=== PATIENT | female | born 1940 | race Caucasian/White ===

== ENCOUNTER 2020-05-31 08:01 | Emergency (ER) | payer MEDICARE, SELFPAY ==
--- NOTE | ~2020-05-31 | CT_ITS ---
EXAMINATION: CT brain wo con DATE: 05/31/2020 08:58 INDICATION: Head injury. TECHNIQUE: Computed tomography (CT) of the head was performed without intravenous contrast. The mA wa s adjusted according to patient size. Iterative reconstruction technique was employed. The dose-lengt h product was 605.33 mGy-cm. COMPARISON: None FINDINGS: There are scattered areas of low attenuation in the cerebral white matter. There is no intr acranial hemorrhage, acute infarction, or abnormal intracranial mass lesion. The ventricles are fifi l in size. There are likely changes of right ocular lens replacement surgery. There is mild mucosal t hickening in the ethmoid sinuses. There is a small left mastoid effusion. There is left periorbital s oft tissue swelling. IMPRESSION: 1. Moderate nonspecific cerebral white matter disease, which likely represents chronic small vessel i schemic disease. Reviewed, dictated and finalized at location A. IMPRESSION: 1. Moderate nonspecific cerebral white matter disease, which likely represents chronic small vessel ischemic disease.
--- NOTE | ~2020-05-31 | XR_ITS ---
XR ribs LT 2V w CXR 2V DATE: 05/31/2020 09:07 INDICATION: Fall. Left lower lateral rib injury, pain TECHNIQUE: AP and lateral chest. 3 views of the left ribs. COMPARISON: 08/22/2014 2 view chest FINDINGS: Heart size is borderline. There is thoracic aortic calcification. No pulmonary infiltrate o r consolidation, pleural effusion or pulmonary vascular congestion or pneumothorax is evident. Diffuse osteopenia. There are multiple acute left rib fractures including mild left third, fourth, fifth, sixth ribs. IMPRESSION: At least third through sixth left rib acute fractures No pneumothorax Reviewed, dictated and finalized at location A.
--- NOTE | ~2020-05-31 | CT_ITS ---
EXAMINATION: CT facial bones wo con DATE: 05/31/2020 08:58 INDICATION: Head injury. TECHNIQUE: Computed tomography (CT) of the facial bones and maxillofacial region was performed withou t intravenous contrast. Automated exposure control and iterative reconstruction technique were employ ed. The dose-length product was 321.02 mGy-cm. COMPARISON: None. FINDINGS: There is left periorbital soft tissue swelling. No orbital involvement. There are likely ch anges of right ocular lens replacement surgery. There is rightward deviation of the nasal septum. The re is mild mucosal thickening in the paranasal sinuses. There is a small left mastoid effusion. IMPRESSION: 1. No fracture. Reviewed, dictated and finalized at location A. IMPRESSION: 1. No fracture.
[2020-05-31 08:09] VITALS: BP 191/92; PULSE 82; RESP 18; TEMP 36.1; O2SAT 97
--- NOTE | 2020-05-31 08:38 | ED.FALL ---
HPI - Fall General Chief Complaint: Fall Stated Complaint: Fall Multiple Times, Rib Pain Time Seen by Provider: 05/31/20 08:20 Source: patient Mode of arrival: ambulatory History of Present Illness HPI Narrative: 80 years old white female presents with left forehead and left rib pain. History of multiple falls for months. Also chronic pain all over the body, currently on hydrocodone. Patient had a fall 2 days ago, her knees gave out, went down on her knees then head left forehead on a rocking chair. No loss of consciousness, no complaints. Patient had another fall 1 week ago landed on the chest and has been having left chest pain since. Patient on Coumadin. Patient denies any fever, chills, nausea, vomiting, headache, shortness of breath, neck pain, exposure to anybody known having COVID-19 Related Data Home Medications Medication Instructions Recorded Confirmed ergocalciferol (vitamin D2) 1,250 mcg PO WEEKLY 05/31/20 [Drisdol] furosemide See Rx Instructions .ROUTE .COMPLEX 05/31/20 hydrocodone-acetaminophen [[place]] 1 tablet PO Q8H PRN 05/31/20 lisinopril DAILY 05/31/20 potassium chloride meq PO DAILY 05/31/20 warfarin See Rx Instructions .ROUTE .COMPLEX 05/31/20 Allergies Allergy/AdvReac Type Severity Reaction Status Date / Time No Known Allergies Allergy Verified 05/31/20 08:20 Review of Systems Review of Systems: Narrative: CONSTITUTIONAL: Denies fever, chills, or sweats. EYES: Denies visual changes, redness, or discharge. ENT: Denies rhinorrhea, congestion, sore throat, or otalgia. CARDIOVASCULAR: Denies chest pain, palpitations, or edema. RESPIRATORY: Denies cough or dyspnea. GASTROINTESTINAL: Denies abdominal pain, nausea, vomiting, or diarrhea. GENITOURINARY: Denies dysuria or hematuria. SKIN: Denies rash or itching. MUSCULOSKELETAL: Denies back pain, joint pain, or myalgia. NEUROLOGIC: Denies headache, numbness, or weakness. PSYCHIATRIC: Denies anxiety or depression. [facility] Family History Family History Mother Hypertension, Onset Age: 73 Cerebrovascular accident, Onset Age: 73 Family history of arthritis, Onset Age: 73 Grandparent Acute myocardial infarction, Onset Age: 82 Sibling Family history of malignant neoplasm Father Family history of coronary artery disease Family history of pancreatic disease Social History Social History Smoking status: Never smoker Alcohol intake: never Gender identity (if verbalized by the patient): Female Exam Narrative: Exam Narrative: General appearance: Well-developed, well-nourished Skin: Normal color, bruises of the upper and lower eyelids Head: Normocephalic, nontraumatic Eyes: Clear conjunctiva ENT: Oropharynx normal, ears normal, nose normal Neck: Supple, nontender Chest and respiratory: Airway patent, no respiratory distress, no accessory muscle use, severe tenderness left chest Heart: Regular rate/rhythm Abdomen: Soft, nontender, no organomegaly, quiet bowel sounds Vascular: Normal peripheral pulses, normal capillary refill. 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 Reevaluation(s) Date: 05/31/20 Time: 10:39 Vital Signs Vital signs: Vital Signs Temperature 36.1 C L 05/31/20 08:09 Pulse Rate 82 05/31/20 08:09 Respiratory Rate 18 05/31/20 08:09 Bloo
[2020-05-31] MEDS: HYDROcodone/acetaminophen (*CRX) 5-325 MG TABLET 1 TAB PO (09:11)
[2020-05-31 09:14] VITALS: BP 179/94; PULSE 77; RESP 16; O2SAT 98
[2020-05-31 10:00] LABS: Basophils Percent Auto 0.4 % (0.2-1.2); Eosinophils Absolute Auto 0.1 K/mm3 (0-0.3); Eosinophils Percent Auto 1.9 % (0-4.4); Hematocrit 32.3 % (37.0-47.0); Hemoglobin 10.4 g/dL (12.0-15.0); Immature Granulocyte Absolute 0.01 K/mm3 (0.00-0.031); Immature Granulocyte Percent A 0.2 % (0-0.5); Lymphocytes Absolute Auto 1.01 K/mm3 (0.9-3.2); Lymphocytes Percent Auto 19.5 % (18.3-44.2); Mean Corpuscular HGB Conc 32.2 g/dl (32-36); Mean Corpuscular Hemoglobin 29.1 pg (26-34); Mean Corpuscular Volume 90.5 fl (80-100); Mean Platelet Volume 9.1 fl (7.4-10.4); Monocytes Absolute Auto 0.8 K/mm3 (0.1-0.6); Neutrophils Absolute Auto 3.2 K/mm3 (1.3-6.7); Platelet Count Result 262 k/mm3 (150-375); Red Blood Count 3.57 M/mm3 (4.2-5.4); Red Cell Distribution Width 14.8 % (11.5-14.5); White Blood Count 5.2 K/mm3 (4.5-10.0)
[2020-05-31 10:04] LABS: Add Urine Microscopic? YES; Appearance Urine Clear (Clear); Bilirubin Urine Negative (Negative); Blood Urine Negative (Negative); Color Urine Straw (Yellow); Glucose Urine UA Negative (Negative); Ketones Urine Negative (Negative); Leukocyte Esterase Ur Trace LEU/UL (Negative); Nitrate Urine Negative (Negative); Protein Urine Negative (Negative); RBC Urine 0-2 /hpf (0-2); Squamous Epithelial Cell Urine Rare /hpf (Few); Urobilinogen Urine Negative mg/dL (<2.0); WBC Urine 0-3 /hpf
[2020-05-31 10:10] LABS: INR 2.1; Prothrombin Time 22.7 Seconds (11.1-14.7)
[2020-05-31 10:13] LABS: Alanine Aminotransferase 10 U/L (4-35); Albumin Level 4.2 g/dL (3.5-5.1); Alkaline Phosphatase 105 U/L (38-126); Anion Gap 6 mmol/L (8-16); Aspartate Amino Transferase 27 U/L (14-36); Blood Urea Nitrogen 14 mg/dL (7-17); Calcium 9.3 mg/dL (8.4-10.2); Carbon Dioxide 31 mmol/L (22-30); Chloride 95 mmol/L (98-107); Estimated CRCL calculation 43 ml/min; Estimated Glomerular Filt Rate 60; Glucose 99 mg/dL (65-105); Potassium 5.3 mmol/L (3.4-5.0); Sodium 132 mmol/L (137-145)
[2020-05-31 11:59] VITALS: BP 136/90; PULSE 88; RESP 20; O2SAT 96
== END 2020-05-31 11:00 | disposition home or self-care (01) ==
PROVIDERS: Emergency Provider Emergency Medicine; PCP Family Medicine
DX: S22.42XA Multiple fractures of ribs, left side, initial encounter for closed fracture (principal); W19.XXXA Unspecified fall, initial encounter; S00.12XA Contusion of left eyelid and periocular area, initial encounter; W01.190A Fall on same level from slipping, tripping and stumbling with subsequent striking against furniture, initial encounter; Z79.01 Long term (current) use of anticoagulants
CPT/HCPCS: 36415; 70450; 70486; 71046; 71100; 80053; 81001; 85025; 85610; 99284; A9270

== ENCOUNTER 2021-08-21 12:20 | Outpatient (CLI) | payer MEDICARE, SELFPAY ==
--- NOTE | ~2021-08-21 | US_ITS ---
EXAMINATION: US carotid duplex BI EXAM DATE: 08/21/2021 13:26 INDICATION: Dizziness And Giddiness . TECHNIQUE: Grayscale, color and pulsed Doppler images of the cervical carotid arteries were obtained . The degree of vessel stenosis is placed in one of the following categories: normal, <50% stenosis, 50-69% stenosis, >=70% stenosis but less than near-occlusion, near-occlusion, or occlusion. Note that percent stenosis relative to normal distal artery lumen diameter is indirectly measured from velocit y measurements as described by Castro, et al. Radiology 2003; 229:340-346. There is no prior study fo r comparison. FINDINGS: RIGHT SIDE: Right common carotid artery peak systolic velocity (PSV in cm/s): 72 Right bulb/internal carotid artery peak systolic velocity (PSV in cm/s): 155 Right internal carotid artery end diastolic velocity (EDV in cm/s): 39 Right ICA/CCA peak systolic ratio: 2.0 Right external carotid artery peak systolic velocity (PSV in cm/s): 26 Right vertebral artery antegrade flow: yes There is minimal carotid bifurcation plaque with discordant mildly elevated velocity. Visually, less than 50% stenosis category. LEFT SIDE: Left common carotid artery peak systolic velocity (PSV in cm/s): 79 Left bulb/internal carotid artery peak systolic velocity (PSV in cm/s): 81 Left internal carotid artery end diastolic velocity (EDV in cm/s): 22 Left ICA/CCA peak systolic ratio: 1.0 Left external carotid artery peak systolic velocity (PSV in cm/s): 82 Left vertebral artery antegrade flow: yes There is no focal plaque identified. IMPRESSION: 1. Less than 50 percent stenosis in the right internal carotid artery. 2. Normal left internal carotid artery. Reviewed, dictated and finalized at location B. 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
== END 2021-08-21 12:21 | disposition home or self-care (01) ==
PROVIDERS: PCP Family Medicine; Visit Provider Family Medicine
DX: R42 Dizziness and giddiness (principal); I65.23 Occlusion and stenosis of bilateral carotid arteries
CPT/HCPCS: 93880

== ENCOUNTER 2021-11-25 14:40 | Outpatient (CLI) | payer MEDICARE, SELFPAY ==
--- NOTE | ~2021-11-25 | XR_ITS ---
XR shoulder RT min 2V DATE: 11/25/2021 15:12 INDICATION: Right shoulder pain for one month, bruising. No known injury. TECHNIQUE: 4 views COMPARISON: October 31, 2018 right shoulder FINDINGS: Diffuse osteopenia. There is prominent periarticular spurring at the glenohumeral joint consistent with osteoarthritis. T here is joint space narrowing spurring at the acromioclavicular joint consistent with degenerative ch shea. There is calcification of the region of the cortex, suggesting calcific tendinitis. No fracture or dislocation, periosteal reaction or bone destruction is detected. 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
--- NOTE | ~2021-11-25 | XR_ITS ---
XR humerus RT DATE: 11/25/2021 15:12 INDICATION: Right shoulder and arm pain, bruising TECHNIQUE: AP and lateral views of right humerus COMPARISON: None FINDINGS: Diffuse osteopenia. Degenerative change at the right acromion clavicular joint. Right glenohumeral osteoarthritis. 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 Calcification in the region of the rotator cuff suggesting calcific tendinitis. No fracture, dislocation, periosteal reaction or bone destruction of the humerus is detected. IMPRESSION: Osteopenia Calcific tendinitis of rotator cuff Degenerative changes of the acromioclavicular, glenohumeral and elbow joints Reviewed, dictated and finalized at location A.
== END 2021-11-25 14:41 | disposition home or self-care (01) ==
LOC: ANHIMG 14:47
PROVIDERS: PCP Family Medicine; Visit Provider Physician Assistant
DX: M19.011 Primary osteoarthritis, right shoulder (principal); M19.021 Primary osteoarthritis, right elbow; M77.8 Other enthesopathies, not elsewhere classified
CPT/HCPCS: 73030; 73060

== ENCOUNTER 2022-03-16 08:52 | Outpatient (CLI) | payer MEDICARE, MEDICAID, SELFPAY ==
--- NOTE | ~2022-03-16 | XR_ITS ---
XR shoulder RT min 2V 03/16/2022 09:20 Indication: Right shoulder pain Procedure: 3 views right shoulder Comparison: 11/25/2021 Findings: Moderate osteoarthritis of the right glenohumeral joint. There is a loose body adjacent to the glenoid process. Prominent marginal osteophyte inferiorly at the glenoid process. Mild osteoarthr itis of the acromioclavicular joint. Osteopenia. No acute fracture, subluxation or dislocation. There is possible subtle chondrocalcinosis. 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 Reviewed, dictated and finalized at location B. 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
== END 2022-03-16 08:53 | disposition home or self-care (01) ==
LOC: ANHIMG 09:01
PROVIDERS: PCP Family Medicine; Visit Provider Physician Assistant
DX: M25.511 Pain in right shoulder (principal); M19.011 Primary osteoarthritis, right shoulder
CPT/HCPCS: 73030

== ENCOUNTER 2022-06-30 11:57 | Outpatient (CLI) | payer MEDICARE, MEDICAID, SELFPAY ==
--- NOTE | ~2022-06-30 | XR_ITS ---
XR shoulder RT min 2V 06/30/2022 12:28 Indication: Right shoulder pain and popping sensation Procedure: 4 views right shoulder Comparison: Comparison to multiple prior studies sequentially, with oldest reviewed study dated 08/2018. Findings: There is anterior shoulder dislocation. There is a ossific loose body superior to the gleno humeral joint. This is unchanged from prior study. Cannot exclude avulsion fracture from the glenoid process. There is degenerative change of the acromioclavicular joint which is in anatomic alignment. Osteopenia. Impression: 1: Right anterior shoulder dislocation. Cannot exclude underlying glenoid process fracture. Reviewed, dictated and finalized at location A. [employer] ARTISTIC DIRECTOR Impression: 1: Right anterior shoulder dislocation. Cannot exclude underlying glenoid proce ss fracture.
== END 2022-06-30 11:58 | disposition home or self-care (01) ==
PROVIDERS: PCP Family Medicine; Visit Provider Family Medicine
DX: M25.511 Pain in right shoulder (principal); S43.004A Unspecified dislocation of right shoulder joint, initial encounter
CPT/HCPCS: 73030

== ENCOUNTER 2022-07-03 08:19 | Emergency (ER) | payer MEDICARE, MEDICAID, SELFPAY ==
[2022-07-03] VITALS (29 sets, daily range): BP systolic 93–225; BP diastolic 64–171; PULSE 65–74; RESP 14–36; TEMP 36.4–37; O2SAT 89–100
--- NOTE | ~2022-07-03 | XR_ITS ---
EXAMINATION: XR shoulder RT min 2V DATE: 07/03/2022 10:38 INDICATION: Right shoulder dislocation status post reduction. TECHNIQUE: 2 views of right shoulder were obtained. COMPARISON: Right shoulder radiographs 06/30/2022 FINDINGS: There is anterior subluxation of right humeral head with respect to glenoid. No fracture. T here is at least mild osteoarthritis of glenohumeral joint. There is a loose body in the humeral join t. There is severe acromioclavicular joint osteoarthritis. IMPRESSION: 1. Anterior subluxation of humeral head with respect to glenoid. 2. Polyarticular osteoarthritis. Reviewed, dictated and finalized at location A. 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
--- NOTE | ~2022-07-03 | XR_ITS ---
EXAMINATION: XR shoulder RT min 2V DATE: 07/03/2022 11:08 INDICATION: Right shoulder dislocation status post reduction. TECHNIQUE: 2 views of right shoulder were obtained. COMPARISON: Right shoulder radiographs at 10:32 AM FINDINGS: There is normal alignment at glenohumeral joint. No fracture. There is at least mild osteoa rthritis of glenohumeral joint. There is severe acromioclavicular joint osteoarthritis. There is a lo ose body in glenohumeral joint. IMPRESSION: 1. Normal alignment at glenohumeral joint. 2. Polyarticular osteoarthritis. Reviewed, dictated and finalized at location A. SORTER
--- NOTE | 2022-07-03 08:32 | ED.GENADULT ---
HPI - General Adult General Chief complaint: Extremity Injury, Upper Stated complaint: shoulder injury Time Seen by Provider: 07/03/22 08:31 Source: patient, family and RN notes reviewed Mode of arrival: ambulatory Limitations: no limitations History of Present Illness HPI narrative: Patient was bending over to place a socks on her foot, felt a pop at the right shoulder, 1 week ago. Later patient went to her family doctor who ordered an x-ray of the right shoulder on June 30, 2022 which showed right anterior shoulder dislocation. Cannot exclude underlying glenoid process fracture. Patient came to our emergency room this morning for management she denies other injuries. Related Data Home Medications Medication Instructions Recorded Confirmed ergocalciferol (vitamin D2) 1,250 1,250 mcg PO WEEKLY 05/31/20 mcg (50,000 unit) capsule (Drisdol) furosemide 20 mg tablet See Rx Instructions .Route .COMPLEX 05/31/20 hydrocodone 5 mg-acetaminophen 325 1 tablet PO Q8H PRN Pain 05/31/ mg tablet ([place]) lisinopril 20 mg tablet DAILY 05/31/20 potassium chloride 20 mEq meq PO DAILY 05/31/20 tablet,extended release(part/cryst) warfarin 5 mg tablet See Rx Instructions .Route .COMPLEX 05/31/20 Allergies Allergy/AdvReac Type Severity Reaction Status Date / Time No Known Allergies Allergy Verified 07/03/22 08:28 Review of Systems Review of Systems: All systems reviewed & are unremarkable except as noted in HPI and below PMFSH Family History Family History Mother Hypertension, Onset Age: 73 Cerebrovascular accident, Onset Age: 73 Family history of arthritis, Onset Age: 73 Grandparent Acute myocardial infarction, Onset Age: 82 Sibling Family history of malignant neoplasm Father Family history of coronary artery disease Family history of pancreatic disease Social History Social History Smoking status: Never smoker Alcohol intake: never Gender identity (if verbalized by the patient): Female Exam Narrative: General appearance: Well-developed, well-nourished Skin: Normal color Head: Normocephalic, nontraumatic Eyes: Clear conjunctiva ENT: Oropharynx normal, ears normal, nose normal Neck: Supple, nontender Chest and respiratory: Airway patent, no respiratory distress, no accessory muscle use Heart: Regular rate/rhythm Abdomen: Soft, nontender, no organomegaly, quiet bowel sounds Vascular: Normal peripheral pulses, normal capillary refill. Musculoskeletal: Right shoulder examination showed diffuse swelling, diffuse tenderness, deformity, severe limited range of motion, sling in place Neurologic: Alert and oriented ?3, ELECTRICAL CONTRACTOR is normal as tested, no gross motor deficit Course Consultations Consultation #1: DR BROUSSARD Outpatient follow-up Date: 07/03/22 Time: 11:38 Vital Signs Vital signs: Vital Signs Temperature 36.8 C 07/03/22 08:23 Pulse Rate 65 07/03/22 08:23 Respiratory Rate 18 07/03/22 08:23 Blood Pressure 167/71 H 07/03/22 08:23 Pulse Oximetry 98 07/03/22 08:23 Oxygen Delivery Room Air 07/03/22 08:23 Temperature 36.8 C 07/03/22 11:27 Pulse Rate 70 07/03/22 11:27 Respiratory Rate 14 07/03/22 11:27 Blood Pressure 114/64 07/03/22 11:27 Pulse Oximetry 97 07/03/22 11:27 Oxygen Delivery Room Air 07/03/22 11:27 Oxygen Flow Rate 2 07/03/22 10:59 Procedures Orthopedic Joint Reduction Joint #1: Orthopedic Joint Reduction Date: 07/03/22 Orthopedic Joint Reduction Time: 11:42 Time Out Performed: Yes (15) Side: rig
[2022-07-03] MEDS: IBUPROFEN 600 MG TABLET PO (08:51)
[2022-07-03] MEDS: HYDROcodone/acetaminophen (*CRX) 5-325 MG TABLET 1 TAB PO (08:52)
--- NOTE | 2022-07-03 10:45 | PC.NURSE ---
Pt. prepped for moderate sedation. Pt and daughter understand all risks and benefits.
--- NOTE | 2022-07-03 10:55 | PC.NURSE ---
Etomidate [address] Wren at bedside.
--- NOTE | 2022-07-03 10:58 | PC.NURSE ---
Right shoulder reduced with moderate sedation. Tolerated well. Shoulder immobilizer placed. PMS intact.
--- NOTE | 2022-07-03 10:59 | PC.NURSE ---
Xrays done at bedside.
[2022-07-03] MEDS: SODIUM CHLORIDE 0.9% IV 1,000 ML 999 ML IV CONT (11:14)
[2022-07-03] MEDS: ETOMIDATE 20 MG/10 ML AMPUL 10 MG IV PUSH (11:20)
--- NOTE | 2022-07-03 11:30 | PC.NURSE ---
Awake and talking. A & O x3. Daughter at bedside.
== END 2022-07-03 12:05 | disposition home or self-care (01) ==
PROVIDERS: Emergency Provider Emergency Medicine; PCP Family Medicine
DX: S43.011A Anterior subluxation of right humerus, initial encounter (principal); M19.011 Primary osteoarthritis, right shoulder; Z79.01 Long term (current) use of anticoagulants
CPT/HCPCS: 23650; 73030; 96374; 96375; 99285; A9270; J7030

== ENCOUNTER 2024-03-13 10:13 | Outpatient (CLI) | payer MEDICARE, MEDICAID, SELFPAY ==
[2024-03-13 11:27] LABS: Add Urine Microscopic? NO; Appearance Urine Clear (Clear); Bilirubin Urine Negative (Negative); Blood Urine Negative (Negative); Color Urine Yellow (Yellow); Glucose Urine UA Negative (Negative); Ketones Urine Negative (Negative); Leukocyte Esterase Ur Negative LEU/UL (Negative); Nitrate Urine Negative (Negative); Protein Urine Negative (Negative); Specific Grav Ur 1.012 (1.001-1.035); Urobilinogen Urine 0.2 mg/dL (<2.0); pH Urine 7.5 (5.0-9.0)
[2024-03-13 11:52] LABS: MALB Creatinine Ratio 141.5 mg/g (0-30); Microalbumin Urine Random 66.5 mg/L (0-16.7)
[2024-03-13 12:04] LABS: Basophils Absolute Auto 0.1 K/mm3 (0.0-0.1); Basophils Percent Auto 1.3 % (0.2-1.2); Eosinophils Absolute Auto 0.1 K/mm3 (0-0.3); Eosinophils Percent Auto 2.8 % (0-4.4); Hematocrit 33.1 % (37.0-47.0); Hemoglobin 10.5 g/dL (12.0-15.0); Immature Granulocyte Absolute 0.02 K/mm3 (0.00-0.031); Immature Granulocyte Percent A 0.5 % (0-0.5); Lymphocytes Absolute Auto 0.83 K/mm3 (0.9-3.2); Lymphocytes Percent Auto 21.2 % (18.3-44.2); Mean Corpuscular HGB Conc 31.7 g/dl (32-36); Mean Corpuscular Hemoglobin 28.2 pg (26-34); Mean Platelet Volume 9.9 fl (7.4-10.4); Monocytes Absolute Auto 0.7 K/mm3 (0.1-0.6); Monocytes Percent Auto 17.6 % (2.6-8.5); Neutrophils Absolute Auto 2.2 K/mm3 (1.3-6.7); Neutrophils Percent Auto 56.6 % (45.5-73.1); Platelet Count Result 287 k/mm3 (150-375); Red Blood Count 3.72 M/mm3 (4.2-5.4); Red Cell Distribution Width 14.6 % (11.5-14.5); White Blood Count 3.9 K/mm3 (4.5-10.0)
[2024-03-13 12:15] LABS: Alanine Aminotransferase 12 U/L (6-35); Albumin Level 4.2 g/dL (3.5-5.1); Alkaline Phosphatase 64 U/L (38-126); Anion Gap 7 mmol/L (4-12); Aspartate Amino Transferase 29 U/L (14-36); Bilirubin,Total 0.9 mg/dL (0.2-1.3); Blood Urea Nitrogen 24 mg/dL (7-17); Calcium 9.2 mg/dL (8.4-10.2); Carbon Dioxide 32 mmol/L (22-30); Chloride 94 mmol/L (98-107); Cholesterol 155 mg/dL (0-200); Estimated Glomerular Filt Rate > 60; Glucose 90 mg/dL (65-110); HDL Direct 65 mg/dL; Potassium 4.4 mmol/L (3.4-5.0); Sodium 133 mmol/L (137-145); Triglycerides 48 mg/dL (<150); Uric Acid 4.4 mg/dL (2.5-7.5)
[2024-03-13 12:26] LABS: LDL Cholesterol Direct 66 mg/dL
[2024-03-13 13:22] LABS: Vitamin B12 > 1000.0 pg/mL (239-931)
[2024-03-13 13:57] LABS: Hemoglobin A1C 5.6 % (<5.7)
== END 2024-03-13 10:14 | disposition home or self-care (01) ==
PROVIDERS: PCP Family Medicine; Visit Provider Internal Medicine
DX: I10 Essential (primary) hypertension (principal); M19.90 Unspecified osteoarthritis, unspecified site; R20.0 Anesthesia of skin; Z86.718 Personal history of other venous thrombosis and embolism
CPT/HCPCS: 36415; 80053; 80061; 81003; 82043; 82607; 82746; 83036; 84443; 84550; 85025

== ENCOUNTER 2024-08-30 09:06 | Outpatient (CLI) | payer MEDICARE, MEDICAID, SELFPAY ==
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
--- OUTSIDE RECORDS SUMMARY | 2024-08-30 09:34 | XMS_ITS | Data Portability ---
Author Organization [place] - [facility] Address [address] [place] [address] Assessment Encounter Date Assessment Date Assessment LastModified by Organization Details LastModified Time 05/24/2024 05/24/2024 Patient presente d to office today for their Medicare Annual Wellness Visit. Education was provided on healthy nutrition, including a diet rich in fruits and vegetables, minimizing simple carbohydrates, salt, and saturated fats. Encouraged regular cardiovascular exercise such as walking at least 30 minutes daily, 5 times per week. Emphasized preventive health measures and educated pt on fall prevention and community-based lifestyle interventions to help reduce health risks and promote healthy living. [email or web address] Not available 05/24/2024 12:06:38 Plan of Treatment Reminders Order Date Submit Date Provider Last Modified By Organization Details Last Modified Time Details Appointments Follow Up 15 2024 10:30A M Joshua Hermosillo MD Not available Not available Not available Lab urinalysi s, dipstick 2023 [facility], [address], [place], [address], 04/26/2024 12:55:29 Referral None recorded. Procedures None recorded. Surgeries None recorded. Imaging bone density 2023 024 [facility] Scheduling, [address] [facility], [place], [address], 05/29/2024 15:45:58 XR, thoracic spine, 2 view 2023 024 [facility] Scheduling, [place], [address], 07/20/2024 13:18:33 XR, lumbar spine, 2 view 2023 [facility] Scheduling, [place], [address], 05/30/2024 14:06:59 XR, thoracic spine, 2 view 2023 024 [facility] Scheduling, [place], [address], 06/28/2024 04:05:08 Medication Orders Eliquis 2.5 mg tablet 2023 025 [facility] #49637, [address] [place] [address], [id number], 08/16/2024 12:12:01 oxybutyni n chloride ER 5 mg tablet,ex tended release 24 hr 2023 024 [facility] #59829, [address] [place] [address], [id number], 04/26/2024 12:36:11 hydrocodo ne 10 mg-acetam inophen 325 mg tablet 2023 024 [facility] #18903, [address], [place], [id number], 04/26/2024 12:36:19 amlodipin e 5 mg tablet 2023 024 [facility] #95056, [address], [place], [id number], 05/24/2024 12:38:23 losartan 100 mg tablet 2023 024 [facility] #89921, [address] [facility], [place], [place], [id number], 05/24/2024 12:38:24 hydrochlo rothiazid e 25 mg tablet 2023 [facility] #03444, [address] [facility], [place], [place], [id number], 05/24/2024 12:38:25 carvedilo l 6.25 mg tablet 2023 [facility] #91940, [address] [place] [address], [id number], 05/24/2024 12:38:21 hydrocodo ne 10 mg-acetam inophen 325 mg tablet 2023 [facility] #78950, [address] [place] [address], [id number], 05/24/2024 12:38:26 alendrona te 10 mg tablet 2023 [facility] #40229, [address] [place] [address], [id number], 06/21/2024 15:51:27 gabapenti n 600 mg tablet 2023 [facility] #82060, [address] [place] [address], [id number], 06/21/2024 15:55:09 hydrocodo ne 10 mg-acetam inophen 325 mg tablet 2023 [facility] #02087, [address] [place] [address], [id number], 06/21/2024 15:51:36 omeprazol e 40 mg capsule,d elayed release 2023 024 [facility] #18957, [address], [place], [id number], 07/20/2024 13:06:08 hydrocodo ne 10 mg-acetam inophen 325 mg tablet 2023 024 [facility] #06151, [address], [place], [id number], 07/20/2024 13:05:54 omeprazol e 40 mg capsule,d elayed release 2024 025 [facility] #14480, [address], [place], [id number], 08/16/2024 12:50:47 hydrocodo ne 10 mg-acetam inophen 325 mg tablet 2024 025 [facility] #88998, [address], [place], [id number], 08/16/2024 12:50:48 Patient TargetsNo targets recorded. Patient Instructions Encounter Date Encounter Id Patient Instructions Last Modified By Organization Details Last Modified Time 04/26/2024 [id number] arthritis: care instructions [email or web address] Not available 04/26/2024 12:36:04 gastroesophageal reflux disease (GERD): care instructions [email or web address] Not available 04/26/2024 12:36:04 anemia: care instructions [email or web address] Not available 04/26/2024 12:36:05 surgery to repai r a hip fracture: before your surgery [email or web address] Not available 04/26/2024 12:36:05 learning about m ood disorders [email or web address] Not available 04/26/2024 12:36:05 05/24/2024 [id number] arthritis: care instructions [email or web address] Not available 05/24/2024 12:38:14 osteoporosis: ca re instructions [email or web address] Not available 05/24/2024 12:38:14 healthy upper ba ck: exercises [email or web address] Not available 05/24/2024 12:42:03 learning about m ood disorders [email or web address] Not available 05/24/2024 12:38:13 gastroesophageal reflux disease (GERD): care instructions [email or web address] Not available 05/24/2024 12:38:13 advance care planning: care instructions [email or web address] Not available 05/24/2024 12:38:13 anemia: care instructions [email or web address] Not available 05/24/2024 12:38:13 surgery to repai r a hip fracture: before your surgery [email or web address] Not available 05/24/2024 12:38:13 I spent a total of _38 minutes (excluding separately reportable procedure time ) in care of this patient. Not available 05/24/2024 12:29:29 06/21/2024 [id number] osteoporosis: ca re instructions [email or web address] Not available 06/21/2024 15:51:21 arthritis: care instructions [email or web address] Not available 06/21/2024 15:51:20 gastroesophageal reflux disease (GERD): care instructions [email or web address] Not available 06/21/2024 15:51:20 anemia: care instructions [email or web address] Not available 06/21/2024 15:51:20 surgery to repai r a hip fracture: before your surgery [email or web address] Not available 06/21/2024 15:51:20 healthy upper ba ck: exercises [email or web address] Not available 06/21/2024 15:51:21 learning about m ood disorders [email or web address] Not available 06/21/2024 15:51:20 I spent a total of _32 minutes (excluding separately reportable procedure time ) in care of this patient. [email or web address] Not available 06/21/2024 15:55:57 07/20/2024 [id number] osteoporosis: ca re instructions [email or web address] Not available 07/20/2024 13:05:44 arthritis: care instructions [email or web address] Not available 07/20/2024 13:05:44 gastroesophageal reflux disease (GERD): care instructions [email or web address] Not available 07/20/2024 13:05:44 anemia: care instructions [email or web address] Not available 07/20/2024 13:05:44 surgery to repai r a hip fracture: before your surgery [email or web address] Not available 07/20/2024 13:05:44 healthy upper ba ck: exercises [email or web address] Not available 07/20/2024 13:05:44 learning about m ood disorders [email or web address] Not available 07/20/2024 13:05:44 I spent a total of _32 minutes (excluding separately reportable procedure time ) in care of this patient. [email or web address] Not available 07/20/2024 15:24:06 08/16/2024 [id number] osteoporosis: ca re instructions [email or web address] Not available 08/16/2024 12:50:41 arthritis: care instructions [email or web address] Not available 08/16/2024 12:50:41 gastroesophageal reflux disease (GERD): care instructions [email or web address] Not available 08/16/2024 12:50:41 anemia: care instructions Not available 08/16/2024 12:50:41 surgery to repai r a hip fracture: before your surgery [email or web address] Not available 08/16/2024 12:50:41 healthy upper ba ck: exercises [email or web address] Not available 08/16/2024 12:50:41 learning about m ood disorders [email or web address] Not available 08/16/2024 12:50:41 I spent a total of __35____ minutes (excluding separately reportable procedure time ) in care of this patient. [email or web address] Not available 08/16/2024 12:52:59 Reason for Referral None Reported. Results Created Date Observation Date Name Description Value Unit Range Abnormal Flag Note LastModifiedBy Organization Detail LastModifiedTime 04/26/20 24 04/26/2024 URINA LYSIS REFLE X TO URINE CULTU RE color LIGHT YELLOW yellow Not Available [facility] [address], [place], [address], 04/27/2024 15:51:48 04/26/20 24 04/26/2024 URINA LYSIS REFLE X TO URINE CULTU RE appearance CLEAR clear Not Available [facility] [address] [facility] [address], [place], [address], 04/27/2024 15:51:48 04/26/20 24 04/26/2024 URINA LYSIS REFLE X TO URINE CULTU RE glucose NEGATI VE mg/dL negati ve Not Available [facility] [address] [facility] [address], [place], [address], 04/27/2024 15:51:48 04/26/20 24 04/26/2024 URINA LYSIS REFLE X TO URINE CULTU RE bilirubin NEGATI VE negati ve Not Available [facility] [address] [facility] [address], [place], [address], 04/27/2024 15:51:48 04/26/20 24 04/26/2024 URINA LYSIS REFLE X TO URINE CULTU RE blood NEGATI VE negati ve Not Available [facility] [address] [facility] [address], [place], [address], 04/27/2024 15:51:48 04/26/20 24 04/26/2024 URINA LYSIS REFLE X TO URINE CULTU RE ketone NEGATI VE mg/dL negati ve Not Available [facility] [address] [facility] [address], [place], [address], 04/27/2024 15:51:48 04/26/20 24 04/26/2024 URINA LYSIS REFLE X TO URINE CULTU RE specific gravity 1.010 1.005- 1.030 Not Available [facility] [address] [facility] [address], [place], [address], 04/27/2024 15:51:48 04/26/20 24 04/26/2024 URINA LYSIS REFLE X TO URINE CULTU RE pH 7.0 4.5 - 8.0 Not Available [facility] [address] [facility] [address], [place], [address], 04/27/2024 15:51:48 04/26/20 24 04/26/2024 URINA LYSIS REFLE X TO URINE CULTU RE protein 15 mg/dL negati ve Not Available [facility] [address] [facility] [address], [place], [address], 04/27/2024 15:51:48 04/26/20 24 04/26/2024 URINA LYSIS REFLE X TO URINE CULTU RE urobilinogen 0.20 eu/dL 0.00-1 .00 Not Available [facility] [address] [facility] [address], [place], [address], 04/27/2024 15:51:48 04/26/20 24 04/26/2024 URINA LYSIS REFLE X TO URINE CULTU RE nitrite NEGATI VE negati ve Not Available [facility] [address] [facility] [address], [place], [address], 04/27/2024 15:51:48 04/26/20 24 04/26/2024 URINA LYSIS REFLE X TO URINE CULTU RE leukocyte esterase NEGATI VE negati ve Not Available [facility] [address] [facility] [address], [place], [address], 04/27/2024 15:51:48 04/26/20 24 04/26/2024 URINA LYSIS REFLE X TO URINE CULTU RE color LIGHT YELLOW yellow Not Available [facility] [address] [facility] [address], [place], [address], 04/27/2024 15:51:48 04/26/20 24 04/26/2024 URINA LYSIS REFLE X TO URINE CULTU RE appearance CLEAR clear Not Available [facility] [address] [facility] [address], [place], [address], 04/27/2024 15:51:48 04/26/20 24 04/26/2024 URINA LYSIS REFLE X TO URINE CULTU RE glucose NEGATI VE mg/dL negati ve Not Available [facility] [address] [facility] [address], [place], [address], 04/27/2024 15:51:48 04/26/20 24 04/26/2024 URINA LYSIS REFLE X TO URINE CULTU RE bilirubin NEGATI VE negati ve Not Available [facility] [address] [facility] [address], [place], [address], 04/27/2024 15:51:48 04/26/20 24 04/26/2024 URINA LYSIS REFLE X TO URINE CULTU RE blood NEGATI VE negati ve Not Available [facility] [address] [facility] [address], [place], [address], 04/27/2024 15:51:48 04/26/20 24 04/26/2024 URINA LYSIS REFLE X TO URINE CULTU RE ketone NEGATI VE mg/dL negati ve Not Available [facility] [address] [facility] [address], [place], [address], 04/27/2024 15:51:48 04/26/20 24 04/26/2024 URINA LYSIS REFLE X TO URINE CULTU RE specific gravity 1.010 1.005- 1.030 Not Available [facility] [address] [facility] [address], [place], [address], 04/27/2024 15:51:48 04/26/20 24 04/26/2024 URINA LYSIS REFLE X TO URINE CULTU RE pH 7.0 4.5 - 8.0 Not Available [facility] [address] [facility] [address], [place], [address], 04/27/2024 15:51:48 04/26/20 24 04/26/2024 URINA LYSIS REFLE X TO URINE CULTU RE protein 15 mg/dL negati ve Not Available [facility] [address] [facility] [address], [place], [address], 04/27/2024 15:51:48 04/26/20 24 04/26/2024 URINA LYSIS REFLE X TO URINE CULTU RE urobilinogen 0.20 eu/dL 0.00-1 .00 Not Available [facility] [address], [place], [address], 04/27/2024 15:51:48 04/26/20 24 04/26/2024 URINA LYSIS REFLE X TO URINE CULTU RE nitrite NEGATI VE negati ve Not Available [facility] [address] [facility] [address], [place], [address], 04/27/2024 15:51:48 04/26/20 24 04/26/2024 URINA LYSIS REFLE X TO URINE CULTU RE leukocyte esterase NEGATI VE negati ve Not Available [facility] [address] [facility] [address], [place], [address], 04/27/2024 15:51:48 04/26/20 24 04/26/2024 urina lysis , dipst ick Leukocytes Negati ve Not Available [facility] [address], [place], [address], 04/26/2024 12:28:32 04/26/20 24 04/26/2024 urina lysis , dipst ick Nitrite negati ve Not Available [facility] [address], [place], [address], 04/26/2024 12:28:32 04/26/20 24 04/26/2024 urina lysis , dipst ick Urobilinogen .2 Not Available [facility] [address], [place], [address], 04/26/2024 12:28:32 04/26/20 24 04/26/2024 urina lysis , dipst ick Protein Trace Not Available [facility] [address], [place], [address], 04/26/2024 12:28:32 04/26/20 24 04/26/2024 urina lysis , dipst ick pH 5.0 Not Available [facility] [address], [place], [address], 04/26/2024 12:28:32 04/26/20 24 04/26/2024 urina lysis , dipst ick Blood Negati ve Not Available [facility] [address], [place], [address], 04/26/2024 12:28:32 04/26/20 24 04/26/2024 urina lysis , dipst ick Specific [place] 1.000 Not Available [facility] [address], [place], [address], 04/26/2024 12:28:32 04/26/20 24 04/26/2024 urina lysis , dipst ick Ketone Negati ve Not Available [facility] [address], [place], [address], 04/26/2024 12:28:32 04/26/20 24 04/26/2024 urina lysis , dipst ick Bilirubin Negati ve Not Available [facility] [address], [place], [address], 04/26/2024 12:28:32 04/26/20 24 04/26/2024 urina lysis , dipst ick Glucose Negati ve Not Available [facility] [address], [place], [address], 04/26/2024 12:28:32 04/26/20 24 04/26/2024 urina lysis , dipst ick Appearance Clear Not Available [facility] [address], [place], [address], 04/26/2024 12:28:32 04/26/2004/26/2024 urina lysis , dipst ick Color Pale Yellow Not Available [facility] [address], [place], [address], 04/26/2024 12:28:32 05/29/2005/29/2024 bone densi ty No observ ation record ed. [address], [address], 06/21/2024 15:36:40 05/30/2005/29/2024 XR, lumba r spine , 2 view No observ ation record ed. [address], [address], 06/21/2024 15:36:40 07/20/2005/29/2024 XR, thora cic spine , 2 view No observ ation record ed. [address], [address], 08/16/2024 12:38:27 Result Notes None recorded. Problems Name Problem SNOMED Code Status Onset Date Resolution Date Notes Provider Name and Address Organization Details Recorded Time Osteoarthritis 505507393 Active Anaya Dall null, [facility] 4 14:39:25 Essential hypertension 09888600 Active Anaya Dall null, [facility] 4 14:40:11 Gastroesophage al reflux disease 436465743 Active Anaya Dall null, [facility] 4 14:41:34 Depressive disorder 36416293 Active 2023 Anaya Dall null, [facility] 4 14:42:57 Degeneration of lumbar intervertebral disc 20536341 Active 2023 Joshua Hermosillo MD [address], [place], [address], [facility] 4 15:17:44 Paresthesia of hand 939915372 Active 2023 Joshua Hermosillo MD [address], [place], [address], [facility] 4 15:18:54 Fracture of femur 72012877 Active 2023 Joshua Hermosillo MD [address], [place], [address], [facility] 4 17:58:27 Anemia 793849253 Active 2023 Joshua Hermosillo MD [address], [place], [address], [facility] 4 15:25:22 Overactive urinary bladder 027784555 Active 2023 Joshua Hermosillo MD [address], [place], [address], [facility] 4 12:28:22 Fatigue 76948499 Active 2023 Joshua Hermosillo MD [address], [place], [address], [facility] 4 12:29:31 Nocturia 260279042 Active 2023 Joshua Hermosillo MD [address], [place], [address], [facility] 4 12:32:31 Recurrent urinary tract infection 418240282 Active 2023 [facility] 4 12:56:14 Osteoporosis 35666836 Active 2023 Joshua Hermosillo MD [address], [place], [address], [facility] 4 12:33:24 Thoracic back pain 652676040 Active 2023 Joshua Hermosillo MD [address] [facility] [address] [facility], [place], [address], [facility] 4 12:39:40 Traumatic subdural hematoma 075509069 Active 2024 Joshua Hermosillo MD [address], [place], [address], [facility] 5 12:47:55 Problem Notes None recorded. Procedures Surgical History None recorded. Imaging Results Imaging Date Name Status LastModified by [facility] Details LastModified Time 05/29/2024 bone density active [address], [address], 06/21/2024 15:36:40 05/29/2024 XR, lumbar spine, 2 view active [address], [address], 06/21/2024 15:36:40 05/29/2024 XR, thoracic spine, 2 view completed [address], [address], 08/16/2024 12:38:27 Procedure Notes None recorded. Medical Equipment None Reported. Allergies No known drug allergies Medications Name Sig Start Date Stop Date Status Note LastModified by Organization Details LastModified Time alendronat e 10 mg tablet TAKE 1 TABLET BY MOUTH EVERY DAY active Not Available Not Available No t Available carvedilol 6.25 mg tablet TAKE 1 TABLET BY MOUTH TWICE DAILY active Not Available Not Available No t Available gabapentin 600 mg tablet Take 1 tablet 3 times a day by oral route for 90 days. 2023 active Not Available Not Available Not Avai lable alendronat e 70 mg tablet TAKE 1 TABLET BY MOUTH EVERY WEEK 07/20 completed Not Available Not Available Not Available venlafaxin e ER 150 mg capsule,ex tended release 24 hr TAKE 1 CAPSULE BY MOUTH EVERY DAY active Not Available Not Available No t Available amlodipine 5 mg tablet TAKE 1 TABLET BY MOUTH EVERY DAY active Not Available Not Available No t Available hydrocodon e 10 mg-acetami nophen 325 mg tablet TAKE 1 TABLET BY MOUTH EVERY 6 HOURS NEEDED active Not Available Not Available No t Available omeprazole 40 mg capsule,de layed release TAKE 1 CAPSULE BY MOUTH EVERY DAY active Not Available Not Available No t Available oxybutynin chloride ER 5 mg tablet,ext ended release 24 hr TAKE 1 TABLET BY MOUTH EVERY DAY active Not Available Not Available No t Available hydrochlor othiazide 25 mg tablet TAKE 1 TABLET BY MOUTH EVERY DAY active Not Available Not Available No t Available losartan 100 mg tablet TAKE 1 TABLET BY MOUTH DAILY active Not Available Not Available No t Available escitalopr am 20 mg tablet TAKE 1 TABLET BY MOUTH ONCE DAILY active Not Available Not Available No t Available B12 5,000 mcg-[address] 1 lozenge every day by sublingua l route. active Not Available Not Available No t Available Eliquis 2.5 mg tablet Take 1 tablet twice a day by oral route. 08/16 completed on hold until CT of head Not Available Not Available Not Available Vitals Date Recorded Body height Body temperature Body mass index (BMI) Body weight Heart rate Respiratory rate Oxygen saturation Oxygen saturation in Arterial blood by Pulse oximetry Systolic blood pressure Diastolic blood pressure Provider Name and Address Organization Details Last Updated DateTime 4 157.48 cm 98 [degF] 26.9 kg/m2 97077.0 8 g 68 /min 20 /min 98 % 98 % 120 mm[Hg] 64 mm[Hg] [facility] 4 12:12:40 Date Recorded Body height Body temperature Body mass index (BMI) Body weight Heart rate Respiratory rate Oxygen saturation Oxygen saturation in Arterial blood by Pulse oximetry Systolic blood pressure Diastolic blood pressure Provider Name and Address Organization Details Last Updated DateTime 4 157.48 cm 97.2 [degF] 27.6 kg/m2 23873.4 5 g 54 /min 18 /min 99 % 99 % 122 mm[Hg] 54 mm[Hg] [facility] 4 12:16:33 Date Recorded Body height Body temperature Body mass index (BMI) Body weight Heart rate Respiratory rate Oxygen saturation Oxygen saturation in Arterial blood by Pulse oximetry Systolic blood pressure Diastolic blood pressure Provider Name and Address Organization Details Last Updated DateTime 4 157.48 cm 97.4 [degF] 27.4 kg/m2 42185.8 6 g 57 /min 22 /min 96 % 96 % 122 mm[Hg] 76 mm[Hg] [facility] 4 15:31:06 Date Recorded Body height Body temperature Body mass index (BMI) Body weight Heart rate Respiratory rate Oxygen saturation Oxygen saturation in Arterial blood by Pulse oximetry Systolic blood pressure Diastolic blood pressure Provider Name and Address Organization Details Last Updated DateTime 4 157.48 cm 98 [degF] 26.7 kg/m2 89998.4 9 g 54 /min 20 /min 94 % 94 % 120 mm[Hg] 52 mm[Hg] [facility] 4 12:30:49 Date Recorded Body height Body temperature Body mass index (BMI) Body weight Heart rate Respiratory rate Oxygen saturation Oxygen saturation in Arterial blood by Pulse oximetry Systolic blood pressure Diastolic blood pressure Provider Name and Address Organization Details Last Updated DateTime 5 157.48 cm 97.2 [degF] 27.3 kg/m2 05496.2 6 g 72 /min 18 /min 96 % 96 % 122 mm[Hg] 60 mm[Hg] [facility] 5 12:11:13 Social History None recorded. Functional Status None recorded. Mental Status None recorded. Family History Nothing Reported Notes:MOTHER - MULTIPLE STRO KES, HIGH BLOOD PRESSURE FATHER - PANCREATITIS BROTHER - BRAIN CANCER SISTER - LUNG CANCER Medical History No medical history recorded. Gynecological HistoryNo gynecological history recorded. Obstetrics History GPAL:G 0 P 0 0 0 0 Immunizations Vaccine Type Date Status Note Provider Nam e and Address Organization Details Recorded Time Influenza, high-dose, quadrivalent, PF 1 completed Anaya Dall [facility] 02/22/2024 14:37:02 Influenza, high-dose, quadrivalent, PF 0 completed Anaya Dall null, [facility] 02/22/2024 14:37:02 Influenza, high-dose, quadrivalent, PF 2 completed Anaya Dall null, [facility] 02/22/2024 14:37:02 Influenza, high-dose, quadrivalent, PF 3 completed Anaya Dall null, [facility] 02/22/2024 14:37:02 COVID-19, mRNA, LNP-S, PF, 30 mcg/0.3 mL dose 1 completed Anaya Dall null, [facility] 02/22/2024 14:37:02 COVID-19, mRNA, LNP-S, PF, 30 mcg/0.3 mL dose 1 completed Anaya Dall null, [facility] 02/22/2024 14:37:02 SARS-COV-2 (COVID-19) vaccine, UNSPECIFIED 1 completed Anaya Dall null, [facility] 02/22/2024 14:37:02 Pneumococcal conjugate PCV 13 8 completed Anaya Dall null, [facility] 02/22/2024 14:37:02 Influenza, high-dose, trivalent, PF 6 completed Anaya Dall null, [facility] 02/22/2024 14:37:02 Influenza, high-dose, trivalent, PF 7 completed Anaya Dall null, [facility] 02/22/2024 14:37:02 Influenza, high-dose, trivalent, PF 9 completed Anaya Dall null, [facility] 02/22/2024 14:37:02 Influenza, high-dose, trivalent, PF 8 completed Naaya Dall null, [facility] 02/22/2024 14:37:02 COVID-19, mRNA, LNP-S, PF, 50 mcg/0.5 mL 4 completed Naya Eckart null, [facility] 06/21/2024 15:31:16 Influenza, high-dose, trivalent, PF 4 completed Naya Eckart [facility] 06/21/2024 15:31:16 Past Encounters Encounter ID Performer Location Encounter Start Date Encounter Closed Date Diagnosis/Indication Diagnosis SNOMED-CT Code Diagnosis ICD10 Code Diagnosis Note [id number] Joshua Hermosillo MD [facility] [address] [place] [address] 02/22/2024 14:07:22 02/22/2024 15:41:02 Osteoarthritis 834813105 M19.90 multiple joints. 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 Preventive procedure 169 938662 Z29.9 covid: 3 shotsflu: 0082sno47; 2018, recommend [id number] les: none Colonoscop y Mammogram Fracture of femur 122582 00 S72.92XS History of left femur fracture and has a isabell placement. Adult heal th examination 510252461 Z00.00 [id number] Joshua Hermosillo MD [facility] [address] [place] [address] 03/22/2024 14:53:45 03/22/2024 15:34:20 Essential hypertension 68293864 I10 on amlodipine carvedilol , hctz, losartanbp optimalblo od work reviewewed Osteoarthritis 820813192 M19.90 multiple joints. 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 Preventive procedure 169 459862 Z29.9 covid: 3 shotsflu: [id number]; 2018, recommend [id number] les: none Colonoscop y Mammogram Fracture of femur 876597 00 S72.92XS History of left femur fracture and has a isabell placement. Anemia 476183109 D64.9 hb low at 10.3. vitamin b12, foalte is normalchec k iron levelnormo cytic normochron oic anemia.no ckd noted.no blood in stool [id number] Joshua Hermosillo MD [facility] [address] [facility] [address] [place] [address] 04/26/2024 11:42:08 04/26/2024 12:39:32 Anemia 915200538 D64.9 hb low at 10.3. vitamin b12, foalte is normaliron level goodnormoc ytic normochron oic anemia.no ckd noted.no blood in stool Essential hypertension 62818141 I10 on amlodipine carvedilol , hctz, losartanbp optimalblo od work reviewed Osteoarthritis 295842426 M19.90 multiple joints. 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 Preventive procedure 169 842577 Z29.9 covid: 3 shotsflu: 2485apk80; 2018, recommend [id number] les: none Colonoscop y Mammogram Fracture of femur 984348 00 S72.92XS History of left femur fracture and has a isabell placement. Fatigue 81582790 R53.83 ongoing since past 3 weeks.not sleeping at nightlikel y etiologyla bs were unremarkab le 03/25 Nocturia 307216474 R35.1 recent urine is negative.w ill recheck againlikel y overactive bladder [id number] Joshua Hermosillo MD [facility] [address] [place] [address] 05/24/2024 11:39:49 05/24/2024 12:46:17 Adult health examination 392935908 Z00.00 diet a nd physical activity reviwedvac cines and screening tests reviewedme dication reviewed Fatigue 12567311 R53.83 ongoing since past 3 weeks.not sleeping at nightlikel y etiologyla bs were unremarkab le 03/25 Anemia 568900478 D64.9 hb low at 10.3. vitamin b12, foalte is normaliron level goodnormoc ytic normochron oic anemia.no ckd noted.no blood in stool Essential hypertension 21012746 I10 on amlodipine carvedilol , hctz, losartanbp optimalblo od work reviewed Osteoarthritis 699020856 M19.90 multiple joints. 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 Preventive procedure 169 353139 Z29.9 covid: 3 shotsflu: 2022 recommende dpcv13; 2018, recommend [id number] les: none: recommedne dRSV: recommende dColonosco py: many years ago. age prohibitiv eMammogram many years ago. age prohibitiv parker density: long time agodiscuss ed vaccinatio n with the patient and reviewed the vaccinatio n status Fracture of femur 719077 00 S72.92XS History of left femur fracture and has a isabell placement. Overactive urinary bladder 329495059 N32.81 recent urine is negative.r echeck was negative.l ikely overactive bladdersta rted on oxybutynin which Osteoporosis 09363800 M8 1.0 took fosamax only for a month and hence stopped.ca lcium and vitamin d replacemen t reviewed with the patient Thoracic back pain 46462 8004 M54.6 on and off intermitte nt pains [id number] Josuha Hermosillo MD [facility] [address] [place] [address] 06/21/2024 15:22:39 06/21/2024 15:59:58 Preventive procedure 442106394 Z29.9 covid: 3 shots, 2023flu: 2022, [id number]; 2018, recommend [id number] les: none: recommende dRSV: recommende dColonosco py: many years ago. age prohibitiv eMammogram many years ago. age prohibitiv parker density: 06/25: osteoporos isdiscusse d vaccinatio n with the patient and reviewed the vaccinatio n status Osteoporosis 00017770 M8 1.0 took fosamax only for a month and hence stopped due to nausea.caron cium and vitamin d replacemen t reviewed with the patientbon e density 05/25: osteoporos is.trial of lower dose of alendronat e.discusse d calcium and vitamin D. discussed with the patient Fatigue 25626975 R53.83 ongoing since past 3 weeks.not sleeping at nightlikel y etiologyla bs were unremarkab le 03/25 Overactive urinary bladder 575050098 N32.81 recent urine is negative.r echeck was negative.l adithya overactive bladdersta rted on oxybutynin which is helping Anemia 952053472 D64.9 hb low at 10.3. vitamin b12, foalte is normaliron level goodnormoc ytic normochron oic anemia.no ckd noted.no blood in stool Essential hypertension 34640548 I10 on amlodipine carvedilol , hctz, losartanbp optimalblo od work reviewed Osteoarthritis 129748073 M19.90 multiple joints. Involved Gastroesop hageal reflux disease 376614877 K21.9 on omeprazole History of total hip arthroplasty 0041790070 06 Z96.649 hx of bilateral hip arthroplas ty History of bilateral total knee replacement 5256088828 040432 Z96.653 hx of bilateral knee replacemen t Degenerati on of lumbar intervertebral disc 38607252 M51.360 multiple lumbar spine surgeries in the pasthx of vertebropl astyxr lumbar spine with ddd, no acute fracture Paresthesia of hand 3090 97753 R20.2 left hand in carpal tunnel distributi onlikely due to chronic wrist deformity due to old fracturesw ill increase gabapnetin to 1-0.5-1 History of recurrent deep vein thrombosis 3286913807 00408 Z86.718 last one 2013.3 episodeson elqiuis 2.5 mg bid Long-term current use of opiate analgesic drug 6854951579 62939 Z79.891 on chronic opiates for the chronic osteoarthr itis medication PDMP reviewedon gabapentin 600 mg po bid Depressive disorder 3548 9007 F32.A dx recently.h er 12/23feelin g low since then.on lexapro 20 mg daily as well as venlafaxin efeeling better on the medication s. Fracture of femur 128203 00 S72.92XS History of left femur fracture and has a isabell placement. Thoracic back pain 02411 8004 M54.6 on and off intermitte nt painsxr thoracic spine done but not completed [id number] Joshua Hermosillo MD [facility] [address] [place] [address] 07/20/2024 12:02:06 07/20/2024 13:08:42 Osteoporosis 18755731 M81.0 took fosamax only for a month and hence stopped due to nauseacalc ium and vitamin d replacemen t reviewed with the patientbon e density 05/25: osteoporos is.trial of lower dose of alendronat e and tolerating welldiscus sed calcium and vitamin D. discussed with the patient Thoracic back pain 50635 8004 M54.6 on and off intermitte nt painsxr thoracic spine done but has been done but not received it talked to [facility] medical records.xr thoracic spine with multilevel ddd, but no fracture noted Fatigue 37518886 R53.83 ongoing since past 3 weeks.not sleeping at nightlikel y etiologyla bs were unremarkab le 03/25 Overactive urinary bladder 551437295 N32.81 recent urine is negative.r echeck was negative.l adithya overactive bladdersta rted on oxybutynin which is helping Anemia 535311044 D64.9 hb low at 10.3. vitamin b12, folate is normaliron level goodnormoc ytic normochron ic anemia.no ckd noted.no blood in stool Essential hypertension 63659238 I10 on amlodipine carvedilol , hctz, losartanbp optimalblo od work reviewed Osteoarthritis 002618079 M19.90 multiple joints. Involved Gastroesop hageal reflux disease 615992280 K21.9 on omeprazole History of total hip arthroplasty 1427867727 06 Z96.649 hx of bilateral hip arthroplas ty History of bilateral total knee replacement 0476550059 069432 Z96.653 hx of bilateral knee replacemen t Degenerati on of lumbar intervertebral disc 52356248 M51.360 multiple lumbar spine surgeries in the pasthx of vertebropl astyxr lumbar spine with ddd, no acute fracture Paresthesia of hand 3090 20708 R20.2 left hand in carpal tunnel distributi onlikely due to chronic wrist deformity due to old fracturesw ill increase gabapentin to 1-0.5-1 History of recurrent deep vein thrombosis 5707169413 86763 Z86.718 last one 2012.3 episodeson eliquis 2.5 mg bid Long-term current use of opiate analgesic drug 4008510670 25343 Z79.891 on chronic opiates for the chronic osteoarthr itis medication PDMP reviewedon gabapentin 600 mg po bid Depressive disorder 3548 9007 F32.A dx recently.h er 12/23feelin g low since then.on lexapro 20 mg daily as well as venlafaxin efeeling better on the medication s. Fracture of femur 380723 00 S72.92XS History of left femur fracture and has a isabell placement. Preventive procedure 169 824384 Z29.9 covid: 3 shots, 2023flu: 2022, [id number]; 2018, recommend [id number] les: none: recommende dRSV: recommende dColonosco py: many years ago. age prohibitiv eMammogram many years ago. age prohibitiv parker density: 06/25: osteoporos isdiscusse d vaccinatio n with the patient and reviewed the vaccinatio n status [id number] Joshua Hermosillo MD [facility] [address] [place] [address] 08/16/2024 11:40:22 08/16/2024 12:55:58 Post-discharge follow-up 121846286 Z09 Admission Date: 025Dischar ge Date: 08/11/2024D iagnosis: subdural hematomame dications reconcille d and reviewed with the patienteli maurisio stopped Traumatic subdural hematoma 215741492 S06.5X0D fall 07/2024.2024 started having right sided weaknessct head with left falx subdural hematomael iquid stoppedshe takes this for recurrent dvtdiscuss ed risk and beneftis due to recurrent fallswill stop eliquis nowfu with neurosurge ry discussed. [facility] ct [facility] t[facility] Osteoporosis 29120820 M8 1.0 took fosamax only for a month and hence stopped due to nauseacalc ium and vitamin d replacemen t reviewed with the patientbon e density 05/25: osteoporos is.trial of lower dose of alendronat e and tolerating welldiscus sed calcium and vitamin D. discussed with the patient Thoracic back pain 31822 8004 M54.6 on and off intermitte nt painsxr thoracic spine done but has been done but not received it talked to [facility] medical records.xr thoracic spine with multilevel ddd, but no fracture noted Fatigue 61765915 R53.83 ongoing since past 3 weeks.not sleeping at nightlikel y etiologyla bs were unremarkab le 03/25 Overactive urinary bladder 565076858 N32.81 recent urine is negative.r echeck was negative.l ikely overactive bladdersta rted on oxybutynin which is helping Anemia 535700843 D64.9 hb low at 10.3. vitamin b12, folate is normaliron level goodnormoc ytic normochron ic anemia.no ckd noted.no blood in stool Essential hypertension 13993399 I10 on amlodipine carvedilol , hctz, losartanbp optimalblo od work reviewed Osteoarthritis 329791903 M19.90 multiple joints. Involved Gastroesop hageal reflux disease 231856315 K21.9 on omeprazole History of total hip arthroplasty 4301600951 06 Z96.649 hx of bilateral hip arthroplas ty History of bilateral total knee replacement 4834590289 792319 Z96.653 hx of bilateral knee replacemen t Degenerati on of lumbar intervertebral disc 11609787 M51.360 multiple lumbar spine surgeries in the pasthx of vertebropl astyxr lumbar spine with ddd, no acute fracture Paresthesia of hand 3090 94405 R20.2 left hand in carpal tunnel distributi onlikely due to chronic wrist deformity due to old fracturesw ill increase gabapentin to 1-0.5-1 History of recurrent deep vein thrombosis 8225495635 40374 Z86.718 last one 2013.3 episodeson eliquis 2.5 mg bid Long-term current use of opiate analgesic drug 6087793459 20049 Z79.891 on chronic opiates for the chronic osteoarthr itis medication PDMP reviewedon gabapentin 600 mg po bid Depressive disorder 3548 9007 F32.A dx recently.h er 12/23feelin g low since then.on lexapro 20 mg daily as well as venlafaxin efeeling better on the medication s. Fracture of femur 933057 00 S72.92XS History of left femur fracture and has a isabell placement. Preventive procedure 169 361494 Z29.9 covid: 3 shot, 2023flu: 2022, 1577djp32; 2018, recommend [id number] les: none: recommende dRSV: recommende dColonosco py: many years ago. age prohibitiv eMammogram many years ago. age prohibitiv parker density: 06/25: osteoporos isdiscusse d vaccinatio n with the patient and reviewed the vaccinatio n status Health Concerns Section Related Observation LastModified by Organization Detai ls LastModified Time None Recorded Concern Status LastModified by Organization Details LastModified Time None Recorded Advance Directives Directive None Recorded Payers Encounter Date Sequence Insurance Name Policy Number Policy Felipe Covered Member ID Felipe Member ID Guarantor Name 04/26/2024 1 [employer] (MEDICARE REPLACEMENT/ ADVANTAGE - PPO) [id number] Lauren D Boner [id number] Lauren D Boner 04/26/2024 2 [place] Lauren D Boner [id number] Lauren D Boner 05/24/2024 1 [employer] (MEDICARE REPLACEMENT/ ADVANTAGE - PPO) [id number] Lauren D Boner [id number] Lauren D Boner 05/24/2024 2 [place] Lauren D Boner [id number] Lauren D Boner 06/21/2024 1 [employer] (MEDICARE REPLACEMENT/ ADVANTAGE - PPO) [id number] Lauren D Boner [id number] Lauren D Boner 06/21/2024 2 [place] Lauren D Boner [id number] Lauren D Boner 07/20/2024 1 [employer] (MEDICARE REPLACEMENT/ ADVANTAGE - PPO) [id number] Lauren D Boner [id number] Lauren D Boner 07/20/2024 2 [place] Lauren D Boner [id number] Lauren D Boner 08/16/2024 1 [employer] (MEDICARE REPLACEMENT/ ADVANTAGE - PPO) [id number] ([id number] Lauren D Boner [id number] Lauren D Boner 08/16/2024 2 [place] Lauren D Boner [id number] Lauren D Boner Notes Date Note Type Note Provider Name and Address Organization Details Recorded Time 04/26/2024 text/html Pt here for foll ow up. C/o bilateral feet and leg pain 03/11, feeling fatigued x 3 weeks and having frequent urination during night. She is waking up at least 4 times a night for urination and never returning to sleep. Uses cane for ambulation. Hard of Hearing. No chest pain, shortness of breath, nausea or vomiting. Joshua Hermosillo MD [address] [facility] [address] [place], [address], [facility] 04/26/2024 12:39:26 05/24/2024 text/html Medicare Annual Wellness VisitReported bypatient.Diet and Nutrition:healthy diet Fracture Risk:no history of fractures; no recent explained fracture; no sudden unexplained fractures; no previous musculoskeletal injuries Physical Activity:exercises on a regular basis; recent increase in physical activity; good physical condition Depression Risk:never feels sad, empty, or tearful; no loss of interest in activities; no significant changes in weight; no sleep disturbances or insomnia; no agitation; no loss of energy; no feelings of worthlessness or guilt; no thoughts of suicide; no history of depression; no history of mood disorders Orientation:no disorientation to time; no disorientation to date; no disorientation to place Concentration and Memory:no decreased concentrating ability; no memory lapses or loss; does not forget words Speech/Motor difficulties:no speech difficulties; no difficulty expressing formulated concepts; no difficulty with fine manipulative tasks; no difficulty writing/copying; no slowed reaction time; does not knock things over when trying to pick them up Hearing:loss of hearing: in both ears Vision:no vision problems Activities of Daily Living:able to bathe with limited or no assistance; able to contol urination and bowels; able to dress with limited or no assistance; able to feed self with limited or no assistance; able to get out of chair or bed with limited or no assistance; able to groom with limited or no assistance; able to toilet with limited or no assistance Instrumental Activities of Daily Living:able to do house work with limited or no assistance; able to grocery shop with limited or no assistance; able to manage medications with limited or no assistance; able to manage money with limited or no assistance; able to prepare meals with limited or no assistance; able to use the phone with limited or no assistance Falls Risk Assessment:no frequent falls while walking; no fall in the past year; no fall since last visit; no dizziness/vertigo Home Safety:no unsafe kendy hazzards; no unsafe stairs; no unsafe gas appliances; working smoke/CO detectors; wears protective head gear for biking/high velocity; use of seatbelts; practicing 'safer sex'; no vision or hearing loss while driving; no fire arms; has hand bars in the bathroom/shower; good lighting in the home Pt here for annual wellness. She uses cane for assistance with ambulation. Steady gait. Lives alone. Denies any safety concerns in home. Safety rails are present in bathrooms. No falls noted. Depression screening negative. No concerns at this time. No chest pain, shortness of breath, nausea or vomiting. Recently traveled with sister for two weeks. Joshua Hermosillo MD [address] [facility] [address], [place], [address], [facility] 05/24/2024 12:42:39 06/21/2024 text/html Pt here for foll ow up. Uses cane for ambulation. No falls noted. Depression screening negative. Good appetite. C/O numbness and tingling in fingertips on left hand and toes on both feet. Joshua Hermosillo MD [address] [facility] [address], [place], [id number], [facility] 06/21/2024 15:56:02 07/20/2024 text/html Pt here for foll ow up. C/O falling twice last week. When she stood up from kitchen chair she fell over. Denies being dizzy, weak. No injuries noted. Fell when she leaned over to burr picker bottle of medicine off of floor. No injuries noted. She states she takes pain medication two-three times daily for chronic arthritis pain. Both falls were after morning medications taken. No chest pain, shortness of breath, nausea or vomiting. Lives alone. Joshua Hermosillo MD [address] [facility] [address], [place], [address], [facility] 07/20/2024 15:24:11 08/16/2024 text/html Pt fell on at home on front porch. Hit head on metal isabell/railing. Knot on back of head. She placed ice on head. Denies headache. On August 10, daughter took pt to [facility] ER for increased right leg/foot pain-heavy feeling-numbness/ting ling. CT showed small bleed. Eliquis put on hold. Pt discharged from [facility] on 08/11/2024 to home with home health with PT. Hospital meds reconciled with home medications. Changes noted in chart. Pt is staying independently at her house. Uses walker for ambulation. Pt scheduled for recheck CT 09/03/2024 in [place]. Denies any shortness of breath, chest pain, nausea or vomiting. Joshua Hermosillo MD [address] [facility] [address], [place], [address], [facility] 08/16/2024 12:54:13 OBGyn Episode No OBEpisode recorded.
--- OUTSIDE RECORDS SUMMARY | 2024-08-30 09:35 | XMS_ITS | Data Portability ---
Author Organization [facility] Who is [employer], Main Office Address [address] [place] [address] Assessment No assessment recorded. Plan of Treatment Reminders Order Date Submit Date Provider Last Modified By Organization Details Last Modified Time Details Appointments None recorded. Lab vitamin B12 + folate, serum or blood [address] (Lab), [address] [place], [address], 4 10:12:04 vitamin D, 1,25-dihydr oxy, serum [address] (Lab), [address] [place], [address], 4 10:11:37 BMP, serum or plasma [address] (Lab), [address] [place], [address], 4 10:13:07 lipid panel, serum [address] (Lab), [address] [place], [address], 4 10:12:34 BMP, serum or plasma [address] (Lab), [address] [place], [address], 4 13:56:01 BMP, serum or plasma 2023 024 [facility] (Lab), [address] [place], [address], 4 21:43:30 CBC w/ auto diff 2023 024 [email or web address] [facility] (Lab), [address] [place], [address], 4 08:07:02 ferritin, serum or plasma 2023 024 [facility] (Lab), [address] [place], [address], 4 21:48:24 iron + total iron-bindin g capacity (TIBC), serum 2023 024 [facility] (Lab), [address] [place], [address], 4 21:42:14 CBC w/ auto diff 2023 024 [facility] (Lab), [address] [place], [address], 4 21:03:12 vitamin B12 + folate, serum or blood [address] (Lab), [address] [place], [address], 4 08:00:08 vitamin D, 1,25-dihydr oxy, serum [address] (Lab), [address] [place], [address], 4 08:00:08 TSH, serum or plasma [address] (Lab), [address] [place], [address], 4 08:00:08 unlisted lab - CBC study 2023 024 [email or web address] [facility] (Lab), [address] [place], [address], 4 08:00:08 Referral None recorded. Procedures None recorded. Surgeries None recorded. Imaging None recorded. Medication Orders carvedilol 6.25 mg tablet 2023 024 [facility], [address] [place] [address], [address], 4 15:44:44 venlafaxine ER 75 mg capsule,ext ended release 24 hr 2023 024 [facility] [address], [address] [place] [address], [address], 4 15:44:46 venlafaxine ER 150 mg capsule,ext ended release 24 hr 2023 024 [facility] #[id number], [address] [place], [place], [id number], 4 16:59:52 alendronate 70 mg tablet 2023 024 [facility] #[id number], [address] [place], [place], [id number], 4 15:49:00 Patient TargetsNo targets recorded. Patient InstructionsNo instructions recorded. Reason for Referral None Reported. Results Created Date Observation Date Name Description Value Unit Range Abnormal Flag Note LastModifiedBy Organization Detail LastModifiedTime 11/30/19 24 11/30/2023 CBC/C OMPLE TE BLD COUNT W/DIF F white blood cells 4.5 x10'3 /uL 4.2-10 .8 Not Available [facility] (Lab) [address] [place], [address], 11/30/2023 21:03:12 11/30/19 24 11/30/2023 CBC/C OMPLE TE BLD COUNT W/DIF F red blood cells 3.84 x10'6 /uL 3.80-5 .20 Not Available [facility] (Lab) [address] [place], [address], 11/30/2023 21:03:12 11/30/19 24 11/30/2023 CBC/C OMPLE TE BLD COUNT W/DIF F hemoglobin 11.1 g/dL 12.0-1 5.6 low Not Available [facility] (Lab) [address] [place], [address], 11/30/2023 21:03:12 11/30/19 24 11/30/2023 CBC/C OMPLE TE BLD COUNT W/DIF F hematocrit 33.5 % 35.7-4 5.7 low Not Available [facility] (Lab) [address] [place], [address], 11/30/2023 21:03:12 11/30/19 24 11/30/2023 CBC/C OMPLE TE BLD COUNT W/DIF F mean red cell volume 87.2 fL 82.0-9 9.0 Not Available [facility] (Lab) [address] [place], [address], 11/30/2023 21:03:12 11/30/19 24 11/30/2023 CBC/C OMPLE TE BLD COUNT W/DIF F mean red cell hemoglobin 28.9 pg 27.0-3 3.0 Not Available [facility] (Lab) [address] [place], [address], 11/30/2023 21:03:12 11/30/19 24 11/30/2023 CBC/C OMPLE TE BLD COUNT W/DIF F mean RBC HGB concentratio n 33.1 g/dL 31.0-3 6.0 Not Available [facility] (Lab) [address] [place], [address], 11/30/2023 21:03:12 11/30/19 24 11/30/2023 CBC/C OMPLE TE BLD COUNT W/DIF F red cell distribution width 13.8 % 11.8-1 5.5 Not Available [facility] (Lab) [address] [place], [address], 11/30/2023 21:03:12 11/30/19 24 11/30/2023 CBC/C OMPLE TE BLD COUNT W/DIF F platelets 337 x10'3 /uL 150-40 0 Not Available [facility] (Lab) [address] [place], [address], 11/30/2023 21:03:12 11/30/19 24 11/30/2023 CBC/C OMPLE TE BLD COUNT W/DIF F mean platelet volume 9.8 fL 9.0-12 .4 Not Available [facility] (Lab) [address] [place], [address], 11/30/2023 21:03:12 11/30/19 24 11/30/2023 CBC/C OMPLE TE BLD COUNT W/DIF F neutrophils 52.8 % 39.0-7 2.0 Not Available [facility] (Lab) [address] [place], [address], 11/30/2023 21:03:12 11/30/19 24 11/30/2023 CBC/C OMPLE TE BLD COUNT W/DIF F lymphocytes 29.3 % 16.0-4 7.0 Not Available [facility] (Lab) [address] [place], [address], 11/30/2023 21:03:12 11/30/19 24 11/30/2023 CBC/C OMPLE TE BLD COUNT W/DIF F monocytes 14.1 % 5.0-12 .0 high Not Available [facility] (Lab) [address] [place], [address], 11/30/2023 21:03:12 11/30/19 24 11/30/2023 CBC/C OMPLE TE BLD COUNT W/DIF F eosinophils 2.2 % 1.0-7. 0 Not Available [facility] (Lab) [address] [place], [address], 11/30/2023 21:03:12 11/30/19 24 11/30/2023 CBC/C OMPLE TE BLD COUNT W/DIF F basophils 0.9 % 0.0-2. 0 Not Available [facility] (Lab) [address] [place], [address], 11/30/2023 21:03:12 11/30/19 24 11/30/2023 CBC/C OMPLE TE BLD COUNT W/DIF F immature granulocytes 0.7 % 0.00-0 .50 high Not Available [facility] (Lab) [address] [place], [address], 11/30/2023 21:03:12 11/30/19 24 11/30/2023 CBC/C OMPLE TE BLD COUNT W/DIF F neutrophils, absolute count 2.40 x10'3 /uL 1.5-8. 0 Not Available [facility] (Lab) [address] [place], [address], 11/30/2023 21:03:12 11/30/19 24 11/30/2023 CBC/C OMPLE TE BLD COUNT W/DIF F lymphocytes, absolute count 1.33 x10'3 /uL 1.07-3 .43 Not Available [facility] (Lab) [address] [place], [address], 11/30/2023 21:03:12 11/30/19 24 11/30/2023 CBC/C OMPLE TE BLD COUNT W/DIF F monocytes, absolute count 0.64 x10'3 /uL 0.29-0 .99 Not Available [facility] (Lab) [address] [place], [address], 11/30/2023 21:03:12 11/30/19 24 11/30/2023 CBC/C OMPLE TE BLD COUNT W/DIF F eosinophils, absolute count 0.10 x10'3 /uL 0.02-0 .53 Not Available [facility] (Lab) [address] [place], [address], 11/30/2023 21:03:12 11/30/19 24 11/30/2023 CBC/C OMPLE TE BLD COUNT W/DIF F basophils, absolute count 0.04 x10'3 /uL 0.01-0 .08 Not Available [facility] (Lab) [address] [place], [address], 11/30/2023 21:03:12 11/30/19 24 11/30/2023 CBC/C OMPLE TE BLD COUNT W/DIF F immature granulocytes ,absolute 0.03 x10'3 /uL 0.00-0 .05 Not Available [facility] (Lab) [address] [place], [address], 11/30/2023 21:03:12 11/30/19 24 11/30/2023 CBC/C OMPLE TE BLD COUNT W/DIF F nucleated red blood cells 0.0 % -0 Not Available [facility] (Lab) [address] [place], [address], 11/30/2023 21:03:12 11/30/19 24 11/30/2023 CBC/C OMPLE TE BLD COUNT W/DIF F NRBC# 0.00 x10'3 /uL Not Available [facility] (Lab) [address] [place], [address], 11/30/2023 21:03:12 11/30/19 24 11/30/2023 IRON/ TIBC PANEL total iron binding capacity 340 mcg/d L 265-47 5 Not Available [facility] (Lab) [address] [place], [address], 11/30/2023 21:46:33 11/30/19 24 11/30/2023 IRON/ TIBC PANEL % transferrin saturation 24 % 20-55 Not Available [facility] (Lab) [address] [place], [address], 11/30/2023 21:46:33 11/30/19 24 11/30/2023 IRON/ TIBC PANEL unsaturated iron bind capacity 257 mcg/d L 126-38 2 Not Available [facility] (Lab) [address] [place], [address], 11/30/2023 21:46:33 11/30/19 24 11/30/2023 IRON/ TIBC PANEL iron 83 mcg/d L 42-175 Not Available [facility] (Lab) [address] [place], [address], 11/30/2023 21:46:33 11/30/19 24 11/30/2023 BASIC METAB OLIC PANEL sodium 130 mmol/ L 137-14 5 low Not Available [facility] (Lab) [address] [place], [address], 11/30/2023 21:43:30 11/30/19 24 11/30/2023 BASIC METAB OLIC PANEL potassium 3.9 mmol/ L 3.5-5. 1 Not Available [facility] (Lab) [address] [place], [address], 11/30/2023 21:43:30 11/30/19 24 11/30/2023 BASIC METAB OLIC PANEL chloride 94 mmol/ L 98-107 low Not Available [facility] (Lab) [address] [place], [address], 11/30/2023 21:43:30 11/30/19 24 11/30/2023 BASIC METAB OLIC PANEL carbon dioxide 29 mmol/ L 22-30 Not Available [facility] (Lab) [address] [place], [address], 11/30/2023 21:43:30 11/30/19 24 11/30/2023 BASIC METAB OLIC PANEL anion gap 10.9 mmol/ L 14-22 low Not Available [facility] (Lab) [address] [place], [address], 11/30/2023 21:43:30 11/30/19 24 11/30/2023 BASIC METAB OLIC PANEL glucose 80 mg/dL 70-99 Not Available [facility] (Lab) [address] [place], [address], 11/30/2023 21:43:30 11/30/19 24 11/30/2023 BASIC METAB OLIC PANEL BUN 16 mg/dL 8-19 Not Available [facility] (Lab) [address] [place], [address], 11/30/2023 21:43:30 11/30/19 24 11/30/2023 BASIC METAB OLIC PANEL creatinine 0.75 mg/dL 0.66-1 .25 Not Available [facility] (Lab) [address] [place], [address], 11/30/2023 21:43:30 11/30/19 24 11/30/2023 BASIC METAB OLIC PANEL GFR >60 Refer ence Range : Sheldon ge GFR Healt hy Adult : >60 mL/mi n/1.7 3 m2 Chron ic Kidne y Disea se: 15-60 mL/mi n/1.7 3 m2 Kidne y Failu re: <15/m L/min /1.73 m2 www.n iddk. nih.g ov The MDRD study equat ion has not been valid ated in child timothy <18 years of age; pregn ant women ; the elder ly >85 years of age; or in some racia l or ethni c subgr oups, such as Hispa nics. Outsi de the valid ated sathish eters , estim ated GFR is less accur ate, requi ring clini caron judgm ent on a case- by-ca se basis . Clini caron inter preta tion for other races and ages must be made by the clini anny. The MDRD study equat ion has not been valid ated for the evalu ation of serum creat inine relat ed to nutri taryn l statu s or medic ation usage . For perso ns <18 years of age, a pedia tric GFR calcu lator is avail able on the [facility] websi te: https ://ww w.kid eliud.o rg/pr ofess ional s/kdo qi/gf r_cal culat or Not Available [facility] (Lab) [address] [place], [address], 11/30/2023 21:43:30 11/30/19 24 11/30/2023 BASIC METAB OLIC PANEL calcium 9.2 mg/dL 8.4-10 .2 Not Available [facility] (Lab) [address] [place], [address], 11/30/2023 21:43:30 11/30/19 24 11/30/2023 SHAHANA TIN ferritin 36 NG/mL 11.1-2 64 Not Available [facility] (Lab) [address] [place], [address], 11/30/2023 21:48:24 01/25/20 24 01/25/2024 URINE DRUG SCREE N amphetamines NEGATI VE Amphe tamin e cut off 500 ng/mL Not Available [facility] (Lab) [address] [place], [address], 01/25/2024 23:25:43 01/25/20 24 01/25/2024 URINE DRUG SCREE N barbiturates NEGATI VE Patricia turat e cut off 200 ng/mL Not Available [facility] (Lab) [address] [place], [address], 01/25/2024 23:25:43 01/25/20 24 01/25/2024 URINE DRUG SCREE N benzodiazepi alicia NEGATI VE Benzo diaze pine cut off 200 ng/mL Not Available [facility] (Lab) [address] [place], [address], 01/25/2024 23:25:43 01/25/20 24 01/25/2024 URINE DRUG SCREE N cocaine NEGATI VE Cocai ne metab olite cut off 150 ng/mL Not Available [facility] (Lab) [address] [place], [address], 01/25/2024 23:25:43 01/25/20 24 01/25/2024 URINE DRUG SCREE N fentanyl NEGATI VE Fenta nyl cut off 1.0 ng/mL Not Available [facility] (Lab) [address] [place], [address], 01/25/2024 23:25:43 01/25/20 24 01/25/2024 URINE DRUG SCREE N methadone NEGATI VE Metha done cutof f 300 ng/mL . Not Available [facility] (Lab) [address] [place], [address], 01/25/2024 23:25:43 01/25/20 24 01/25/2024 URINE DRUG SCREE N opiates POSITI VE abnormal Opiat e cut off 300 ng/mL Not Available [facility] (Lab) [address] [place], [address], 01/25/2024 23:25:43 01/25/20 24 01/25/2024 URINE DRUG SCREE N oxycodone NEGATI VE Oxyco done cut off 100 ng/mL Not Available [facility] (Lab) [address] [place], [address], 01/25/2024 23:25:43 01/25/20 24 01/25/2024 URINE DRUG SCREE N phencyclidin e NEGATI VE PCP cut off 25 ng/mL Not Available [facility] (Lab) [address] [place], [address], 01/25/2024 23:25:43 01/25/20 24 01/25/2024 URINE DRUG SCREE N marijuana NEGATI VE abnormal Marij uana cut off 50 ng/mL ANY POSIT VLADIMIR RESUL TS REPOR GILBERTO ARE UNCON FIRME D, AND SUCH, SHOUL D BE USED FOR MEDIC AL TREAT MENT PURPO SES ONLY. Not Available [facility] (Lab) [address] [place], [address], 01/25/2024 23:25:43 Result Notes None recorded. Problems Name Problem SNOMED Code Status Onset Date Resolution Date Notes Provider Name and Address Organization Details Recorded Time Arthritis of left knee 6838169288761 104 Active 2020 Not Available [facility] 3 00:46:19 History of right total knee replacemen t 3970080308489 102 Active 2020 Not Available [facility] 3 00:46:20 Otitis media of left ear 8760782679749 100 Active 2012 Not Available [facility] 3 00:46:20 History of total knee arthroplas ty 5345597775096 Active 2020 Not Available [facility] 3 00:46:20 Deep venous thrombosis 726452702 Active 2019 x 2 Not Available [facility] 3 00:46:20 Abscess 275628938 Active 2019 Not Available [facility] 3 00:46:20 Chronic back pain 691234146 Active 2019 Not Available [facility] 3 00:46:20 Acute sinusitis 42786099 Active 2012 Not Available [facility] 3 00:46:20 Pain of right shoulder joint 7977541172888 9100 Active 2021 Not Available [facility] 3 00:46:20 Acute suppurativ e otitis media 714919752 Active 2012 Not Available [facility] 3 00:46:21 Degenerati ve joint disease involving multiple joints 294450482 Active 2012 Not Available [facility] 3 00:46:21 Hand joint pain 533800654 Active 2013 Not Available [facility] 3 00:46:21 Fibromyalg ia 849967282 Active 2013 Not Available [facility] 3 00:46:21 Chronic tension-ty pe headache 527493604 Active 2012 Not Available [facility] 3 00:46:21 Gastroesop hageal reflux disease 405691061 Active 2013 Not Available [facility] 3 00:46:21 Headache 24127418 Active 2012 Not Available [facility] 3 00:46:21 Arthralgia of the ankle and/or foot 591865451 Active 2013 Not Available [facility] 3 00:46:21 Syncope 083910300 Active 2020 Not Available [facility] 3 00:46:21 Knee pain Active 2009 Not Available [facility] 3 00:46:22 Osteopenia 802964682 Active 2017 DEXA 02/16 Not Available [facility] 3 00:46:22 Vitamin D deficiency 11654471 Active 2012 Not Available [facility] 3 00:46:22 Closed fracture of hip 013447111 Active 2018 Not Available [facility] 3 00:46:22 Arthritis 8402929 Active 2019 Not Available [facility] 3 00:46:22 Hypertensi ve disorder 24610293 Active Not Available [facility] 3 00:46:22 Nausea 160259908 Active 2013 Not Available [facility] 3 00:46:23 Strain of trapezius muscle 102107748 Active 2012 Not Available [facility] 3 00:46:23 Periprosth etic fracture 615438601 Active 2020 Not Available [facility] 3 00:46:23 Hyperlipid emia 78309463 Active 2019 Not Available [facility] 3 00:46:23 Joint pain 12012818 Active 2013 Not Available [facility] 3 00:46:23 Essential hypertensi on 71027765 Active 2012 Not Available [facility] 3 00:46:23 Long-term current use of anticoagul ant 633964425 Active 2012 Not Available [facility] 3 00:46:24 Fracture of femur 43863939 Active 2018 Not Available [facility] 3 00:46:24 Bilateral lower limb edema 107575796 Active 2013 Not Available [facility] 3 00:46:24 Neck pain 49923389 Active 2019 Not Available [facility] 3 00:46:24 Iron deficiency anemia 48854600 Active 2020 Not Available [facility] 3 00:46:24 Perioral dermatitis 525070711 Active 2022 UDAY Hayward [address], [address], [place], [address] , [employer] [facility] 3 10:15:36 Fatigue 55808914 Active 2022 Sydnee Sheldon MD [address], [address], [place], [address] , [employer] [facility] 3 07:39:25 Dysuria 35026513 Active 2022 Sydnee Sheldon MD [address], [address], [place], [address] , [facility] 3 15:32:24 Overactive urinary bladder 537002853 Active 2022 UDAY Hayward [address], [address], [place], [address] , [employer] [facility] 3 09:38:42 Compressio n fracture of lumbar spine 121808989 Active 2022 Sydnee Sheldon MD [address], [address], [place], [address] , [employer] 3 11:46:41 Osteoarthr itis of multiple joints 385724828 Active 2022 Dmitry Kent, [employer] [address], [address], [place], [address] , [employer] 3 16:17:44 Mixed anxiety and depressive disorder 026252340 Active 2023 Dmitry Kent, [employer]IT[employer] [address], [address], [place], [address] , [employer] 4 15:33:38 Hyponatrem ia 48274327 Active 2023 Dmitry Kent, [employer]IT[employer] [address], [address], [place], [address] , [employer] 4 10:54:43 Dark stools 33695641 Active 2023 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 Procedures Surgical History Date Name Laterality Status Provider Name and Address Organization Details Recorded Time 10/13/19 Medicare Wellness CPT Code, Initial completed Vera Bañuelos RN [facility] 10/09/2022 12:04:59 12/10/19 Total knee arthroplasty completed Not Available [facility] 09/30/2022 00:42:08 Imaging Results None recorded. Procedure Notes None recorded. Medical Equipment None Reported. Allergies Allergen ID Allergen Name Allergen Category Reaction Reaction Severity Criticality Documentation Date Start Date Code Code System Note Provider Name and Address Organization Details Recorded Time 362 duloxetin e medicatio n nausea Not available Not available 09/30/2022 24870 RxNorm Not Available [facility] 3 00:51:19 Medications Name Sig Start Date Stop Date Status Note LastModified by Organization Details LastModified Time cyclobenzap rine 10 mg tablet TAKE ONE TABLET BY MOUTH AT BEDTIME 08/17 completed Not Available Not Available Not Available amoxicillin 500 mg capsule 04/14 completed Not Available Not Available Not Available methocarbam ol 500 mg tablet Take 1 tablet every 6 hours by oral route as needed. active Not Available Not Available No t Available Xylocaine with Epinephrine 2 %-1:100,000 injection solution Take 2 mL every day by injection route for 1 day. 10/24 completed Not Available Not Available Not Available carvedilol 25 mg tablet TAKE 1 TABLET BY MOUTH TWICE DAILY 10/06 completed Not Available Not Available Not Available clonidine HCl 0.1 mg tablet active Not Available Not Available Not Available acetaminoph en 325 mg tablet 650 mg every 4 hours by oral route. 12/24 completed Not Available Not Available Not Available carvedilol 6.25 mg tablet TAKE 1 TABLET BY MOUTH TWICE DAILY active Not Available Not Available No t Available prednisone 10 mg tablet active Not Available Not Available Not Available venlafaxine ER 75 mg capsule,ext ended release 24 hr TAKE 1 CAPSULE BY MOUTH ONCE DAILY active Not Available Not Available No t Available gabapentin 600 mg tablet TAKE 1 TABLET BY MOUTH TWICE DAILY active Not Available Not Available No t Available atorvastati n 20 mg tablet TAKE 1 TABLET BY MOUTH NIGHTLY AT BEDTIME 07/08 completed Not Available Not Available Not Available carvedilol 12.5 mg tablet TAKE 1 TABLET BY MOUTH TWICE DAILY 10/06 completed Not Available Not Available Not Available azithromyci n 250 mg tablet TAKE 2 TABLETS (500 MG) BY ORAL ROUTE ONCE DAILY FOR 1 DAY THEN 1 TABLET (250 MG) BY ORAL ROUTE ONCE DAILY FOR 4 DAYS active Not Available Not Available No t Available lidocaine 5 % topical cream Apply 1 applicati on every 12 hours by topical route as directed. 05/18 completed Not Available Not Available Not Available ofloxacin 0.3 % eye drops INSTILL 1 DROP INTO AFFECTED EYE THREE TIMES DAILY STARTING 2 DAYS BEFORE SURGERY 07/08 completed Not Available Not Available Not Available tizanidine 4 mg tablet Take 1 tablet every 8 hours by oral route as needed. active Not Available Not Available No t Available hydrocodone 5 mg-acetamin ophen 325 mg tablet TAKE 1 TO 2 (ONE TO TWO) TABLETS BY MOUTH EVERY 6 HOURS NEEDED FOR PAIN 07/07 completed Not Available Not Available Not Available lisinopril 20 mg tablet TAKE 1 TABLET BY MOUTH ONCE DAILY 03/17 completed Not Available Not Available Not Available prednisone 20 mg tablet 2 po qday x 5 days with food in AM active Not Available Not Available No t Available alendronate 70 mg tablet TAKE 1 TABLET BY MOUTH EVERY WEEK active Not Available Not Available No t Available lovastatin 40 mg tablet 04/15 completed Not Available Not Available Not Available gabapentin 400 mg capsule Take 1 capsule 3 times a day by oral route. active Not Available Not Available No t Available atenolol 25 mg tablet 1/2 tab po qday 04/02 completed Not Available Not Available Not Available venlafaxine ER 150 mg capsule,ext ended release 24 hr TAKE 1 CAPSULE BY MOUTH EVERY DAY active Not Available Not Available No t Available hydralazine 25 mg tablet TAKE 1 TABLET BY MOUTH EVERY 8 HOURS 07/08 completed Not Available Not Available Not Available acetaminoph en 300 mg-codeine 30 mg tablet TAKE 1 TABLET BY MOUTH EVERY 4 TO 6 HOURS dx neck pain 11/02 completed Not Available Not Available Not Available amlodipine 5 mg tablet Take 1 tablet every day by oral route for 90 days. 2023 active Not Available Not Available Not Avai lable sulfamethox azole 800 mg-trimetho prim 160 mg tablet TAKE 1 TABLET BY MOUTH TWICE DAILY FOR 7 DAYS 01/13 completed Not Available Not Available Not Available hydrocodone 10 mg-acetamin ophen 325 mg tablet TAKE 1 TABLET BY MOUTH EVERY 6 HOURS NEEDED active Not Available Not Available No t Available omeprazole 40 mg capsule,del ayed release TAKE 1 CAPSULE BY MOUTH EVERY DAY active Not Available Not Available No t Available tramadol 50 mg tablet TAKE ONE TABLET BY MOUTH EVERY 6 HOURS NEEDED FOR PAIN 11/30 completed Not Available Not Available Not Available triamcinolo ne acetonide 0.1 % topical cream APPLY A THIN LAYER TO THE AFFECTED AREA(S) BY TOPICAL ROUTE 2 TIMES PER DAY active Not Available Not Available No t Available ketorolac 30 mg/mL (1 mL) injection solution 1 ml IM x 1 11/02 completed [facility]-0 [id number] [id number] Not Available Not Available Not Available amoxicillin 500 mg tablet Take 1 tablet twice a day by oral route for 7 days. 04/14 completed Not Available Not Available Not Available warfarin 4 mg tablet Take 4 mg by oral route. 12/02 completed Not Available Not Available Not Available ketorolac 0.5 % eye drops INSTILL 1 DROP INTO OPERATIVE EYE THREE TIMES DAILY BEGINNING 2 DAYS BEFORE SURGERY active Not Available Not Available No t Available prednisone 10 mg tablets in a dose pack Take 1 tab by mouth, 3 times a day for 3 daysTake 1 tab by mouth 2 times a day for 2 daysTake 1 tab by mouth once a day for 1 day 10/24 completed Not Available Not Available Not Available warfarin 6 mg tablet TAKE 1 TABLET BY MOUTH ONCE DAILY FOR 30 DAYS 05/26 completed Not Available Not Available Not Available potassium chloride ER 20 mEq tablet,exte nded release(par t/cryst) Take 20 milliequi valents by oral route. 12/02 completed Not Available Not Available Not Available amitriptyli ne 25 mg tablet Take 1 tablet every day by oral route at bedtime. active Not Available Not Available No t Available prednisolon e acetate 1 % eye drops,suspe nsion INSTILL 1 DROP INTO SURGICAL EYE THREE TIMES DAILY BEGINNING AFTER SURGERY 07/08 completed Not Available Not Available Not Available ascorbic acid (vitamin C) 500 mg tablet 500 mg twice a day by oral route. 2020 active Not Available Not Available Not Avai lable oxycodone-a cetaminophe n 10 mg-325 mg tablet active Not Available Not Available No t Available Xylocaine 10 mg/mL (1 %) injection solution Take 2 mL by injection route. 07/08 completed Not Available Not Available Not Available Kenalog 10 mg/mL suspension for injection In office injection administe red by the provider 10/24 completed ND: [phone] [phone] Not Available Not Available Not Available baclofen 10 mg tablet 11/04 completed Not Available Not Available Not Available triamcinolo ne acetonide 40 mg/mL suspension for injection Take 2 mL by injection route. 07/08 completed Not Available Not Available Not Available hydrocodone 7.5 mg-acetamin ophen 325 mg tablet TAKE 1 TABLET BY MOUTH EVERY 6 HOURS NEEDED 07/01 completed Not Available Not Available Not Available cephalexin 500 mg capsule Take 1 capsule every 6 hours by oral route for 7 days. 12/08 completed Not Available Not Available Not Available ranitidine 150 mg tablet TAKE ONE TABLET BY MOUTH TWICE DAILY 04/01 completed Not Available Not Available Not Available clotrimazol e-betametha sone 1 %-0.05 % topical cream active Not Available Not Available Not Available lidocaine 5 % topical patch APPLY 1 PATCH BY TRANSDERM AL ROUTE ONCE DAILY (MAY WEAR UP TO 12HOURS.) 05/18 completed Not Available Not Available Not Available warfarin 5 mg tablet Take 5 mg by oral route. 12/02 completed Not Available Not Available Not Available calcium 200 mg (as calcium carbonate 500 mg) chewable tablet 500 mg 3 times a day by oral route. 2020 active Not Available Not Available Not Avai lable nitroglycer in 0.4 mg sublingual tablet DISSOLVE ONE TABLET UNDER THE TONGUE EVERY 5 MINUTES NEEDED FOR CHEST PAIN. DO NOT EXCEED A TOTAL OF 3 DOSES IN 15 MINUTES 07/08 completed Not Available Not Available Not Available docusate sodium 100 mg capsule Take 100 mg twice a day by oral route. 07/08 completed Not Available Not Available Not Available oxybutynin chloride ER 5 mg tablet,exte nded release 24 hr TAKE 1 TABLET BY MOUTH ONCE DAILY active Not Available Not Available No t Available gabapentin 300 mg capsule Take 300 mg 3 times a day by oral route. 11/04 completed Not Available Not Available Not Available omeprazole 20 mg capsule,del ayed release TAKE ONE CAPSULE BY MOUTH TWICE DAILY active Not Available Not Available No t Available lisinopril 20 mg-hydrochl orothiazide 25 mg tablet TAKE ONE TABLET BY MOUTH ONCE DAILY 05/01 completed Not Available Not Available Not Available cephalexin 500 mg tablet Take 1 tablet twice a day by oral route for 7 days. 12/08 completed Not Available Not Available Not Available morphine ER 15 mg tablet,exte nded release 01/26 completed Not Available Not Available Not Available acetaminoph en 300 mg-codeine 60 mg tablet TAKE 1 TABLET BY MOUTH EVERY 6 HOURS 01/26 completed Not Available Not Available Not Available hydrochloro thiazide 25 mg tablet TAKE 1 TABLET BY MOUTH ONCE DAILY active Not Available Not Available No t Available mupirocin 2 % topical ointment APPLY A SMALL AMOUNT TO THE AFFECTED AREA BY TOPICAL ROUTE 3 TIMES PER DAY active Not Available Not Available No t Available furosemide 20 mg tablet TAKE 1 TABLET BY MOUTH ONCE DAILY NEEDED active Not Available Not Available No t Available gabapentin 100 mg capsule TK 1 C PO BID FOR 5 DAYS PRF PAIN active Not Available Not Available No t Available metoprolol succinate ER 25 mg tablet,exte nded release 24 hr 1 po qday 12/28 completed Not Available Not Available Not Available warfarin 1 mg tablet Take one tab daily as directed 05/26 completed Not Available Not Available Not Available ibuprofen 600 mg tablet 04/15 completed Not Available Not Available Not Available methylpredn isolone 4 mg tablets in a dose pack TAKE BY MOUTH DIRECTED ON INSIDE OF PACKAGE 07/08 completed Not Available Not Available Not Available Vitamin D2 1,250 mcg (50,000 unit) capsule TAKE 1 CAPSULE BY MOUTH ONCE A WEEK 07/08 completed Not Available Not Available Not Available colchicine 0.6 mg tablet TAKE 2 TABLETS IMMEDIATE LY THEN ONE TABLET 12 HOURS LATER. MAY REPEAT COURSE IN 3 DAYS IF NEEDED active Not Available Not Available No t Available celecoxib 100 mg capsule active Not Available Not Available Not Available lisinopril 40 mg tablet TAKE 1 TABLET BY MOUTH ONCE DAILY active Not Available Not Available No t Available losartan 100 mg tablet TAKE 1 TABLET BY MOUTH DAILY active Not Available Not Available No t Available metoclopram gretchen 10 mg tablet 04/15 completed Not Available Not Available Not Available oxycodone 5 mg tablet TAKE 1 TABLET BY MOUTH EVERY 4 HOURS NEEDED FOR PAIN active Not Available Not Available No t Available escitalopra m 10 mg tablet TAKE 1 TABLET BY MOUTH ONCE DAILY 09/07 completed Not Available Not Available Not Available escitalopra m 20 mg tablet TAKE 1 TABLET BY MOUTH ONCE DAILY active Not Available Not Available No t Available Tylenol 8 Hour 650 mg tablet,exte nded release Take 2 tablets every 8 hours by oral route. 2021 active Not Available Not Available Not Avai lable escitalopra m 5 mg tablet TAKE 1 TABLET BY MOUTH ONCE DAILY 04/04 completed Not Available Not Available Not Available nitrofurant oin monohydrate /macrocryst als 100 mg capsule TAKE 1 CAPSULE BY MOUTH EVERY 12 HOURS FOR 7 DAYS 01/13 completed Not Available Not Available Not Available duloxetine 20 mg capsule,del ayed release 04/15 completed Not Available Not Available Not Available duloxetine 30 mg capsule,del ayed release TAKE 1 CAPSULE BY MOUTH ONCE DAILY active Not Available Not Available No t Available duloxetine 60 mg capsule,del ayed release 12/08 completed Not Available Not Available Not Available capsaicin 0.1 % topical cream Apply 1 applicati on 4 times a day by topical route as needed. 2022 active Not Available Not Available Not Avai lable pregabalin 75 mg capsule Take 1 capsule twice a day by oral route. active Not Available Not Available No t Available melatonin 2021 active Not Available Not Available Not Avai lable sodium chloride 1,000 mg soluble tablet Take 1 tablet twice a day by miscell. route for 90 days. 2023 active Not Available Not Available Not Avai lable lidocaine (PF) 10 mg/mL (1 %) injection solution In office injection administe red by the provider 10/24 completed [facility]: [phone] [phone] Not Available Not Available Not Available FeroSul 325 mg (65 mg iron) tablet TAKE 1 TABLET BY MOUTH ONCE DAILY FOR 90 DAYS active Not Available Not Available No t Available diclofenac 1 % topical gel APPLY 2 GRAMS TOPICALLY TO AFFECTED AREA 4 TIMES PER DAY active Not Available Not Available No t Available Besivance 0.6 % eye drops,suspe nsion 12/28 completed Not Available Not Available Not Available Butrans 5 mcg/hour transdermal patch Apply 1 patch every week by transderm al route. 09/08 completed Not Available Not Available Not Available Lotemax 0.5 % eye gel drops 07/08 completed Not Available Not Available Not Available Eliquis 2.5 mg tablet TAKE 1 TABLET BY MOUTH TWICE DAILY active Not Available Not Available No t Available Prolensa 0.07 % eye drops 12/28 completed Not Available Not Available Not Available potassium chloride ER 20 mEq tablet,exte nded release TAKE 1 TABLET BY MOUTH ONCE DAILY active Not Available Not Available No t Available Fluzone High-Dose 9351-5335 (PF) 180 mcg/0.5 mL intramuscul ar syringe 08/10 completed Not Available Not Available Not Available Neuriva Plus 2021 active Not Available Not Available Not Avai lable Vitals Date Recorded Body height Body mass index (BMI) Body weight Body temperature Heart rate Oxygen saturation Oxygen saturation in Arterial blood by Pulse oximetry Systolic blood pressure Diastolic blood pressure Provider Name and Address Organization Details Last Updated DateTime 4 154.94 cm 29.1 kg/m2 64403.2 2 g 97.1 [degF] 60 /min 98 % 98 % 108 mm[Hg] 60 mm[Hg] Ariadne Talley RN [facility] [employer] is [employer] 4 15:20:49 Date Recorded Body height Body mass index (BMI) Body weight Body temperature Heart rate Oxygen saturation Oxygen saturation in Arterial blood by Pulse oximetry Systolic blood pressure Diastolic blood pressure Provider Name and Address Organization Details Last Updated DateTime 4 154.94 cm 29.3 kg/m2 49796.8 2 g 96.5 [degF] 78 /min 91 % 91 % 126 mm[Hg] 64 mm[Hg] Ariadne Talley RN [facility] 4 10:24:22 Date Recorded Body height Body mass index (BMI) Body weight Body temperature Heart rate Oxygen saturation Oxygen saturation in Arterial blood by Pulse oximetry Systolic blood pressure Diastolic blood pressure Provider Name and Address Organization Details Last Updated DateTime 4 154.94 cm 28.5 kg/m2 97611.4 5 g 97.9 [degF] 79 /min 98 % 98 % 176 mm[Hg] 100 mm[Hg] Katerina De Leon RN [facility] [employer] 4 16:41:39 Date Recorded Body height Body mass index (BMI) Body weight Body temperature Heart rate Oxygen saturation Oxygen saturation in Arterial blood by Pulse oximetry Systolic blood pressure Diastolic blood pressure Provider Name and Address Organization Details Last Updated DateTime 4 154.94 cm 28.7 kg/m2 60552.0 4 g 98.1 [degF] 68 /min 91 % 91 % 174 mm[Hg] 88 mm[Hg] Ariadne Talley RN [place] [facility] 4 15:23:48 Social History Question Answer Notes LastModified by Organizat ion Details LastModified Time Tobacco Smoking Status Former Smoker Not Available [employer] 09/30/2022 00:40:47 Do You Have An Advance Directive? Yes Information not available 10/09/2022 What Is Your Level Of Alcohol Consumption? None [id number] Information not available 09/30/2022 Are You Blind Or Do You Have Difficulty Seeing? No MIGRATION.[id number] Information not available 09/30/2022 What Is Your Level Of Caffeine Consumption? Moderate [id number].[id number] Information not available 09/30/2022 How Much Tobacco Do You Chew? None MIGRATION.[id number] Information not available 09/30/2022 In The 14 Days Before Symptom Onset, Have You Had Close Contact With A Laboratory-confi rmed COVID-19 While That Case Was Ill? No MIGRATION.[id number] Information not available 09/30/2022 In The 14 Days Before Symptom Onset, Have You Had Close Contact With A Person Who Is Under Investigation For COVID-19 While That Person Was Ill? No MIGRATION.[id number] Information not available 09/30/2022 Are You Deaf Or Do You Have Serious Difficulty Hearing? No MIGRATION.79792 [id number] Information not available 09/30/2022 What Type Of Diet Are You Following? REGULAR MIGRATION.36809 [id number] Information not available 09/30/2022 Which Illicit Or Recreational Drugs Have You Used? None MIGRATION.87005 [id number] Information not available 09/30/2022 Do You Or Have You Ever Used E-cigarettes Or Vape? Never Used Electronic Cigarettes MIGRATION.[id number] Information not available 09/30/2022 What Is Your Occupation? Retired MIGRATION.78956 90472 Information not available 09/30/2022 Are There Any Guns Present In Your Home? No MIGRATION.[id number] Information not available 09/30/2022 Do You Use Insect Repellent Routinely? No Information not available 10/09/2022 Where Do You Live? SingleLevelHouse Information not available 10/09/2022 Presence Of Domestic Violence No Information not available 10/09/2022 Are You Able To Care For Yourself? Yes Information not available 10/09/2022 Are You Blind Or Do Yo Have Difficulty Seeing? No Information not available 10/09/2022 Are You Deaf Or Do You Have Serious Difficulty Hearing? No Information not available 10/09/2022 What Was The Date Of Your Most Recent Tobacco Screening? 10/09/2022 Information not available 10/09/2022 Do You Use Your Seat Belt Or Car Seat Routinely? Yes Information not available 10/09/2022 Do You Have Smoke And Carbon Monoxide Detectors In Your Home? Yes Information not available 10/09/2022 Do You Or Have You Ever Used Smokeless Tobacco? Never Used Smokeless Tobacco MIGRATION.36066 [id number] Information not available 09/30/2022 How Much Tobacco Do You Smoke? 1 PPD MIGRATION.60675 78161 Information not available 09/30/2022 Do You Use Any Illicit Or Recreational Drugs? No Information not available 10/09/2022 Do You Use Sunscreen Routinely? No MIGRATION.33088 25663 Information not available 09/30/2022 Has Tobacco Cessation Counseling Been Provided? No Information not available 10/09/2022 How Many Years Have You Smoked Tobacco? 40 MIGRATION.36531 64915 Information not available 09/30/2022 Have You Recently Traveled Abroad? No MIGRATION.69638 89236 Information not available 09/30/2022 Do You Have Any Dietary Restrictions? No MIGRATION.90798 45694 Information not available 09/30/2022 Do You Or Have You Ever Used Any Other Forms Of Tobacco Or Nicotine? No Information not available 10/09/2022 Sex: Unknown Functional Status Question Answer Note LastModified by Organizat ion Details LastModified Time Do you have difficulty walking or climbing stairs? Yes MIGRATION.07736 [id number] Information not available 09/30/2022 Do you have transportation difficulties? No Information not available 10/09/2022 Are you able to walk? YESASSIST Patient stated she uses a walker at times. Information not available 10/09/2022 Do you have difficulty doing errands alone? No MIGRATION.72230 32402 Information not available 09/30/2022 Are you able to care for yourself? Yes Information n ot available 10/09/2022 Do you have difficulty dressing or bathing? No MIGRATION.98409 79963 Information not available 09/30/2022 What is your exercise level? Occasional Information not available 10/09/2022 Mental Status Question Answer Note LastModified by Organization D etails LastModified Time Do you have difficulty concentrating, remembering or making decisions? No Information no t available 10/09/2022 Family History Relationship Description Onset Age of this Age Resolved Age Notes LastModified by Organization Details LastModified Time Mother Heart disease [id number] Not available 09/30/2022 00:42:10 Mother Family history of stroke [id number] Not available 09/30/2022 00:42:10 Mother Hypertensive disorder [id number] Not available 09/30/2022 00:42:10 Notes:No breast, colon, ovar y Medical History Condition Response BLINDNESS N RHEUMATIC FEVER N KIDNEY STONES N BLADDER PROBLEMS N MRSA N OTHER # 1 N POLIO N LUNG DISEASE/DISORDER N RADIATION / CHEMOTHERAPY N COPD N Other # 2 N BLOOD DISEASES N SURGERY N EAR OR HEARING PROBLEMS N MUMPS N FEMALE PROBLEMS / INFECTIONS N DEPRESSION (INCLUDING POST ) N BOWEL PROBLEMS N STROKE/TIA N THYROID DISEASE N ULCERS Y BENIGN PROSTATIC HYPERPLASIA N MEASLES N CERVICALGIA N TB SKIN TEST N MYOCARDIAL INFARCTION N PARAPELGIA N OBESITY N GERD/NAUSEA N ANEURYSM N URINARY/BLADDER/KIDNEY PROBLEMS N CORONARY ARTERY DISEASE (CAD) N MENIERE'S DISEASE N ADDICTION CONCERNS N ENDOMETRIOSIS N USE OF BLOOD THINNERS Y SKIN PROBLEMS N EMPHYSEMA N GASTROINTESTINAL DISORDER N MUSCLE,JOINT OR BONE PROBLEMS N GASTROINTESTINAL BLEEDING N BLOOD CLOTS Y ASTHMA N CATARACTS N ERECTILE DYSFUNCTION N GI PROBLEMS N CHF N Low Testosterone N NEUROPATHY N INFERTILITY N AIDS/HIV N FRACTURES N CHEMOTHERAPY / RADIATION N VISION/EYE PROBLEMS N LIVER DISEASE N MALE HYPOGONADISM N HYPERTENSION Y ANXIETY DISORDER N BLOOD TRANSFUSION N ANEMIA/BLOOD DISORDER Y CHRONIC EAR INFECTIONS N BRONCHITIS N TUBERCULOSIS N GLAUCOMA N FOOT PROBLEM N DIVERTICULITIS N SLEEP APNEA N CHICKENPOX N ALLERGIES/HAYFEVER N INFECTIOUS DISEASE N PROSTATE N HEART ARRHYTHMIA N INSOMNIA N HIGH CHOLESTEROL / HYPERLIPIDEMIA N HYPERTHYROIDISM N EYE PROBLEMS N EATING DISORDER N NEUROLOGICAL PROBLEMS N EDEMA N CHRONIC PAIN SYNDROME N HYPOTHYROIDISM N CONSTIPATION N CAROTID BLOCKAGE N BACK / NECK PROBLEMS N HAVE YOU BEEN HOSPITALIZED OR SEEN IN TH E ER IN THE PAST YEAR ? N ATHEROSCLEROSIS N BREAST PROBLEMS N DIALYSIS N ECZEMA N FIBROMYALGIA N OSTEOPOROSIS Y ARTHRITIS Y NO SIGNIFICANT PAST MEDICAL HISTORY N APPENDICITIS N DIABETES, TYPE N BAD TEETH N HEARTBURN / REFLUX Y ADD/ADHD N AUTISM SPECTRUM DISORDER (ASD) N HEPATITIS / LIVER DISEASE N PULMONARY DISEASE N GOUT N SLEEP DISORDER N ALZHEIMER'S DISEASE N PAIN N HERPES N DEMENTIA N SEIZURES/EPILEPSY N HEADACHES/MIGRAINES N VASCULAR DISEASE N PACEMAKER N DIZZINESS N KIDNEY DISEASE N HEART DISEASE/HEART PROBLEMS N SCARLET FEVER N MULTIPLE SCLEROSIS N MENTAL DISORDER/ILLNESS N DEVELOPMENTAL OR BEHAVIORAL DISORDERS N CARDIAC ARRHYTHMIA N CANCER: SPECIFY N PNEUMONIA N Gall Stones N ATRIAL FIBRILLATION N PULMONARY EMBOLISM N AUTOIMMUNE DISEASE N Gynecological History Statement/Question Response How many live births 5 Current Control Method Menopause Breast Problems NO Obstetrics History GPAL:G 5 P 5 0 0 5 Type Value Full Term 5 Living 5 Total 5 Immunizations Vaccine Type Date Status Note Provider Nam e and Address Organization Details Recorded Time Influenza, high-dose, quadrivalent, PF 3 completed FAITH Wyman [address] [facility], [facility] [address], [place], [address], [facility] [employer] 06/03/2023 08:34:15 SARS-COV-2 (COVID-19) vaccine, UNSPECIFIED 1 completed Not Available [facility] 09/30/2022 00:51:03 Influenza, high-dose, trivalent, PF 6 completed Not Available [facility] 09/30/2022 00:51:03 Influenza, high-dose, quadrivalent, PF 1 completed Not Available [facility] 09/30/2022 00:51:04 Influenza, high-dose, quadrivalent, PF 2 completed Not Available [facility] 09/30/2022 00:51:04 Influenza, high-dose, quadrivalent, PF 0 completed Not Available [facility] 09/30/2022 00:51:05 Influenza, high-dose, trivalent, PF 9 completed Not Available [facility] 09/30/2022 00:51:05 Influenza, high-dose, trivalent, PF 8 completed Not Available [facility] 09/30/2022 00:51:05 Pneumococcal conjugate PCV 13 06/27/201 8 completed Not Available [facility] 09/30/2022 00:51:05 Influenza, high-dose, trivalent, PF 7 completed Not Available [facility] 09/30/2022 00:51:06 Past Encounters Encounter ID Performer Location Encounter Start Date Encounter Closed Date Diagnosis/Indication Diagnosis SNOMED-CT Code Diagnosis ICD10 Code Diagnosis Note [id number] [facility] [place] [address] [place] [address] 10/24/2020 00:00:00 10/29/2020 10:02:29 [id number] [facility] [place] [address] [place] [address] 11/08/2020 00:00:00 11/08/2020 22:15:11 [id number] [facility] [place] [address] [place] [address] 11/21/2020 00:00:00 11/21/2020 09:38:25 [id number] [facility] [place] [address] [place] [address] 12/05/2020 00:00:00 12/05/2020 12:53:23 [id number] [facility] [place] [address] [place] [address] 12/24/2020 00:00:00 12/24/2020 16:40:11 [id number] [facility] [place] [address] [place] [address] 01/09/2021 00:00:00 01/09/2021 13:32:52 [id number] [facility] [place] [address] [place] [address] 01/16/2021 00:00:00 01/16/2021 12:31:41 [id number] [facility] [place] [address] [place] [address] 2021 00:00:00 2021 12:59:18 [id number] [facility] [place] [address] [place] [address] 03/17/2021 00:00:00 03/17/2021 12:34:16 [id number] [facility] [place] [address] [place] [address] 03/20/2021 00:00:00 03/20/2021 11:42:27 [id number] [facility] [place] [address] [place] [address] 04/21/2021 00:00:00 04/21/2021 12:58:45 [id number] [facility] [place] [address] [place] [address] 05/02/2021 00:00:00 05/02/2021 15:26:49 [id number] [facility] [place] [address] [place] [address] 05/26/2021 00:00:00 05/26/2021 21:12:04 [id number] [facility] [place] [address] [place] [address] 08/18/2021 00:00:00 08/18/2021 19:08:19 [id number] [facility] [place] [address] [place] [address] 08/20/2021 00:00:00 08/21/2021 20:05:43 [id number] [facility] [place] [address] [place] [address] 08/26/2021 00:00:00 08/26/2021 11:33:47 [id number] [facility] [place] [address] [place] [address] 08/29/2021 00:00:00 09/01/2021 11:52:15 [id number] [facility] [place] [address] [place] [address] 11/04/2021 00:00:00 11/04/2021 11:36:55 [id number] [facility] [place] [address] [place] [address] 11/25/2021 00:00:00 11/25/2021 15:34:44 [id number] [facility] [place] [address] [place] [address] 11/28/2021 00:00:00 11/28/2021 13:04:10 [id number] [facility] [place] [address] [place] [address] 01/19/2022 00:00:00 01/19/2022 08:36:13 [id number] [facility] [place] [address] [place] [address] 02/27/2022 00:00:00 02/27/2022 12:12:06 [id number] [facility] [place] [address] [place] [address] 03/16/2022 00:00:00 03/16/2022 12:51:07 [id number] [facility] [place] [address] [place] [address] 05/06/2022 00:00:00 05/06/2022 14:04:06 [id number] [facility] [place] [address] [place] [address] 05/29/2022 00:00:00 05/29/2022 12:26:59 [id number] [facility] [place] [address] [facility] [facility] [address] [place] [address] 07/08/2022 00:00:00 07/12/2022 13:49:33 [id number] UDAY Hayward [facility] [place] [address] [place] [address] 10/12/2022 09:50:54 10/12/2022 10:31:21 Adult health examination [id number] Z00.00 Labs up to date.Recom mended routine eye exams, has dentures. Colonoscop y- not indicatedM ammogram- not indicatedD EXA- not indicated Screening for disorder [id number] Z13.9 Perioral dermatitis 2387 48424 L71.0 Chronic back pain 417237 002 G89.29 Pt. would like to change hydrocodon e script to 7.5mg QID, advised of max. 30mg daily new controlled substance policy. [id number] LYDIA Garcia [facility] Primary Care [facility] [address] [facility] [address] [facility] [place] [address] 01/01/2023 11:24:14 01/01/2023 11:57:57 [id number] UDAY Hayward [facility] Primary Care [facility] [address] [facility] [address] [facility] [place] [address] 01/13/2023 09:13:33 01/13/2023 11:30:32 Overactive urinary bladder [id number] N32.81 Urine showed no infection, problem has been ongoing for months.Dimple fernandez do trial of oxybutynin , discussed stopping fluids early before bedtime.If still no improvemen t will send referral to urogyn. Fatigue [id number] R53.83 All labs normal. B12 has slightly decreased but still within range, advised she can try adding OTC B12 supplement . I think she is also just not getting restful sleep due to increased urination. Will try to help treat those symptoms which in turn will help her sleep and restfulnes s. Also discussed age plays a role in more fatigue. Discussed making sure to stay active, maintain healthy lifestyle. [id number] Sydnee Sheldon MD [facility] Primary Care [facility] [address] [facility] [address] [place] [address] 05/04/2023 15:44:12 06/10/2023 09:54:37 [id number] FAITH Wyman [facility] Primary Care [facility] [address] [facility] [facility] [place] [address] 06/02/2023 15:38:56 06/02/2023 16:34:55 Essential hypertension [id number] I10 -pt currently takes carvedilol , hctz, and losartan, clonidine prn for systolic over 160-bp noted to be 160/88-No CHOU, CP, SOB, can note some dizziness when bp gets too high-encou raged to limit c-will increase carvedilol to 12.5mg-f/u in 1 month Osteoarthr itis of multiple joints [id number] M15.9 -notes pain/stiff ness to hands/fing ers is biggest issue-also had recent fall, fx noted to lumbar spine-surg jo pending-un able to take nsaids d/t being on eliquis-cu rrently seeing pain management and ortho for this issue-will order capsaicin topical cream for pain Administra tion of influenza vaccine [id number] Z23 [id number] FAITH Wyman [facility] Primary Care [place] [address] [facility] [place] [address] [place] [address] 07/07/2023 15:45:57 07/07/2023 16:19:18 Essential hypertension [id number] I10 -bp today is 162/80, 63, no chou, cp, sob-tries to limit her salt intake-dri nks 8 glasses of water/day- continues to take the carvedilol , hctz, losartan daily, and prn clonidine- will increase carvedilol to 25mg/day-p t to f/u as needed [id number] FAITH Wyman [facility] Primary Care [facility] [address] [facility] [facility] [place] [address] 08/05/2023 14:50:11 08/05/2023 15:21:44 Essential hypertension [id number] I10 -bp 150/82, 56, does note some dizziness occasional ly-drinks 8 glasses of water/day- continues to take the carvedilol , hctz, losartan daily-cari ng amlodipine 5mg daily-will stop carvedilol 25 and and start-f/u in 1 month [id number] FAITH Wyman [facility] Primary Care [facility] [address] [facility] ([place] [place] [address] [place] [address] 09/07/2023 15:14:32 09/07/2023 16:02:50 Essential hypertension [id number] I10 -chronic, stable-bp 108/60, 60 no chou/cp/sob- continues to note good intake of water-she has been feeling more fatigue lately-dimple l stop carvedilol 12.5 and restart 6.25mg BID Mixed anxi ety and depressive disorder [id number] F41.8 -pt currently takes escitalopr am 20mg daily-she would like to try something different- trial venlafaxin e 75mg daily Screening for disorder [id number] Z13.9 [id number] FAITH Wyman [facility] Primary Care [facility] [address] [place] [address] 10/07/2023 10:17:00 10/07/2023 11:12:34 Hyponatremia 89042481 E87.1 -new issue, low sodium noted on 09-07-22 (126)-labs redrawn-ad ding sodium if continues to be low-f/u in 1 month [id number] Sydnee Sheldon MD [facility] Primary Care [facility] [address] [facility] [place] [address] 11/29/2023 16:34:34 11/29/2023 17:08:46 Mixed anxiety and depressive disorder [id number] F41.8 this month, mood not in good controlinc rease venlafaxin e ER 150 mg daily with foodf/u in 6 weeks Essential hypertension 68009770 I10 check home bps 2x per weekelewvt ed today but this month and she has not been tracking her home readingsco ntinue carvedilol 6.25 mg po bid, amlodipine 5 mg daily, losartan 100 mg and hctz 25 mg dailyf/u in 6 weeks Hyponatremia 30133007 E8 7.1 Iron defic iency anemia 72754156 D50.9 D51.0 [id number] FAITH Wyman [facility] Primary Care [facility] [address] [facility] [place] [address] 01/19/2024 15:15:43 01/19/2024 16:58:56 Fatigue 58606114 R53.83 noting fatigue Screening for disorder 972165168 Z13.9 Vitamin D deficiency 347 67908 E55.9 Thyroid di sorder screening 545823276 Z13.29 Dark stools 78700212 R19 .5 -really dark stools for the last few days-feeli ng tired/fati gued-decli alicia colonoscop y-encourag ed increase water intake, natural fiber Bone density finding 385 343765 M85.80 -pt told in hx that she has low bone densitity- trial alendronat e 70mg [id number] Dmitry Kent, LYDIA-C [facility] Primary Care [facility] [address] [facility] [place] [address] 01/25/2024 11:09:35 01/25/2024 12:24:02 Health Concerns Section Related Observation LastModified by Organization Detai ls LastModified Time None Recorded Concern Status LastModified by Organization Details LastModified Time None Recorded Advance Directives Directive Y: Payers Encounter Date Sequence Insurance Name Policy Number Policy Felipe Covered Member ID Felipe Member ID Guarantor Name 09/07/2023 1 [employer] (MEDICARE REPLACEMENT/A DVANTAGE - PPO) [id number] Lauren D Boner [id number] Lauren D Boner 09/07/2023 2 [place] [facility] Lauren Boner [id number] Lauren D Boner 10/07/2023 1 [employer] (MEDICARE REPLACEMENT/A DVANTAGE - PPO) [id number] Lauren D Boner [id number] Lauren D Boner 10/07/2023 2 [place] [facility] Lauren Boner [id number] Lauren D Boner 11/29/2023 1 [employer] (MEDICARE REPLACEMENT/A DVANTAGE - PPO) [id number] Lauren D Boner [id number] Lauren D Boner 11/29/2023 2 [place] [facility] Lauren Boner [id number] Lauren D Boner 01/19/2024 1 [employer] (MEDICARE REPLACEMENT/A DVANTAGE - PPO) [id number] Lauren D Boner [id number] Lauren D Boner 01/19/2024 2 [place] [facility] Lauren Boner [id number] Lauren D Boner 01/25/2024 1 [employer] (MEDICARE REPLACEMENT/A DVANTAGE - PPO) [id number] Lauren D Boner [id number] Lauren D Boner 01/25/2024 2 [place] [facility] Lauren Boner [id number] Lauren D Boner Notes Date Note Type Note Provider Name and Address Organization Details Recorded Time 09/07/2023 text/html pt is here for m ed f/u Dmitry Kent [employer]ILITIES MANAGER[employer] [address], [place], [address], [employer] 09/07/2023 17:58:51 10/07/2023 text/html pt is here to f/ u on low sodium Dmitry Kent [employer]ILITIES MANAGER[employer] [address], [place], [address], [employer] 10/07/2023 12:02:41 11/29/2023 text/html here to f/u on h tn on 11/11/23 and everything has been in an uproar but she is taking her medications as prescribed. Home readings are generally good, but no readings in the past week. Sydnee Sheldon MD [address], [place], [address], [employer] 12/19/2023 15:26:21 01/19/2024 text/html pt is here for f/u Dmitrybraxton oreilly UTILITIES MANAGER-C [address], [place], [address], [employer] 01/19/2024 15:50:10 OBGyn Episode No OBEpisode recorded.
== END 2024-08-30 09:07 | disposition home or self-care (01) ==
PROVIDERS: PCP Internal Medicine; Visit Provider Neurological Surgery
DX: I63.81 Other cerebral infarction due to occlusion or stenosis of small artery (principal); E86.9 Volume depletion, unspecified; R90.82 White matter disease, unspecified
CPT/HCPCS: 70450

== ENCOUNTER 2024-10-04 14:47 | Outpatient (CLI) | payer MEDICARE, MEDICAID, SELFPAY ==
--- NOTE | ~2024-10-04 | MR_ITS ---
EXAMINATION: MR shoulder RT wo con DATE: 10/04/2024 16:00 INDICATION: Right shoulder pain TECHNIQUE: Magnetic resonance imaging (MRI) of the right shoulder was performed without intravenous c ontrast. Sequences included axial PD-weighted FS FSE, axial fluid sensitive FSE STIR, coronal oblique PD-weighted FS FSE, coronal oblique fluid sensitive FSE STIR, sagittal fluid sensitive FSE STIR, and sagittal T1-weighted SE. COMPARISON: Right shoulder radiographs dated 07/03/2022 FINDINGS: There is metallic magnetic field artifact at the right glenoid and proximal right humerus likely rela nitesh to total shoulder arthroplasty which obscures the surrounding bone and soft tissues and significa ntly limits evaluation. There is severe fatty atrophy of the infraspinatus muscle belly with moderate fatty atrophy of the supraspinatus and subscapularis muscle bellies with relatively preserved muscul ature of the teres minor and deltoid muscles which would argue against denervation change or disuse a nd would favor sequela of chronic rotator cuff tear. The rotator cuff is however unable to be directl y assessed due to the magnetic field artifact. The non obscured portions of the bones with no evident fracture or pathologic marrow replacing process. No evident joint effusion or subacromial/subdeltoid bursitis. IMPRESSION: 1. Prominent metallic magnetic field artifact which obscures the region of the glenoid, proximal nia adarsh and immediately surrounding soft tissues likely related to a total shoulder arthroplasty. This si gnificantly limits evaluation. Would recommend correlation with either plain radiographs or CT to ass ess the alignment and integrity of the arthroplasty and neighboring bones. 2. Severe fatty atrophy of the infraspinatus) moderate fatty atrophy of the supraspinatus and subscap ularis muscle bellies with probable preservation of the teres minor muscle and the remaining musculat ure of the right shoulder girdle which suggests this is related to tear of the obscured rotator cuff. Reviewed, dictated and finalized at location B. MAKER IMPRESSION: 1. Prominent metallic magnetic field artifact which obscures the region of the glenoid, proximal humerus and immediately surrounding soft tissues likely relat ed to a total shoulder arthroplasty. This significantly limits evaluation. Stacy d recommend correlation with either plain radiographs or CT to assess the align ment and integrity of the arthroplasty and neighboring bones. 2. Severe fatty atrophy of the infraspinatus) moderate fatty atrophy of the sup raspinatus and subscapularis muscle bellies with probable preservation of the t eres minor muscle and the remaining musculature of the right shoulder girdle wh ich suggests this is related to tear of the obscured rotator cuff.
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
--- OUTSIDE RECORDS SUMMARY | 2024-10-04 16:37 | XMS_ITS | Encounter Summary ---
Author Organization [facility] Healthcare Address [address] [place] [address] Care Team Providers Care Associate Creative Director Name Role Phone Joshua Hermosillo MD Primary Care Provider [phone] Reason for Visit * MRI/CAT/PET Scan (Routine) - Closed Specialty Diagnoses / Procedures Referred By Hany lujan Referred To Contact Procedures Neuro CT Outside Reference Liban Soria [address] [place] [address] Phone: tel: fax: Referral ID Status Reason Start Date Expiration Date Visits Re quested Visits Authorized [id number] Closed 10/02/2024 11/01/2025 1 1 Encounter Details Date Type Department Care Team (Latest Contact Info) Description 10/02/2024 7:15 PM NEIGHBORHOOD AIDE - 10/02/2024 11:59 PM NEIGHBORHOOD AIDE Hospital Encounter [facility] [address] [place] [address] Arrived Discharge Disposition: Discharge to home or self care Social History Tobacco Use Types Packs/Day Years Used Date Smoking Tobacco: Former Cigarettes Q uit: 1994 Smokeless Tobacco: Never AUDIT-C Answer Date Recorded Q1: How often [...] on file Legal Sex Female 1:02 PM NEIGHBORHOOD AIDE Gender Identity Not on file Sexual Orientation Not on file documented as of this encounter Medications at Time of Discharge acetaminophen 500 mg capsuleIndication s:Pain Take 2 capsules (1,000 mg total) by mouth every 6 (six) hours 30 tablet 07/23/2022 clotrimazole-beta methasone (LOTRISONE) creamIndications: rash under breast Apply 1 application topically 2 (two) times a day as needed 06/21/2022 docusate sodium (COLACE) 100 mg capsuleIndication s:constipation Take 100 mg by mouth 2 (two) times a day as needed for constipation Eliquis 2.5 mg tabletIndications :Venous Thrombosis Take 2.5 mg by mouth 2 (two) times a day 06/02/2022 furosemide (LASIX) 20 mg tabletIndications :Edema,hypertensi on Take 20 mg by mouth every morning gabapentin (NEURONTIN) 600 mg tabletIndications :Neuropathic Pain Take 600 mg by mouth 2 (two) times a day 07/06/2022 hydroCHLOROthiazi de (HYDRODIURIL) 25 mg tabletIndications :hypertension Take 25 mg by mouth every morning 04/13/2022 losartan (COZAAR) 100 mg tabletIndications :hypertension Take 100 mg by mouth every morning 04/11/2022 nitroglycerin (NITROSTAT) 0.4 mg SL tabletIndications :acute episode of anginal pain Place 0.4 mg under the tongue every 5 (five) minutes as needed 04/28/2021 omeprazole (PriLOSEC) 40 mg capsuleIndication s:Stress Ulcer Prophylaxis Take 40 mg by mouth every morning 06/02/2022 oxyCODONE (ROXICODONE) 5 mg immediate release tabletIndications :Pain Take 1 tablet (5 mg total) by mouth every 4 (four) hours as needed for pain 40 tablet 07/30/2022 documented as of this encounter Discharge Disposition Disposition Code Departure Means Destination Discharge to home or self care documented in this encounter Plan of Treatment Not on file documented as of this encounter Procedures Procedure Name Priority Date/Time Associated Diagnosis Comments NEURO CT OUTSIDE REFERENCE Routine 10/02/2024 7:15 PM NEIGHBORHOOD AIDE documented in this encounter Results * Neuro CT Outside Reference (10/02/2024 7:15 PM NEIGHBORHOOD AIDE) Impressions [facility]ACS[facility] - 10/02/2024 7:15 PM NEIGHBORHOOD AIDE These images are for Reference purposes only and have not been reviewed by [facility] Radiology. There will be no report generated by a [facility] Radiologist. Narrative RAD_PACS[facility] - 10/02/2024 7:15 PM NEIGHBORHOOD AIDE EXAMINATION: Images For Reference Purposes Only us Liban Hodges Chi, MD IMG CT PROCEDURES Final Res ult [facility] documented in this encounter Visit Diagnoses Not on filedocumented in this encounter Care Teams Associate Creative Director Relationship Specialty Start Date End Date Joshua Hermosillo MD [address] [facility] [address] [place] [address] PCP - General Internal Medicine 10/02/24 documented as of this encounter
--- OUTSIDE RECORDS SUMMARY | 2024-10-04 16:37 | XMS_ITS | Patient Health Summary ---
Author Organization [facility] Address [address] 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 This disclosure is being madepursuant to the Care Everywhere program and may not contain all information available regarding this patient. Last updated 18.[facility] Allergies No known active allergies Medications * Be aware that medications may not be up to date on this document. Alwaysverify current medications with the patient. * furosemide (LASIX) 20 MG tablet Take 20 mg by mouth once daily as needed * omeprazole (PRILOSEC) 40 MG capsule(Started 02/29/2020) Take 40 mg by mouth once daily * hydroCHLOROthiazide (HYDRODIURIL) 25 MG tablet(Started 11/21/2020) Take 25 mg by mouth once daily * HYDROcodone-acetaminophen (NORCO) 10-325 MG tablet(Started 12/10/2020) Take 1 (one) tablet by mouth every 4 hours as needed * gabapentin (NEURONTIN) 600 MG tablet(Started 10/10/2021) * ELIQUIS 2.5 MG tablet(Started 12/01/2021) Take 2.5 mg by mouth 2 times daily * DULoxetine (CYMBALTA) 30 MG capsule(Started 11/05/2021) Take 30 mg by mouth once daily * losartan (COZAAR) 100 MG tablet losartan 100 mg tablet TAKE 1 TABLET BY MOUTH ONCE DAILY * Melatonin 10 MG * acetaminophen CR (TYLENOL 8 HOUR) 650 MG tablet Take 650 mg by mouth every 8 hours as needed for Pain * Misc Natural Products (NEURIVA PO) Active Problems Problem Noted Date Diagnosed Date Primary osteoarthritis involving multiple joints 12/08/2021 Chronic back pain 06/11/2020 Essential hypertension 06/11/2020 Gastroesophageal reflux disease 06/11/2020 Neck pain 06/11/2020 Hyperlipidemia 06/11/2020 Deep venous thrombosis 06/11/2020 Arthritis 06/11/2020 Osteopenia 02/16/2018 Vitamin D deficiency 12/01/2017 Knee pain 10/14/2009 Resolved Problems Problem Noted Date Diagnosed Date Resolved Date Abscess 06/11/2020 12/08/2021 Fracture of femur 04/04/2019 12/08/2021 Closed fracture of left hip 03/25/2019 12/08/2021 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 (FLUZONE HIGH-DOSE QUADRIVALENT; 65Y+), 0.7 ML (HD-IIV4)(Given 06/01/2019, 06/08/2018, 05/17/2017, 04/03/2016) * Pneumococcal Pcv13 Conj(Given 01/26/2018) Social History Tobacco Use Types Packs/Day Years Used Date Smoking Tobacco: Former Cigarettes 0.5 39 0 12/23/1958 - 12/23/1997 Smokeless Tobacco: Never Tobacco Cessation:Counseling Given: No Alcohol Use Standard Drinks/Week Comments Never 0 (1 standard drink = 0.6 oz pur e alcohol) AUDIT-C Answer Date Recorded Frequency of Alcohol Consumption Never 03/25/2019 Average Number of Drinks Not on file 019 Frequency of Binge Drinking Not on file 03/03 Sex and Gender Information Value Date Recorded Sex Assigned at Not on file Gender Identity Not on file Sexual Orientation Not on file Last Filed Vital Signs Vital Sign Reading Time Taken Comments Blood Pressure 144/84 12/08/2021 10:20 AM CDT Pulse 66 12/08/2021 10:20 AM CDT Temperature 36.1 C (97 F) 12/08/2021 10:20 AM CDT Respiratory Rate 16 12/08/2021 10:20 AM CDT Oxygen Saturation 97% 12/08/2021 10:20 AM CDT Inhaled Oxygen Concentration - - Weight 74.8 kg (165 lb) 12/08/2021 10:20 AM CDT Height 162.6 cm (5' 4 ) 12/08/2021 10:20 AM CDT Body Mass Index 28.32 12/08/2021 10:20 AM CDT Medical Devices Implanted Type Area Purler Device Identifier Shelf Expiration Date Model / Serial / Lot Graft Bone Magdi Frzdr Strut 11-24x2cm Implanted:Qty: 1 on 03/27/2019 by Vahe Garcia MD at [facility] Left: Hip [employer] 10/07/2022 [id number] / / [id number] Emily-Loc 4.5mm T25 Lock Screw 14mm S-T Implanted:Qty: 1 on 03/27/2019 by Vahe Garcia MD at [facility] Left: Hip [id number] / / Description:SCREW Screw 4.5mm 8mm 36mm T25 Cortx Slf-Tap Implanted:Qty: 1 on 03/27/2019 by Vahe Garcia MD at [facility] Left: Hip [employer] [id number] / / Description:EMILY-LOC 4.5MM T 25 CRTX SCREW 36MM S-T--03/30 LG Screw 4.5mm 8mm 34mm T25 Flut Lng Bone Implanted:Qty: 1 on 03/27/2019 by Vahe Garcia MD at [facility] Left: Hip [employer] [id number] / / Description:EMILY-LOC 4.5MM T 25 CRTX SCREW 34MM S-T--03/30 LG Cable Orth Ss 2mm Hip Clp Accord Implanted:Qty: 1 on 03/27/2019 by Vahe Garcia MD at [facility] Left: Hip [employer] 08/23/2028 [id number] / / [id number] Description:ACC 2.0MM SS CAB LE W/CLAMP - 03/30 LG Cable Orth Ss 2mm Hip Clp Accord Implanted:Qty: 1 on 03/27/2019 by Vahe Garcia MD at [facility] Left: Hip [employer] 10/26/2028 [id number] / / [id number] Description:ACC 2.0MM SS CAB LE W/CLAMP - 03/30 LG Cable Orth Ss 2mm Hip Clp Accord Implanted:Qty: 1 on 03/27/2019 by Vahe Garcia MD at [facility] Left: Hip [employer] 11/25/2028 [id number] / / [id number] Description:ACC 2.0MM SS CAB LE W/CLAMP - 03/30 LG Cable Orth Ss 2mm Hip Clp Accord Implanted:Qty: 1 on 03/27/2019 by Vahe Garcia MD at [facility] Left: Hip [employer] 11/25/2028 [id number] / / [id number] Description:ACC 2.0MM SS CAB LE W/CLAMP - 03/30 LG 4.5mm Prox Femur Lck Plate 12h L 288mm Implanted:Qty: 1 on 03/27/2019 by Vahe Garcia MD at [facility] Left: Hip [employer] [id number] / / Description:PLATE Screw 4.5mm 7.9mm 10mm T25 3 Ld Thrd 3 Implanted:Qty: 3 on 03/27/2019 by Vahe Garcia MD at [facility] Left: Hip [employer] [id number] / / Description:EMILY-LOC 4.5MM T 25 BLUNT TIP SCREW 10MM--03/30 LG Screw 4.5mm 7.9mm 38mm T25 Slf-Tap Lck Implanted:Qty: 1 on 03/27/2019 by Vahe Garcia MD at [facility] Left: Hip [employer] [id number] / / Cmnt Bone Rally 40gm Hvisc Sprmnt Grn Implanted:Qty: 3 on 12/09/2020 by Vahe Garcia MD at [facility] Left: Knee [employer] 03/01/2025 [id number] / / [id number] Compon Fem Legion Ps Oxin Narr L Sz 5 Implanted:Qty: 1 on 12/09/2020 by Vahe Garcia MD at [facility] Left: Knee [employer] 06/02/2030 [id number] / / [id number] Tibial Baseplate Implanted:Qty: 1 on 12/09/2020 by Vahe Garcia MD at [facility] Left: Knee [employer] 09/05/2029 [id number] / / [id number] Ins Lgn Ps Hi-Flex X-Link Sz 5-6 18mm Implanted:Qty: 1 on 12/09/2020 by Vahe Garcia MD at [facility] Left: Knee [employer] 03/19/2025 [id number] / / [id number] Explanted Type Area Purler Device Identifier Shelf Expiration Date Model / Serial / Lot Cable Orth Ss 2mm Hip Clp Accord Explanted:Qty: 1 on 03/27/2019 by Vahe Garcia MD at [facility] Left: Hip [employer] 09/26/2028 [id number] / / [id number] Description:ACC 2.0MM SS CAB LE W/CLAMP - 03/30 LG Procedures * LAB(Performed 08/29/2021) * US CAROTID DUPLEX BILAT(Performed 08/21/2021) * XR KNEE LEFT 4VW OR MORE(Performed 01/07/2021) Performed for Periprosthetic fracture around internal prosthetic left hip joint, subsequent encounter * CARDIAC RHYTHM STRIP ORDER(Performed 12/12/2020) * IMAGING/RADIOLOGY/XRAY RESULTS ORDER(Performed 12/11/2020) * PT-INR(Performed 12/10/2020) * HGB HCT PANEL(Performed 12/10/2020) Performed for Chronic pain of left knee * FL RA SURGERY(Performed 12/09/2020) Performed for Pain * ENDOTRACHEAL TUBE NOTE(Performed 12/09/2020) * ARTHROPLASTY TOTAL KNEE(Performed 12/09/2020) Performed for Diagnosis unknown * PERIPHERAL BLOCK(Performed 12/09/2020) * PT-INR(Performed 12/09/2020) Performed for Preop examination * PT-INR(Performed 11/27/2020) Performed for Pre-op testing * URINE MICROSCOPIC ONLY REFLEX TO CULTURE(Performed 11/27/2020) Performed for Pre-op testing * FRUCTOSAMINE(Performed 11/27/2020) Performed for Pre-op testing * TRANSFERRIN(Performed 11/27/2020) Performed for Pre-op testing * URINALYSIS REFLEX MICROSCOPIC REFLEX CULTURE(Performed 11/27/2020) Performed for Pre-op testing * HEMOGLOBIN A1C(Performed 11/27/2020) Performed for Pre-op testing * COMPREHENSIVE METABOLIC PANEL(Performed 11/27/2020) Performed for Pre-op testing * CBC W AUTO DIFFERENTIAL(Performed 11/27/2020) Performed for Pre-op testing * CULTURE URINE(Performed 11/27/2020) Performed for Pre-op testing * CULTURE MSSA/MRSA(Performed 11/27/2020) Performed for Pre-op testing * XR FEMUR LEFT 2VW(Performed 10/08/2020) Performed for Periprosthetic fracture around internal prosthetic left hip joint, subsequent encounter * MA DRAIN/INJECT LARGE JOINT/BURSA(Performed 06/11/2020) Performed for Primary osteoarthritis of left knee * XR FEMUR LEFT 2VW(Performed 06/11/2020) Performed for Fall, subsequent encounter * XR FOOT RIGHT 3VW OR MORE(Performed 04/09/2020) Performed for Periprosthetic fracture around internal prosthetic left hip joint, subsequent encounter * MA DRAIN/INJECT LARGE JOINT/BURSA(Performed 03/12/2020) Performed for Primary osteoarthritis of left knee * XR FOOT RIGHT 3VW OR MORE(Performed 03/12/2020) Performed for Periprosthetic fracture around internal prosthetic left hip joint, subsequent encounter * XR FEMUR LEFT 2VW(Performed 03/12/2020) Performed for Periprosthetic fracture around internal prosthetic left hip joint, subsequent encounter * MA DRAIN/INJECT LARGE JOINT/BURSA(Performed 12/26/2019) Performed for Primary osteoarthritis of left knee * XR FEMUR LEFT 2VW(Performed 12/26/2019) Performed for Periprosthetic fracture around internal prosthetic left hip joint, subsequent encounter * MA DRAIN/INJECT LARGE JOINT/BURSA(Performed 08/15/2019) Performed for Primary osteoarthritis of left knee * XR FEMUR LEFT 2VW(Performed 08/15/2019) Performed for Periprosthetic fracture around internal prosthetic left hip joint, subsequent encounter * XR FEMUR LEFT 2VW(Performed 07/04/2019) Performed for Periprosthetic fracture around internal prosthetic left hip joint, subsequent encounter * XR FEMUR LEFT 2VW(Performed 05/30/2019) Performed for Periprosthetic fracture around internal prosthetic left hip joint, subsequent encounter * XR FEMUR LEFT 2VW(Performed 04/18/2019) Performed for Surgery follow-up examination * CARDIAC RHYTHM STRIP ORDER(Performed 03/31/2019) * CARDIAC EKG ORDER(Performed 03/31/2019) * PT-INR(Performed 03/30/2019) * CBC W AUTO DIFFERENTIAL(Performed 03/29/2019) * BASIC METABOLIC PANEL (CALCIUM TOTAL)(Performed 03/29/2019) * PT-INR(Performed 03/29/2019) * SODIUM URINE RANDOM(Performed 03/28/2019) * PT-INR(Performed 03/28/2019) * MAGNESIUM BLOOD(Performed 03/28/2019) * BASIC METABOLIC PANEL (CALCIUM TOTAL)(Performed 03/28/2019) * CBC W/O DIFFERENTIAL(Performed 03/28/2019) * XR FEMUR LEFT 2VW(Performed 03/27/2019) Performed for Periprosthetic fracture around internal prosthetic left hip joint, initial encounter ([facility]) * FL RA SURGERY(Performed 03/27/2019) Performed for Pain * TRANSFUSE RED BLOOD CELL LEUKOREDUCED UNIT(S)(Performed 03/27/2019) * ENDOTRACHEAL TUBE NOTE(Performed 03/27/2019) * BLOOD TYPE VERIFICATION(Performed 03/27/2019) * OPEN REDUCTION INTERNAL FIXATION (ORIF) FEMUR(Performed 03/27/2019) * PREPARE RBC LEUKOREDUCED UNIT(Performed 03/27/2019) Performed for Closed fracture of left hip, initial encounter ([facility]) * CBC W/O DIFFERENTIAL(Performed 03/27/2019) * MAGNESIUM BLOOD(Performed 03/27/2019) * BASIC METABOLIC PANEL (CALCIUM TOTAL)(Performed 03/27/2019) * XR FEMUR LEFT 2VW(Performed 03/26/2019) Performed for Closed fracture of left hip, initial encounter ([facility]) * VITAMIN D 25-HYDROXY(Performed 03/26/2019) * MAGNESIUM BLOOD(Performed 03/26/2019) * CBC W AUTO DIFFERENTIAL(Performed 03/26/2019) * BASIC METABOLIC PANEL (CALCIUM TOTAL)(Performed 03/26/2019) * PT-INR(Performed 03/26/2019) * URINE MICROSCOPIC ONLY REFLEX TO CULTURE(Performed 03/25/2019) * URINALYSIS REFLEX MICROSCOPIC REFLEX CULTURE(Performed 03/25/2019) * CULTURE URINE(Performed 03/25/2019) * XR OUTSIDE CONSULTATION(Performed 03/25/2019) Performed for Pain * XR CHEST 1VW PORTABLE(Performed 03/25/2019) Performed for Preop examination * EKG 12-LEAD(Performed 03/25/2019) Performed for Preop examination * TYPE + SCREEN PANEL(Performed 03/25/2019) * PT-INR(Performed 03/25/2019) * CBC W AUTO DIFFERENTIAL(Performed 03/25/2019) * COMPREHENSIVE METABOLIC PANEL(Performed 03/25/2019) * PATHOLOGY REPORTS - HPF HISTORICAL(Performed 01/19/2010) * LAB MICROBIOLOGY - HPF HISTORICAL(Performed 01/13/2010) * LAB MICROBIOLOGY - HPF HISTORICAL(Performed 01/11/2010) Results * LAB (08/29/2021) Scanned Document SCANNING ONLY * US CAROTID DUPLEX BILAT (08/21/2021) Anatomical Region Laterality Modality Other Scanned Document VASCULAR LAB ORDERAB LES * XR KNEE LEFT 4VW OR MORE (01/07/2021 11:41 AM CDT) Anatomical Region Laterality Modality Lower Extremity Radiographic Yudelka ging 01/07/2021 11:4 4 AM CDT Impressions 01/07/2021 12:03 PM CDT IMPRESSION: Patient status post total knee arthroplasty with expected postoperative changes. Moderate volume suprapatellar joint effusion. Dictated by Anabell Abdi MD (residential finish carpenter). Dr. BELLE Le have personally reviewed and interpreted this examination/study. This report was electronically signed by BELLE VALENZUELA on 01/07/2021 12:03 PM . Narrative 01/07/2021 12:03 PM CDT EXAMINATION: XR KNEE LEFT 4VW OR MORE HISTORY: M97.02XD: Periprosthetic fracture around internal prosthetic left hip joint, subsequent encounter COMPARISON: Left femur radiograph on 10/09/2019 FINDINGS: Total knee arthroplasty is demonstrated. Lateral femoral shaft plating with interlocking screws is partially imaged. The prosthetic components are intact and there is no periprosthetic lucency, fracture, or dislocation. The osseous structures are intact and well aligned without acute fracture or dislocation. A moderate-volume suprapatellar joint effusion is seen. Procedure Note Belle Valenzuela MD - 01/07/2021 EXAMINATION: XR KNEE LEFT 4VW OR MORE HISTORY: M97.02XD: Periprosthetic fracture around internal prostheticleft hip joint, subsequent encounter COMPARISON: Left femur radiograph on 10/09/2019 FINDINGS: Total knee arthroplasty is demonstrated. Lateral femoral shaft plating with interlocking screws is partially imaged. The prosthetic components are intact and there is no periprosthetic lucency, fracture, or dislocation. The osseous structures are intact and well aligned without acutefracture or dislocation. A moderate-volume suprapatellar joint effusion is seen. IMPRESSION: Patient status post total knee arthroplasty with expected postoperative changes. Moderate volume suprapatellar joint effusion. Dictated by Anabell Abdi MD (residential finish carpenter). Dr. BELLE Le have personally reviewed and interpreted this examination/study. This report was electronically signed by BELLE VALENZUELA on 01/07/2021 12:03PM . Vahe Garcia MD DIAGNOSTIC IMAGING ORDERABLES * CARDIAC RHYTHM STRIP ORDER (12/12/2020 7:18 AM CDT) Only the most recent of2 resultswithin the time period is included. Narrative 12/12/2020 7:18 AM CDT Ordered by an unspecified provider. Scanned Document CARDIAC SERVICES ORD ERABLES * IMAGING RADIOLOGY XRAY RESULTS ORDER (12/11/2020 11:50 PM CDT) Anatomical Region Laterality Modality Other Narrative 12/11/2020 11:50 PM CDT Ordered by an unspecified provider. Scanned Document IMAGING * (ABNORMAL) PT-INR (12/10/2020 3:30 AM CDT) Only the most recent of8 resultswithin the time period is included. PT 15.5(H) 12.1 - 14.8 sec 12/10/2020 4:53 AM CDT [facility] INR 1.2(H) 0.9 - 1.1 12/10/2020 4:53 AM CDT [facility] Blood BLOOD SPECIMEN / Unknown Lab Venipuncture / Unknown 12/10/2020 3:30 AM CDT 12/10/2020 4:45 AM CDT [facility] - 12/10/2020 4:53 AM CDT Conventional Warfarin Anticoagulant Therapy: INR Reference Range: 2.0-3.0 Intensive Warfarin Anticoagulant Therapy: INR Reference Range: 2.5-3.5 Vahe Garcia MD LAB - COAGULATION O RDERABLES Performing Organization Address City/State/[facility] Co de Phone Number [facility] [address] [place] [address] * (ABNORMAL) HGB HCT PANEL (12/10/2020 3:30 AM CDT) Hemoglobin 7.7(L) 12.0 - 15.6 gm/dL 12/10/2020 4:38 AM CDT [facility] Hematocrit 24.3(L) 35.9 - 45.5 % 12/10/2020 4:38 AM CDT [facility] Blood BLOOD SPECIMEN / Unknown Lab Venipuncture / Unknown 12/10/2020 3:30 AM CDT 12/10/2020 4:23 AM CDT Vahe Garcia MD LAB - HEMATOLOGY OR DERABLES Performing Organization Address [facility] Co de Phone Number [facility] [address] [place] [address] * FL RA SURGERY (12/09/2020 1:30 PM CDT) Only the most recent of2 resultswithin the time period is included. Narrative [facility] - 12/09/2020 10:06 PM CDT For details of this study, please see the providers note. Vahe Garcia MD FLUOROSCOPY ORDERAB LES Performing Organization Address [facility] Co de Phone Number [facility] [address] [place] [phone] * ETT LINE PERFORMABLE (12/09/2020 11:05 AM CDT) Narrative Stella Flores APRN-CRNA - 12/09/2020 11:05 AM CDT Stella Flores APRN-CRNA 12/09/2020 11:05 AM Endotracheal Tube Placement: Patient Location: OR. Intubation Event Date/Time: 12/09/2020 10:44 AM Procedure: intubation ([id number]). Procedure Section: Sedation: under general anesthesia. Indications for Airway Management: anesthesia Induction: standard IV Patient Position: sniffing Mask Ventilation: easy. Blade Type: Sudarshan Blade Size: 4 Laryngoscopy View: grade 1 (full cords) Intubation Adjuncts: stylet Tube: endotracheal tube Placement: oral Tube type: cuff - inflated Tube Size (MM): 7 Depth of Insertion (CM): 21 Measured From: gums Cuff volume (mL): 7 Cuff Inflated With: air Number of Attempts: 1. Placement Verified By: direct visualization, bilateral breath sounds, chest auscultation and CO2 monitor Tube secured with: adhesive tape. Difficult Airway? No. Procedure Start Time: 12/09/2020 10:44 AM. Staff Section Anesthesia Provider: Stella Flores APRN-CRNA, Performed the procedure Additional Comments: oral mucosa unchanged from pre-op exam following DVOI.. Ventuar Hooks MD GENERAL ANESTHESIA O RDERABLES * Peripheral Nerve Block (12/09/2020 9:58 AM CDT) Narrative Ventura Hooks MD - 12/09/2020 9:58 AM CDT Ventura Hooks MD 12/09/2020 10:06 AM Peripheral Nerve Block Procedure: Peripheral Nerve Block Patient Location: Pre-op Preprocedure Section: Indications: at surgeon's request, at patient's request and postop pain management. Pre-anesthetic Checklist: Patient identified, IV Checked, Site examined and clear, Risks and benefits discussed, Surgical consent verified, Monitors and equipment, Time-out performed, Informed consent obtained, Pre-op evaluation done, Questions answered/anesthesia questions answered, Allergies reviewed and Removal hand/wrist jewelry Monitors: Pulse Ox. Patient Condition: awake Patient Position: supine Patient Sedated? No Procedure Section Laterality: left Block Performed: adductor canal Prep: Chloraprep Strerile Field: gloves, mask and hat/cap Skin localized with: lidocaine (XYLOCAINE) 1 % injection, 3 mL Needle Type: nerve stimulator and Echogenic insultaed (PAJUNK) Needle Gauge: 21 Needle Length: 80 mm Needle Depth: 4 cm Catheter? No Ultrasound Guided? Yes Technique: in plane Visualization: Preliminary scan performed, Important anatomical structures identified, Needle tip visualized throughout the procedure, Target identified, No intraneural or intravascular puncture occurred, Ultrasound image in chart, Local visualized surrounding nerve on ultrasound and Hydrodissection utilized Injection was made incrementally with constant monitoring and aspirations every 5 mL's Injection Assessment: Slow fractionated injection Block Agents or Additives used? Yes Block agents used: ropivacaine (NAROPIN) 5 MG/ML (0.5%) injection, 40 mL dexamethasone (DECADRON) injection, 4 mg Procedure Tolerance: tolerated well and no immediate complications Assessment: completed Procedure Start Time: 12/09/2020 9:58 AM. Procedure End Time: 12/09/2020 10:03 AM. Procedure Total Time: 5 minutes. Staff Section Anesthesia Provider: Ventura Hooks MD, Performed the procedure Additional Comments: Routine block. Ventura Hooks MD GENERAL ANESTHESIA O RDERABLES * (ABNORMAL) URINE MICROSCOPIC ONLY REFLEX TO CULTURE (11/27/2020 9:44 AM CDT) Only the most recent of2 resultswithin the time period is included. Reflex Status Culture to follow 11/27/2020 10:28 AM CDT [facility] RBC UA 0-2 None Seen, 0-2, 3-5 # /hpf 11/27/2020 10:28 AM CDT [facility] WBC UA 6-10(A) None Seen, 0-5 # /hpf 11/27/2020 10:28 AM CDT [facility] Bacteria UA Trace(A) None Seen 11/27/2020 10:28 AM CDT [facility] Squamous Epithelial Cells 3-5 None Seen, 0-2, 3-5 /hpf 11/27/2020 10:28 AM CDT [facility] Urine URINE SPECIMEN OBTAINED BY CLEAN CATCH PROCEDURE / Unknown Collection / Unknown 11/27/2020 9:44 AM CDT 11/27/2020 10:20 AM CDT Narrative [facility] - 11/27/2020 10:28 AM CDT Vahe Garcia MD LAB - URINALYSIS OR DERABLES Performing Organization Address City/[facility]/ZIP Co de Phone Number [facility] [address] [place] [address] * CULTURE MSSA/MRSA (11/27/2020 9:44 AM CDT) Pathologist [facility] Culture Negative for Staphylococcus aureus (MRSA/MSSA) 11/28/2020 4:53 PM CDT [facility] Microbiology SPECIMEN FROM NASAL FOSSAE / Unknown Collection / Unknown 11/27/2020 9:44 AM CDT 11/27/2020 10:20 AM CDT Vahe Garcia MD LAB - MICROBIOLOGY ORDERABLES [facility] [address] [place] [address], [facility] [phone] * (ABNORMAL) URINALYSIS REFLEX MICROSCOPIC REFLEX CULTURE (11/27/2020 9:44 AM CDT) Only the most recent of2 resultswithin the time period is included. Color UA Yellow Straw, Yellow 11/27/2020 10:27 AM CDT [facility] Clarity UA Clear Clear 11/27/2020 10:27 AM CDT [facility] Glucose UA Negative Negative 11/27/2020 10:27 AM CDT [facility] Bilirubin UA Negative Negative 11/27/2020 10:27 AM CDT [facility] Ketone UA Negative Negative 11/27/2020 10:27 AM CDT [facility] Specific Supply UA 1.013 1.005 - 1.030 11/27/2020 10:27 AM CDT [facility] Blood UA Negative Negative 11/27/2020 10:27 AM CDT [facility] pH UA 6.0 5.0 - 8.0 pH 11/27/2020 10:27 AM CDT [facility] Protein UA Negative Negative 11/27/2020 10:27 AM CDT [facility] Urobilinogen UA Negative Negative mg/dL 11/27/2020 10:27 AM CDT [facility] Nitrite UA Negative Negative 11/27/2020 10:27 AM CDT [facility] Leukocyte UA 3+(A) Negative 11/27/2020 10:27 AM [facility] Urine Microscopy Urine microscopy to follow 11/27/2020 10:[facility] Reflex Status Culture to follow 11/27/2020 10:27 AM CDT [facility] Urine URINE SPECIMEN OBTAINED BY CLEAN CATCH PROCEDURE / Unknown Collection / Unknown 11/27/2020 9:44 AM CDT 11/27/2020 10:20 AM CDT Narrative [facility] - 11/27/2020 10:27 AM CDT Vahe Garcia MD LAB - URINALYSIS OR DERABLES [facility] [address] [place] [address] * TRANSFERRIN (11/27/2020 9:44 AM CDT) Transferrin 315 173 - 360 mg/dL 11/27/2020 10:39 AM CDT [facility] Blood BLOOD SPECIMEN / Unknown Venipuncture / Unknown 11/27/2020 9:44 AM CDT 11/27/2020 10:20 AM CDT Vahe Garcia MD LAB - CHEMISTRY ORD [place] Performing Organization Address City/State/[facility] Co de Phone Number [facility] [address] [place] [address] * HEMOGLOBIN A1C (11/27/2020 9:44 AM CDT) Hemoglobin A1c 5.0 4.2 - 5.6 % 11/27/2020 10:47 AM CDT [facility] Estimated Average Glucose 97 mg/dL 11/27/2020 10:47 AM CDT [facility] Blood BLOOD SPECIMEN / Unknown Venipuncture / Unknown 11/27/2020 9:44 AM CDT 11/27/2020 10:20 AM CDT Narrative [facility] - 11/27/2020 10:47 AM CDT The following cutoff levels are recommended by [place] [employer]. A1c > 6.5% : considered as diabetes if two separate tests >6.5% or in an appropriate clinical setting. A1c 5.7% - 6.4% : considered as prediabetes (suggest increased risk for diabetes and cardiovascular disease) Control target level: Should be individualized. < 7 for general (non-) , < 8% less stringent goal, < 6.5 more stringent goal. Hemoglobin A1c measurements are used as an aid in the diagnosis of diabetic mellitus, as an aid to identify patients who may be at the risk for developing diabetic mellitus, and for the monitoring long-term blood glucose control in individuals with diabetes mellitus. This test should not replace glucose testing for patients with Type 1 diabetes, pediatric patients, or women. Falsely low HbA1c results may be observed in patients with clinical conditions that shorten erythrocyte life span or decrease mean erythrocyte age such as the presence of unstable hemoglobin variants, elevated hemoglobin F level or other causes of hemolytic anemia . HbA1c may not accurately reflect glycemic control when clinical conditions that affect erythrocyte survival are present. Severe Iron deficiency anemia may yield falsely high results. Hemoglobin A1c assay should not be used to diagnose or monitor diabetes in patients with malignancy, recent blood transfusion, chronic kidney or liver disease. This method may yield falsely low results when hemoglobin (HbF) exceeds 5% in the specimen. Vahe Garcia MD LAB - CHEMISTRY ORD ERABLES [facility] [address] [place] [address] * FRUCTOSAMINE (11/27/2020 9:44 AM CDT) Fructosamine 259 0 - 285 umol/L 11/28/2020 8:15 AM CDT [facility] ([facility]) Comment: Published reference interval for apparently healthy subjects between age 20 and 60 is 205 - 285 umol/L and in a poorly controlled diabetic population is 228 - 563 umol/L with a mean of 396 umol/L. Blood BLOOD SPECIMEN / Unknown Venipuncture / Unknown 11/27/2020 9:44 AM CDT 11/27/2020 10:20 AM CDT Narrative [facility] ([facility]) - 11/28/2020 8:15 AM CDT Performed at: [address] [place] [address] [address] [place], [place] [id number] Senior Speech Pathologist: Alec Moore PhD, Phone: [phone] Vahe Garcia MD LAB - CHEMISTRY ORD ERABLES Performing Organization Address [facility] Co de Phone Number [facility] ([facility]) [address] [place] [address] * CULTURE URINE (11/27/2020 9:44 AM CDT) Only the most recent of2 resultswithin the time period is included. Pathologist [facility] Culture Urine More than 2 organisms seen at >=50,000 CFU/mL. Recollect if clinically indicated. MAKSIM 11/29/2020 10:39 AM CDT [facility] Urine URINE SPECIMEN OBTAINED BY CLEAN CATCH PROCEDURE / Unknown Collection / Unknown 11/27/2020 9:44 AM CDT 11/27/2020 10:20 AM CDT Vahe Garcia MD LAB - MICROBIOLOGY ORDERABLES Performing Organization Address City/[facility]/ZIP Co de Phone Number [facility] [address] [place] [address], [facility] [phone] * (ABNORMAL) CBC W AUTO DIFFERENTIAL (11/27/2020 9:44 AM CDT) Only the most recent of4 resultswithin the time period is included. WBC 5.6 4.4 - 10.7 x10E9/L 11/27/2020 10:25 AM CDT [facility] WBC Corrected 11/27/2020 10:25 AM CDT [facility] RBC 3.65(L) 3.80 - 5.20 x10E12/L 11/27/2020 10:25 AM CDT [facility] Hemoglobin 10.2(L) 12.0 - 15.6 gm/dL 11/27/2020 10:25 AM CDT [facility] Hematocrit 32.6(L) 35.9 - 45.5 % 11/27/2020 10:25 AM CDT [facility] MCV 89.3 80.7 - 98.3 fl 11/27/2020 10:25 AM CDT [facility] MCH 27.9 26.7 - 34.0 pg 11/27/2020 10:25 AM CDT [facility] MCHC 31.3 30.8 - 35.9 gm/dL 11/27/2020 10:25 AM CDT [facility] Platelet Count 240 153 - 416 x10E9/L 11/27/2020 10:25 AM CDT [facility] RDW-CV 15.1(H) 12.1 - 14.9 % 11/27/2020 10:25 AM CDT [facility] MPV 9.5 9.4 - 12.9 fl 11/27/2020 10:25 AM CDT [facility] Neutrophils % 66.1 44.0 - 73.0 % 11/27/2020 10:25 AM CDT [facility] Lymphocytes % 19.5(L) 20.0 - 43.0 % 11/27/2020 10:25 AM CDT [facility] Monocytes % 10.8 5.0 - 13.0 % 11/27/2020 10:25 AM CDT [facility] Eosinophils % 2.3 0.0 - 6.0 % 11/27/2020 10:25 AM CDT [facility] Basophils % 0.9 0.0 - 2.0 % 11/27/2020 10:25 AM CDT [facility] Immature Granulocytes 0.4 0 - 1 % 11/27/2020 10:25 AM CDT [facility] Neutrophil Absolute 3.69 2.01 - 7.14 x10E9/L 11/27/2020 10:25 AM CDT [facility] Lymphocytes Absolute 1.09 1.07 - 3.94 x10E9/L 11/27/2020 10:25 AM CDT [facility] Monocytes Absolute 0.60 0.26 - 1.07 x10E9/L 11/27/2020 10:25 AM CDT [facility] Eosinophils Absolute 0.13 0 - 0.47 x10E9/L 11/27/2020 10:25 AM CDT [facility] Basophils Absolute 0.05 0 - 0.08 x10E9/L 11/27/2020 10:25 AM CDT [facility] Immature Granulocytes Absolute 0.02 0.00 - 0.06 x10E9/L 11/27/2020 10:25 AM CDT [facility] nRBC Auto 0 /100 WBC 11/27/2020 10:[facility] Blood BLOOD SPECIMEN / Unknown Venipuncture / Unknown 11/27/2020 9:44 AM CDT 11/27/2020 10:20 AM CDT Vahe Garcia MD LAB - HEMATOLOGY OR DERABLES Performing Organization Address [facility]/State/[facility] Co de Phone Number [facility] [address] [place] [address] * (ABNORMAL) COMPREHENSIVE METABOLIC PANEL (11/27/2020 9:44 AM CDT) Only the most recent of2 resultswithin the time period is included. [facility] Glucose 90 70 - 105 mg/dL 11/27/2020 10:39 AM CDT [facility] Sodium 135(L) 136 - 145 mmol/L 11/27/2020 10:39 AM CDT [facility] Potassium 4.0 3.5 - 5.1 mmol/L 11/27/2020 10:39 AM CDT [facility] Chloride 106 98 - 107 mmol/L 11/27/2020 10:39 AM CDT [facility] CO2 27 23 - 31 mmol/L 11/27/2020 10:39 AM CDT [facility] Calcium 9.3 8.4 - 10.4 mg/dL 11/27/2020 10:39 AM CDT [facility] Anion Gap 2(L) 8 - 18 mmol/L 11/27/2020 10:39 AM CDT [facility] Comment:Attention clinician: Reference Range change. BUN 25(H) 9.8 - 20.1 mg/dL 11/27/2020 10:39 AM CDT [facility] Creatinine 0.93 0.57 - 1.11 mg/dL 11/27/2020 10:39 AM CDT [facility] Alkaline Phosphatase 89 40 - 150 U/L 11/27/2020 10:39 AM CDT [facility] Comment:Attention clinician: Reference Range change. ALT 8 0 - 61 U/L 11/27/2020 10:39 AM CDT [facility] AST 21 5 - 34 U/L 11/27/2020 10:39 AM CDT [facility] Protein Total 6.8 6.4 - 8.3 gm/dL 11/27/2020 10:39 AM CDT [facility] Albumin 4.2 3.2 - 4.6 gm/dL 11/27/2020 10:39 AM CDT [facility] Bilirubin Total 0.4 0.2 - 1.2 mg/dL 11/27/2020 10:39 AM CDT [facility] Comment:Attention clinician: Reference Range change. eGFR by MDRD 58 mL/min/1.7 3m2 11/27/2020 10:39 AM CDT [facility] eGFR by MDRD >60 mL/min/1.7 3m2 11/27/2020 10:39 AM CDT [facility] Blood BLOOD SPECIMEN / Unknown Venipuncture / Unknown 11/27/2020 9:44 AM CDT 11/27/2020 10:20 AM CDT Vahe Garcia MD LAB - CHEMISTRY ORD ERABLES [facility] [address] [place], [place] [id number] * XR FEMUR LEFT 2VW (10/08/2020 10:08 AM CALKER) Only the most recent of10 resultswithin the time period is included. Anatomical Region Laterality Modality Lower Extremity Radiographic Yudelka ging 10/08/2020 10:2 0 AM CALKER Impressions 10/08/2020 10:23 AM CALKER IMPRESSION: Postsurgical changes in the femur with unchanged alignment. This report was electronically signed by PRASHANTH DUNBAR MD on 10/08/2020 10:23 AM . Narrative 10/08/2020 10:23 AM CALKER Exam: XR FEMUR LEFT 2VW History: M97.02XD: Periprosthetic fracture around internal prosthetic left hip joint, subsequent encounter Comparison: 06/11/2020 Findings: Total hip arthroplasty is again demonstrated with a longstem femoral prosthesis. Again demonstrated are changes of open reduction and internal fixation of a periprosthetic femoral fracture with a lateral plate, screws, and cerclage wires. The orthopedic implants are intact and the osseous alignment is unchanged. No acute fracture is seen. Osteoarthritis is noted in the knee, severe in the lateral compartment. Procedure Note Prashanth Dunbar MD - 10/08/2020 Exam: XR FEMUR LEFT 2VW History: M97.02XD: Periprosthetic fracture around internal prosthetic left hip joint, subsequent encounter Comparison: 06/11/2020 Findings: Total hip arthroplasty is again demonstrated with a longstem femoral prosthesis. Again demonstrated are changes of open reduction andinternal fixation of a periprosthetic femoral fracture with a lateral plate, screws, and cerclage wires. The orthopedic implants are intact and the osseous alignment is unchanged. No acute fracture is seen.Osteoarthritis is noted in the knee, severe in the lateral compartment. IMPRESSION: Postsurgical changes in the femur with unchanged alignment. This report was electronically signed by PRASHANTH DUNBAR MD on10/08/2020 10:23 AM . Vahe Garcia MD DIAGNOSTIC IMAGING ORDERABLES * MA DRAIN/INJECT LARGE JOINT/BURSA (06/11/2020 12:05 PM CALKER) Narrative Vahe Garcia MD - 06/11/2020 12:05 PM CALKER Vahe Garcia MD 06/11/2020 12:05 PM Orthopaedic Surgery Procedure Note Diagnosis: Left knee pain Procedure: Injection of corticosteroid into the left knee Indications: Lauren Ingram is a 80 year old female who has left knee pain and arthritis. Procedure Details: The patient was informed of her condition, and the potential benefits of injection of steroid. The patient was counseled as to the risks of the procedure and allergies were reviewed. The patient was understanding and agreeable. The patient was placed into the appropriate position. The area was prepped with betadine and alcohol. Utilizing the peripatellar portal, the skin, subcutaneous, and pericapsular tissues were injectedwith 3 cc 1% lidocaine without epinephrine using a 21 Ga needle. The patient's left knee joint was then entered. Confirmation of location inside the joint was evidenced by aspiration of straw colored synovial fluid. 2 cc of Kenalog/3cc lidocaine was injected into the joint. The needle was removed and the needle site cleaned with alcohol and dressed with a sterile bandage. The procedure was performed under sterile conditions. The patient tolerated the procedure well. Remainder of plan per note. Vahe Garcia MD 06/11/2020 12:05 PM Vahe Garcia MD PROCEDURE/MINOR RAHAT GICAL ORDERABLES * XR FOOT RIGHT 3VW OR MORE (04/09/2020 12:33 PM CDT) Only the most recent of2 resultswithin the time period is included. Anatomical Region Laterality Modality Ankle / Foot Radiographic Yudelka ging 04/09/2020 12:3 4 PM CDT Impressions 04/09/2020 12:37 PM CDT Impression: 1. Healing fractures of the right third and fourth metatarsal bone distal shafts. 2. Unchanged sclerotic foci in the distal right tibia. This report was electronically signed by BELLE VALENZUELA on 04/09/2020 12:37 PM . Narrative 04/09/2020 12:37 PM CDT Examination: XR FOOT RIGHT 3VW OR MORE History:Right foot fracture Findings: Comparison to 03/12/2020. There are healing fractures of the right third and fourth metatarsal necks. Alignment is unchanged. 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 A heel spur is unchanged. Sclerotic foci in the distal tibia are unchanged . 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 Procedure Note Belle Valenzuela MD - 04/09/2020 Examination: XR FOOT RIGHT 3VW OR MORE History:Right foot fracture Findings: Comparison to 03/12/2020. There are healing fractures of the right third and fourth metatarsal necks. Alignment is unchanged. 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 A heel spur is unchanged. Sclerotic foci in the distal tibia are unchanged . 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 Impression: 1. Healing fractures of the right third and fourth metatarsal bonedistal shafts. 2. Unchanged sclerotic foci in the distal right tibia. This report was electronically signed by BELLE VALENZUELA on 04/09/2020 12:37PM . Vahe Garcia MD DIAGNOSTIC IMAGING ORDERABLES * MA DRAIN/INJECT LARGE JOINT/BURSA (03/12/2020 1:02 PM CDT) Narrative Vahe Garcia MD - 03/12/2020 1:02 PM CDT Vahe Garcia MD 03/12/2020 1:03 PM Orthopaedic Surgery Procedure Note Diagnosis: Left knee pain Procedure: Injection of corticosteroid into the left knee Indications: Lauren Ingram is a 80 year old female who has left knee pain and arthritis. Procedure Details: The patient was informed of her condition, and the potential benefits of injection of steroid. The patient was counseled as to the risks of the procedure and allergies were reviewed. The patient was understanding and agreeable. The patient was placed into the appropriate position. The area was prepped with betadine and alcohol. Utilizing the peripatellar portal, the skin, subcutaneous, and pericapsular tissues were injectedwith 3 cc 1% lidocaine without epinephrine using a 21 Ga needle. The patient's left knee joint was then entered. Confirmation of location inside the joint was evidenced by aspiration of straw colored synovial fluid. 2 cc of Kenalog/3cc lidocaine was injected into the joint. The needle was removed and the needle site cleaned with alcohol and dressed with a sterile bandage. The procedure was performed under sterile conditions. The patient tolerated the procedure well. Remainder of plan per note. Vahe Garcia MD 03/12/2020 1:03 PM Vahe Garcia MD PROCEDURE/MINOR RAHAT GICAL ORDERABLES * MA DRAIN/INJECT LARGE JOINT/BURSA (12/26/2019 1:48 PM CDT) Narrative Vahe Garcia MD - 12/26/2019 1:48 PM CDT Vahe Garcia MD 12/26/2019 1:48 PM Orthopaedic Surgery Procedure Note Diagnosis: Left knee pain Procedure: Injection of corticosteroid into the left knee Indications: Lauren Ingram is a 79 year old female who has left knee pain and arthritis. Procedure Details: The patient was informed of her condition, and the potential benefits of injection of steroid. The patient was counseled as to the risks of the procedure and allergies were reviewed. The patient was understanding and agreeable. The patient was placed into the appropriate position. The area was prepped with betadine and alcohol. Utilizing the peripatellar portal, the skin, subcutaneous, and pericapsular tissues were injectedwith 3 cc 1% lidocaine without epinephrine using a 21 Ga needle. The patient's left knee joint was then entered. Confirmation of location inside the joint was evidenced by aspiration of straw colored synovial fluid. 2 cc of Kenalog/3cc lidocaine was injected into the joint. The needle was removed and the needle site cleaned with alcohol and dressed with a sterile bandage. The procedure was performed under sterile conditions. The patient tolerated the procedure well. Remainder of plan per note. Vaeh Garcia MD 12/26/2019 1:48 PM Vahe Garcia MD PROCEDURE/MINOR RAHAT GICAL ORDERABLES * MA DRAIN/INJECT LARGE JOINT/BURSA (08/15/2019 11:33 AM CALKER) Vahe Wong MD - 08/15/2019 11:33 AM CALKER Vahe Garcia MD 08/15/2019 11:33 AM Orthopaedic Surgery Procedure Note Diagnosis: Left knee pain Procedure: Injection of corticosteroid into the left knee Indications: Lauren Ingram is a 79 year old female who has left knee pain and arthritis. Procedure Details: The patient was informed of her condition, and the potential benefits of injection of steroid. The patient was counseled as to the risks of the procedure and allergies were reviewed. The patient was understanding and agreeable. The patient was placed into the appropriate position. The area was prepped with betadine and alcohol. Utilizing the peripatellar portal, the skin, subcutaneous, and pericapsular tissues were injectedwith 3 cc 1% lidocaine without epinephrine using a 21 Ga needle. The patient's left knee joint was then entered. Confirmation of location inside the joint was evidenced by aspiration of straw colored synovial fluid. 2 cc of Kenalog/3cc lidocaine was injected into the joint. The needle was removed and the needle site cleaned with alcohol and dressed with a sterile bandage. The procedure was performed under sterile conditions. The patient tolerated the procedure well. Remainder of plan per note. Vahe Garcia MD 08/15/2019 11:33 AM Vahe Garcia MD PROCEDURE/MINOR RAHAT GICAL ORDERABLES * CARDIAC EKG ORDER (03/31/2019 12:37 PM CDT) Narrative 03/31/2019 12:37 PM CDT Ordered by an unspecified provider. Scanned Document CARDIAC SERVICES ORD ERABLES * (ABNORMAL) BASIC METABOLIC PANEL (CALCIUM TOTAL) (03/29/2019 2:55 AM CDT) Only the most recent of4 resultswithin the time period is included. Glucose 112(H) 74 - 106 mg/dL 03/29/2019 4:44 AM T [facility] Sodium 132(L) 136 - 145 mmol/L 03/29/2019 4:44 AM CDT [facility] Potassium 4.8 3.5 - 5.1 mmol/L 03/29/2019 4:44 AM CDT [facility] Chloride 94(L) 98 - 107 mmol/L 03/29/2019 4:44 AM T [facility] CO2 31 23 - 31 mmol/L 03/29/2019 4:44 AM CDT [facility] Calcium 8.6 8.4 - 10.2 mg/dL 03/29/2019 4:44 AM CDT [facility] Anion Gap 7(L) 8 - 16 mmol/L 03/29/2019 4:44 AM CDT [facility] BUN 14 9.8 - 20.1 mg/dL 03/29/2019 4:44 AM CDT [facility] Creatinine 0.79 0.55 - 1.02 mg/dL 03/29/2019 4:44 AM T [facility] eGFR by MDRD >60 mL/min/1.7 3m2 03/29/2019 4:44 AM CDT [facility] eGFR by MDRD >60 mL/min/1.7 3m2 03/29/2019 4:44 AM CDT [facility] Blood BLOOD SPECIMEN / Unknown Lab Venipuncture / Unknown 03/29/2019 2:55 AM CDT 03/29/2019 4:13 AM CDT Fernando Norton MD LAB - CHEMIS TRY ORDERABLES Performing Organization Address [facility] Co de Phone Number [facility] [address] [place] [phone] * SODIUM URINE RANDOM (03/28/2019 5:17 PM CDT) Sodium Urine 50 mmol/L 03/28/2019 7:03 PM CDT [facility] Urine URINE SPECIMEN OBTAINED BY CLEAN CATCH PROCEDURE / Unknown Collection / Unknown 03/28/2019 5:17 PM CDT 03/28/2019 5:36 PM CDT Fernando Norton MD LAB - URINE CHEMISTRY ORDERABLES Performing Organization Address [facility] de Phone Number [facility] [address] [place] [phone] * (ABNORMAL) CBC W/O DIFFERENTIAL (03/28/2019 2:40 AM CDT) Only the most recent of2 resultswithin the time period is included. WBC 13.2(H) 4.4 - 10.7 x10E9/L 03/28/2019 3:29 AM CDT [facility] RBC 3.31(L) 3.80 - 5.20 x10E12/L 03/28/2019 3:29 AM CDT [facility] Hemoglobin 9.1(L) 12.0 - 15.6 gm/dL 03/28/2019 3:29 AM CDT [facility] Hematocrit 28.7(L) 35.9 - 45.5 % 03/28/2019 3:29 AM CDT [facility] MCV 86.7 80.7 - 98.3 fl 03/28/2019 3:29 AM CDT [facility] MCH 27.5 26.7 - 34.0 pg 03/28/2019 3:29 AM CDT [facility] MCHC 31.7 30.8 - 35.9 gm/dL 03/28/2019 3:29 AM CDT [facility] Platelet Count 213 153 - 416 x10E9/L 03/28/2019 3:29 AM CDT [facility] RDW-CV 13.7 12.1 - 14.9 % 03/28/2019 3:29 AM CDT [facility] MPV 9.3(L) 9.4 - 12.9 fl 03/28/2019 3:29 AM CDT [facility] Blood BLOOD SPECIMEN / Unknown Lab Venipuncture / Unknown 03/28/2019 2:40 AM CDT 03/28/2019 3:23 AM CDT Omkar Price MD LAB - HEMATOLOGY ORD ERAANDREA Performing Organization Address City/[facility]/ZIP Co de Phone Number [facility] [address] [place], [place] [id number] * (ABNORMAL) MAGNESIUM BLOOD (03/28/2019 2:40 AM CDT) Only the most recent of3 resultswithin the time period is included. [facility] Signature Magnesium 1.5(L) 1.6 - 2.6 mg/dL 03/28/2019 3:55 AM CDT [facility] Blood BLOOD SPECIMEN / Unknown Lab Venipuncture / Unknown 03/28/2019 2:40 AM CDT 03/28/2019 3:23 AM CDT Omkar Price MD LAB - CHEMISTRY ORDSofía FRASER [facility] [address] [place] [address] * TRANSFUSE RED BLOOD CELL LEUKOREDUCED UNIT(S) (03/27/2019 3:03 PM CDT) Kyler Jameson MD NURSING - BLOOD PRO D TRANSFUSION * ENDOTRACHEAL TUBE NOTE (03/27/2019 2:30 PM CDT) Narrative Delfino Jc, BERNICE - 03/27/2019 2:30 PM CDT Delfino Jc APRN-CRNA 03/27/2019 2:31 PM Endotracheal Tube Placement: Patient Location: OR. Procedure: intubation (16219). Procedure Section: Sedation: under general anesthesia. Indications for Airway Management: anesthesia Induction: standard IV Blade Type: Yuan Blade Size: 2 Laryngoscopy View: grade 1 (full cords) Intubation Adjuncts: stylet Placement: oral Tube type: endotracheal tube Tube Size (MM): 7 Depth of Insertion (CM): 21 Measured From: lips Cuff volume (mL): 6 Cuff Inflated With: air Number of Attempts: 1. Placement Verified By: direct visualization, bilateral breath sounds, chest auscultation and CO2 monitor Tube secured with: adhesive tape. Difficult Airway? No. Staff Section Anesthesia Provider: Delfino Jc APRN-CRNA, Performed the procedure Kyler Jameson MD GENERAL ANESTHESIA ORDERABLES * BLOOD TYPE VERIFICATION (03/27/2019 1:12 PM CDT) ABO A 03/27/2019 1:26 PM CDT [facility] [facility] Rh Type Positive 03/27/2019 1:26 PM CDT [facility] Blood Bank BLOOD SPECIMEN / Unknown Lab Venipuncture / Unknown 03/27/2019 1:12 PM CDT 03/27/2019 1:12 PM CDT Omkar Price MD LAB - BLOOD BANK ORD ERABLES [facility] [address] [phone] * PREPARE (CROSSMATCH) RBC UNIT(S), 2 Units (03/27/2019 12:45 PM CDT) Product Code [id number] [facility] Unit Donor # [id number] ABO Donor Type A [facility] Rh Type Unit POS [facility] Unit Status Transfd [facility] ABO Rh Type Unit APOS [facility] Donor Unit Expiration Date [id number] [facility] Blood Type Barcode 6200 [facility] Product Code [id number] [facility] Unit Donor # [id number] [facility]LO[facility] ABO Donor Type A [facility] Rh Type Unit POS HC BL OOD BANK LAB Unit Status Ret'd [facility] ABO Rh Type Unit APOS [facility] Donor Unit Expiration Date [id number] [facility] Blood Type Barcode 6200 [facility] Blood Bank BLOOD SPECIMEN / Unknown 03/27/2019 12:45 PM CDT Kyler Jameson MD LAB - BLOOD BANK OR DERABLES Performing Organization Address [facility]/ZIP Co de Phone Number [facility] [address] [phone] * (ABNORMAL) VITAMIN D 25-HYDROXY (03/26/2019 9:15 AM CDT) Vitamin D, 25 Hydroxy 20.7(L) 30 - 100 ng/mL 03/26/2019 10:41 AM CDT [facility] Blood BLOOD SPECIMEN / Unknown Lab Venipuncture / Unknown 03/26/2019 9:15 AM CDT 03/26/2019 9:42 AM CDT Narrative [facility] - 03/26/2019 10:41 AM CDT Vitamin D Status: Deficiency <20 ng/mL Insufficiency 20-30 ng/mL Sufficiency 30-100 ng/mL Toxicity >100 ng/mL Omkar Price MD LAB - CHEMISTRY YENY FRASER [facility] [address] [place] [address] * XR OUTSIDE CONSULTATION (03/25/2019 11:37 AM CDT) Anatomical Region Laterality Modality Radiographic Yudelka ging 03/25/2019 11:4 6 AM CDT Impressions 03/25/2019 11:48 AM CDT 1. Acute fracture through the proximal diaphysis of the left femur around the femoral component of the arthroplasty. 2. Bilateral total hip arthroplasties Reading Radiologist: Zakiya Pak MD on 03/25/2019 at 11:48 AM Narrative 03/25/2019 11:48 AM CDT Left hip, 2 views with one view pelvis, outside consultation DATE: 03/24/2019. INDICATION: Pain. FINDINGS: Bilateral total hip arthroplasties are present. There is an acute or recent oblique fracture through the proximal shaft of the left femoral diaphysis around the femoral component of the arthroplasty. Displacement measures approximately 5 mm and without significant angulation or hardware displacement. The acetabular component of the arthroplasty is intact. There is a chronic healed fracture of the right inferior pubic ramus. 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 INDICATION: Pain. FINDINGS: Bilateral total hip arthroplasties are present. There is an acute or recent oblique fracture through the proximal shaft of the left femoral diaphysis around the femoral component of the arthroplasty. Displacement measures approximately 5 mm and without significant angulation or hardware displacement. The acetabular component of the arthroplasty is intact. There is a chronic healed fracture of the right inferior pubic ramus. 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 Acute fracture through the proximal diaphysis of the left femur around the femoral component of the arthroplasty. 2. Bilateral total hip arthroplasties Reading Radiologist: Zakiya Pak MD on 03/25/2019 at 11:48 AM Sterling Mack MD DIAGNOSTIC IMAGING ORDERABLES * XR CHEST 1 VW PORTABLE (03/25/2019 9:25 AM CDT) Anatomical Region Laterality Modality Chest Radiographic Yudelka ging 03/25/2019 9:40 AM CDT Impressions 03/25/2019 9:41 AM CDT Unremarkable. Reading Radiologist: Zakiya Pak MD on 03/25/2019 at 9:41 AM Narrative 03/25/2019 9:41 AM CDT Chest, 1 view DATE: 03/25/2019 INDICATION: FINDINGS: The lungs are clear and free of effusion. The heart, mediastinum and bones are unremarkable. Procedure Note Zakiya Pak MD - 03/25/2019 Chest, 1 view DATE: 03/25/2019 INDICATION: FINDINGS: The lungs are clear and free of effusion. The heart, mediastinum and bones are unremarkable. IMPRESSION Unremarkable. Reading Radiologist: Zakiya Pak MD on 03/25/2019 at 9:41 AM Sterling Mack MD DIAGNOSTIC IMAGING ORDERABLES * EKG 12-LEAD (03/25/2019 9:23 AM CDT) Ventricular Rate 75 BPM [facility] MUSE Atrial Rate 75 BPM [facility] M[facility] P-R Interval 194 ms [facility]USE QRS Duration ms 86 ms [facility] Q-T Interval ms 384 ms [facility] QTC Calculation (Bezet) 428 ms [facility] MUSE Calculated P Amasa 57 degrees [facility] MUSE Calculated R Amasa 45 degrees [facility] MUSE Calculated T Amasa 55 degrees [facility] MUSE Interpretation EKG NORMAL SINUS RHYTHM NONSPECIFIC ST ABNORMALITY ABNORMAL ECG NO PREVIOUS ECGS AVAILABLE Confirmed by MD Fatmata, Jayy ([id number]) on 03/26/2019 7:46:16 AM [facility] M[facility] 03/25/2019 9:23 AM CDT 03/26/2019 7:46 AM CDT Sterling Mack MD ECG ORDERABLES [facility] * TYPE + SCREEN PANEL (03/25/2019 9:21 AM CDT) ABO A 03/25/2019 10:14 AM CDT [facility] Rh Type Positive 03/25/2019 10:14 AM CDT [facility] Comment:No prev hx found Antibody Screen Negative 03/25/2019 10:14 AM CDT [facility] Blood Bank BLOOD SPECIMEN / Unknown Venipuncture / Unknown 03/25/2019 9:21 AM CDT 03/25/2019 9:30 AM CDT Sterling Mack MD LAB - BLOOD BANK OR DERABLES [facility] [address] [phone] * PATHOLOGY REPORTS - HPF HISTORICAL (01/19/2010 11:31 AM CDT) 01/19/2010 11:3 1 AM CDT [facility] - 01/19/2010 11:31 AM CDT Vahe Garcia MD LAB - PATHOLOGY/CYT OLOGY ORDERABLES Performing Organization Address City/[facility]/ZIP Co de Phone Number [facility] * LAB MICROBIOLOGY - HPF HISTORICAL (01/13/2010 5:02 AM CDT) Only the most recent of2 resultswithin the time period is included. 01/13/2010 5:02 AM CDT [facility] - 01/13/2010 5:02 AM CDT Vahe Garcia MD LAB - MICROBIOLOGY ORDERABLES Performing Organization Address City/[facility]/ZIP Co de Phone Number [facility] Care Teams [employer] Relationship Specialty Start Date End Date Sydnee Sheldon MD [address] [place] [address] [place] [phone] PCP - General 04/18/19
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
--- OUTSIDE RECORDS SUMMARY | 2024-10-04 16:38 | XMS_ITS | Data Portability ---
Author Organization [facility], Main Office Address [address] [place] [address] Assessment No assessment recorded. Plan of Treatment Reminders Order Date Submit Date Provider Last Modified By Organization Details Last Modified Time Details Appointments None recorded. Lab vitamin B12 + folate, serum or blood [address] (Lab), [address] [place], [address], 4 08:00:08 vitamin D, 1,25-dihydr oxy, serum [address] (Lab), [address] [place], [address], 4 08:00:08 TSH, serum or plasma [address] (Lab), [address] [place], [address], 4 08:00:08 unlisted lab - CBC study [address] (Lab), [address] [place], [address], 4 08:00:08 BMP, serum or plasma [address] [facility] (Lab), [address] [place], [address], 4 21:43:30 CBC w/ auto diff 2023 024 [email or web address] [id number] [facility] (Lab), [address] [place], [address], 4 08:07:02 ferritin, serum or plasma [address] [facility] (Lab), [address] [place], [address], 4 21:48:24 iron + total iron-bindin g capacity (TIBC), serum [address] [facility] (Lab), [address] [place], [address], 4 21:42:14 CBC w/ auto diff [address] [facility] (Lab), [address] [place], [address], 4 21:03:12 BMP, serum or plasma 2023 024 4 [facility] (Lab), [address] [place], [address], 4 13:56:01 vitamin B12 + folate, serum or blood 2023 024 [email or web address] 4 [facility] (Lab), [address] [place], [address], 4 10:12:04 vitamin D, 1,25-dihydr oxy, serum 2023 024 [email or web address] 4 [facility] (Lab), [address] [place], [address], 4 10:11:37 BMP, serum or plasma 2023 024 [email or web address] 4 [facility] (Lab), [address] [place], [address], 4 10:13:07 lipid panel, serum 2023 024 [email or web address] 4 [facility] (Lab), [address] [place], [address], 4 10:12:34 Referral None recorded. Procedures None recorded. Surgeries None recorded. Imaging None recorded. Medication Orders alendronate 70 mg tablet 2023 024 [id number], [address] [place], [place], [id number], 4 15:49:00 venlafaxine ER 150 mg capsule,ext ended release 24 hr 2023 024 [facility] #[id number], [address] [place], [place], [id number], 4 16:59:52 carvedilol 6.25 mg tablet 2023 024 [facility], [facility] [place], [address], 4 15:44:44 venlafaxine ER 75 mg capsule,ext ended release 24 hr 2023 024 [facility], [address] [place], [address], 4 15:44:46 Patient TargetsNo targets recorded. Patient InstructionsNo instructions recorded. Reason for Referral None Reported. Results Created Date Observation Date Name Description Value Unit Range Abnormal Flag Note LastModifiedBy Organization Detail LastModifiedTime 11/30/19 24 11/30/2023 CBC/C OMPLE TE BLD COUNT W/DIF F white blood cells 4.5 x10'3 /uL 4.2-10 .8 Not Available [facility] (Lab) [address] [place], [address], 11/30/2023 21:03:12 11/30/19 24 11/30/2023 CBC/C OMPLE TE BLD COUNT W/DIF F red blood cells 3.84 x10'6 /uL 3.80-5 .20 Not Available [facility] (Lab) [address] [place], [address], 11/30/2023 21:03:12 11/30/19 24 11/30/2023 CBC/C OMPLE TE BLD COUNT W/DIF F hemoglobin 11.1 g/dL 12.0-1 5.6 low Not Available [facility] (Lab) [address] [place], [address], 11/30/2023 21:03:12 11/30/19 24 11/30/2023 CBC/C OMPLE TE BLD COUNT W/DIF F hematocrit 33.5 % 35.7-4 5.7 low Not Available [facility] (Lab) [address] [place], [address], 11/30/2023 21:03:12 11/30/19 24 11/30/2023 CBC/C OMPLE TE BLD COUNT W/DIF F mean red cell volume 87.2 fL 82.0-9 9.0 Not Available [facility] (Lab) [address] [place], [address], 11/30/2023 21:03:12 11/30/19 24 11/30/2023 CBC/C OMPLE TE BLD COUNT W/DIF F mean red cell hemoglobin 28.9 pg 27.0-3 3.0 Not Available [facility] (Lab) [address] [place], [address], 11/30/2023 21:03:12 11/30/19 24 11/30/2023 CBC/C OMPLE TE BLD COUNT W/DIF F mean RBC HGB concentratio n 33.1 g/dL 31.0-3 6.0 Not Available [facility] (Lab) [address] [place], [address], 11/30/2023 21:03:12 11/30/19 24 11/30/2023 CBC/C OMPLE TE BLD COUNT W/DIF F red cell distribution width 13.8 % 11.8-1 5.5 Not Available [facility] (Lab) [address] [place], [address], 11/30/2023 21:03:12 11/30/19 24 11/30/2023 CBC/C OMPLE TE BLD COUNT W/DIF F platelets 337 x10'3 /uL 150-40 0 Not Available [facility] (Lab) [address] [place], [address], 11/30/2023 21:03:12 11/30/19 24 11/30/2023 CBC/C OMPLE TE BLD COUNT W/DIF F mean platelet volume 9.8 fL 9.0-12 .4 Not Available [facility] (Lab) [address] [place], [address], 11/30/2023 21:03:12 11/30/19 24 11/30/2023 CBC/C OMPLE TE BLD COUNT W/DIF F neutrophils 52.8 % 39.0-7 2.0 Not Available [facility] (Lab) [address] [place], [address], 11/30/2023 21:03:12 11/30/19 24 11/30/2023 CBC/C OMPLE TE BLD COUNT W/DIF F lymphocytes 29.3 % 16.0-4 7.0 Not Available [facility] (Lab) [address] [place], [address], 11/30/2023 21:03:12 11/30/19 24 11/30/2023 CBC/C OMPLE TE BLD COUNT W/DIF F monocytes 14.1 % 5.0-12 .0 high Not Available [facility] (Lab) [address] [place], [address], 11/30/2023 21:03:12 11/30/19 24 11/30/2023 CBC/C OMPLE TE BLD COUNT W/DIF F eosinophils 2.2 % 1.0-7. 0 Not Available [facility] (Lab) [address] [place], [address], 11/30/2023 21:03:12 11/30/19 24 11/30/2023 CBC/C OMPLE TE BLD COUNT W/DIF F basophils 0.9 % 0.0-2. 0 Not Available [facility] (Lab) [address] [place], [address], 11/30/2023 21:03:12 11/30/19 24 11/30/2023 CBC/C OMPLE TE BLD COUNT W/DIF F immature granulocytes 0.7 % 0.00-0 .50 high Not Available [facility] (Lab) [address] [place], [address], 11/30/2023 21:03:12 11/30/19 24 11/30/2023 CBC/C OMPLE TE BLD COUNT W/DIF F neutrophils, absolute count 2.40 x10'3 /uL 1.5-8. 0 Not Available [facility] (Lab) [address] [place], [address], 11/30/2023 21:03:12 11/30/19 24 11/30/2023 CBC/C OMPLE TE BLD COUNT W/DIF F lymphocytes, absolute count 1.33 x10'3 /uL 1.07-3 .43 Not Available [facility] (Lab) [address] [place], [address], 11/30/2023 21:03:12 11/30/19 24 11/30/2023 CBC/C OMPLE TE BLD COUNT W/DIF F monocytes, absolute count 0.64 x10'3 /uL 0.29-0 .99 Not Available [facility] (Lab) [address] [place], [address], 11/30/2023 21:03:12 11/30/19 24 11/30/2023 CBC/C OMPLE TE BLD COUNT W/DIF F eosinophils, absolute count 0.10 x10'3 /uL 0.02-0 .53 Not Available [facility] (Lab) [address] [place], [address], 11/30/2023 21:03:12 11/30/19 24 11/30/2023 CBC/C OMPLE TE BLD COUNT W/DIF F basophils, absolute count 0.04 x10'3 /uL 0.01-0 .08 Not Available [facility] (Lab) [address] [place], [address], 11/30/2023 21:03:12 11/30/19 24 11/30/2023 CBC/C OMPLE TE BLD COUNT W/DIF F immature granulocytes ,absolute 0.03 x10'3 /uL 0.00-0 .05 Not Available [facility] (Lab) [address] [place], [address], 11/30/2023 21:03:12 11/30/19 24 11/30/2023 CBC/C OMPLE TE BLD COUNT W/DIF F nucleated red blood cells 0.0 % -0 Not Available [facility] (Lab) [address] [place], [address], 11/30/2023 21:03:12 11/30/19 24 11/30/2023 CBC/C OMPLE TE BLD COUNT W/DIF F NRBC# 0.00 x10'3 /uL Not Available [facility] (Lab) [address] [place], [address], 11/30/2023 21:03:12 11/30/19 24 11/30/2023 IRON/ TIBC PANEL total iron binding capacity 340 mcg/d L 265-47 5 Not Available [facility] (Lab) [address] [place], [address], 11/30/2023 21:46:33 11/30/19 24 11/30/2023 IRON/ TIBC PANEL % transferrin saturation 24 % 20-55 Not Available [facility] (Lab) [address] [place], [address], 11/30/2023 21:46:33 11/30/19 24 11/30/2023 IRON/ TIBC PANEL unsaturated iron bind capacity 257 mcg/d L 126-38 2 Not Available [facility] (Lab) [address] [place], [address], 11/30/2023 21:46:33 11/30/19 24 11/30/2023 IRON/ TIBC PANEL iron 83 mcg/d L 42-175 Not Available [facility] (Lab) [address] [place], [address], 11/30/2023 21:46:33 11/30/19 24 11/30/2023 BASIC METAB OLIC PANEL sodium 130 mmol/ L 137-14 5 low Not Available [facility] (Lab) [address] [place], [address], 11/30/2023 21:43:30 11/30/19 24 11/30/2023 BASIC METAB OLIC PANEL potassium 3.9 mmol/ L 3.5-5. 1 Not Available [facility] (Lab) [address] [place], [address], 11/30/2023 21:43:30 11/30/19 24 11/30/2023 BASIC METAB OLIC PANEL chloride 94 mmol/ L 98-107 low Not Available [facility] (Lab) [address] [place], [address], 11/30/2023 21:43:30 11/30/19 24 11/30/2023 BASIC METAB OLIC PANEL carbon dioxide 29 mmol/ L 22-30 Not Available [facility] (Lab) [address] [place], [address], 11/30/2023 21:43:30 11/30/19 24 11/30/2023 BASIC METAB OLIC PANEL anion gap 10.9 mmol/ L 14-22 low Not Available [facility] (Lab) [address] [place], [address], 11/30/2023 21:43:30 11/30/19 24 11/30/2023 BASIC METAB OLIC PANEL glucose 80 mg/dL 70-99 Not Available [facility] (Lab) [address] [place], [address], 11/30/2023 21:43:30 11/30/19 24 11/30/2023 BASIC METAB OLIC PANEL BUN 16 mg/dL 8-19 Not Available [facility] (Lab) [address] [place], [address], 11/30/2023 21:43:30 11/30/19 24 11/30/2023 BASIC METAB OLIC PANEL creatinine 0.75 mg/dL 0.66-1 .25 Not Available [facility] (Lab) [address] [place], [address], 11/30/2023 21:43:30 11/30/19 24 11/30/2023 BASIC METAB OLIC PANEL GFR >60 Refer ence Range : [place] GFR Healt hy Adult : >60 [...] calcu lator is avail able on the [facility] websi te: https ://ww w.kid eliud.o rg/pr ofess ional s/kdo qi/gf r_cal culat or Not Available [facility] (Lab) [address] [place], [address], 11/30/2023 21:43:30 11/30/19 24 11/30/2023 BASIC METAB OLIC PANEL calcium 9.2 mg/dL 8.4-10 .2 Not Available [facility] (Lab) [address] [place], [address], 11/30/2023 21:43:30 11/30/19 24 11/30/2023 SHAHANA TIN ferritin 36 NG/mL 11.1-2 64 Not Available [facility] (Lab) [address] [place], [address], 11/30/2023 21:48:24 01/25/20 24 01/25/2024 URINE DRUG SCREE N amphetamines NEGATI VE Amphe tamin e cut off 500 ng/mL Not Available [facility] (Lab) [address] [place], [address], 01/25/2024 23:25:43 01/25/20 24 01/25/2024 URINE DRUG SCREE N barbiturates NEGATI VE Patricia turat e cut off 200 ng/mL Not Available [facility] (Lab) [address] [place], [address], 01/25/2024 23:25:43 01/25/20 24 01/25/2024 URINE DRUG SCREE N benzodiazepi alicia NEGATI VE Benzo diaze pine cut off 200 ng/mL Not Available [facility] (Lab) [address] [place], [address], 01/25/2024 23:25:43 01/25/20 24 01/25/2024 URINE DRUG SCREE N cocaine NEGATI VE Cocai ne metab olite cut off 150 ng/mL Not Available [facility] (Lab) [address] [place], [address], 01/25/2024 23:25:43 01/25/20 24 01/25/2024 URINE DRUG SCREE N fentanyl NEGATI VE Fenta nyl cut off 1.0 ng/mL Not Available [facility] (Lab) [address] [place], [address], 01/25/2024 23:25:43 01/25/20 24 01/25/2024 URINE DRUG SCREE N methadone NEGATI VE Metha done cutof f 300 ng/mL . Not Available [facility] (Lab) [address] [place], [address], 01/25/2024 23:25:43 01/25/20 24 01/25/2024 URINE DRUG SCREE N opiates POSITI VE abnormal Opiat e cut off 300 ng/mL Not Available [facility] (Lab) [address] [place], [address], 01/25/2024 23:25:43 01/25/20 24 01/25/2024 URINE DRUG SCREE N oxycodone NEGATI VE Oxyco done cut off 100 ng/mL Not Available [facility] (Lab) [address] [place], [address], 01/25/2024 23:25:43 01/25/20 24 01/25/2024 URINE DRUG SCREE N phencyclidin e NEGATI VE PCP cut off 25 ng/mL Not Available [facility] (Lab) [address] [place], [address], 01/25/2024 23:25:43 01/25/20 24 01/25/2024 URINE DRUG SCREE N marijuana NEGATI VE abnormal Marij uana cut off 50 ng/mL ANY POSIT VLADIMIR RESUL TS REPOR GILBERTO ARE UNCON FIRME D, AND SUCH, SHOUL D BE USED FOR MEDIC AL TREAT MENT PURPO SES ONLY. Not Available [facility] (Lab) [address] [place], [address], 01/25/2024 23:25:43 Result Notes None recorded. Problems Name Problem SNOMED Code Status Onset Date Resolution Date Notes Provider Name and Address Organization Details Recorded Time Arthritis of left knee 4447858475860 104 Active 2020 [facility] Available [facility] 3 00:46:19 History of right total knee replacemen t 3392153694713 102 Active 2020 Not Available [facility] 3 00:46:20 Otitis media of left ear 2341694077383 100 Active 2012 Not Available [facility] 3 00:46:20 History of total knee arthroplas ty 3927426620889 Active 2020 Not Available [facility] 3 00:46:20 Deep venous thrombosis 594725818 Active 2019 x 2 Not Available [facility] 3 00:46:20 Abscess 632774607 Active 2019 Not Available [facility] 3 00:46:20 Chronic back pain 224292719 Active 2019 Not Available [facility] 3 00:46:20 Acute sinusitis 35721686 Active 2012 Not Available [facility] 3 00:46:20 Pain of right shoulder joint 0790815052675 9100 Active 2021 Not Available [facility] 3 00:46:20 Acute suppurativ e otitis media 232756784 Active 2012 Not Available [facility] 3 00:46:21 Degenerati ve joint disease involving multiple joints 279318532 Active 2012 Not Available [facility] 3 00:46:21 Hand joint pain 362843347 Active 2013 Not Available [facility] 3 00:46:21 Fibromyalg ia 431416500 Active 2013 Not Available [facility] 3 00:46:21 Chronic tension-ty pe headache 258886992 Active 2012 Not Available [facility] 3 00:46:21 Gastroesop hageal reflux disease 198764217 Active 2013 Not Available [facility] 3 00:46:21 Headache 17236388 Active 2012 Not Available [facility] 3 00:46:21 Arthralgia of the ankle and/or foot 436872176 Active 2013 Not Available [facility] 3 00:46:21 Syncope 645227986 Active 2020 Not Available [facility] 3 00:46:21 Knee pain Active 2009 Not Available [facility] 3 00:46:22 Osteopenia 554231532 Active 2017 DEXA 02/16 Not Available [facility] 3 00:46:22 Vitamin D deficiency 23654801 Active 2012 Not Available [facility] 3 00:46:22 Closed fracture of hip 545648359 Active 2018 Not Available [facility] 3 00:46:22 Arthritis 1718312 Active 2019 Not Available [facility] 3 00:46:22 Hypertensi ve disorder 97509402 Active Not Available [facility] 3 00:46:22 Nausea 144589211 Active 2013 Not Available [facility] 3 00:46:23 Strain of trapezius muscle 724498306 Active 2012 Not Available [facility] 3 00:46:23 Periprosth etic fracture 433618535 Active 2020 Not Available [facility] 3 00:46:23 Hyperlipid emia 80929555 Active 2019 Not Available [facility] 3 00:46:23 Joint pain 76860254 Active 2013 Not Available [facility] 3 00:46:23 Essential hypertensi on 33742230 Active 2012 Not Available [facility] 3 00:46:23 Long-term current use of anticoagul ant 406250528 Active 2012 Not Available [facility] 3 00:46:24 Fracture of femur 36744251 Active 2018 Not Available [facility] 3 00:46:24 Bilateral lower limb edema 182840171 Active 2013 Not Available [facility] 3 00:46:24 Neck pain 12907757 Active 2019 Not Available [facility] 3 00:46:24 Iron deficiency anemia 32551790 Active 2020 Not Available [facility] 3 00:46:24 Perioral dermatitis 543314761 Active 2022 UDAY Hayward [address], [address], [place], [address] , [employer] [facility] [employer] [facility] 3 10:15:36 Fatigue 49878691 Active 2022 Sydnee Sheldon MD [address], [address], [place], [address] , [employer] [facility] [employer] [facility] 3 07:39:25 Dysuria 82560039 Active 2022 Sydnee Sheldon MD [address], [address], [place], [address] , [employer] [facility] [employer] [facility] 3 15:32:24 Overactive urinary bladder 381773006 Active 2022 UDAY Hayward [address], [address], [place], [address] , [employer] [facility] [employer] [facility] 3 09:38:42 Compressio n fracture of lumbar spine 674191020 Active 2022 Sydnee Sheldon MD [address], [address], [place], [address] , [employer] 3 11:46:41 Osteoarthr itis of multiple joints 840868412 Active 2022 Dmitry Kent, [employer] [address], [address], [place], [address] , [employer] 3 16:17:44 Mixed anxiety and depressive disorder 637245503 Active 2023 Dmitry Kent, [employer] [address], [address], [place], [address] , [employer] 4 15:33:38 Hyponatrem ia 46831535 Active 2023 Dmitry Kent, [employer] [address], [address], [place], [address] , [employer] 4 10:54:43 Dark stools 90951994 Active 2023 Dmitry Kent, [employer] [address], [address], [place], [address] , [employer] 4 15:42:45 Bone density finding 117218325 Active 2023 Dmitry Kent, [employer] [address], [address], [place], [address] , [employer] 4 15:46:49 Problem Notes None recorded. Procedures Surgical History Date Name Laterality Status Provider Name and Address Organization Details Recorded Time 10/13/19 Medicare Wellness CPT Code, Initial completed Vera Bañuelos RN [facility] 10/09/2022 12:04:59 12/10/19 Total knee arthroplasty completed Not Available [facility] 09/30/2022 00:42:08 Imaging Results None recorded. Procedure Notes None recorded. Medical Equipment None Reported. Allergies Allergen ID Allergen Name Allergen Category Reaction Reaction Severity Criticality Documentation Date Start Date Code Code System Note Provider Name and Address Organization Details Recorded Time 362 duloxetin e medicatio n nausea Not available Not available 09/30/2022 26422 RxNorm Not Available [facility] 3 00:51:19 Medications Name Sig [...] 1 ml IM x 1 11/02 completed [facility]-0 [id number] -[id number] -01 Not Available Not Available Not [...] administe red by the provider 10/24 completed [facility]: 0409- 4276- 17 Not Available Not Available [...] Not Available No t Available Fluzone High-Dose 9213-6588 (PF) 180 mcg/0.5 mL intramuscul ar syringe [...] Updated DateTime 4 154.94 cm 29.1 kg/m2 32429.2 2 g 97.1 [degF] 60 /min 98 % 98 % 108 mm[Hg] 60 mm[Hg] Ariadne Talley RN [facility] 4 15:20:49 Date Recorded Body height Body mass index (BMI) Body weight Body temperature Heart rate Oxygen saturation Oxygen saturation in Arterial blood by Pulse oximetry Systolic blood pressure Diastolic blood pressure Provider Name and Address Organization Details Last Updated DateTime 4 154.94 cm 29.3 kg/m2 75027.8 2 g 96.5 [degF] 78 /min 91 % 91 % 126 mm[Hg] 64 mm[Hg] Ariadne Talley RN [facility] [employer] [facility] 4 10:24:22 Date Recorded Body height Body mass index (BMI) Body weight Body temperature Heart rate Oxygen saturation Oxygen saturation in Arterial blood by Pulse oximetry Systolic blood pressure Diastolic blood pressure Provider Name and Address Organization Details Last Updated DateTime 4 154.94 cm 28.5 kg/m2 62750.4 5 g 97.9 [degF] 79 /min 98 % 98 % 176 mm[Hg] 100 mm[Hg] Katerina De Leon RN [facility] 4 16:41:39 Date Recorded Body height Body mass index (BMI) Body weight Body temperature Heart rate Oxygen saturation Oxygen saturation in Arterial blood by Pulse oximetry Systolic blood pressure Diastolic blood pressure Provider Name and Address Organization Details Last Updated DateTime 4 154.94 cm 28.7 kg/m2 76641.0 4 g 98.1 [degF] 68 /min 91 [...] Is Your Level Of Alcohol Consumption? None [id number].[id number] Information not available 09/30/2022 Are You Blind Or Do You Have Difficulty Seeing? No MIGRATION.61548 81389 Information not available 09/30/2022 What Is Your Level Of Caffeine Consumption? Moderate MIGRATION.28581 16545 Information not available 09/30/2022 How Much Tobacco Do You Chew? None MIGRATION.11903 [id number] Information not available 09/30/2022 In The 14 Days Before Symptom Onset, Have You Had Close Contact With A Laboratory-confi rmed COVID-19 While That Case Was Ill? No [id number].97699 [id number] Information not available 09/30/2022 In The 14 Days Before Symptom Onset, Have You Had Close Contact With A Person Who Is Under Investigation For COVID-19 While That Person Was Ill? No [id number].22812 [id number] Information not available 09/30/2022 Are You Deaf Or Do You Have Serious Difficulty Hearing? No MIGRATION.60164 [id number] Information not available 09/30/2022 What Type Of Diet Are You Following? REGULAR MIGRATION.81120 11324 Information not available 09/30/2022 Which Illicit Or Recreational Drugs Have You Used? None MIGRATION.80641 10474 Information not available 09/30/2022 Do You Or Have You Ever Used E-cigarettes Or Vape? Never Used Electronic Cigarettes MIGRATION.98500 82445 Information not available 09/30/2022 What Is Your Occupation? Retired MIGRATION.89632 73080 Information not available 09/30/2022 Are There Any Guns Present In Your Home? No MIGRATION.01341 20742 Information not available 09/30/2022 Do You Use [...] Used Smokeless Tobacco? Never Used Smokeless Tobacco MIGRATION.59066 25244 Information not available 09/30/2022 How Much Tobacco Do You Smoke? 1 PPD MIGRATION.32955 76199 Information not available 09/30/2022 Do You Use Any Illicit Or Recreational Drugs? No Information not available 10/09/2022 Do You Use Sunscreen Routinely? No MIGRATION.22853 [id number] Information not available 09/30/2022 Has Tobacco Cessation Counseling Been Provided? No Information not available 10/09/2022 How Many Years Have You Smoked Tobacco? 40 MIGRATION.30634 50082 Information not available 09/30/2022 Have You Recently Traveled Abroad? No MIGRATION.86981 20554 Information not available 09/30/2022 Do You Have Any Dietary Restrictions? No MIGRATION.29880 60672 Information not available 09/30/2022 Do You Or Have You Ever Used Any Other Forms Of Tobacco Or Nicotine? No Information not available 10/09/2022 Sex: Unknown Functional Status Question Answer Note LastModified by Organizat ion Details LastModified Time Do you have difficulty walking or climbing stairs? Yes MIGRATION.08728 71506 Information not available 09/30/2022 Do you have transportation difficulties? No Information not available 10/09/2022 Are you able to walk? YESASSIST Patient stated she uses a walker at times. Information not available 10/09/2022 Do you have difficulty doing errands alone? No MIGRATION.70582 50449 Information not available 09/30/2022 Are you able to care for yourself? Yes Information n ot available 10/09/2022 Do you have difficulty dressing or bathing? No MIGRATION.61918 68593 Information not available 09/30/2022 What is your exercise level? Occasional Information not available 10/09/2022 Mental Status Question Answer Note LastModified by Organization D etails LastModified Time Do you have difficulty concentrating, remembering or making decisions? No Information no t available 10/09/2022 Family History Relationship Description Onset Age of this Age Resolved Age Notes LastModified by Organization Details LastModified Time Mother Heart disease [id number] Not available 09/30/2022 00:42:10 Mother Family history of stroke [id number] [id number] Not available 09/30/2022 00:42:10 Mother Hypertensive disorder [id number].894 [id number] Not available 09/30/2022 00:42:10 Notes:No breast, colon, [...] INSOMNIA N HIGH CHOLESTEROL / HYPERLIPIDEMIA N EYE PROBLEMS N HYPERTHYROIDISM N EATING DISORDER N NEUROLOGICAL PROBLEMS N EDEMA N CHRONIC PAIN SYNDROME N HYPOTHYROIDISM N CAROTID BLOCKAGE N CONSTIPATION N BACK / NECK PROBLEMS N HAVE [...] DISORDER N ALZHEIMER'S DISEASE N PAIN N DEMENTIA N HERPES N SEIZURES/EPILEPSY N HEADACHES/MIGRAINES N VASCULAR DISEASE N PACEMAKER N DIZZINESS N HEART DISEASE/HEART PROBLEMS N KIDNEY DISEASE N SCARLET FEVER N MULTIPLE SCLEROSIS N DEVELOPMENTAL OR BEHAVIORAL DISORDERS N MENTAL DISORDER/ILLNESS N CANCER: SPECIFY N CARDIAC ARRHYTHMIA N PNEUMONIA N ATRIAL FIBRILLATION N Gall Stones N PULMONARY EMBOLISM N AUTOIMMUNE DISEASE N [...] quadrivalent, PF 3 completed FAITH Wyman [address] [facility], [facility] [address], [place], [address], [facility] [employer] 06/03/2023 08:34:15 SARS-COV-2 (COVID-19) vaccine, UNSPECIFIED 1 completed Not Available [facility] 09/30/2022 00:51:03 Influenza, high-dose, trivalent, PF 6 completed Not Available [facility] 09/30/2022 00:51:03 Influenza, high-dose, quadrivalent, PF 1 completed Not Available [facility] 09/30/2022 00:51:04 Influenza, high-dose, quadrivalent, PF 2 completed Not Available [facility] 09/30/2022 00:51:04 Influenza, high-dose, quadrivalent, PF 0 completed Not Available [facility] 09/30/2022 00:51:05 Influenza, high-dose, trivalent, PF 9 completed Not Available [facility] 09/30/2022 00:51:05 Influenza, high-dose, trivalent, PF 8 completed Not Available [facility] 09/30/2022 00:51:05 Pneumococcal conjugate PCV 13 06/27/201 8 completed Not Available [facility] 09/30/2022 00:51:05 Influenza, high-dose, trivalent, PF 7 completed Not Available [facility] 09/30/2022 00:51:06 Past Encounters Encounter ID Performer Location Encounter Start Date Encounter Closed Date Diagnosis/Indication Diagnosis SNOMED-CT Code Diagnosis ICD10 Code Diagnosis Note [id number] [facility] [place] [address] [place] [address] 10/24/2020 00:00:00 10/29/2020 10:02:29 [id number] [facility] [place] [address] [place] [address] 11/08/2020 00:00:00 11/08/2020 22:15:11 [id number] [facility] [place] [address] [place] [address] 11/21/2020 00:00:00 11/21/2020 09:38:25 [id number] [facility] [place] [address] [place] [address] 12/05/2020 00:00:00 12/05/2020 12:53:23 [id number] [facility] [place] [address] [place] [address] 12/24/2020 00:00:00 12/24/2020 16:40:11 [id number] [facility] [place] [address] [place] [address] 01/09/2021 00:00:00 01/09/2021 13:32:52 [id number] [facility] [place] [address] [place] [address] 01/16/2021 00:00:00 01/16/2021 12:31:41 [id number] [facility] [place] [address] [place] [address] 2021 00:00:00 2021 12:59:18 [id number] [facility] [place] [address] [place] [address] 03/17/2021 00:00:00 03/17/2021 12:34:16 [id number] [facility] [place] [address] [place] [address] 03/20/2021 00:00:00 03/20/2021 11:42:27 [id number] [facility] [place] [address] [place] [address] 04/21/2021 00:00:00 04/21/2021 12:58:45 [id number] [facility] [place] [address] [place] [address] 05/02/2021 00:00:00 05/02/2021 15:26:49 [id number] [facility] [place] [address] [place] [address] 05/26/2021 00:00:00 05/26/2021 21:12:04 [id number] [facility] [place] [address] [place] [address] 08/18/2021 00:00:00 08/18/2021 19:08:19 [id number] [facility] [place] [address] [place] [address] 08/20/2021 00:00:00 08/21/2021 20:05:43 [id number] [facility] [place] [address] [place] [address] 08/26/2021 00:00:00 08/26/2021 11:33:47 [id number] [facility] [place] [address] [place] [address] 08/29/2021 00:00:00 09/01/2021 11:52:15 [id number] [facility] [place] [address] [place] [address] 11/04/2021 00:00:00 11/04/2021 11:36:55 [id number] [facility] [place] [address] [place] [address] 11/25/2021 00:00:00 11/25/2021 15:34:44 [id number] [facility] [place] [address] [place] [address] 11/28/2021 00:00:00 11/28/2021 13:04:10 [id number] [facility] [place] [address] [place] [address] 01/19/2022 00:00:00 01/19/2022 08:36:13 [id number] [facility] [place] [address] [place] [address] 02/27/2022 00:00:00 02/27/2022 12:12:06 [id number] [facility] [place] [address] [place] [address] 03/16/2022 00:00:00 03/16/2022 12:51:07 [id number] [facility] [place] [address] [place] [address] 05/06/2022 00:00:00 05/06/2022 14:04:06 [id number] [facility] [place] [address] [place] [address] 05/29/2022 00:00:00 05/29/2022 12:26:59 [id number] [facility] [place] [address] [facility] [address] [place] [address] 07/08/2022 00:00:00 07/12/2022 13:49:33 [id number] UDAY Hayward [facility] [place] [address] [place] [address] 10/12/2022 09:50:54 10/12/2022 10:31:21 Adult health examination 809209919 Z00.00 Labs up to date.Recom mended routine eye exams, has dentures. Colonoscop y- not indicatedM ammogram- not indicatedD EXA- not indicated Screening for disorder 807696801 Z13.9 Perioral dermatitis 2387 49441 L71.0 Chronic back pain 425355 002 G89.29 Pt. would like to change hydrocodon e script to 7.5mg QID, advised of max. 30mg daily new controlled substance policy. [id number] LYDIA Garcia [facility] Primary Care [facility] [address] [facility] [facility] [place] [place] [address] 01/01/2023 11:24:14 01/01/2023 11:57:57 [id number] UDAY Hayward [facility] Primary Care [facility] [address] [facility] [address] [facility] [place] [address] 01/13/2023 09:13:33 01/13/2023 11:30:32 Overactive urinary bladder 015719505 N32.81 Urine showed no infection, problem has been ongoing for months.Dimple fernandez do trial of oxybutynin , discussed stopping fluids early before bedtime.If still no improvemen t will send referral to urogyn. Fatigue 85134859 R53.83 All labs normal. B12 has slightly [...] sure to stay active, maintain healthy lifestyle. [id number] Sydnee Sheldon MD [facility] Primary [facility] [address] [facility] [facility] [address] [facility] [place] [address] 05/04/2023 15:44:12 06/10/2023 09:54:37 [id number] FAITH Wyman [facility] [address] [facility] [address] [place] [address] 06/02/2023 15:38:56 06/02/2023 16:34:55 Essential hypertension 75680814 I10 -pt currently takes carvedilol , hctz, and losartan, clonidine prn for systolic over 160-bp noted to be 160/88-No CHOU, CP, SOB, can note some dizziness when bp gets too high-encou raged to limit c-will increase carvedilol to 12.5mg-f/u in 1 month Osteoarthr itis of multiple joints 123625792 M15.9 -notes pain/stiff ness to hands/fing ers is biggest issue-also had recent fall, fx noted to lumbar spine-surg jo pending-un able to take nsaids d/t being on eliquis-cu rrently seeing pain management and ortho for this issue-will order capsaicin topical cream for pain Administra tion of influenza vaccine 29852417 Z23 [id number] FAITH Wyman [facility] Primary Care [place] [address] [address] [facility] [address] [place] [address] 07/07/2023 15:45:57 07/07/2023 16:19:18 Essential hypertension 98118585 I10 -bp today is 162/80, 63, no chou, cp, sob-tries to limit her salt intake-dri nks 8 glasses of water/day- continues to take the carvedilol , hctz, losartan daily, and prn clonidine- will increase carvedilol to 25mg/day-p t to f/u as needed [id number] FAITH Wyman [facility] Primary Care [facility] [address] [facility] [address] [place] [address] 08/05/2023 14:50:11 08/05/2023 15:21:44 Essential hypertension 61862266 I10 -bp 150/82, 56, does note some dizziness occasional ly-drinks 8 glasses of water/day- continues to take the carvedilol , hctz, losartan daily-cari ng amlodipine 5mg daily-will stop carvedilol 25 and and start-f/u in 1 month [id number] FAITH Wyman [facility] Primary Care [facility] [address] [facility] [address] [place] [address] 09/07/2023 15:14:32 09/07/2023 16:02:50 Essential hypertension 21387232 I10 -chronic, stable-bp 108/60, 60 no chou/cp/sob- continues to note good intake of water-she has been feeling more fatigue lately-dimple l stop carvedilol 12.5 and restart 6.25mg BID Mixed anxi ety and depressive disorder 722510188 F41.8 -pt currently takes escitalopr am 20mg daily-she would like to try something different- trial venlafaxin e 75mg daily Screening for disorder 912950570 Z13.9 [id number] FAITH Wyman [facility] Primary Care [facility] [address] [place] [address] 10/07/2023 10:17:00 10/07/2023 11:12:34 Hyponatremia 64775757 E87.1 -new issue, low sodium noted on 09-07-22 (126)-labs redrawn-ad ding sodium if continues to be low-f/u in 1 month [id number] Sydnee Sheldon MD [facility] [address] [facility] [place] [address] 11/29/2023 16:34:34 11/29/2023 17:08:46 Mixed anxiety and depressive disorder 978472490 F41.8 this month, mood not in good controlinc rease venlafaxin e ER 150 mg daily with foodf/u in 6 weeks Essential hypertension 97831454 I10 check home bps 2x per weekelemot ed today but this month and she has not been tracking her home readingsco ntinue carvedilol 6.25 mg po bid, amlodipine 5 mg daily, losartan 100 mg and hctz 25 mg dailyf/u in 6 weeks Hyponatremia 43162001 E8 7.1 Iron defic iency anemia 68225734 D50.9 D51.0 [id number] FAITH Wyman [facility] Primary Care [facility] [address] [facility] [place] [address] 01/19/2024 15:15:43 01/19/2024 16:58:56 Fatigue 38033173 R53.83 noting fatigue Screening for disorder 335320980 Z13.9 Vitamin D deficiency 347 96384 E55.9 Thyroid di sorder screening 602107346 Z13.29 Dark stools 75193070 R19 .5 -really dark stools for the last few days-feeli ng tired/fati gued-decli alicia colonoscop y-encourag ed increase water intake, natural fiber Bone density finding 385 263619 M85.80 -pt told in hx that she has low bone densitity- trial alendronat e 70mg [id number] Dmitry Kent, LYDIA-C [facility] [address] [facility] [address] [place] [address] 01/25/2024 11:09:35 01/25/2024 12:24:02 Health Concerns Section Related Observation LastModified by Organization Detai ls LastModified Time None Recorded Concern Status LastModified by Organization Details LastModified Time None Recorded Advance Directives Directive Y: Payers Encounter Date Sequence Insurance Name Policy Number Policy Felipe Covered Member ID Felipe Member ID Guarantor Name 09/07/2023 1 [employer] (MEDICARE REPLACEMENT/A DVANTAGE - PPO) [id number] Lauren D Boner [id number] Lauren D Boner 09/07/2023 2 [place] [facility] Lauren Boner [id number] Lauren D Boner 10/07/2023 1 [employer] (MEDICARE REPLACEMENT/A DVANTAGE - PPO) [id number] Lauren D Boner [id number] Lauren D Boner 10/07/2023 2 [place] [facility] Lauren Boner [id number] Lauren D Boner 11/29/2023 1 [employer] (MEDICARE REPLACEMENT/A DVANTAGE - PPO) [id number] Lauren D Boner [id number] Lauren D Boner 11/29/2023 2 [place] [facility] Lauren Boner [id number] Lauren D Boner 01/19/2024 1 [employer] (MEDICARE REPLACEMENT/A DVANTAGE - PPO) [id number] Lauren D Boner [id number] Lauren D Boner 01/19/2024 2 [place] [facility] Lauren Boner [id number] Lauren D Boner 01/25/2024 1 [employer] (MEDICARE REPLACEMENT/A DVANTAGE - PPO) [id number] Lauren D Boner [id number] Lauren D Boner 01/25/2024 2 [place] [facility] Lauren Boner [id number] Lauren D Boner Notes Date Note Type Note Provider Name and Address Organization Details Recorded Time 09/07/2023 text/html pt is here for m ed f/u Dmitry Kent [employer] [address], [place], [address], [employer] 09/07/2023 17:58:51 10/07/2023 text/html pt is here to f/ u on low sodium Dmitry Kent [employer] [address], [address], [place], [address], [employer] 10/07/2023 12:02:41 11/29/2023 text/html here to f/u on h tn on 11/11/23 and everything has been in an uproar but she is taking her medications as prescribed. Home readings are generally good, but no readings in the past week. Sydnee Sheldon MD [address], [place], [address], [employer] 12/19/2023 15:26:21 01/19/2024 text/html pt is here for f/u Dmitrybraxton oreilly [employer] [address], [place], [address], [employer] 01/19/2024 15:50:10 OBGyn Episode No OBEpisode recorded.
--- OUTSIDE RECORDS SUMMARY | 2024-10-04 16:38 | XMS_ITS | Continuity of Care Document ---
Author Organization [employer] Address [address] [place] [address] Phone Care Team Providers Care Box Stamper Name Role Phone Araceli Gomez MD Unavailable Unavailabl e Allergies, Adverse Reactions, Alerts Substance Reaction Status Criticality No Known Drug Allergies Other Active No I nformation Medications Medication Instructions Dosage Effective Dates (start - stop) Status Comments LOVASTATIN 40 MG TABLET 1 QPM - Ac tive REGLAN 10MG TABS 1 TID - Active LISINOPRIL-HCTZ 20/25 TAB 1 QAM - Active ATENOLOL 25 MG TABLET .5 QD-daily - Ac tive AMITRIPTYLINE HCL 25 MG TAB 1 QHS - Active OMEPRAZOLE 20MG CAPS 1 QD - Activ e SALSALATE 750 MG TABLET 1 BID - Ac tive CENTRUM SILVER TABS 1 QD - Active OS-TORITO 500 1.25G TABS 1 TID - Acti ve HYDROCODONE/APAP 7.5/500 TB 1 QID - No Longer Active ATENOLOL 25 MG TABLET .5 QD - No Longer Active LISINOPRIL-HCTZ 20-25MG TAB 1 QAM - No Longer Active HYDROCODONE/APAP 7.5/500 TB 1 QID - No Longer Active HYDROCODONE/APAP 7.5/500 TB 1 QID - No Longer Active ATENOLOL 25 MG TABLET .5 QD - No Longer Active LISINOPRIL-HCTZ 20-25MG TAB 1 QAM - No Longer Active PRILOSEC OTC 20MG TABS 1 QD - No Longer Active AMITRIPTYLINE HCL 10MG TABS 1 QHS - No Longer Active HYDROCODONE/APAP 7.5/500 TB 1 QID - No Longer Active LOVASTATIN 40 MG TABLET 1 QPM - No Longer Active SALSALATE 750 MG TABLET 2 BID - No Longer Active HYDROCODONE/APAP 7.5/500 TB 1 QID - No Longer Active ATENOLOL 25 MG TABLET .5 QD - No Longer Active LISINOPRIL-HCTZ 20-25MG TAB 1 QAM - No Longer Active HYDROCODONE W/ACETAMINOPHEN 7. 1 QID - No Longer Active LOVASTATIN 40MG TABS 1 QPM 2005 - No Longer Active VICODIN ES TABLET 1 BID No Longer Active SALSALATE 750 MG TABLET 2 BID - No Longer Active VICODIN ES TABLET 1 BID No Longer Active NEURONTIN 300MG CAPS 1 TID 2004 - No Longer Active VICODIN ES TABLET 1 BID No Longer Active SALSALATE 750 MG TABLET 1 BID - No Longer Active VICODIN ES TABLET 1 Q 4HR No Longer Active LISINOPRIL-HCTZ 20-25MG TAB 1 QAM - No Longer Active MEDROL 4MG TABS 1 DIRECTE - No Longer Active ATENOLOL 25 MG TABLET .5 QD - No Longer Active SALSALATE 750MG TABS 1 BID 2004 - No Longer Active VICODIN ES TABLET 1 Q 4HR No Longer Active LIPITOR 20MG TABS 1 QPM No Longer Active MOBIC 15 MG TABLET 1 QD No Longer Active VICODIN ES TABLET 1 Q 4HR No Longer Active MOBIC 7.5MG TABS 1 QD - No Longer Active PREVACID 30MG CAPS 1 QD No Longer Active LOVASTATIN 40MG TABS 1 QPM 2003 - No Longer Active FEROSUL 50MG TABS 1 QD No Longer Active PROTONIX 40 MG TABLET EC 1 QAM - No Longer Active ROBAXIN 500MG TABS 1 QID No Longer Active ATENOLOL 25 MG TABLET .5 QD - No Longer Active LISINOPRIL-HCTZ 20-25MG TAB 1 QAM - No Longer Active VICODIN ES TABLET 1 Q 4HR No Longer Active CELEBREX 200MG CAPS 1 QD No Longer Active PROTONIX 40MG TABS 1 QAM No Longer Active BEXTRA 20MG TABS 1 QD - No Longer Active FOSAMAX 35MG TABS 1 Q WEEK No Longer Active VIOXX 25MG TABLET 1 QD No Longer Active ATENOLOL 25MG TABLET .5 QD 2003 - No Longer Active VICODIN ES TABLET 1 Q 4HR No Longer Active LISINOPRIL-HCTZ 20-25MG TAB 1 QA - No Longer Active ATENOLOL 25MG TABS .5 QD No Longer Active VICODIN ES 7.5-750MG TABS 1 Q 4HR - No Longer Active LISINOPRIL-HCTZ 20-25MG TAB 1 QA - No Longer Active VIOXX 25MG TABLET 1 QD No Longer Active FLEXERIL 10MG TABS 1 TID No Longer Active HYDROCODONE/APAP 7.5/750 TB 1 QID - No Longer Active ELAVIL 25MG TABS 1 QHS - No Longer Active LISINOPRIL-HCTZ 20-25MG TAB 1 QA - No Longer Active MEDROL (DOSEPAK) 4MG TABS 0 DIRECTE - No Longer Active HYDROCODONE/APAP 7.5/750 TB 1 QID - No Longer Active AMITRIPTYLINE HCL 10MG TAB 1 QHS - No Longer Active VIOXX 25MG TABLET 1 QD No Longer Active HYDROCODONE/APAP 7.5/750 TB 1 QID - No Longer Active HYDROCODONE/APAP 7.5/750 TB 1 QID - No Longer Active VIOXX 25MG TABLET 1 QD No Longer Active AMITRIPTYLINE HCL 10MG TAB 1 QHS - No Longer Active LISINOPRIL-HCTZ 20-25MG TAB 1 QA - No Longer Active AMITRIPTYLINE HCL 10MG TABS 1 QHS - No Longer Active LISINOPRIL-HCTZ 20-25MG TABS 1 QAM - No Longer Active VIOXX 25MG TABS 1 QD - No Longer Active HYDROCODONE-ACETAMINOPH EN 7.5- 1 QID - No Longer Active Advance Directives Directive Yes / No Effective Date File Name No Information Encounters Encounter Description Practice Location Reason(s) For Visit Diagnoses Date Provider Providers Copied on Encounter [employer], [address], [place], [place], [address] , tel: [phone] [facility] No Information 1 Jason Charles. [address] [facility], [address], [place], [place], [address]. tel:[phone] [employer], [address], [place], [place], [address] , tel: [phone] [facility] RENETTA HY KID W CR KID I-IVMALNUTRITION MILD DEGREEABDMNAL PAIN GENERALIZEDCHR KIDNEY DIS STAGE IIILONG-TERM USE MEDS NEC 7 Jason Araceli. [address] [facility], [address], [place], [place], [address]. tel:[phone] [employer] [facility], [address], [place], [place], [address] , tel: [phone] [facility] STOMACH FUNCTION DIS NECNAUSEA WITH VOMITING 200 7 Jason Araceli. [address] [facility], [address], [place], [place], [address]. tel:[phone] [employer], [address], [place], [place], [address] , tel: [phone] [facility] GENERAL OSTEOARTHROSISVAC KATIE FOR INFLUENZA 6 Jason Araceli. [address] [facility], [address], [place], [place], [address]. tel: [phone] [facility], [address], [place], [place], [address] , [place] tel: [phone] [facility] HYPERLIPIDEMIA NEC/NOS 6 [facility]. [address] [facility], [place], [address], [place]. [facility], [address], [place], [place], [address] , [place] tel: [phone] [facility] BACKACHE NOSPAIN IN LIMBBEN HYP KID W CR KID V 6 Jason Araceli. [address] [facility], [address], [place], [place], [address]. tel: [phone] [facility], [address], [place], [place], [address] , [place] tel: [phone] [facility] MALAISE AND FATIGUE NECCERVICALGIA 200 6 Lagro Araceli. [address] [facility], [address], [place], [place], [address]. tel: [phone] [facility], [address], [place], [place], [address] , [place] tel: [phone] [facility] GENERAL OSTEOARTHROSIS 5 Lagro Araceli. [address] [facility], [address], [place], [place], [address]. tel: [phone] [facility], [address], [place], [place], [address] , [place] tel: [phone] [facility] HEADACHE 5 [facility] [address] [facility], [address], [place], [place], [address]. tel:[phone] [facility], [address], [place], [place], [address] , [place] tel: [phone] [facility] ESOPHAGEAL REFLUX 4 Trame Rio. [address] [facility], [address], [place], [place], [address]. tel: [phone] [facility], [address], [place], [place], [address] , tel: [phone] [facility] HELICOBACTER PYLORI Dec-1 7-200 4 Lagro Araceli. [address] [facility], [address], [place], [place], [address]. tel: [phone] [facility], [address], [place], [place], [address] , [place] tel: [phone] [facility] No Information Sep-1 0-200 4 [facility] [address] [facility], [address], [place], [place], [address]. tel: [phone] [facility], [address], [place], [place], [address] , tel: [phone] [facility] BONE & CARTILAGE DIS NOS Aug-0 4-200 4 [facility]. [facility] [place], [place], [facility], . [facility], [address], [place], [place], [address] , tel: [phone] [facility] INSECT BITE NEC Apr-0 6-200 4 [facility]. [facility] [place], [place], [facility], . [facility], [address], [place], [place], [address] , tel: [phone] [facility] SCREEN MAL NEOP-RECTUM Dec-2 9-200 3 [facility]. [address] [facility], [address], [place], [place], [address]. tel: [phone] [facility], [address], [place], [place], [address] , [place] tel: [phone] [facility] SCREEN MAL NEOP-CERVIXVACCIN FOR INFLUENZA Dec-0 3-200 3 [facility]. [address] [facility], [address], [place], [place], [address]. tel: [phone] [facility], [address], [place], [place], [address] , [place] tel: [phone] [facility] JOINT REPLACED KNEE 2-200 2 Jason Charles. [address] [facility], [address], [place], [place], [address]. tel:[phone] Family History Family Member Type Diagnosis Age At Onset No Information Immunizations Vaccine Date Status Comments 14699 - Influenza administered Source: [place] Unspecified 62163 - Influenza administered Source: [place]specified 48856 - Influenza administered Source: [place] Unspecified Payers Payer name Insurance type Covered constitution party ID Authoriza tion(s) No Information Social History Type Description Quantity Date Captured Comments Sex Female Smoking Status No Information Chief Complaint And Reason For Visit No Information Reason For Referral Reason For Referral No Information History Of Present Illness Encounter Date Complaint History Of Prese nt Illness No Information Functional Status Date Functional Assessmen t No Information Instructions Date Instruction Additional Infor mation No Information Assessments Type Assessment Date No Information Patient Care Teams Name Effective Dates (start - stop) Status Members No Information
--- OUTSIDE RECORDS SUMMARY | 2024-10-04 16:38 | XMS_ITS | Data Portability ---
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 PDMP reviewedon gabapentin 600 mg po bid Depressive disorder 3548 9007 F32.A dx recently.h er 12/23feelin g low since then.on lexapro 20 mg daily as well as venlafaxin efeeling better on the medication s. Preventive procedure 169 072813 Z29.9 covid: 3 shotsflu: [id number]; 2018, recommend [id number] les: none Colonoscop y Mammogram Fracture of femur 338095 00 S72.92XS History of left femur fracture and has a isabell placement. Fatigue 27807214 R53.83 ongoing since past 3 weeks.not sleeping at nightlikel y etiologyla bs were unremarkab le 8 Nocturia 281411730 R35.1 recent urine is negative.w ill recheck againlikel y overactive bladder [id number] Joshua Hermosillo MD [facility] [address] [place] [address] 05/24/2024 11:39:49 05/24/2024 12:46:17 Adult health examination 341326347 Z00.00 diet a nd physical activity reviwedvac cines and screening tests reviewedme dication reviewed Fatigue 50975641 R53.83 ongoing since past 3 weeks.not sleeping at nightlikel y etiologyla bs were unremarkab le 8 Anemia 814422760 D64.9 hb low at 10.3. vitamin b12, foalte is normaliron level goodnormoc ytic normochron oic anemia.no ckd noted.no blood in stool Essential hypertension 89458597 I10 on amlodipine carvedilol , hctz, losartanbp optimalblo od work reviewed Osteoarthritis 919833968 M19.90 multiple joints. Involved Gastroesop hageal reflux disease 344171728 K21.9 on omeprazole History of total hip arthroplasty 2640063738 06 Z96.649 hx of bilateral hip arthroplas ty History of bilateral total knee replacement 0532427107 733859 Z96.653 hx of bilateral knee replacemen t Degenerati on of lumbar intervertebral disc 67463861 M51.360 multiple lumbar spine surgeries in the pasthx of vertebropl asty Paresthesia of hand 3090 09403 R20.2 left hand in carpal tunnel distributi onlikely due to chronic wrist deformity History of recurrent deep vein thrombosis 7541225153 64517 Z86.718 last one 2013.3 episodeson elqqiuis 2.5 mg bid 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 Preventive procedure 169 491112 Z29.9 covid: 3 shotsflu: 2022 recommende dpcv13; 2018, recommend [id number] les: none: recommedne dRSV: recommende dColonosco py: many years ago. age prohibitiv eMammogram many years ago. age prohibitiv parker density: long time agodiscuss ed vaccinatio n with the patient and reviewed the vaccinatio n status Fracture of femur 817874 00 S72.92XS History of left femur fracture and has a isabell placement. Overactive urinary bladder 794623772 N32.81 recent urine is negative.r echeck was negative.l ikely overactive bladdersta rted on oxybutynin which Osteoporosis 76145277 M8 1.0 took fosamax only for a month and hence stopped.ca lcium and vitamin d replacemen t reviewed with the patient Thoracic back pain 36050 8004 M54.6 on and off intermitte nt pains [id number] Joshua Hermosillo, MD [facility] [address] [place] [address] 06/21/2024 15:22:39 06/21/2024 15:59:58 Preventive procedure 241949744 Z29.9 covid: 3 shots, 2023flu: 2022, [id number]; 2018, recommend [id number] les: none: recommende dRSV: recommende dColonosco py: many years ago. age prohibitiv eMammogram many years ago. age prohibitiv parker density: 06/25: osteoporos isdiscusse d vaccinatio n with the patient and reviewed the vaccinatio n status Osteoporosis 01157310 M8 1.0 took fosamax only for a month and hence stopped due to nausea.caron cium and vitamin d replacemen t reviewed with the patientbon e density 05/25: osteoporos is.trial of lower dose of alendronat e.discusse d calcium and vitamin D. discussed with the patient Fatigue 76685734 R53.83 ongoing since past 3 weeks.not sleeping at nightlikel y etiologyla bs were unremarkab le 03/25 Overactive urinary bladder 528338567 N32.81 recent urine is negative.r echeck was negative.l ikely overactive bladdersta rted on oxybutynin which is helping Anemia 951985424 D64.9 hb low at 10.3. vitamin b12, foalte is normaliron level goodnormoc ytic normochron oic anemia.no ckd noted.no blood in stool Essential hypertension 87304293 I10 on amlodipine carvedilol , hctz, losartanbp optimalblo od work reviewed Osteoarthritis 369687313 M19.90 multiple joints. Involved Gastroesop hageal reflux disease 622439447 K21.9 on omeprazole History of total hip arthroplasty 8112555714 06 Z96.649 hx of bilateral hip arthroplas ty History of bilateral total knee replacement 6072760395 360530 Z96.653 hx of bilateral knee replacemen t Degenerati on of lumbar intervertebral disc 33576939 M51.360 multiple lumbar spine surgeries in the pasthx of vertebropl astyxr lumbar spine with ddd, no acute fracture Paresthesia of hand 3090 88197 R20.2 left hand in carpal tunnel distributi onlikely due to chronic wrist deformity due to old fracturesw ill increase gabapnetin to 1-0.5-1 History of recurrent deep vein thrombosis 9506042009 36151 Z86.718 last one 2012.3 episodeson elqiuis 2.5 mg bid 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 Fracture of femur 581293 00 S72.92XS History of left femur fracture and has a isabell placement. Thoracic back pain 01152 8004 M54.6 on and off intermitte nt painsxr thoracic spine done but not completed [id number] Joshua Hermosillo MD [facility] [address] [place] [address] 07/20/2024 12:02:06 07/20/2024 13:08:42 Osteoporosis 55306413 M81.0 took fosamax only for a month and hence stopped due to nauseacalc ium and vitamin d replacemen t reviewed with the patientbon e density 05/25: osteoporos is.trial of lower dose of alendronat e and tolerating welldiscus sed calcium and vitamin D. discussed with the patient Thoracic back pain 43590 8004 M54.6 on and off intermitte nt painsxr thoracic spine done but has been done but not received it talked to [facility] medical records.xr thoracic spine with multilevel ddd, but no fracture noted Fatigue 10600470 R53.83 ongoing since past 3 weeks.not sleeping at nightlikel y etiologyla bs were unremarkab le 03/25 Overactive urinary bladder 483672679 N32.81 recent urine is negative.r echeck was negative.l ikely overactive bladdersta rted on oxybutynin which is helping Anemia 780566666 D64.9 hb low at 10.3. vitamin b12, folate is normaliron level goodnormoc ytic normochron ic anemia.no ckd noted.no blood in stool Essential hypertension 80611701 I10 on amlodipine carvedilol , hctz, losartanbp optimalblo od work reviewed Osteoarthritis 175688455 M19.90 multiple joints. Involved Gastroesop hageal reflux disease 060145512 K21.9 on omeprazole History of total hip arthroplasty 8427189540 06 Z96.649 hx of bilateral hip arthroplas ty History of bilateral total knee replacement 5524429179 128265 Z96.653 hx of bilateral knee replacemen t Degenerati on of lumbar intervertebral disc 50754515 M51.360 multiple lumbar spine surgeries in the pasthx of vertebropl astyxr lumbar spine with ddd, no acute fracture Paresthesia of hand 3090 86242 R20.2 left hand in carpal tunnel distributi onlikely due to chronic wrist deformity due to old fracturesw ill increase gabapentin to 1-0.5-1 History of recurrent deep vein thrombosis 5399588764 06513 Z86.718 last one 2013.3 episodeson eliquis 2.5 mg bid 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 Fracture of femur 086079 00 S72.92XS History of left femur fracture and has a isabell placement. Preventive procedure 169 038821 Z29.9 covid: 3 shots, 2023flu: 2022, [id number]; 2018, recommend [id number] les: none: recommende dRSV: recommende dColonosco py: many years ago. age prohibitiv eMammogram many years ago. age prohibitiv parker density: 06/25: osteoporos isdiscusse d vaccinatio n with the patient and reviewed the vaccinatio n status [id number] Joshua Hermosillo MD [facility] [address] [address] [facility] [address] [place] [address] 08/16/2024 11:40:22 08/16/2024 12:55:58 Post-discharge follow-up 748583904 Z09 Admission Date: 025Dischar ge Date: 08/11/2024D iagnosis: subdural hematomame dications reconcille d and reviewed with the patienteli maurisio stopped Traumatic subdural hematoma 492183580 S06.5X0D fall 07/2024.2024 started having right sided weaknessct head with left falx subdural hematomael iquid stoppedshe takes this for recurrent dvtdiscuss ed risk and beneftis due to recurrent fallswill stop eliquis nowfu with neurosurge ry discussed. [facility] ct [facility] Osteoporosis 88791461 M8 1.0 took fosamax only for a month and hence stopped due to nauseacalc ium and vitamin d replacemen t reviewed with the patientbon e density 05/25: osteoporos is.trial of lower dose of alendronat e and tolerating welldiscus sed calcium and vitamin D. discussed with the patient Thoracic back pain 77665 8004 M54.6 on and off intermitte nt painsxr thoracic spine done but has been done but not received it talked to [facility] medical records.xr thoracic spine with multilevel ddd, but no fracture noted Fatigue 23908323 R53.83 ongoing since past 3 weeks.not sleeping at nightlikel y etiologyla bs were unremarkab le 03/25 Overactive urinary bladder 443228907 N32.81 recent urine is negative.r echeck was negative.l ikely overactive bladdersta rted on oxybutynin which is helping Anemia 696372619 D64.9 hb low at 10.3. vitamin b12, folate is normaliron level goodnormoc ytic normochron ic anemia.no ckd noted.no blood in stool Essential hypertension 48115148 I10 on amlodipine carvedilol , hctz, losartanbp optimalblo od work reviewed Osteoarthritis 145718447 M19.90 multiple joints. Involved Gastroesop hageal reflux disease 603263457 K21.9 on omeprazole History of total hip arthroplasty 7746616393 06 Z96.649 hx of bilateral hip arthroplas ty History of bilateral total knee replacement 2640213337 427008 Z96.653 hx of bilateral knee replacemen t Degenerati on of lumbar intervertebral disc 09547059 M51.360 multiple lumbar spine surgeries in the pasthx of vertebropl astyxr lumbar spine with ddd, no acute fracture Paresthesia of hand 3090 29940 R20.2 left hand in carpal tunnel distributi onlikely due to chronic wrist deformity due to old fracturesw ill increase gabapentin to 1-0.5-1 History of recurrent deep vein thrombosis 3950871465 28645 Z86.718 last one 2012.3 episodeson eliquis 2.5 mg bid 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 Fracture of femur 765242 00 S72.92XS History of left femur fracture and has a isabell placement. Preventive procedure 169 795985 Z29.9 covid: 3 shots, 2023flu: 2022, 2440qzi57; 2018, recommend [id number] les: none: recommende dRSV: recommende dColonosco py: many years ago. age prohibitiv eMammogram many years ago. age prohibitiv parker density: 06/25: osteoporos isdiscusse d vaccinatio n with the patient and reviewed the vaccinatio n status [id number] Joshua Hermosillo MD [facility] [address] [facility] [address] [place] [address] 09/15/2024 11:16:18 09/15/2024 11:58:42 Traumatic subdural hematoma 952381542 S06.5X0D fall 07/2024.2024 started having right sided weaknessct head with left falx subdural hematomael iquid stoppedshe takes this for recurrent dvtdiscuss ed risk and beneftis due to recurrent fallsshe stoppped stop eliquis nowfu with neurosurge ry discussed. repeat ct 09/26: [facility] to continue for rehabilita tion which is discharged nowokay to drive. discused with the patient Osteoporosis 11894375 M8 1.0 took fosamax only for a month and hence stopped due to nauseacalc ium and vitamin d replacemen t reviewed with the patientbon e density 05/25: osteoporos is.trial of lower dose of alendronat e and tolerating welldiscus sed calcium and vitamin D. discussed with the patient Thoracic back pain 30732 8004 M54.6 on and off intermitte nt painsxr thoracic spine done but has been done but not received it talked to [facility] medical records.xr thoracic spine with multilevel ddd, but no fracture noted Fatigue 82438373 R53.83 ongoing since past 3 weeks.not sleeping at nightlikel y etiologyla bs were unremarkab le 03/25 Overactive urinary bladder 074456750 N32.81 recent urine is negative.r echeck was negative.l ikely overactive bladdersta rted on oxybutynin which is helping Anemia 724003291 D64.9 hb low at 10.3. vitamin b12, folate is normaliron level goodnormoc ytic normochron ic anemia.no ckd noted.no blood in stool Essential hypertension 16626887 I10 on amlodipine carvedilol , hctz, losartanbp optimalblo od work reviewed Osteoarthritis 551150380 M19.90 multiple joints. Involved Gastroesop hageal reflux disease 720700046 K21.9 on omeprazole History of total hip arthroplasty 8681776578 06 Z96.649 hx of bilateral hip arthroplas ty History of bilateral total knee replacement 0307613323 214830 Z96.653 hx of bilateral knee replacemen t Degenerati on of lumbar intervertebral disc 98820347 M51.360 multiple lumbar spine surgeries in the pasthx of vertebropl astyxr lumbar spine with ddd, no acute fracture Paresthesia of hand 3090 71295 R20.2 left hand in carpal tunnel distributi onlikely due to chronic wrist deformity due to old fracturesw ill increase gabapentin to 1-0.5-1 History of recurrent deep vein thrombosis 1255766801 57596 Z86.718 last one 2012.3 episodeson eliquis 2.5 mg bidnow stay off eliquis due to brain bleed 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 Fracture of femur 186241 00 S72.92XS History of left femur fracture and has a isabell placement. Preventive procedure 169 814459 Z29.9 covid: 3 shots, 2023flu: 2022, 3611lvz86; 2018, recommend [id number] les: none: recommende dRSV: recommende dColonosco py: many years ago. age prohibitiv eMammogram many years ago. age prohibitiv parker density: 06/25: osteoporos isdiscusse d vaccinatio n with the patient and reviewed the vaccinatio n status [id number] [facility] [address] [place] [address] 09/29/2024 14:23:19 09/29/2024 15:59:32 Pain of right shoulder joint 1953898297 1387839 M25.511 hx of rotator cuff surgerynow with fall and injury to right shoulderwi ll further evaluate with MRI shoulderus e sling for nowuse hydrocodon e prn for now for pain control may use q4hrs.if MRI does not go through, will order CT shoulder right Contusion of orbital tissue of right eye 7297036361 3420376 S05.11XD multiple bruises due to the fall noted Fracture of orbit 910601 07 S02.121D ffracture of lateral orbital wall with fall noted on ct face/head Closed fra cture of right maxilla 9498388873 6660865 S02.40CD fracture of right maxillary sinusgoign to see ENT next week Fall W19.XXXD fall is mechanical fallrecent subdural hematoma as well.off anticoagul ation now Traumatic subdural hematoma 127083549 S06.5X0D fall 07/2024.2024 started having right sided weaknessct head with left falx subdural hematomael iquid stoppedshe takes this for recurrent dvtdiscuss ed risk and beneftis due to recurrent fallsshe stoppped stop eliquis nowfu with neurosurge ry discussed. repeat ct 09/26: negativeho ri [facility] to continue for rehabilita tion which is discharged now Osteoporosis 96641998 M8 1.0 took fosamax only for a month and hence stopped due to nauseacalc ium and vitamin d replacemen t reviewed with the patientbon e density 05/25: osteoporos is.trial of lower dose of alendronat e and tolerating welldiscus sed calcium and vitamin D. discussed with the patient Thoracic back pain 08921 8004 M54.6 on and off intermitte nt painsxr thoracic spine done but has been done but not received it talked to [facility] medical records.xr thoracic spine with multilevel ddd, but no fracture noted Fatigue 90666245 R53.83 ongoing since past 3 weeks.not sleeping at nightlikel y etiologyla bs were unremarkab le 03/25 Overactive urinary bladder 883308656 N32.81 recent urine is negative.r echeck was negative.l ikely overactive bladdersta rted on oxybutynin which is helping Anemia 934107958 D64.9 hb low at 10.3. vitamin b12, folate is normaliron level goodnormoc ytic normochron ic anemia.no ckd noted.no blood in stool Essential hypertension 13684432 I10 on amlodipine carvedilol , hctz, losartanbp optimalblo od work reviewed Osteoarthritis 807901940 M19.90 multiple joints. Involved Gastroesop hageal reflux disease 124781485 K21.9 on omeprazole History of total hip arthroplasty 3244095088 06 Z96.649 hx of bilateral hip arthroplas ty History of bilateral total knee replacement 7377056113 007482 Z96.653 hx of bilateral knee replacemen t Degenerati on of lumbar intervertebral disc 39040335 M51.360 multiple lumbar spine surgeries in the pasthx of vertebropl astyxr lumbar spine with ddd, no acute fracture Paresthesia of hand 3090 01560 R20.2 left hand in carpal tunnel distributi onlikely due to chronic wrist deformity due to old fracturesw ill increase gabapentin to 1-0.5-1 History of recurrent deep vein thrombosis 6983479993 23630 Z86.718 last one 2012.3 episodeson eliquis 2.5 mg bidnow stay off eliquis due to brain bleed 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 Fracture of femur 182550 00 S72.92XS History of left femur fracture and has a isabell placement. Preventive procedure 169 959184 Z29.9 covid: 3 shots, 2023flu: 2022, 2012duw00; 2018, recommend [id number] les: none: recommende dRSV: recommende dColonosco py: many years ago. age prohibitiv eMammogram many years ago. 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 s/p rigth shoulder reverse rotator cuff surgery 2021 Health Concerns Section Related Observation LastModified by Organization Detai ls LastModified Time None Recorded Concern Status LastModified by Organization Details LastModified Time None Recorded Advance Directives Directive None Recorded Payers Encounter Date Sequence Insurance Name Policy Number Policy Felipe Covered Member ID Felipe Member ID Guarantor Name 06/21/2024 1 [employer] (MEDICARE REPLACEMENT/ ADVANTAGE - PPO) [id number] Lauren D Boner [id number] Lauren D Boner 06/21/2024 2 [place] Lauren D Boner [id number] Lauren D Boner 07/20/2024 1 [employer] (MEDICARE REPLACEMENT/ ADVANTAGE - PPO) [id number] Lauren D Boner [id number] Lauren D Boner 07/20/2024 2 [place] Lauren D Boner [id number] Lauren D Boner 08/16/2024 1 [employer] (MEDICARE REPLACEMENT/ ADVANTAGE - PPO) [id number] ([id number] 01 Lauren D Boner [id number] Lauren D Boner 08/16/2024 2 [place] Lauren D Boner [id number] Lauren D Boner 09/15/2024 1 [employer] (MEDICARE REPLACEMENT/ ADVANTAGE - PPO) [id number] Lauren D Boner [id number] Lauren D Boner 09/15/2024 2 [place] Lauren D Boner [id number] Lauren D Boner 09/29/2024 1 [employer] (MEDICARE REPLACEMENT/ ADVANTAGE - PPO) [id number] Lauren D Boner [id number] Lauren D Boner 09/29/2024 2 [place] Lauren D Boner [id number] Lauren D Boner Notes Date Note Type Note Provider Name and Address Organization Details Recorded Time 06/21/2024 text/html Pt here for foll ow up. Uses cane for ambulation. No falls noted. Depression screening negative. Good appetite. C/O numbness and tingling in fingertips on left hand and toes on both feet. Joshua Hermosillo MD [address] [facility] [address], [place], [address], [facility] 06/21/2024 15:56:02 07/20/2024 text/html Pt here for foll ow up. C/O falling twice last week. When she stood up from kitchen chair she fell over. Denies being dizzy, weak. No injuries noted. Fell when she leaned over to picker operator bottle of medicine off of floor. No injuries noted. She states she takes pain medication two-three times daily for chronic arthritis pain. Both falls were after morning medications taken. No chest pain, shortness of breath, nausea or vomiting. Lives alone. Joshua Hermosillo MD [address], [place], [address], [facility] 07/20/2024 15:24:11 08/16/2024 text/html Pt fell on at home on front porch. Hit head on metal isabell/railing. Knot on back of head. She placed ice on head. Denies headache. On August 10, daughter took pt to [facility] ER for increased right leg/foot pain-heavy feeling-numbness/ti ngling. CT showed small bleed. Eliquis put on hold. Pt discharged from [facility] on 08/11/2024 to home with home health with PT. Hospital meds reconciled with home medications. Changes noted in chart. Pt is staying independently at her house. Uses walker for ambulation. Pt scheduled for recheck CT 09/03/2024 in [place]. Denies any shortness of breath, chest pain, nausea or vomiting. Joshua Hermosillo MD [address] [facility] [address], [place], [address], [facility] 08/16/2024 12:54:13 09/15/2024 text/html Pt here for foll ow up. Pt was seen [facility] 2 weeks ago for pain in left hand and arm pain radiating to elbow. Daughter states xray negative. She was given Prednisone. Hand and arm pain decreased after taking prednisone. Pt completed physical therapy. She uses walker for ambulation. No falls noted. Joshua Hermosillo MD [address] [facility] [address], [place], [address], [facility] 09/15/2024 11:54:53 09/29/2024 text/html Pt here for ER f /u. Pt was seen in ER on 09/21/2024 for fall. DX: multiple orbital fractures and fracture of sinuses. Pt has appt with ENT at [facility] on Wednesday10/02/2024. Pt feel in house on 09/21/2024 and hit face on floor. she tripped on the floor. the bruise is stable. no further nose bleed. . C/O face and right shoulder pain 01/09. Lives alone. daughter nearby. patient is not able to move her right shoulder at all Joshua Hermosillo MD [address] [facility] [address], [place], [address], [facility] 09/29/2024 16:58:22 OBGyn Episode No OBEpisode recorded.
--- OUTSIDE RECORDS SUMMARY | 2024-10-04 16:38 | XMS_ITS | Referral Summary ---
Author Organization [facility] Address [address] [place] [address] Care Team Providers Care Test Fixture Assembler Name Role Phone Sydnee Sheldon MD Primary Care Provider [phone] Source Comments [facility],non-owned Affiliates and Associated Physician Practices is amultiple site organization consisting of ambulatory clinics and hospital sitesin [place], [place], [place] and [place]. This disclosure is being madepursuant to the Care Everywhere program and may not contain all information available regarding this patient. Last updated 18.[facility] [employer] Allergies No known active allergies Medications * Be aware that medications may not be up to date on this document. Alwaysverify current medications with the patient. Medication Sig Dispensed Refills Start Date End Date Status furosemide (LASIX) 20 MG tablet Take 20 mg by mouth once daily as needed Active omeprazole (PRILOSEC) 40 MG capsule Take 40 mg by mouth once daily 02/29/2020 Active hydroCHLOROthiazide (HYDRODIURIL) 25 MG tablet Take 25 mg by mouth once daily 11/21/2020 Active HYDROcodone-acetamin ophen (NORCO) 10-325 MG tablet Take 1 (one) tablet by mouth every 4 hours as needed 30 tablet 12/10/2020 Active gabapentin (NEURONTIN) 600 MG tablet 10/10/2021 Active ELIQUIS 2.5 MG tablet Take 2.5 mg by mouth 2 times daily 12/01/2021 Active DULoxetine (CYMBALTA) 30 MG capsule Take 30 mg by mouth once daily 11/05/2021 Active losartan (COZAAR) 100 MG tablet losartan 100 mg tablet TAKE 1 TABLET BY MOUTH ONCE DAILY Active Melatonin 10 MG Active acetaminophen CR (TYLENOL 8 HOUR) 650 MG tablet Take 650 mg by mouth every 8 hours as needed for Pain Active Misc Natural Products (NEURIVA PO) Active Active Problems Problem Noted Date Diagnosed Date Primary osteoarthritis involving multiple joints 12/08/2021 Overview (12/08/2021): Could consider dose titration of duloxetine as started by PCP at 30 mg daily perhaps up to 40mg or 60 mg daily as FDA approved for pain relief. Chronic back pain 06/11/2020 Essential hypertension 06/11/2020 [...] internal prosthetic left hip joint 12/08/2021 Immunizations Name Administration Dates Next Due [employer] primary monoval ent 12+ yr 0.3mL Purple cap 09/27/2020,09/06/2020 INFLUENZA VACCINE 05/01/2020 INFLUENZA VACCINE, HIGH-DOSE , QUADR. (FLUZONE HIGH-DOSE QUADRIVALENT; 65Y+), 0.7 ML (HD-IIV4) 06/01/2019,06/08/2018,05/17/2017,2015 Pneumococcal Pcv13 Conj 01/26/2018 Social History Tobacco Use Types Packs/Day Years [...] Mass Index 28.32 12/08/2021 10:20 AM CDT Functional Status Functional Status Response Date of Assess ment Is person deaf or have serious hearing difficult y? No 12/10/2020 Is person blind or have serious difficulty seein g? No 12/10/2020 Does person have serious dif ficulty walking/climbing stairs? No 12/10/2020 Does person have difficulty dressing/bathing? No 12/10/2020 Does person have difficulty doing errands alone? No 12/10/2020 Cognitive Status Response Date of Assessm ent Does person have difficulty concentrating/remembering/making decisions? 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 Left: Hip [employer] 10/07/2022 [id number] / / [id number] Emily-Loc 4.5mm T25 Lock Screw 14mm S-T Implanted:Qty: 1 on 03/27/2019 by Vahe Garcia MD at [facility] Left: Hip [id number] / / Description:SCREW Screw 4.5mm 8mm 36mm T25 Cortx Slf-Tap Implanted:Qty: 1 on 03/27/2019 by Vahe Garcia MD at [facility] Left: Hip [employer] [id number] / / Description:EMILY-LOC 4.5MM T 25 CRTX SCREW 36MM S-T--03/30 LG Screw 4.5mm 8mm 34mm T25 Flut Lng Bone Implanted:Qty: 1 on 03/27/2019 by Vahe Garcia MD at [facility] Left: Hip [employer] [id number] / / Description:EMILY-LOC 4.5MM T 25 CRTX SCREW 34MM S-T--03/30 LG Cable Orth Ss 2mm Hip Clp Accord Implanted:Qty: 1 on 03/27/2019 by Vahe Garcia MD at [facility] Left: Hip [employer] 08/23/2028 [id number] / / [id number] Description:ACC 2.0MM SS CAB LE W/CLAMP - 03/30 LG Cable Orth Ss 2mm Hip Clp Accord Implanted:Qty: 1 on 03/27/2019 by Vahe Garcia MD at [facility] Left: Hip [employer] 10/26/2028 [id number] / / [id number] Description:ACC 2.0MM SS CAB LE W/CLAMP - 03/30 LG Cable Orth Ss 2mm Hip Clp Accord Implanted:Qty: 1 on 03/27/2019 by Vahe Garcia MD at [facility] Left: Hip [employer] 11/25/2028 [id number] / / [id number] Description:ACC 2.0MM SS CAB LE W/CLAMP - 03/30 LG Cable Orth Ss 2mm Hip Clp Accord Implanted:Qty: 1 on 03/27/2019 by Vahe Garcia MD at [facility] Left: Hip [employer] 11/25/2028 [id number] / / [id number] Description:ACC 2.0MM SS CAB LE W/CLAMP - 03/30 LG 4.5mm Prox Femur Lck Plate 12h L 288mm Implanted:Qty: 1 on 03/27/2019 by Vahe Garcia MD at [facility] Left: Hip [employer] [id number] / / Description:PLATE Screw 4.5mm 7.9mm 10mm T25 3 Ld Thrd 3 Implanted:Qty: 3 on 03/27/2019 by Vahe Garcia MD at [facility] Left: Hip [employer] [id number] / / Description:EMILY-LOC 4.5MM T 25 BLUNT TIP SCREW 10MM--03/30 LG Screw 4.5mm 7.9mm 38mm T25 Slf-Tap Lck Implanted:Qty: 1 on 03/27/2019 by Vahe Garcia MD at [facility] Left: Hip [employer] [id number] / / Cmnt Bone Rally 40gm Hvisc Sprmnt Grn Implanted:Qty: 3 on 12/09/2020 by Vahe Garcia MD at [facility] Left: Knee [employer] 03/01/2025 [id number] / / [id number] Compon Fem Legion Ps Oxin Narr L Sz 5 Implanted:Qty: 1 on 12/09/2020 by Vahe Garcia MD at [facility] Left: Knee [employer] 06/02/2030 [id number] / / [id number] Tibial Baseplate Implanted:Qty: 1 on 12/09/2020 by Vahe Garcia MD at [facility] Left: Knee [employer] 09/05/2029 [id number] / / [id number] Ins Lgn Ps Hi-Flex X-Link Sz 5-6 18mm Implanted:Qty: 1 on 12/09/2020 by Vahe Garcia MD at [facility] Left: Knee [employer] 03/19/2025 [id number] / / [id number] Explanted Type Area [employer] Worker Device Identifier Shelf Expiration Date Model / Serial / Lot Cable Orth Ss 2mm Hip Clp Accord Explanted:Qty: 1 on 03/27/2019 by Vahe Garcia MD at [facility] Left: Hip [employer] 09/26/2028 [id number] / / [id number] Description:ACC 2.0MM SS CAB LE W/CLAMP - 03/30 LG Advance Directives * Full Code (Latest Code Status on File) Date Activated Date Inactivated Comments 12/09/2020 3:39 PM 12/10/2020 5:00 PM * Full Code Date Activated Date Inactivated Comments 03/25/2019 2:00 PM 03/30/2019 7:48 PM * Full Code Date Activated Date Inactivated Comments 03/25/2019 12:21 PM 03/25/2019 2:00 PM Care Teams Test Fixture Assembler Relationship Specialty Start Date End Date Sydnee Sheldon MD [address] [place] [address] [place] [id number] PCP - General 04/18/19
--- OUTSIDE RECORDS SUMMARY | 2024-10-04 16:38 | XMS_ITS | Clinical Summary ---
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 without significant canal stenosis. Severe osseous foraminal narrowing of the left C7-T1. OTHER Neck soft tissues: Paraspinal soft tissues and imaged soft tissues of the neck are unremarkable. Upper chest: Decreased attenuation of the blood pool in comparison to major vessel gamble suggestive of anemia. Procedure Note Norma Limon DO - 09/21/[address] [address] EXAMINATION: CT HEAD WO CON, CT CERV SPINE WO CON REPORT DATE: 09/21/2024 7:35 PM INDICATION: Ground-level fall COMPARISON(S): CT head without 08/11/2024, CT head and cervical spine08/10/2024. TECHNIQUE: CT imaging of the head without contrast. CT imaging of thecervical spine without contrast. Coronal and sagittal reformats provided.Individualized dose optimization techniques were used for this CT. Contrast: No intravenous contrast. FINDINGS: SUPPORT DEVICES: None. HEAD Brain: There is no evidence of intracranial hemorrhage, mass effect, ormidline shift. There are confluent areas of hypodensity within the whitematter which are nonspecific. No definite acute cortical infarct isapparent. There is atherosclerotic calcification of the cavernous internalcarotid arteries and distal vertebral arteries. Ventricles: The ventricles and sulci are moderately enlarged consistentwith moderate global parenchymal volume loss. Orbits: Multiple fractures through the right lateral orbital wall as wellas within the inferior orbital rim there is retro-orbital emphysema,extraconal and intraconal. Bilateral lens replacement. The globes appearintact. There is right exophthalmos in comparison to the left. Smallhematoma along the lateral orbital wall adjacent fractures. Paranasal sinuses: Hemorrhage/fluid levels within the maxillary sinusesand ethmoid air cells. Fracture of the inferior right orbital wallextending into the maxillary sinus. Additional fractures along theanterior and posterior right maxillary sinus gamble Mastoids/middle ears: Clear. Bones: No acute osseous abnormality of the calvarium, skull base, orimaged facial bones. Scalp/facial soft tissues: Fat stranding overlying the right face alongwith subcutaneous emphysema. Hyperostosis. Heterogeneous appearancethroughout the osseous structures. CERVICAL SPINE Craniocervical Junction: Atlantooccipital and atlantoaxial alignment arenormal. No acute fracture. Vertebrae: Vertebral body heights are maintained. No acute fracture. Vertebral alignment: Mild grade 1 anterolisthesis of C7 on T1. Discs: Multilevel spondylosis without significant canal stenosis. Severeosseous foraminal narrowing of the left C7-T1. OTHER Neck soft tissues: Paraspinal soft tissues and imaged soft tissues of theneck are unremarkable. Upper chest: Decreased attenuation of the blood pool in comparison tomajor vessel gamble suggestive of anemia. IMPRESSION: 1. Multiple/comminuted right orbital fractures involving the lateral andanterior gamble. There is retro-orbital emphysema and tiny hematoma alongthe lateral orbital wall. There is right exophthalmos and straighteningof the optic nerve in comparison to the left. Recommend emergent ENTsurgical consultation. 2. Multiple fractures of the right maxillary sinus involving theanterior, posterior, and superior orbital gamble. Fracture appears toextend into dentition, although incompletely imaged. Consider facial CTfor improved resolution/evaluation. 3. No acute cervical spine findings Referred By: Interpreted By: Norma Limon DO, 09/21/2024 7:35 PM Gopi Schafer MD CT Final Result * CT CERV SPINE WO CON (09/21/2024 7:29 PM VICE PRESIDENT PROCESS) Only the most recent of2 resultswithin the time period is included. Anatomical Region Laterality Modality Spine Computed Tomogra phy 09/21/2024 7:35 PM VICE PRESIDENT PROCESS Impressions 09/21/2024 7:53 PM VICE PRESIDENT PROCESS IMPRESSION: 1. Multiple/comminuted right orbital fractures involving the lateral and anterior gamble. There is retro-orbital emphysema and tiny hematoma along the lateral orbital wall. There is right exophthalmos and straightening of the optic nerve in comparison to the left. Recommend emergent ENT surgical consultation. 2. Multiple fractures of the right maxillary sinus involving the anterior, posterior, and superior orbital gamble. Fracture appears to extend into dentition, although incompletely imaged. Consider facial CT for improved resolution/evaluation. 3. No acute cervical spine findings Referred By: Interpreted By: Norma Limon DO, 09/21/2024 7:35 PM Narrative 09/21/2024 7:53 PM VICE PRESIDENT PROCESS [address] [address] EXAMINATION: CT HEAD WO CON, CT CERV SPINE WO CON REPORT DATE: 09/21/2024 7:35 PM INDICATION: Ground-level fall COMPARISON(S): CT head without 08/11/2024, CT head and cervical spine 08/10/2024. TECHNIQUE: CT imaging of the head without contrast. CT imaging of the cervical spine without contrast. Coronal and sagittal reformats provided. Individualized dose optimization techniques were used for this CT. Contrast: No intravenous contrast. FINDINGS: SUPPORT DEVICES: None. HEAD Brain: There is no evidence of intracranial hemorrhage, mass effect, or midline shift. There are confluent areas of hypodensity within the white matter which are nonspecific. No definite acute cortical infarct is apparent. There is atherosclerotic calcification of the cavernous internal carotid arteries and distal vertebral arteries. Ventricles: The ventricles and sulci are moderately enlarged consistent with moderate global parenchymal volume loss. Orbits: Multiple fractures through the right lateral orbital wall as well as within the inferior orbital rim there is retro-orbital emphysema, extraconal and intraconal. Bilateral lens replacement. The globes appear intact. There is right exophthalmos in comparison to the left. Small hematoma along the lateral orbital wall adjacent fractures. Paranasal sinuses: Hemorrhage/fluid levels within the maxillary sinuses and ethmoid air cells. Fracture of the inferior right orbital wall extending into the maxillary sinus. Additional fractures along the anterior and posterior right maxillary sinus gamble Mastoids/middle ears: Clear. Bones: No acute osseous abnormality of the calvarium, skull base, or imaged facial bones. Scalp/facial soft tissues: Fat stranding overlying the right face along with subcutaneous emphysema. Hyperostosis. Heterogeneous appearance throughout the osseous structures. CERVICAL SPINE Craniocervical Junction: Atlantooccipital and atlantoaxial alignment are normal. No acute fracture. Vertebrae: Vertebral body heights are maintained. No acute fracture. Vertebral alignment: Mild grade 1 anterolisthesis of C7 on T1. Discs: Multilevel spondylosis without significant canal stenosis. Severe osseous foraminal narrowing of the left C7-T1. OTHER Neck soft tissues: Paraspinal soft tissues and imaged soft tissues of the neck are unremarkable. Upper chest: Decreased attenuation of the blood pool in comparison to major vessel gamble suggestive of anemia. Procedure Note Norma Limon DO - 09/21/[address] [address] EXAMINATION: CT HEAD WO CON, CT CERV SPINE WO CON REPORT DATE: 09/21/2024 7:35 PM INDICATION: Ground-level fall COMPARISON(S): CT head without 08/11/2024, CT head and cervical spine08/10/2024. TECHNIQUE: CT imaging of the head without contrast. CT imaging of thecervical spine without contrast. Coronal and sagittal reformats provided.Individualized dose optimization techniques were used for this CT. Contrast: No intravenous contrast. FINDINGS: SUPPORT DEVICES: None. HEAD Brain: There is no evidence of intracranial hemorrhage, mass effect, ormidline shift. There are confluent areas of hypodensity within the whitematter which are nonspecific. No definite acute cortical infarct isapparent. There is atherosclerotic calcification of the cavernous internalcarotid arteries and distal vertebral arteries. Ventricles: The ventricles and sulci are moderately enlarged consistentwith moderate global parenchymal volume loss. Orbits: Multiple fractures through the right lateral orbital wall as wellas within the inferior orbital rim there is retro-orbital emphysema,extraconal and intraconal. Bilateral lens replacement. The globes appearintact. There is right exophthalmos in comparison to the left. Smallhematoma along the lateral orbital wall adjacent fractures. Paranasal sinuses: Hemorrhage/fluid levels within the maxillary sinusesand ethmoid air cells. Fracture of the inferior right orbital wallextending into the maxillary sinus. Additional fractures along theanterior and posterior right maxillary sinus gamble Mastoids/middle ears: Clear. Bones: No acute osseous abnormality of the calvarium, skull base, orimaged facial bones. Scalp/facial soft tissues: Fat stranding overlying the right face alongwith subcutaneous emphysema. Hyperostosis. Heterogeneous appearancethroughout the osseous structures. CERVICAL SPINE Craniocervical Junction: Atlantooccipital and atlantoaxial alignment arenormal. No acute fracture. Vertebrae: Vertebral body heights are maintained. No acute fracture. Vertebral alignment: Mild grade 1 anterolisthesis of C7 on T1. Discs: Multilevel spondylosis without significant canal stenosis. Severeosseous foraminal narrowing of the left C7-T1. OTHER Neck soft tissues: Paraspinal soft tissues and imaged soft tissues of theneck are unremarkable. Upper chest: Decreased attenuation of the blood pool in comparison tomajor vessel gamble suggestive of anemia. IMPRESSION: 1. Multiple/comminuted right orbital fractures involving the lateral andanterior gamble. There is retro-orbital emphysema and tiny hematoma alongthe lateral orbital wall. There is right exophthalmos and straighteningof the optic nerve in comparison to the left. Recommend emergent ENTsurgical consultation. 2. Multiple fractures of the right maxillary sinus involving theanterior, posterior, and superior orbital gamble. Fracture appears toextend into dentition, although incompletely imaged. Consider facial CTfor improved resolution/evaluation. 3. No acute cervical spine findings Referred By: Interpreted By: Norma Limon DO, 09/21/2024 7:35 PM Gopi Schafer MD CT Final Result * (ABNORMAL) PROTIME/INR, VENOUS (08/11/2024 4:45 AM VICE PRESIDENT PROCESS) Only the most recent of2 resultswithin the time period is included. PROTIME 13.3(H) 10.2 - 12.9 SEC 08/11/2024 5:32 AM VICE PRESIDENT PROCESS [facility] INR 1.2 08/11/2024 5:32 AM VICE PRESIDENT PROCESS [facility] Comment: Recommended INR Therapeutic Goals: 2.0-3.0 Routine Therapy 2.5-3.5 Mechanical Prosthetic Valves (High Risk) 08/11/2024 4:45 AM VICE PRESIDENT PROCESS Jaime Vallecillo MD LABORATORY Final Result [facility] [address] [place] [address], [place] [phone] * (ABNORMAL) BASIC METABOLIC PANEL (08/11/2024 3:30 AM VICE PRESIDENT PROCESS) GLUCOSE 86 70 - 99 MG/DL 08/11/2024 4:11 AM VICE PRESIDENT PROCESS [facility] BUN 19(H) 7 - 18 MG/DL 08/11/2024 4:11 AM VICE PRESIDENT PROCESS [facility] CREATININE S/P/B 0.71 0.55 - 1.02 MG/DL 08/11/2024 4:11 AM VICE PRESIDENT PROCESS [facility] SODIUM S/P/B 132(L) 136 - 145 MMOL/L 08/11/2024 4:[address] [facility] POTASSIUM S/P/B 3.8 3.5 - 5.1 MMOL/L 08/11/2024 4:[address] [facility] CHLORIDE S/P/B 100 97 - 115 MMOL/L 08/11/2024 4:[address] [facility] CO2 27.7 21 - 32 MMOL/L 08/11/2024 4:[address] [facility] CALCIUM S/P/B 9.2 8.5 - 10.1 MG/DL 08/11/2024 4:[address] [facility] ANION GAP 4.3 2 - 10 MMOL/L 08/11/2024 4:[address] [facility] BUN CREATININE RATIO 26.6(H) 6 - 26 08/11/2024 4:[address] [facility] GFR ESTIMATE 83(L) >90 ML/MIN/1.7 3 M2 08/11/2024 4:[address] [facility] Comment: NOTE: eGFR is not calculated for patients <18 years of age or gender unknown. This is an estimated GFR calculation using the new CKD EPI creatinine equation without race and so does not require a correction factor for race. This estimated GFR should not be used for calculating drug doses. 08/11/2024 3:30 AM VICE PRESIDENT PROCESS Jaime Vallecillo MD LABORATORY Final Result [facility] [address] [place] [address], * (ABNORMAL) CBC W/DIFF AUTOMATED (08/11/2024 3:30 AM VICE PRESIDENT PROCESS) Only the most recent of2 resultswithin the time period is included. WBC 4.03(L) 4.5 - 11.0 x10'3/uL 08/11/2024 3:[address] [facility] RBC 3.51(L) 4.20 - 5.40 x10'6/uL 08/11/2024 3:[address] [facility] HGB 9.8(L) 12.0 - 16.0 G/DL 08/11/2024 3:[address] [facility] HCT 29.7(L) 38.0 - 48.0 % 08/11/2024 3:[address] [facility] MCV 84.6 81.0 - 99.0 FL 08/11/2024 3:[address] [facility] MCH 27.9 27.0 - 31.0 PG 08/11/2024 3:[address] [facility] MCHC 33.0 32.0 - 36.0 G/DL 08/11/2024 3:[address] [facility] RDW 15.3(H) 11.5 - 14.5 % 08/11/2024 3:[address] [facility] PLT 275 130 - 400 x10'3/uL 08/11/2024 3:[address] [facility] MPV 10.0 9.3 - 12.2 FL 08/11/2024 3:[address] [facility] DIFFERENTIAL TYPE AUTOMATED DIFFERENTIAL 08/11/2024 3:[address] [facility] NEUTROPHILS % 43.9 % 08/11/2024 3:[address] [facility] LYMPHOCYTES % 25.1 % 08/11/2024 3:[address] [facility] MONOCYTES % 22.8 % 08/11/2024 3:[address] [facility] EOSINOPHILS 6.0 % 08/11/2024 3:[address] [facility] BASOPHILS 1.7 % 08/11/2024 3:[address] [facility] IMMATURE GRANS % 0.5 % 01/10/20 25 3:53 AM VICE PRESIDENT PROCESS [facility] ABS. NEUTROPHILS 1.77(L) 1.80 - 7.70 x10'3/uL 08/11/2024 3:53 AM VICE PRESIDENT PROCESS [facility] ABS. LYMPHOCYTES 1.01 1.00 - 4.80 x10'3/uL 08/11/2024 3:53 AM VICE PRESIDENT PROCESS [facility] ABS. MONOCYTES 0.92(H) 0.24 - 0.86 x10'3/uL 08/11/2024 3:53 AM VICE PRESIDENT PROCESS [facility] ABS. EOSINOPHILS 0.24 0.04 - 0.36 x10'3/uL 08/11/2024 3:53 AM VICE PRESIDENT PROCESS [facility] ABS. BASOPHILS 0.07 0.01 - 0.08 x10'3/uL 08/11/2024 3:53 AM VICE PRESIDENT PROCESS [facility] ABS. IMMATURE GRANULOCYTES 0.02 0.00 - 0.49 x10'3/uL 08/11/2024 3:[address] [facility] 08/11/2024 3:30 AM VICE PRESIDENT PROCESS Jaime Vallecillo MD LABORATORY Final Result [facility] [address] [place] [address], * MRSA SCREENING (08/10/2024 8:00 PM VICE PRESIDENT PROCESS) SPEC DESCRIPTION NASAL 08/10/2024 8:29 PM VICE PRESIDENT PROCESS [facility] SPECIAL REQUESTS NO SPECIAL REQUEST 08/10/2024 8:[address] [facility] CULTURE RESULT NO METHICILLIN RESISTANT STAPHYLOCOCCUS AUREUS ISOLATED 08/12/2024 6:48 AM VICE PRESIDENT PROCESS [facility] SPECIMEN FROM INTERNAL NOSE / Unknown 08/10/2024 8:00 PM VICE PRESIDENT PROCESS 08/10/2024 8:41 PM VICE PRESIDENT PROCESS us Doug Cruz DO MICROBIOLOGY - GENERAL ORDERAB LES Final Result [facility] [address] [place] [address], [place] [phone] * TYPE AND SCREEN (08/10/2024 1:40 PM VICE PRESIDENT PROCESS) ABO/RH A POSITIVE 08/10/2024 2:41 PM VICE PRESIDENT PROCESS [facility] ANTIBODY SCREEN NEGATIVE 08/10/2024 2:41 PM VICE PRESIDENT PROCESS [facility] SAMPLE EXPIRATION 08/13/2024,2 359 08/10/2024 2:41 PM VICE PRESIDENT PROCESS [facility] 08/10/2024 1:40 PM VICE PRESIDENT PROCESS us Jayne Grande MD BLOOD BANK TEST ORDERABLES Fi nal Result Performing Organization Address [facility]/ZIP Co de Phone Number [facility] [address] [place] [address], [place] [phone] * (ABNORMAL) PARTIAL THROMBOPLASTIN TIME,PTT (08/10/2024 12:24 PM VICE PRESIDENT PROCESS) PTT 41.2(H) 25.1 - 36.5 SEC 08/10/2024 12:50 PM VICE PRESIDENT PROCESS [facility] 08/10/2024 12:2 4 PM VICE PRESIDENT PROCESS us Vincenzo Mortensen NP LABORATORY Final Result Performing Organization Address City/[facility]/ZIP Co de Phone Number [address] [address], [place] [phone] * (ABNORMAL) COMPREHENSIVE METABOLIC PANEL (08/10/2024 12:24 PM [facility] GLUCOSE 97 70 - 99 MG/DL 08/10/2024 1:[address] [facility] BUN 19(H) 7 - 18 MG/DL 08/10/2024 1:[address] [facility] CREATININE S/P/B 0.82 0.55 - 1.02 MG/DL 08/10/2024 1:[address] [facility] SODIUM S/P/B 130(L) 136 - 145 MMOL/L 08/10/2024 1:[address] [facility] POTASSIUM S/P/B 4.2 3.5 - 5.1 MMOL/L 08/10/2024 1:[address] [facility] CHLORIDE S/P/B 98 97 - 115 MMOL/L 08/10/2024 1:[address] [facility] CO2 27.9 21 - 32 MMOL/L 08/10/2024 1:[address] [facility] CALCIUM S/P/B 9.2 8.5 - 10.1 MG/DL 08/10/2024 1:[address] [facility] BILIRUBIN TOTAL S/P/B 0.9 0.2 - 1.2 MG/DL 08/10/2024 1:[address] [facility] Comment: THIS ASSAY IS NOT RECOMMENDED FOR PATIENTS UNDERGOING TREATMENT WITH ELTROMBOPAG DUE TO THE POTENTIAL FOR FALSELY ELEVATED RESULTS. TOTAL PROTEIN S/P/B 6.9 6.4 - 8.2 G/DL 08/10/2024 1:[address] [facility] ALBUMIN S/P/B 3.6 3.4 - 5.0 G/DL 08/10/2024 1:[address] [facility] AST 23 15 - 37 U/L 08/10/2024 1:00 PM VICE PRESIDENT PROCESS [facility] ALT 25 14 - 55 U/L 08/10/2024 1:[address] [facility] ALKALINE PHOSPHATASE S/P/B 94 50 - 136 U/L 08/10/2024 1:[address] [facility] ANION GAP 4.1 2 - 10 MMOL/L 08/10/2024 1:[address] [facility] BUN CREATININE RATIO 23.3 6 - 26 08/10/2024 1:[address] [facility] A/G RATIO 1.1 1.0 - 2.0 RATIO 08/10/2024 1:[address] [facility] GFR ESTIMATE 70(L) >90 ML/MIN/1.7 3 M2 08/10/2024 1:[address] [facility] Comment: NOTE: eGFR is not calculated for patients <18 years of age or gender unknown. This is an estimated GFR calculation using the new CKD EPI creatinine equation without race and so does not require a correction factor for race. This estimated GFR should not be used for calculating drug doses. 08/10/2024 12:2 4 PM VICE PRESIDENT PROCESS Vincenzo Mortensen NP LABORATORY Final Result [facility] [address] [place] [address], * Critical Care (08/10/2024 12:20 PM VICE PRESIDENT PROCESS) Narrative Jayne Grande MD - 08/10/2024 12:20 PM VICE PRESIDENT PROCESS Jayne Grande MD 08/10/2024 2:10 PM Critical Care Performed by: Jayne Grande MD Authorized by: Jayne Grande MD Critical care provider statement: Critical care time (minutes): 45 Critical care time was exclusive of: Separately billable procedures and treating other patients and teaching time Critical care was necessary to treat or prevent imminent or life-threatening deterioration of the following conditions: [employer] failure or compromise Critical care was time spent personally by me on the following activities: Development of treatment plan with patient or surrogate, discussions with consultants, evaluation of patient's response to treatment, examination of patient, obtaining history from patient or surrogate, ordering and performing treatments and interventions, ordering and review of laboratory studies, ordering and review of radiographic studies, pulse oximetry, re-evaluation of patient's condition and review of old charts Care discussed with: admitting provider us Jayne Grande MD PROCEDURE/MINOR SURGICAL ORDE RBIA Final Result * XR FOOT RT 3V (08/10/2024 12:18 PM VICE PRESIDENT PROCESS) Anatomical Region Laterality Modality Foot Radiographic Yudelka ging 08/10/2024 12:3 7 PM VICE PRESIDENT PROCESS Impressions 08/10/2024 12:46 PM VICE PRESIDENT PROCESS =====IMPRESSION:===== 1. No acute fracture demonstrated. 2. Nonspecific soft tissue swelling. 3. Diffuse degenerative changes. Ordered By: VINCENZO MORTENSEN Interpreted By: Cory Hebert MD, 08/10/2024 12:37 PM Narrative 08/10/2024 12:46 PM VICE PRESIDENT PROCESS [address] [address] Examination: Right foot 3 views Exam date/time: 08/10/2024 11:41 AM Reason For Exam: Right foot injury. Fall. Comparison: None Findings: No acute fracture or dislocation. Chronic healed fractures of the third and fourth metatarsal necks with slight residual deformity. Moderate degenerative changes with scattered marginal osteophytes, greatest in the midfoot, first metatarsophalangeal joint and interphalangeal joints. Slight hallux valgus with small bunion. Pes planus. Scattered ligamentous calcifications. 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 Hammertoe deformities of the second through fifth digits. Nonspecific diffuse soft tissue swelling. Small ossicle in the medial ankle may be a chronic avulsion fragment. Benign-appearing sclerotic bone lesion of the distal tibia. Procedure Note Cory Hebert MD - 08/10/[address] [address] Examination: Right foot 3 views Exam date/time: 08/10/2024 11:41 AM Reason For Exam: Right foot injury. Fall. Comparison: None Findings: No acute fracture or dislocation. Chronic healed fractures ofthe third and fourth metatarsal necks with slight residual deformity.Moderate degenerative changes with scattered marginal osteophytes,greatest in the midfoot, first metatarsophalangeal joint andinterphalangeal joints. Slight hallux valgus with small bunion. Pesplanus. Scattered ligamentous calcifications. Calcium deposition notedwithin the distal Achilles tendon and plantar aponeurosis, likelymanifestation of CPPD deposition disease. Hammertoe deformities of thesecond through fifth digits. Nonspecific diffuse soft tissue swelling.Small ossicle in the medial ankle may be a chronic avulsion fragment.Benign-appearing sclerotic bone lesion of the distal tibia. =====IMPRESSION:===== 1. No acute fracture demonstrated. 2. Nonspecific soft tissue swelling. 3. Diffuse degenerative changes. Ordered By: VINCENZO MORTENSEN Interpreted By: Cory Hebert MD, 08/10/2024 12:37 PM Vincenzo Mortensen [employer] [facility] Final Result from Last 3 Months Insurance [employer] Advance Directives * Full Code (Latest Code Status on File) Date Activated Date Inactivated Comments 08/15/2024 12:35 PM 09/21/2024 6:53 PM * Full Code Date Activated Date Inactivated Comments 08/10/2024 5:41 PM 08/11/2024 3:16 PM * Full Code Date Activated Date Inactivated Comments 08/10/2024 5:41 PM 08/10/2024 5:41 PM * Full Code Date Activated Date Inactivated Comments 04/24/2021 8:03 AM 04/28/2021 4:38 PM * Full Code Date Activated Date Inactivated Comments 04/24/2021 8:03 AM 04/24/2021 8:03 AM Care Teams Associate Broker Relationship Specialty Start Date End Date Joshua Hermosillo MD [address] [facility] [address] [place] [id number] PCP - General INTERNAL MEDICINE 08/11/24
--- OUTSIDE RECORDS SUMMARY | 2024-10-04 16:38 | XMS_ITS | Encounter Summary ---
Author Organization [facility] Health Address [address] [place] [address] Care Team Providers Care Communications Instructor Name Role Phone Keith Ribeiro Primary Care Provider Sydnee Ashraf MD Primary Care Provider [phone] Encounter Details Date Type Department Care Team (Late st Contact [facility]) Description 04/04/2019 Telephone [facility] [address] [place] [address] Vahe Garcia MD [address] [facility] [address] [place], [place] [id number] Social History Tobacco Use Types Packs/Day Years Used Date Smoking Tobacco: Former Cigarettes 0.5 39 0 12/23/1958 - 12/23/1997 Smokeless Tobacco: Former Alcohol Use Standard Drinks/Week Comments Never 0 [...] on file documented as of this encounter Functional Status Functional Status Response Date of Assess ment Is person deaf or have serious hearing difficult y? No 03/25/2019 Is person blind or have serious difficulty seein g? Yes 03/25/2019 Does person have serious dif ficulty walking/climbing stairs? Yes 03/25/2019 Does person have difficulty dressing/bathing? No 03/25/2019 Does person have difficulty doing errands alone? Yes 03/25/2019 Cognitive Status Response Date of Assessm ent Does person have difficulty concentrating/remembering/making decisions? No 03/25/2019 documented as of this encounter Miscellaneous Notes * Telephone Encounter - Renée Manjarrez - 04/04/2019 3:56 PM CDT Continue ttreatment for documented in this encounter Plan of Treatment Not on file documented as of this encounter Visit Diagnoses Not on filedocumented in this encounter Care Teams Communications Instructor Relationship Specialty Start Date End Date Keith Ribeiro Update Information PCP - General 03/26/19 04/17/19 Sydnee Sheldon MD [address] [place] [address] [place] [address] PCP - General 04/18/19 documented as of this encounter
--- OUTSIDE RECORDS SUMMARY | 2024-10-04 16:38 | XMS_ITS | Clinical Summary ---
Author Organization [facility] Address [address] [place] [address] Care Team Providers Care Design Checker Name Role Phone Sydnee Sheldon MD Primary Care Provider Source Comments [facility],non-owned Affiliates and Associated Physician Practices is amultiple site organization consisting of ambulatory clinics and hospital sitesin [place], [place], [place] and [place]. This disclosure is being madepursuant to the Care Everywhere program and may not contain all information available regarding this patient. Last updated 18.[facility] [employer] Allergies No known active allergies Medications * [...] 12/08/2021 Immunizations Name Administration Dates Next Due Zero2IPO primary monoval ent 12+ yr 0.3mL Purple [...] Mass Index 28.32 12/08/2021 10:20 AM CDT Plan of Treatment Health Maintenance Due Date Last Done Comments BONE DENSITY TESTING 1940 DTAP/TDAP/TD VACCINES (1 - Tdap) 1957 ZOSTER VACCINE (1 of 2) 02/13/1988 Respiratory Syncytial Virus (RSV) Vaccine Pt: or over 60 yrs (1 - 1-dose 75+ series) 2013 PNEUMOCOCCAL VACCINE 50+ (2 of 2 - PPSV23) 01/26/2019 01/26/2018 COVID-19 VACCINE (3 - season) 2024 09/27/2020, 09/06/2020 INFLUENZA VACCINE (#1) 2024 0, 06/01/2019, 06/08/2018, Additional history exists DEPRESSION SCREENING 08/02/2024 MEDICARE AWV CALENDAR YEAR 2024 HEPATITIS B VACCINE Aged Out No longe r eligible based on patient's age to complete this topic HIB VACCINE Aged Out No longer eligi ble based on patient's age to complete this topic HPV VACCINE Aged Out No longer eligi ble based on patient's age to complete this topic MENINGOCOCCAL (Group B) VACCINE Aged Out No longer eligible based on patient's age to complete this topic MENINGOCOCCAL VACCINE Aged Out No bernadine brayan eligible based on patient's age to complete this topic Medical Devices Implanted Type Area Gun Barrel Finisher Device Identifier Shelf Expiration Date Model / Serial / Lot Graft Bone Magdi Frzdr Strut 11-24x2cm Implanted:Qty: 1 on 03/27/2019 by Vahe Garcia MD at [facility] Left: Hip Allosource 10/07/2022 [id number] / / [id number] Emily-Loc 4.5mm T25 Lock Screw 14mm S-T Implanted:Qty: 1 on 03/27/2019 by Vahe Garcia MD at [facility] Left: Hip [id number] / / Description:SCREW Screw 4.5mm 8mm 36mm T25 Cortx Slf-Tap Implanted:Qty: 1 on 03/27/2019 by Vahe Garcia MD at [facility] Left: Hip [employer] [id number] / / Description:EMILY-LOC 4.5MM T 25 CRTX SCREW 36MM S-T--03/30 LG Screw 4.5mm 8mm 34mm T25 Flut Lng Bone Implanted:Qty: 1 on 03/27/2019 by Vahe Garcia MD at [facility] Left: Hip [employer] [id number] / / Description:EMILY-LOC 4.5MM T 25 CRTX SCREW 34MM S-T--03/30 LG Cable Orth Ss 2mm Hip Clp Accord Implanted:Qty: 1 on 03/27/2019 by Vahe Garcia MD at [facility] Left: Hip [employer] 08/23/2028 [id number] / / [id number] Description:ACC 2.0MM SS CAB LE W/CLAMP - 03/30 LG Cable Orth Ss 2mm Hip Clp Accord Implanted:Qty: 1 on 03/27/2019 by Vahe Garcia MD at [facility] Left: Hip [employer] 10/26/2028 [id number] / / [id number] Description:ACC 2.0MM SS CAB LE W/CLAMP - 03/30 LG Cable Orth Ss 2mm Hip Clp Accord Implanted:Qty: 1 on 03/27/2019 by Vahe Garcia MD at [facility] Left: Hip [employer] 11/25/2028 [id number] / / [id number] Description:ACC 2.0MM SS CAB LE W/CLAMP - 03/30 LG Cable Orth Ss 2mm Hip Clp Accord Implanted:Qty: 1 on 03/27/2019 by Vahe Garcia MD at [facility] Left: Hip [employer] 11/25/2028 [id number] / / [id number] Description:ACC 2.0MM SS CAB LE W/CLAMP - 03/30 LG 4.5mm Prox Femur Lck Plate 12h L 288mm Implanted:Qty: 1 on 03/27/2019 by Vahe Garcia MD at [facility] Left: Hip [employer] [id number] / / Description:PLATE Screw 4.5mm 7.9mm 10mm T25 3 Ld Thrd 3 Implanted:Qty: 3 on 03/27/2019 by Vahe Garcia MD at [facility] Left: Hip [employer] [id number] / / Description:EMILY-LOC 4.5MM T 25 BLUNT TIP SCREW 10MM--03/30 LG Screw 4.5mm 7.9mm 38mm T25 Slf-Tap Lck Implanted:Qty: 1 on 03/27/2019 by Vahe Garcia MD at [facility] Left: Hip [employer] [id number] / / [id number] Bone Rally 40gm Hvisc Sprmnt Grn Implanted:Qty: 3 on 12/09/2020 by Vahe Garcia MD at [facility] Left: Knee [employer] 03/01/2025 [id number] / / [id number] Compon Fem Legion Ps Oxin Narr L Sz 5 Implanted:Qty: 1 on 12/09/2020 by Vahe Garcia MD at [facility] Left: Knee [employer] 06/02/2030 [id number] / / [id number] Tibial Baseplate Implanted:Qty: 1 on 12/09/2020 by Vahe Garcia MD at [facility] Left: Knee [employer] Inc 09/05/2029 [id number] / / [id number] Ins Lgn Ps Hi-Flex X-Link Sz 5-6 18mm Implanted:Qty: 1 on 12/09/2020 by Vahe Garcia MD at [facility] Left: Knee [employer] 03/19/2025 [id number] / / [id number] Explanted Type Area Gun Barrel Finisher Device Identifier Shelf Expiration Date Model / Serial / Lot Cable Orth Ss 2mm Hip Clp Accord Explanted:Qty: 1 on 03/27/2019 by Vahe Garcia MD at [facility] Left: Hip [employer] 09/26/2028 [id number] / / [id number] Description:ACC 2.0MM SS CAB LE W/CLAMP - 03/30 LG Advance Directives * Full Code (Latest Code Status on File) Date Activated Date Inactivated Comments 12/09/2020 3:39 PM 12/10/2020 5:00 PM * Full Code Date Activated Date Inactivated Comments 03/25/2019 2:00 PM 03/30/2019 7:48 PM * Full Code Date Activated Date Inactivated Comments 03/25/2019 12:21 PM 03/25/2019 2:00 PM Care Teams Design Checker Relationship Specialty Start Date End Date Sydnee Sheldon MD [address] [place] [address] K[place] [address] PCP - General 04/18/19
--- OUTSIDE RECORDS SUMMARY | 2024-10-04 16:38 | XMS_ITS | Encounter Summary ---
Author Organization [facility] Address [address] [place] [address] Care Team Providers Care Russian Language Professor Name Role Phone Veronica Hendrix MD Primary Care Provider [phone] None, Provider Primary Care Provider Nancy Gutierrez MD Primary Care Provider [phone] Joshua Hermosillo MD Primary Care Provider [phone] Encounter Details Date Type Department Care Team (Latest Contact Info) Description 06/07/2018 Abstract [facility] Aristides Lauren MD Social History Tobacco Use Types Packs/Day Years Used Date Smoking Tobacco: Never Assessed Comments Unknown Sex and Gender Information Value Date Recorded Sex Assigned at Female 09/21/2024 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 PM 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 Legal Sex Female 4:33 PM CDT Gender Identity Not on file Sexual Orientation Not on file documented as of this encounter Plan of Treatment Not on file documented as of this encounter Visit Diagnoses Not on filedocumented in this encounter Care Teams Russian Language Professor Relationship Specialty Start Date End Date Veronica Hendrix MD PCP - General 04/01/16 04/22/21 None, ProviderMD PCP - General 04/23/21 04/23/21 Nancy Dale MD [address] [id number] PCP - General 08/10/24 08/10/24 Joshua Hermosillo MD [address] [facility] [address] [place] [address] PCP - General INTERNAL MEDICINE 08/11/24 documented as of this encounter
== END 2024-10-04 14:48 | disposition home or self-care (01) ==
PROVIDERS: PCP Internal Medicine; Visit Provider Internal Medicine
DX: R93.7 Abnormal findings on diagnostic imaging of other parts of musculoskeletal system (principal); M62.511 Muscle wasting and atrophy, not elsewhere classified, right shoulder
CPT/HCPCS: 73221

== ENCOUNTER 2025-02-06 09:34 | Outpatient (CLI) | payer MEDICARE, MEDICAID, SELFPAY ==
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
--- OUTSIDE RECORDS SUMMARY | 2025-02-06 09:45 | XMS_ITS | Data Portability ---
Author Organization [facility], Main Office Address [address] [place] [address] Assessment No assessment recorded. Plan of Treatment Reminders Order Date Submit Date Provider Last Modified By Organization Details Last Modified Time Details Appointments None recorded. Lab vitamin B12 + folate, serum or blood [address] (Lab), [address] [place], [address], 4 08:00:08 vitamin D, 1,25-dihydr oxy, serum [address] (Lab), [address] [place], [address], 4 08:00:08 TSH, serum or plasma [address] (Lab), [address] [place], [address], 4 08:00:08 unlisted lab - CBC study [address] (Lab), [address] [place], [address], 4 08:00:08 BMP, serum or plasma [facility] [address] [place], [address], 4 21:43:30 CBC w/ auto diff 2023 024 [email or web address] 477 [facility] (Lab), [address] [place], [address], 4 08:07:02 ferritin, serum or plasma 2023 024 [facility] (Lab), [address] [place], [address], 4 21:48:24 iron + total iron-bindin g capacity (TIBC), serum 2023 024 [facility] (Lab), [address] [place], [address], 4 21:42:14 CBC w/ auto diff 2023 024 [facility] (Lab), [address] [place], [address], 4 21:03:12 BMP, serum or plasma 2023 024 [email or web address] 4 [facility] (Lab), [address] [place], [address], 4 13:56:01 vitamin B12 + folate, serum or blood 2023 024 [email or web address] 4 [facility] (Lab), [address] [place], [address], 4 10:12:04 vitamin D, 1,25-dihydr oxy, serum 2023 024 4 [facility] (Lab), [address] [place], [address], 4 10:11:37 BMP, serum or plasma 2023 024 [email or web address] 4 [facility] (Lab), [address] [place], [address], 4 10:13:07 lipid panel, serum 2023 024 4 [facility] (Lab), [address] [place], [address], 4 10:12:34 Referral None recorded. Procedures None recorded. Surgeries None recorded. Imaging None recorded. Medication Orders alendronate 70 mg tablet 2023 024 [facility] #[id number], [address] [place], [place], [id number], 4 15:49:00 venlafaxine ER 150 mg capsule,ext ended release 24 hr 2023 024 [facility] #[id number], [address] [place] [address], [place], [id number], 4 16:59:52 carvedilol 6.25 mg tablet [address] [facility] [address], [facility] [place], [address], 4 15:44:44 venlafaxine ER 75 mg capsule,ext ended release 24 hr [address] [facility] [address], [facility] [place], [address], 4 15:44:46 Patient TargetsNo targets recorded. Patient InstructionsNo instructions recorded. Reason for Referral None Reported. Results Created Date Observation Date Name Description Value Unit Range Abnormal Flag Note LastModifiedBy Organization Detail LastModifiedTime 11/30/19 24 11/30/2023 CBC/C OMPLE TE BLD COUNT W/DIF F white blood cells 4.5 x10'3 /uL 4.2-10 .8 Not Available [facility] (Lab) [address] [place], [address], 11/30/2023 21:03:12 11/30/19 24 11/30/2023 CBC/C OMPLE TE BLD COUNT W/DIF F red blood cells 3.84 x10'6 /uL 3.80-5 .20 Not Available [facility] (Lab) [address] [place], [address], 11/30/2023 21:03:12 11/30/19 24 11/30/2023 CBC/C OMPLE TE BLD COUNT W/DIF F hemoglobin 11.1 g/dL 12.0-1 5.6 low Not Available [facility] (Lab) [address] [place], [address], 11/30/2023 21:03:12 11/30/19 24 11/30/2023 CBC/C OMPLE TE BLD COUNT W/DIF F hematocrit 33.5 % 35.7-4 5.7 low Not Available [facility] (Lab) [address] [place], [address], 11/30/2023 21:03:12 11/30/19 24 11/30/2023 CBC/C OMPLE TE BLD COUNT W/DIF F mean red cell volume 87.2 fL 82.0-9 9.0 Not Available [facility] (Lab) [address] [place], [address], 11/30/2023 21:03:12 11/30/19 24 11/30/2023 CBC/C OMPLE TE BLD COUNT W/DIF F mean red cell hemoglobin 28.9 pg 27.0-3 3.0 Not Available [facility] (Lab) [address] [place], [address], 11/30/2023 21:03:12 11/30/19 24 11/30/2023 CBC/C OMPLE TE BLD COUNT W/DIF F mean RBC HGB concentratio n 33.1 g/dL 31.0-3 6.0 Not Available [facility] (Lab) [address] [place], [address], 11/30/2023 21:03:12 11/30/19 24 11/30/2023 CBC/C OMPLE TE BLD COUNT W/DIF F red cell distribution width 13.8 % 11.8-1 5.5 Not Available [facility] (Lab) [address] [place], [address], 11/30/2023 21:03:12 11/30/19 24 11/30/2023 CBC/C OMPLE TE BLD COUNT W/DIF F platelets 337 x10'3 /uL 150-40 0 Not Available [facility] (Lab) [address] [place], [address], 11/30/2023 21:03:12 11/30/19 24 11/30/2023 CBC/C OMPLE TE BLD COUNT W/DIF F mean platelet volume 9.8 fL 9.0-12 .4 Not Available [facility] (Lab) [address] [place], [address], 11/30/2023 21:03:12 11/30/19 24 11/30/2023 CBC/C OMPLE TE BLD COUNT W/DIF F neutrophils 52.8 % 39.0-7 2.0 Not Available [facility] (Lab) [address] [place], [address], 11/30/2023 21:03:12 11/30/19 24 11/30/2023 CBC/C OMPLE TE BLD COUNT W/DIF F lymphocytes 29.3 % 16.0-4 7.0 Not Available [facility] (Lab) [address] [place], [address], 11/30/2023 21:03:12 11/30/19 24 11/30/2023 CBC/C OMPLE TE BLD COUNT W/DIF F monocytes 14.1 % 5.0-12 .0 high Not Available [facility] (Lab) [address] [place], [address], 11/30/2023 21:03:12 11/30/19 24 11/30/2023 CBC/C OMPLE TE BLD COUNT W/DIF F eosinophils 2.2 % 1.0-7. 0 Not Available [facility] (Lab) [address] [place], [address], 11/30/2023 21:03:12 11/30/19 24 11/30/2023 CBC/C OMPLE TE BLD COUNT W/DIF F basophils 0.9 % 0.0-2. 0 Not Available [facility] (Lab) [address] [place], [address], 11/30/2023 21:03:12 11/30/19 24 11/30/2023 CBC/C OMPLE TE BLD COUNT W/DIF F immature granulocytes 0.7 % 0.00-0 .50 high Not Available [facility] (Lab) [address] [place], [address], 11/30/2023 21:03:12 11/30/19 24 11/30/2023 CBC/C OMPLE TE BLD COUNT W/DIF F neutrophils, absolute count 2.40 x10'3 /uL 1.5-8. 0 Not Available [facility] (Lab) [address] [place], [address], 11/30/2023 21:03:12 11/30/19 24 11/30/2023 CBC/C OMPLE TE BLD COUNT W/DIF F lymphocytes, absolute count 1.33 x10'3 /uL 1.07-3 .43 Not Available [facility] (Lab) [address] [place], [address], 11/30/2023 21:03:12 11/30/19 24 11/30/2023 CBC/C OMPLE TE BLD COUNT W/DIF F monocytes, absolute count 0.64 x10'3 /uL 0.29-0 .99 Not Available [facility] (Lab) [address] [place], [address], 11/30/2023 21:03:12 11/30/19 24 11/30/2023 CBC/C OMPLE TE BLD COUNT W/DIF F eosinophils, absolute count 0.10 x10'3 /uL 0.02-0 .53 Not Available [facility] (Lab) [address] [place], [address], 11/30/2023 21:03:12 11/30/19 24 11/30/2023 CBC/C OMPLE TE BLD COUNT W/DIF F basophils, absolute count 0.04 x10'3 /uL 0.01-0 .08 Not Available [facility] (Lab) [address] [place], [address], 11/30/2023 21:03:12 11/30/19 24 11/30/2023 CBC/C OMPLE TE BLD COUNT W/DIF F immature granulocytes ,absolute 0.03 x10'3 /uL 0.00-0 .05 Not Available [facility] (Lab) [address] [place], [address], 11/30/2023 21:03:12 11/30/19 24 11/30/2023 CBC/C OMPLE TE BLD COUNT W/DIF F nucleated red blood cells 0.0 % -0 Not Available [facility] (Lab) [address] [place], [address], 11/30/2023 21:03:12 11/30/19 24 11/30/2023 CBC/C OMPLE TE BLD COUNT W/DIF F NRBC# 0.00 x10'3 /uL Not Available [facility] (Lab) [address] [place], [address], 11/30/2023 21:03:12 11/30/19 24 11/30/2023 IRON/ TIBC PANEL total iron binding capacity 340 mcg/d L 265-47 5 Not Available [facility] (Lab) [address] [place], [address], 11/30/2023 21:46:33 11/30/19 24 11/30/2023 IRON/ TIBC PANEL % transferrin saturation 24 % 20-55 Not Available [facility] (Lab) [address] [place], [address], 11/30/2023 21:46:33 11/30/19 24 11/30/2023 IRON/ TIBC PANEL unsaturated iron bind capacity 257 mcg/d L 126-38 2 Not Available [facility] (Lab) [address] [place], [address], 11/30/2023 21:46:33 11/30/19 24 11/30/2023 IRON/ TIBC PANEL iron 83 mcg/d L 42-175 Not Available [facility] (Lab) [address] [place], [address], 11/30/2023 21:46:33 11/30/19 24 11/30/2023 BASIC METAB OLIC PANEL sodium 130 mmol/ L 137-14 5 low Not Available [facility] (Lab) [address] [place], [address], 11/30/2023 21:43:30 11/30/19 24 11/30/2023 BASIC METAB OLIC PANEL potassium 3.9 mmol/ L 3.5-5. 1 Not Available [facility] (Lab) [address] [place], [address], 11/30/2023 21:43:30 11/30/19 24 11/30/2023 BASIC METAB OLIC PANEL chloride 94 mmol/ L 98-107 low Not Available [facility] (Lab) [address] [place], [address], 11/30/2023 21:43:30 11/30/19 24 11/30/2023 BASIC METAB OLIC PANEL carbon dioxide 29 mmol/ L 22-30 Not Available [facility] (Lab) [address] [place], [address], 11/30/2023 21:43:30 11/30/19 24 11/30/2023 BASIC METAB OLIC PANEL anion gap 10.9 mmol/ L 14-22 low Not Available [facility] (Lab) [address] [place], [address], 11/30/2023 21:43:30 11/30/19 24 11/30/2023 BASIC METAB OLIC PANEL glucose 80 mg/dL 70-99 Not Available [facility] (Lab) [address] [place], [address], 11/30/2023 21:43:30 11/30/19 24 11/30/2023 BASIC METAB OLIC PANEL BUN 16 mg/dL 8-19 Not Available [facility] (Lab) [address] [place], [address], 11/30/2023 21:43:30 11/30/19 24 11/30/2023 BASIC METAB OLIC PANEL creatinine 0.75 mg/dL 0.66-1 .25 Not Available [facility] (Lab) [address] [place], [address], 11/30/2023 21:43:30 11/30/19 24 11/30/2023 BASIC METAB OLIC PANEL GFR >60 Refer ence Range : Aie[place] ge GFR Healt hy Adult : >60 [...] calcu lator is avail able on the [facility] websi te: https ://ww w.kid eliud.o rg/pr ofess ional s/kdo qi/gf r_cal culat or Not Available [facility] (Lab) [address] [place], [address], 11/30/2023 21:43:30 11/30/19 24 11/30/2023 BASIC METAB OLIC PANEL calcium 9.2 mg/dL 8.4-10 .2 Not Available [facility] (Lab) [address] [place], [address], 11/30/2023 21:43:30 11/30/19 24 11/30/2023 SHAHANA TIN ferritin 36 NG/mL 11.1-2 64 Not Available [facility] (Lab) [address] [place], [address], 11/30/2023 21:48:24 01/25/20 24 01/25/2024 URINE DRUG SCREE N amphetamines NEGATI VE Amphe tamin e cut off 500 ng/mL Not Available [facility] (Lab) [address] [place], [address], 01/25/2024 23:25:43 01/25/20 24 01/25/2024 URINE DRUG SCREE N barbiturates NEGATI VE Patricia turat e cut off 200 ng/mL Not Available [facility] (Lab) [address] [place], [address], 01/25/2024 23:25:43 01/25/20 24 01/25/2024 URINE DRUG SCREE N benzodiazepi alicia NEGATI VE Benzo diaze pine cut off 200 ng/mL Not Available [facility] (Lab) [address] [place], [address], 01/25/2024 23:25:43 01/25/20 24 01/25/2024 URINE DRUG SCREE N cocaine NEGATI VE Cocai ne metab olite cut off 150 ng/mL Not Available [facility] (Lab) [address] [place], [address], 01/25/2024 23:25:43 01/25/20 24 01/25/2024 URINE DRUG SCREE N fentanyl NEGATI VE Fenta nyl cut off 1.0 ng/mL Not Available [facility] (Lab) [address] [place], [address], 01/25/2024 23:25:43 01/25/20 24 01/25/2024 URINE DRUG SCREE N methadone NEGATI VE Metha done cutof f 300 ng/mL . Not Available [facility] (Lab) [address] [place], [address], 01/25/2024 23:25:43 01/25/20 24 01/25/2024 URINE DRUG SCREE N opiates POSITI VE abnormal Opiat e cut off 300 ng/mL Not Available [facility] (Lab) [address] [place], [address], 01/25/2024 23:25:43 01/25/20 24 01/25/2024 URINE DRUG SCREE N oxycodone NEGATI VE Oxyco done cut off 100 ng/mL Not Available [facility] (Lab) [address] [place], [address], 01/25/2024 23:25:43 01/25/20 24 01/25/2024 URINE DRUG SCREE N phencyclidin e NEGATI VE PCP cut off 25 ng/mL Not Available [facility] (Lab) [address] [place], [address], 01/25/2024 23:25:43 01/25/20 24 01/25/2024 URINE DRUG SCREE N marijuana NEGATI VE abnormal Marij uana cut off 50 ng/mL ANY POSIT VLADIMIR RESUL TS REPOR GILBERTO ARE UNCON FIRME D, AND SUCH, SHOUL D BE USED FOR MEDIC AL TREAT MENT PURPO SES ONLY. Not Available [facility] (Lab) [address] [place], [address], 01/25/2024 23:25:43 Result Notes None recorded. Problems Name Problem SNOMED Code Status Onset Date Resolution Date Notes Provider Name and Address Organization Details Recorded Time Arthritis of left knee 1278041186597 104 Active 2020 Not Available [facility] 3 00:46:19 History of right total knee replacemen t 5325816815217 102 Active 2020 Not Available [facility] 3 00:46:20 Otitis media of left ear 6072056545281 100 Active 2012 Not Available [facility] 3 00:46:20 History of total knee arthroplas ty 9657348308176 Active 2020 Not Available [facility] 3 00:46:20 Deep venous thrombosis 829232327 Active 2019 x 2 Not Available [facility] 3 00:46:20 Abscess 627610725 Active 2019 Not Available [facility] 3 00:46:20 Chronic back pain 152359917 Active 2019 Not Available [facility] 3 00:46:20 Acute sinusitis 44171425 Active 2012 Not Available [facility] 3 00:46:20 Pain of right shoulder joint 3558440372574 9100 Active 2021 Not Available [facility] 3 00:46:20 Acute suppurativ e otitis media 097848846 Active 2012 Not Available [facility] 3 00:46:21 Generalize d osteoarthr itis 976353658 Active 2012 Not Available [facility] 3 00:46:21 Pain of joint of hand 238364168 Active 2013 Not Available [facility] 3 00:46:21 Fibromyalg ia 003327304 Active 2013 Not Available [facility] 3 00:46:21 Chronic tension-ty pe headache 056710606 Active 2012 Not Available [facility] 3 00:46:21 Gastroesop hageal reflux disease 962104694 Active 2013 Not Available [facility] 3 00:46:21 Headache 27097323 Active 2012 Not Available [facility] 3 00:46:21 Pain of joint of ankle and/or foot 945068124 Active 2013 Not Available [facility] 3 00:46:21 Syncope 333178600 Active 2020 Not Available [facility] 3 00:46:21 Knee pain Active 2009 Not Available [facility] 3 00:46:22 Osteopenia 591933636 Active 2017 DEXA 02/16 Not Available [facility] 3 00:46:22 Vitamin D deficiency 96950542 Active 2012 Not Available [facility] 3 00:46:22 Closed fracture of hip 380878059 Active 2018 Not Available [facility] 3 00:46:22 Arthritis 2023778 Active 2019 Not Available [facility] 3 00:46:22 Hypertensi ve disorder 25906402 Active Not Available [facility] 3 00:46:22 Nausea 106251197 Active 2013 Not Available [facility] 3 00:46:23 Strain of trapezius muscle 228945289 Active 2012 Not Available [facility] 3 00:46:23 Periprosth etic fracture 051373186 Active 2020 Not Available [facility] 3 00:46:23 Hyperlipid emia 08161069 Active 2019 Not Available [facility] 3 00:46:23 Pain of joint 87785659 Active 2013 Not Available [facility] 3 00:46:23 Essential hypertensi on 07736150 Active 2012 Not Available [facility] 3 00:46:23 Long-term current use of anticoagul ant 104762772 Active 2012 Not Available [facility] 3 00:46:24 Fracture of femur 33001306 Active 2018 Not Available [facility] 3 00:46:24 Bilateral lower limb edema 529123973 Active 2013 Not Available [facility] 3 00:46:24 Neck pain 34348023 Active 2019 Not Available [facility] 3 00:46:24 Iron deficiency anemia 93664897 Active 2020 Not Available [facility] 3 00:46:24 Perioral dermatitis 542725507 Active 2022 UDAY Hayward [address], [address] , [place] [facility] [employer] [facility] 3 10:15:36 Fatigue 03315331 Active 2022 Sydnee Sheldon MD [address], [address], [place], [address] , [place] [facility] [employer] [facility] 3 07:39:25 Dysuria 56846452 Active 2022 Sydnee Sheldon MD [address], [address], [place], [address] , [employer] [facility] [employer] [facility] 3 15:32:24 Overactive urinary bladder 523866456 Active 2022 UDAY Hayward [address], [place], [address] , [place] [facility] [employer] [facility] 3 09:38:42 Compressio n fracture of lumbar spine 913520505 Active 2022 Sydnee Sheldon MD [address], [address], [place], [address] , [employer] 3 11:46:41 Osteoarthr itis of multiple joints 607868488 Active 2022 Dmitry Kent, [employer] ENGRA[employer]ING [employer] [address], [address], [place], [address] , [employer] 3 16:17:44 Mixed anxiety and depressive disorder 368607123 Active 2023 Dmitry Kent, DIE ENGRAVING SUPERVISOR[employer] [address], [address], [place], [address] , [employer] 4 15:33:38 Hyponatrem ia 18447205 Active 2023 Dmitry Kent, DIE ENGRAVING SUPERVISOR[employer] [address], [address], [place], [address] , [employer] 4 10:54:43 Dark stools 38636997 Active 2023 Dmitry Kent, DIE ENGRAVING SUPERVISOR-C [address], [address], [place], [address] , [employer] 4 15:42:45 Bone density finding 390318118 Active 2023 Dmitry Kent, DIE ENGRAVING SUPERVISOR[employer] [address], [address], [place], [address] , [employer] 4 15:46:49 Problem Notes None recorded. Procedures Surgical History Date Name Laterality Status Provider Name and Address Organization Details Recorded Time 10/13/19 Medicare Wellness CPT Code, Initial completed Vera Bañuelos RN [facility] 10/09/2022 12:04:59 12/10/19 Total knee arthroplasty completed Not Available [facility] 09/30/2022 00:42:08 Imaging Results None recorded. Procedure Notes None recorded. Medical Equipment None Reported. Allergies Allergen ID Allergen Name Allergen Category Reaction Reaction Severity Criticality Documentation Date Start Date Code Code System Note Provider Name and Address Organization Details Recorded Time 362 duloxetin e medicatio n nausea Not available Not available 09/30/2022 51080 RxNorm Not Available [facility] 3 00:51:19 Medications Name Sig Start Date [...] 1 ml IM x 1 11/02 completed nd-0 [address] -01 Not Available Not Available Not [...] administe red by the provider 10/24 completed [facility]: 0409- 4276- 17 Not Available Not [...] Not Available No t Available Fluzone High-Dose 0961-2413 (PF) 180 mcg/0.5 mL intramuscul ar syringe 08/10 completed Not Available Not Available Not Available Neuriva Plus 2021 active Not Available Not Available Not Avai lable Vitals Date Recorded Body height Body mass index (BMI) Body weight Body temperature Heart rate Oxygen saturation Oxygen saturation in Arterial blood by Pulse oximetry Systolic And Diastolic Provider Name and Address Organization Details Last Updated DateTime 4 154.94 cm 29.1 kg/m2 41121.2 2 g 97.1 [degF] 60 /min 98 % 98 % 108/60 mm[Hg] Ariadne Talley RN [facility] [employer] [facility] 4 15:20:49 Date Recorded Body height Body mass index (BMI) Body weight Body temperature Heart rate Oxygen saturation Oxygen saturation in Arterial blood by Pulse oximetry Systolic And Diastolic Provider Name and Address Organization Details Last Updated DateTime 4 154.94 cm 29.3 kg/m2 72008.8 2 g 96.5 [degF] 78 /min 91 % 91 % 126/64 mm[Hg] Ariadne Talley RN [facility] [employer] [facility] 4 10:24:22 Date Recorded Body height Body mass index (BMI) Body weight Body temperature Heart rate Oxygen saturation Oxygen saturation in Arterial blood by Pulse oximetry Systolic And Diastolic Provider Name and Address Organization Details Last Updated DateTime 4 154.94 cm 28.5 kg/m2 24985.4 5 g 97.9 [degF] 79 /min 98 % 98 % 176/100 mm[Hg] Katerina De Leon RN [facility] [employer] [facility] 4 16:41:39 Date Recorded Body height Body mass index (BMI) Body weight Body temperature Heart rate Oxygen saturation Oxygen saturation in Arterial blood by Pulse oximetry Systolic And Diastolic Provider Name and Address Organization Details Last Updated DateTime 4 154.94 cm 28.7 kg/m2 21188.0 4 g 98.1 [degF] 68 /min 91 % 91 % 174/88 mm[Hg] Ariadne Talley RN [facility] [employer] [facility] 4 15:23:48 Social History Question Answer Notes LastModified by Organizat ion Details LastModified Time Tobacco Smoking Status Former Smoker Not Available [facility] 09/30/2022 00:40:47 Do You Have An Advance Directive? Yes Information not available 10/09/2022 Are You Blind Or Do You Have Difficulty Seeing? No [id number].[id number] Information not available 09/30/2022 What Is Your Level Of Caffeine Consumption? Moderate [id number].22100 [id number] Information not available 09/30/2022 How Much Tobacco Do You Chew? None [id number].19583 [id number] Information not available 09/30/2022 In The 14 Days Before Symptom Onset, Have You Had Close Contact With A Laboratory-confir med COVID-19 While That Case Was Ill? No MIGRATION.10371 [id number] Information not available 09/30/2022 In The 14 Days Before Symptom Onset, Have You Had Close Contact With A Person Who Is Under Investigation For COVID-19 While That Person Was Ill? No [id number].38479 [id number] Information not available 09/30/2022 Are You Deaf Or Do You Have Serious Difficulty Hearing? No MIGRATION.58298 06806 Information not available 09/30/2022 What Type Of Diet Are You Following? REGULAR MIGRATION.24765 94910 Information not available 09/30/2022 Which Illicit Or Recreational Drugs Have You Used? None MIGRATION.15150 33391 Information not available 09/30/2022 Are There Any Guns Present In Your Home? No MIGRATION.79693 78070 Information not available 09/30/2022 Do You Use Insect Repellent Routinely? No Information not available 10/09/2022 Where Do You Live? SingleLevelHouse Information not available 10/09/2022 Presence Of Domestic Violence No Information no t available 10/09/2022 Are You Able To Care [...] Your Home? Yes Information not available 10/09/2022 How Much Tobacco Do You Smoke? 1 PPD MIGRATION.68362 49090 Information not available 09/30/2022 Do You Use Sunscreen Routinely? No MIGRATION.73057 04468 Information not available 09/30/2022 Has Tobacco Cessation Counseling Been Provided? No Information not available 10/09/2022 How Many Years Have You Smoked Tobacco? 40 MIGRATION.81918 55773 Information not available 09/30/2022 Have You Recently Traveled Abroad? No MIGRATION.76881 23854 Information not available 09/30/2022 Do You Have Difficulty Walking Or Climbing Stairs? Yes MIGRATION.61525 95760 Information not available 09/30/2022 Do You Have Any Dietary Restrictions? No MIGRATION.44122 82059 Information not available 09/30/2022 Sex: Unknown Functional Status Question Answer Note LastModified by Organizat ion Details LastModified Time Do you use any illicit or recreational drugs? No Information not available 10/09/2022 Do you or have you ever used any other forms of tobacco or nicotine? No Information not available 10/09/2022 What is your level of alcohol consumption? None MIGRATION.52215 08966 Information not available 09/30/2022 Do you or have you ever used smokeless tobacco? Never used smokeless tobacco MIGRATION.23281 71815 Information not available 09/30/2022 Do you have transportation difficulties? No Information not available 10/09/2022 Are you able to walk? YESASSIST Patient stated she uses a walker at times. Information not available 10/09/2022 Do you have difficulty doing errands alone? No MIGRATION.46208 52503 Information not available 09/30/2022 Are you able to care for yourself? Yes Information not available 10/09/2022 What is your occupation? retired MIGRATION.58788 01224 Information not available 09/30/2022 Do you have difficulty dressing or bathing? No MIGRATION.45246 79722 Information not available 09/30/2022 Do you or have you ever used e-cigarettes or vape? Never used electronic cigarettes MIGRATION.47279 89314 Information not available 09/30/2022 What is your exercise level? Occasional Information not available 10/09/2022 Mental Status Question Answer Note LastModified by Organization D etails LastModified Time Do you have difficulty concentrating, remembering or making decisions? No Information no t available 10/09/2022 Family History Relationship Description Onset Age of this Age Resolved Age Notes LastModified by Organization Details LastModified Time Mother Heart disease [id number] Not available 09/30/2022 00:42:10 Mother Family history of stroke MIGRATION.650 [id number] Not available 09/30/2022 00:42:10 Mother Hypertensive disorder [id number] Not available 09/30/2022 00:42:10 Notes:No breast, colon, [...] HAVE YOU BEEN HOSPITALIZED OR SEEN IN [facility] IN THE PAST YEAR ? N ATHEROSCLEROSIS [...] quadrivalent, PF 3 completed FAITH Wyman [address] [facility], [facility] [address], [place], [address], [facility] [employer] [facility] 06/03/2023 08:34:15 SARS-COV-2 (COVID-19) vaccine, UNSPECIFIED 1 completed Not Available [facility] 09/30/2022 00:51:03 Influenza, high-dose, trivalent, PF 6 completed Not Available [facility] 09/30/2022 00:51:03 Influenza, high-dose, quadrivalent, PF 1 completed Not Available [facility] 09/30/2022 00:51:04 Influenza, high-dose, quadrivalent, PF 2 completed Not Available [facility] 09/30/2022 00:51:04 Influenza, high-dose, quadrivalent, PF 0 completed Not Available [facility] 09/30/2022 00:51:05 Influenza, high-dose, trivalent, PF 9 completed Not Available [facility] 09/30/2022 00:51:05 Influenza, high-dose, trivalent, PF 8 completed Not Available [facility] 09/30/2022 00:51:05 Pneumococcal conjugate PCV 13 8 completed Not Available [facility] 09/30/2022 00:51:05 Influenza, high-dose, trivalent, PF 7 completed Not Available [facility] 09/30/2022 00:51:06 Past Encounters Encounter ID Performer Location Encounter Start Date Encounter Closed Date Diagnosis/Indication Diagnosis SNOMED-CT Code Diagnosis ICD10 Code Diagnosis Note [id number] [facility] Primary Care [place] [address] [place] [address] 10/24/2020 00:00:00 10/29/2020 10:02:[id number] [facility] Primary Care [place] [address] [place] [address] 11/08/2020 00:00:00 11/08/2020 22:15:[id number] [facility] Primary Care [place] [address] [place] [address] 11/21/2020 00:00:00 11/21/2020 09:38:[id number] [facility] Primary Care [place] [address] [place] [address] 12/05/2020 00:00:00 12/05/2020 12:53:[id number] [facility] Primary Care [place] [address] [place] [address] 12/24/2020 00:00:00 12/24/2020 16:40:[id number] [facility] Primary Care [place] [address] [place] [address] 01/09/2021 00:00:00 01/09/2021 13:32:[id number] [facility] Primary Care [place] [address] [place] [address] 01/16/2021 00:00:00 01/16/2021 12:31:[id number] [facility] Primary Care [place] [address] [place] [address] 2021 00:00:00 2021 12:59:18 [id number] Sydnee Sheldon MD [facility] Primary Care [place] [address] [place] [address] 03/17/2021 00:00:00 03/17/2021 12:34:16 [id number] Sydnee Sheldon MD [facility] Primary Care [place] [address] [place] [address] 03/20/2021 00:00:00 03/20/2021 11:42:27 [id number] Sydnee Sheldon MD [facility] Primary Care [place] [address] [place] [address] 04/21/2021 00:00:00 04/21/2021 12:58:45 [id number] UDAY Hayward S_[facility] Primary Care [place] [address] [place] [address] 05/02/2021 00:00:00 05/02/2021 15:26:49 [id number] Sydnee Sheldon MD [facility] Primary Care [place] [address] [place] [address] 05/26/2021 00:00:00 05/26/2021 21:12:04 [id number] Sydnee Sheldon MD [facility] Primary Care [place] [address] [place] [address] 08/18/2021 00:00:00 08/18/2021 19:08:19 [id number] Sydnee Sheldon MD [facility] Primary Care [place] [address] [place] [address] 08/20/2021 00:00:00 08/21/2021 20:05:43 [id number] Sydnee Sheldon MD [facility] Primary Care [place] [address] [place] [address] 08/26/2021 00:00:00 08/26/2021 11:33:47 [id number] Sydnee Sheldon MD [facility] Primary Care [place] [address] [place] [address] 08/29/2021 00:00:00 09/01/2021 11:52:15 [id number] UDAY Hayward [facility] Primary Care [place] [address] [place] [address] 11/04/2021 00:00:00 11/04/2021 11:36:55 [id number] UDAY Hayward [facility] Primary Care [place] [address] [place] [address] 11/25/2021 00:00:00 11/25/2021 15:34:44 [id number] UDAY Hayward [facility] Primary Care [place] [address] [place] [address] 11/28/2021 00:00:00 11/28/2021 13:04:10 [id number] UDAY Hayward [facility] Primary Care [place] [address] [place] [address] 01/19/2022 00:00:00 01/19/2022 08:36:13 [id number] UDAY Hayward [facility] Primary Care [place] [address] [place] [address] 02/27/2022 00:00:00 02/27/2022 12:12:06 [id number] UDAY Hayward [facility] Primary Care [place] [address] [place] [address] 03/16/2022 00:00:00 03/16/2022 12:51:07 [id number] Sydnee Sheldon MD [facility] Primary Care [place] [address] [place] [address] 05/06/2022 00:00:00 05/06/2022 14:04:06 [id number] UDAY Hayward [facility] Primary Care [place] [address] [place] [address] 05/29/2022 00:00:00 05/29/2022 12:26:[id number] [facility] Ortho [facility]a [place] [address] [place] [address] 07/08/2022 00:00:00 07/12/2022 13:49:[id number] [facility] Primary Care [address] [place] [address] 10/12/2022 09:50:54 10/12/2022 10:31:21 Adult health examination [id number] Z00.00 Labs up to date.Recom mended routine eye exams, has dentures. Colonoscop y- not indicatedM ammogram- not indicatedD EXA- not indicated Screening for disorder [id number] Z13.9 Perioral dermatitis 2387 18348 L71.0 Chronic back pain 943523 002 G89.29 Pt. would like to change hydrocodon e script to 7.5mg QID, advised of max. 30mg daily new controlled substance policy. [id number] LYDIA Garcai [facility] Primary Care [address] [place] [address] 01/01/2023 11:24:14 01/01/2023 11:57:57 [id number] [address] [facility] Primary Care [address] [place] [address] 01/13/2023 09:13:33 01/13/2023 11:30:32 Overactive urinary bladder [id number] N32.81 Urine showed no infection, problem has been ongoing for months.Dimple l do trial of oxybutynin , discussed stopping fluids early before bedtime.If still no improvemen t will send referral to urogyn. Fatigue 52715249 R53.83 All labs normal. B12 has slightly [...] sure to stay active, maintain healthy lifestyle. [id number] Sydnee Sheldon MD [facility] Primary Care [facility] [address] [facility] [address] [place] [address] 05/04/2023 15:44:12 06/10/2023 09:54:37 [id number] [facility] Primary Care [address] [place] [address] 06/02/2023 15:38:56 06/02/2023 16:34:55 Essential hypertension 31464673 I10 -pt currently takes carvedilol , hctz, and losartan, clonidine prn for systolic over 160-bp noted to be 160/88-No FLORES, CP, SOB, can note some dizziness when bp gets too high-encou raged to limit c-will increase carvedilol to 12.5mg-f/u in 1 month Osteoarthr itis of multiple joints 912767892 M15.9 -notes pain/stiff ness to hands/fing ers is biggest issue-also had recent fall, fx noted to lumbar spine-surg jo pending-un able to take nsaids d/t being on eliquis-cu rrently seeing pain management and ortho for this issue-will order capsaicin topical cream for pain Administra tion of influenza vaccine 17383182 Z23 [id number] Sydnee Sheldon MD [facility] Primary Care [address] [place] [address] 07/07/2023 15:45:57 07/07/2023 16:19:18 Essential hypertension 46740546 I10 -bp today is 162/80, 63, no flores, cp, sob-tries to limit her salt intake-dri nks 8 glasses of water/day- continues to take the carvedilol , hctz, losartan daily, and prn clonidine- will increase carvedilol to 25mg/day-p t to f/u as needed [id number] LYDIA Wyman-C [facility] Primary Care [address] [place] [address] 08/05/2023 14:50:11 08/05/2023 15:21:44 Essential hypertension 99688363 I10 -bp 150/82, 56, does note some dizziness occasional ly-drinks 8 glasses of water/day- continues to take the carvedilol , hctz, losartan daily-cari ng amlodipine 5mg daily-will stop carvedilol 25 and and start-f/u in [id number] [facility] Primary Care [facility] [address] [place] [address] 09/07/2023 15:14:32 09/07/2023 16:02:50 Essential hypertension 80870672 I10 -chronic, stable-bp 108/60, 60 no flores/cp/sob- continues to note good intake of water-she has been feeling more fatigue lately-dimple l stop carvedilol 12.5 and restart 6.25mg BID Mixed anxi ety and depressive disorder [id number] F41.8 -pt currently takes escitalopr am 20mg daily-she would like to try something different- trial venlafaxin e 75mg daily Screening for disorder 255176475 Z13.9 [id number] [facility] Primary Care [facility] [address] [place] [address] 10/07/2023 10:17:00 10/07/2023 11:12:34 Hyponatremia 24512099 E87.1 -new issue, low sodium noted on 09-07-22 (126)-labs redrawn-ad ding sodium if continues to be low-f/u in 1 month [id number] Sydnee Sheldon MD [facility] Primary Care [facility] [address] [place] [address] 11/29/2023 16:34:34 11/29/2023 17:08:46 Mixed anxiety and depressive disorder 127122900 F41.8 this month, mood not in good controlinc rease venlafaxin e ER 150 mg daily with foodf/u in 6 weeks Essential hypertension 62332008 I10 check [facility] but this month and she has not been tracking her home readingsco ntinue carvedilol 6.25 mg po bid, amlodipine 5 mg daily, losartan 100 mg and hctz 25 mg dailyf/u in 6 weeks Hyponatremia 64322004 E8 7.1 Iron defic iency anemia 45427305 D50.9 D51.[id number] [facility] Primary Care [facility] [address] [facility] [address] [place] [address] 01/19/2024 15:15:43 01/19/2024 16:58:56 Fatigue 10738065 R53.83 noting fatigue Screening for disorder 202254458 Z13.9 Vitamin D deficiency 347 37500 E55.9 Thyroid di sorder screening 890053655 Z13.29 Dark stools 55468517 R19 .5 -really dark stools for the last few days-feeli ng tired/fati gued-decli alicia colonoscop y-encourag ed increase water intake, natural fiber Bone density finding 385 285079 M85.80 -pt told in hx that she has low bone densitity- trial alendronat e 70mg [id number] FAITH Wyman [facility] Primary Care [facility] [address] [facility] [address] [place] [address] 01/25/2024 11:09:35 01/25/2024 12:24:02 Health Concerns Section Related Observation LastModified by Organization Detai ls LastModified Time None Recorded Concern Status LastModified by Organization Details LastModified Time None Recorded Advance Directives Directive Y: Payers Insurance Date Sequence Insurance Name Policy Number Policy Felipe Covered Member ID Felipe Member ID Guarantor Name 03/25/2024 1 [employer] (MEDICARE REPLACEMENT/A DVANTAGE - PPO) [id number] Lauren Brown Boner [id number] Lauren Brown Boner 03/25/2024 2 [place] Lauren Boner [id number] Lauren Brown Boner Notes Date Note Type Note Provider Name and Address Organization Details Recorded Time 09/07/2023 text/html pt is here for m ed f/u FAITH Wyman [address] [facility], [place] [address], [place], [address], [place] [facility] [employer] [facility] 09/07/2023 17:58:51 10/07/2023 text/html pt is here to f/ u on low sodium FAITH Wymna [address], [place] [address], [place], [address], [place] [facility] [employer] 10/07/2023 12:02:41 11/29/2023 text/html here to f/u on h tn on 11/11/23 and everything has been in an uproar but she is taking her medications as prescribed. Home readings are generally good, but no readings in the past week. Sydnee Sheldon MD [address], [place] [address], [place], [address], [place] [facility] [employer] 12/19/2023 15:26:21 01/19/2024 text/html pt is here for f/u FAITH Sumner [address], [place] [address], [place], [address], [facility] [employer] 01/19/2024 15:50:10 OBGyn Episode No OBEpisode recorded.
--- OUTSIDE RECORDS SUMMARY | 2025-02-06 09:45 | XMS_ITS | Encounter Summary ---
Author Organization [facility] Address [address] [place] [address] Care Team Providers Care Training And Development Coordinator Name Role Phone Veronica Hendrix MD Primary Care Provider [phone] None, Provider Primary Care Provider Nancy Gutierrez MD Primary Care Provider Joshua Hermosillo MD Primary Care Provider [phone] Encounter Details Date Type Department Care Team (Latest Contact Info) Description 06/07/2018 Abstract [facility] Aristides Lauren MD Social History Tobacco Use Types Packs/Day Years Used Date Smoking Tobacco: Never Assessed Comments Unknown Sex and Gender Information Value Date Recorded Sex Assigned at Female 09/21/2024 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 Sex Female 4:33 PM CDT Gender Identity Not on file Sexual Orientation Not on file documented as of this encounter Plan of Treatment Not on file documented as of this encounter Visit Diagnoses Not on filedocumented in this encounter Care Teams Training And Development Coordinator Relationship Specialty Start Date End Date Veronica Hendrix MD PCP - General 04/01/16 04/22/21 None, ProviderMD PCP - General 04/23/21 04/23/21 Nancy Dale MD [address] [phone] PCP - General 08/10/24 08/10/24 Joshua Hermosillo MD [address] [facility] [address] [place] [address] PCP - General INTERNAL MEDICINE 08/11/24 documented as of this encounter
--- OUTSIDE RECORDS SUMMARY | 2025-02-06 09:46 | XMS_ITS | Clinical Summary ---
Author Organization [facility] Address [address] [place] [address] Care Team Providers Care Packing Room Supervisor Name Role Phone Sydnee Sheldon MD Primary Care Provider [phone] Source Comments [facility],non-owned Affiliates and Associated Physician Practices is amultiple site organization consisting of ambulatory clinics and hospital sitesin [place], [place], [place] and [place]. This disclosure is being madepursuant to the Care Everywhere program and may not contain all information available regarding this patient. Last updated 18.[facility] [employer] Allergies No known active allergies Medications * Be aware that medications may not be up to date on this document. Alwaysverify current medications with the patient. 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/08/2021 Immunizations Immunization Administration Dates Next Due Darcy OneAway primary monoval ent 12+ yr 0.3mL Purple [...] of Binge Drinking Not on file 03/03 Comments No Sex and Gender Information Value Date Recorded Sex Assigned at Not on file 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 Gender Identity Not on file Sexual Orientation [...] 10:20 AM CDT Height 162.6 cm (5' 4) 12/08/2021 10:20 AM CDT Body Mass Index 28.32 12/08/2021 10:20 AM CDT Plan of Treatment Health Maintenance Due Date Last Done Comments BONE DENSITY TESTING 1940 DTAP/TDAP/TD VACCINES (1 - Tdap) 1957 ZOSTER VACCINE (1 of 2) 02/13/1988 Respiratory Syncytial Virus (RSV) Vaccine Pt: or over 60 yrs (1 - 1-dose 75+ series) 2013 PNEUMOCOCCAL VACCINE 50+ (2 of 2 - PCV20 or PCV21) 01/26/2019 01/26/2018 COVID-19 VACCINE (3 - season) 2024 09/27/2020, 09/06/2020 DEPRESSION SCREENING 08/02/2024 MEDICARE AWV CALENDAR YEAR 2024 INFLUENZA VACCINE (Season Ended) 2025 05/01/2020, 06/01/2019, 06/08/2018, Additional history exists HEPATITIS B VACCINE Aged Out No longe r eligible based on patient's age to complete this topic HIB VACCINE Aged Out No longer eligi ble based on patient's age to complete this topic HPV VACCINE Aged Out No longer eligi ble based on patient's age to complete this topic MENINGOCOCCAL (Group B) VACCINE SHARED DECISION-MAKING Aged Out No longer eligible based on patient's age to complete this topic MENINGOCOCCAL GROUPS A/C/Y/W VACCINE Aged Out No longer eligible based on patient's age to complete this topic Medical Devices Implanted Type Area Machine Plug Shaper Device Identifier Shelf Expiration Date Model / Serial / Lot Graft Bone Magdi Frzdr Strut 11-24x2cm Implanted:Qty: 1 on 03/27/2019 by Vahe Garcia MD at [facility] Left: Hip [employer] 10/07/2022 [id number] / / [id number] Emily-Loc 4.5mm T25 Lock Screw 14mm S-T Implanted:Qty: 1 on 03/27/2019 by Vahe Garcia MD at [facility] Left: Hip [id number] / / Description:SCREW Screw 4.5mm 8mm 36mm T25 Cortx Slf-Tap Implanted:Qty: 1 on 03/27/2019 by Vahe Garcia MD at [facility] Left: Hip [employer] [id number] / / Description:EMILY-LOC 4.5MM T 25 CRTX SCREW 36MM S-T--03/30 LG Screw 4.5mm 8mm 34mm T25 Flut Lng Bone Implanted:Qty: 1 on 03/27/2019 by Vahe Garcia MD at [facility] Left: Hip [employer] [id number] / / Description:EMILY-LOC 4.5MM T 25 CRTX SCREW 34MM S-T--03/30 LG Cable Orth Ss 2mm Hip Clp Accord Implanted:Qty: 1 on 03/27/2019 by Vahe Garcia MD at [facility] Left: Hip [employer] 08/23/2028 [id number] / / [id number] Description:ACC 2.0MM SS CAB LE W/CLAMP - 03/30 LG Cable Orth Ss 2mm Hip Clp Accord Implanted:Qty: 1 on 03/27/2019 by Vahe Garcia MD at [facility] Left: Hip [employer] 10/26/2028 [id number] / / [id number] Description:ACC 2.0MM SS CAB LE W/CLAMP - 03/30 LG Cable Orth Ss 2mm Hip Clp Accord Implanted:Qty: 1 on 03/27/2019 by Vahe Garcia MD at [facility] Left: Hip [employer] 11/25/2028 [id number] / / [id number] Description:ACC 2.0MM SS CAB LE W/CLAMP - 03/30 LG Cable Orth Ss 2mm Hip Clp Accord Implanted:Qty: 1 on 03/27/2019 by Vahe Garcia MD at [facility] Left: Hip [employer] 11/25/2028 [id number] / / [id number] Description:ACC 2.0MM SS CAB LE W/CLAMP - 03/30 LG 4.5mm Prox Femur Lck Plate 12h L 288mm Implanted:Qty: 1 on 03/27/2019 by Vahe Garcia MD at [facility] Left: Hip [employer] [id number] / / Description:PLATE Screw 4.5mm 7.9mm 10mm T25 3 Ld Thrd 3 Implanted:Qty: 3 on 03/27/2019 by Vahe Garcia MD at [facility] Left: Hip [employer] [id number] / / Description:EMILY-LOC 4.5MM T 25 BLUNT TIP SCREW 10MM--03/30 LG Screw 4.5mm 7.9mm 38mm T25 Slf-Tap Lck Implanted:Qty: 1 on 03/27/2019 by Vahe Garcia MD at [facility] Left: Hip [employer] [id number] / / Cmnt Bone Rally 40gm Hvisc Sprmnt Grn Implanted:Qty: 3 on 12/09/2020 by Vahe Garcia MD at [facility] Left: Knee [employer] 03/01/2025 [id number] / / [id number] Compon Fem Legion Ps Oxin Narr L Sz 5 Implanted:Qty: 1 on 12/09/2020 by Vahe Garcia MD at [facility] Left: Knee [employer] 06/02/2030 [id number] / / [id number] Tibial Baseplate Implanted:Qty: 1 on 12/09/2020 by Vahe Garcia MD at [facility] Left: Knee [employer] 09/05/2029 [id number] / / [id number] Ins Lgn Ps Hi-Flex X-Link Sz 5-6 18mm Implanted:Qty: 1 on 12/09/2020 by Vahe Garcia MD at [facility] Left: Knee [employer] 03/19/2025 [id number] / / [id number] Explanted Type Area Machine Plug Shaper Device Identifier Shelf Expiration Date Model / Serial / Lot Cable Orth Ss 2mm Hip Clp Accord Explanted:Qty: 1 on 03/27/2019 by Vahe Garcia MD at [facility] Left: Hip [employer] 09/26/2028 [id number] / / [id number] Description:ACC 2.0MM SS CAB LE W/CLAMP - 03/30 LG Insurance [facility] MANAGED MEDICARE ADV [facility] MANAGED MEDICARE ADV Advance Directives * Full Code (Latest Code Status on File) Date Activated Date Inactivated Comments 12/09/2020 3:39 PM 12/10/2020 5:00 PM * Full Code Date Activated Date Inactivated Comments 03/25/2019 2:00 PM 03/30/2019 7:48 PM * Full Code Date Activated Date Inactivated Comments 03/25/2019 12:21 PM 03/25/2019 2:00 PM Care Teams Packing Room Supervisor Relationship Specialty Start Date End Date Sydnee Sheldon MD [address] [place] [address] PCP - General 04/18/19
--- OUTSIDE RECORDS SUMMARY | 2025-02-06 09:46 | XMS_ITS | Data Portability ---
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 [facility]24 14:58:53 Past Encounters Encounter ID Performer Location Encounter Start Date Encounter Closed Date Diagnosis/Indication Diagnosis SNOMED-CT Code Diagnosis ICD10 Code Diagnosis Note [id number] Joshua Hermosillo MD [facility] [address] [place] [address] 02/22/2024 14:07:22 02/22/2024 15:41:02 Osteoarthritis 544212508 M19.90 multiple joints. Involved Essential hypertension 31035929 I10 on amlodipine carvedilol , hctz, losartanbp optimalblo od work ordered Gastroesop hageal reflux disease 602826823 K21.9 on omperazole History of total hip arthroplasty 2886186712 06 Z96.649 hx of bilateral hip arthroplas ty History of bilateral total knee replacement 6425112859 430789 Z96.653 hx of bilateral knee replacemen t Degenerati on of lumbar intervertebral disc 85657173 M51.36 multiple lumbar spine surgeries in the past Paresthesia of hand 3090 56314 R20.2 left hand in carpal tunnel distributi onlikely due to chronic wrist deformity History of recurrent deep vein thrombosis 3946194359 84138 Z86.718 last one 2013.3 episodeson elqqiuis 2.5 mg bid Long-term current use of opiate analgesic drug 7261635647 18494 Z79.891 on chronic opiates for the chronic osteoarthr itis medication PDMP reviewedon gabapentin 600 mg po bid Depressive disorder 3548 7 F32.A dx recently.h er 5/24feelin g low since then.on lexapro 20 mg dailyfeeli ng better on the medication s. Preventive procedure 169 554183 Z29.9 covid: 3 shotsflu: [id number]; 2018, recommend [id number] les: none Colonoscop y Mammogram Fracture of femur 923986 00 S72.92XS History of left femur fracture and has a isabell placement. Adult heal th examination 846394240 Z00.00 [id number] Joshua Hermosillo MD [facility] [address] [place] [address] 03/22/2024 14:53:45 03/22/2024 15:34:20 Essential hypertension 63731676 I10 on amlodipine carvedilol , hctz, losartanbp optimalblo od work reviewewed Osteoarthritis 619497039 M19.90 multiple joints. Involved Gastroesop hageal reflux disease 187786529 K21.9 on omperazole History of total hip arthroplasty 2135122483 06 Z96.649 hx of bilateral hip arthroplas ty History of bilateral total knee replacement 9141875559 167124 Z96.653 hx of bilateral knee replacemen t Degenerati on of lumbar intervertebral disc 59658898 M51.36 multiple lumbar spine surgeries in the past Paresthesia of hand 3090 24755 R20.2 left hand in carpal tunnel distributi onlikely due to chronic wrist deformity History of recurrent deep vein thrombosis 4462917306 95683 Z86.718 last one 2013.3 episodeson elqqiuis 2.5 mg bid Long-term current use of opiate analgesic drug 6761031728 67079 Z79.891 on chronic opiates for the chronic osteoarthr itis medication PDMP reviewedon gabapentin 600 mg po bid Depressive disorder 3548 9007 F32.A dx recently.h er 5/24feelin g low since then.on lexapro 20 mg daily as well as venlafaxin efeeling better on the medication s. Preventive procedure 169 623226 Z29.9 covid: 3 shotsflu: [id number]; 2018, recommend [id number] les: none Colonoscop y Mammogram Fracture of femur 518302 00 S72.92XS History of left femur fracture and has a isabell placement. Anemia 886127040 D64.9 hb low at 10.3. vitamin b12, foalte is normalchec k iron levelnormo cytic normochron oic anemia.no ckd noted.no blood in stool [id number] Joshua Hermosillo MD [facility] [address] [place] [address] 04/26/2024 11:42:08 04/26/2024 12:39:32 Anemia 301179494 D64.9 hb low at 10.3. vitamin b12, foalte is normaliron level goodnormoc ytic normochron oic anemia.no ckd noted.no blood in stool Essential hypertension 79906570 I10 on amlodipine carvedilol , hctz, losartanbp optimalblo od work reviewed Osteoarthritis 809151187 M19.90 multiple joints. Involved Gastroesop hageal reflux disease 243083543 K21.9 on omeprazole History of total hip arthroplasty 7625368617 06 Z96.649 hx of bilateral hip arthroplas ty History of bilateral total knee replacement 0281910148 646504 Z96.653 hx of bilateral knee replacemen t Degenerati on of lumbar intervertebral disc 35625027 M51.36 multiple lumbar spine surgeries in the past Paresthesia of hand 3090 08098 R20.2 left hand in carpal tunnel distributi onlikely due to chronic wrist deformity History of recurrent deep vein thrombosis 7647578603 13026 Z86.718 last one 2013.3 episodeson elqqiuis 2.5 mg bid Long-term current use of opiate analgesic drug 7265249952 08701 Z79.891 on chronic opiates for the chronic osteoarthr itis medication PDMP reviewedon gabapentin 600 mg po bid Depressive disorder 3548 9007 F32.A dx recently.h er 12/23feelin g low since then.on lexapro 20 mg daily as well as venlafaxin efeeling better on the medication s. Preventive procedure 169 490755 Z29.9 covid: 3 shotsflu: [id number]; 2018, recommend [id number] les: none Colonoscop y Mammogram Fracture of femur 685444 00 S72.92XS History of left femur fracture and has a isabell placement. Fatigue 10057402 R53.83 ongoing since past 3 weeks.not sleeping at nightlikel y etiologyla bs were unremarkab le 8/24 Nocturia 399387778 R35.1 recent urine is negative.w ill recheck againlikel y overactive bladder [id number] Joshua Hermosillo MD [facility] [address] [place] [address] 05/24/2024 11:39:49 05/24/2024 12:46:17 Adult health examination 282217069 Z00.00 diet a nd physical activity reviwedvac cines and screening tests reviewedme dication reviewed Fatigue 74358972 R53.83 ongoing since past 3 weeks.not sleeping at nightlikel y etiologyla bs were unremarkab le 824 Anemia 494622399 D64.9 hb low at 10.3. vitamin b12, foalte is normaliron level goodnormoc ytic normochron oic anemia.no ckd noted.no blood in stool Essential hypertension 86400912 I10 on amlodipine carvedilol , hctz, losartanbp optimalblo od work reviewed Osteoarthritis 628494253 M19.90 multiple joints. Involved Gastroesop hageal reflux disease 862683571 K21.9 on omeprazole History of total hip arthroplasty 9941242677 06 Z96.649 hx of bilateral hip arthroplas ty History of bilateral total knee replacement 2049918685 613497 Z96.653 hx of bilateral knee replacemen t Degenerati on of lumbar intervertebral disc 24188939 M51.360 multiple lumbar spine surgeries in the pasthx of vertebropl asty Paresthesia of hand 3090 66290 R20.2 left hand in carpal tunnel distributi onlikely due to chronic wrist deformity History of recurrent deep vein thrombosis 9370845354 22611 Z86.718 last one 2013.3 episodeson elqqiuis 2.5 mg bid Long-term current use of opiate analgesic drug 9682005247 74686 Z79.891 on chronic opiates for the chronic osteoarthr itis medication PDMP reviewedon gabapentin 600 mg po bid Depressive disorder 3548 9007 F32.A dx recently.h er 12/23feelin g low since then.on lexapro 20 mg daily as well as venlafaxin efeeling better on the medication s. Preventive procedure 169 741528 Z29.9 covid: 3 shotsflu: 2022 recommende dpcv13; 2018, recommend [id number] les: none: recommedne dRSV: recommende dColonosco py: many years ago. age prohibitiv eMammogram many years ago. age prohibitiv parker density: long time agodiscuss ed vaccinatio n with the patient and reviewed the vaccinatio n status Fracture of femur 443550 00 S72.92XS History of left femur fracture and has a isabell placement. Overactive urinary bladder 235109492 N32.81 recent urine is negative.r echeck was negative.l adithya overactive bladdersta rted on oxybutynin which Osteoporosis 53824987 M8 1.0 took fosamax only for a month and hence stopped.ca lcium and vitamin d replacemen t reviewed with the patient Thoracic back pain 37626 8004 M54.6 on and off intermitte nt pains [id number] Joshua Hermosillo MD [facility] [address] [facility] [place] [address] 06/21/2024 15:22:39 06/21/2024 15:59:58 Preventive procedure 339437427 Z29.9 covid: 3 shots2023flu: 2022, [id number]; 2018, recommend [id number] les: none: recommende dRSV: recommende dColonosco py: many years ago. age prohibitiv eMammogram many years ago. age prohibitiv parker density: 06/25: osteoporos isdiscusse d vaccinatio n with the patient and reviewed the vaccinatio n status Osteoporosis 78219915 M8 1.0 took fosamax only for a month and hence stopped due to nausea.caron cium and vitamin d replacemen t reviewed with the patientbon e density 05/25: osteoporos is.trial of lower dose of alendronat e.discusse d calcium and vitamin D. discussed with the patient Fatigue 98404991 R53.83 ongoing since past 3 weeks.not sleeping at nightlikel y etiologyla bs were unremarkab le 03/25 Overactive urinary bladder 209602952 N32.81 recent urine is negative.r echeck was negative.jim haji overactive bladdersta rted on oxybutynin which is helping Anemia 829797988 D64.9 hb low at 10.3. vitamin b12, foalte is normaliron level goodnormoc ytic normochron oic anemia.no ckd noted.no blood in stool Essential hypertension 65182416 I10 on amlodipine carvedilol , hctz, losartanbp optimalblo od work reviewed Osteoarthritis 093980547 M19.90 multiple joints. Involved Gastroesop hageal reflux disease 193146791 K21.9 on omeprazole History of total hip arthroplasty 3411691464 06 Z96.649 hx of bilateral hip arthroplas ty History of bilateral total knee replacement 0099726622 054347 Z96.653 hx of bilateral knee replacemen t Degenerati on of lumbar intervertebral disc 69358495 M51.360 multiple lumbar spine surgeries in the pasthx of vertebropl astyxr lumbar spine with ddd, no acute fracture Paresthesia of hand 3090 54091 R20.2 left hand in carpal tunnel distributi onlikely due to chronic wrist deformity due to old fracturesw ill increase gabapnetin to 1-0.5-1 History of recurrent deep vein thrombosis 2910625552 07304 Z86.718 last one 2013.3 episodeson elqiuis 2.5 mg bid Long-term current use of opiate analgesic drug 0624305995 51843 Z79.891 on chronic opiates for the chronic osteoarthr itis medication PDMP reviewedon gabapentin 600 mg po bid Depressive disorder 3548 9007 F32.A dx recently.h er 12/23feelin g low since then.on lexapro 20 mg daily as well as venlafaxin efeeling better on the medication s. Fracture of femur 210085 00 S72.92XS History of left femur fracture and has a isabell placement. Thoracic back pain 21138 8004 M54.6 on and off intermitte nt painsxr thoracic spine done but not completed [id number] Joshua Hermosillo MD [facility] [address] [place] [address] 07/20/2024 12:02:06 07/20/2024 13:08:42 Osteoporosis 51414595 M81.0 took fosamax only for a month and hence stopped due to nauseacalc ium and vitamin d replacemen t reviewed with the patientbon e density 05/25: osteoporos is.trial of lower dose of alendronat e and tolerating welldiscus sed calcium and vitamin D. discussed with the patient Thoracic back pain 15899 8004 M54.6 on and off intermitte nt painsxr thoracic spine done but has been done but not received it talked to [facility] medical records.xr thoracic spine with multilevel ddd, but no fracture noted Fatigue 22240249 R53.83 ongoing since past 3 weeks.not sleeping at nightlikel y etiologyla bs were unremarkab le 03/25 Overactive urinary bladder 130794800 N32.81 recent urine is negative.r echeck was negative.l ikely overactive bladdersta rted on oxybutynin which is helping Anemia 710763491 D64.9 hb low at 10.3. vitamin b12, folate is normaliron level goodnormoc ytic normochron ic anemia.no ckd noted.no blood in stool Essential hypertension 82378935 I10 on amlodipine carvedilol , hctz, losartanbp optimalblo od work reviewed Osteoarthritis 621786520 M19.90 multiple joints. Involved Gastroesop hageal reflux disease 983199642 K21.9 on omeprazole History of total hip arthroplasty 5808975603 06 Z96.649 hx of bilateral hip arthroplas ty History of bilateral total knee replacement 3648082348 059200 Z96.653 hx of bilateral knee replacemen t Degenerati on of lumbar intervertebral disc 81928958 M51.360 multiple lumbar spine surgeries in the pasthx of vertebropl astyxr lumbar spine with ddd, no acute fracture Paresthesia of hand 3090 89998 R20.2 left hand in carpal tunnel distributi onlikely due to chronic wrist deformity due to old fracturesw ill increase gabapentin to 1-0.5-1 History of recurrent deep vein thrombosis 1397289564 69717 Z86.718 last one 2013.3 episodeson eliquis 2.5 mg bid Long-term current use of opiate analgesic drug 1386405842 11381 Z79.891 on chronic opiates for the chronic osteoarthr itis medication PDMP reviewedon gabapentin 600 mg po bid Depressive disorder 3548 9007 F32.A dx recently.h er 12/23feelin g low since then.on lexapro 20 mg daily as well as venlafaxin efeeling better on the medication s. Fracture of femur 571274 00 S72.92XS History of left femur fracture and has a isabell placement. Preventive procedure 169 219911 Z29.9 covid: 3 shots, 2023flu: 2022, 5512qev66; 2018, recommend [id number] les: none: recommende dRSV: recommende dColonosco py: many years ago. age prohibitiv eMammogram many years ago. age prohibitiv parker density: 06/25: osteoporos isdiscusse d vaccinatio n with the patient and reviewed the vaccinatio n status [id number] Joshua Hermosillo MD [facility] [address] [place] [address] 08/16/2024 11:40:22 08/16/2024 12:55:58 Post-discharge follow-up 599119833 Z09 Admission Date: 025Dischar ge Date: 08/11/2024D iagnosis: subdural hematomame dications reconcille d and reviewed with the patienteli maurisio stopped Traumatic subdural hematoma 329095705 S06.5X0D fall 07/2024.2024 started having right sided weaknessct head with left falx subdural hematomael iquid stoppedshe takes this for recurrent dvtdiscuss ed risk and beneftis due to recurrent fallswill stop eliquis nowfu with neurosurge ry discussed. repeat ct planned in sep 2024home [facility] to continue for rehabilita tion Osteoporosis 38286780 M8 1.0 took fosamax only for a month and hence stopped due to nauseacalc ium and vitamin d replacemen t reviewed with the patientbon e density 05/25: osteoporos is.trial of lower dose of alendronat e and tolerating welldiscus sed calcium and vitamin D. discussed with the patient Thoracic back pain 07672 8004 M54.6 on and off intermitte nt painsxr thoracic spine done but has been done but not received it talked to [facility] medical records.xr thoracic spine with multilevel ddd, but no fracture noted Fatigue 24778789 R53.83 ongoing since past 3 weeks.not sleeping at nightlikel y etiologyla bs were unremarkab le 03/25 Overactive urinary bladder 646806997 N32.81 recent urine is negative.r echeck was negative.l adithya overactive bladdersta rted on oxybutynin which is helping Anemia 568543546 D64.9 hb low at 10.3. vitamin b12, folate is normaliron level goodnormoc ytic normochron ic anemia.no ckd noted.no blood in stool Essential hypertension 54961297 I10 on amlodipine carvedilol , hctz, losartanbp optimalblo od work reviewed Osteoarthritis 794617436 M19.90 multiple joints. Involved Gastroesop hageal reflux disease 110195444 K21.9 on omeprazole History of total hip arthroplasty 9392508721 06 Z96.649 hx of bilateral hip arthroplas ty History of bilateral total knee replacement 9954570403 945673 Z96.653 hx of bilateral knee replacemen t Degenerati on of lumbar intervertebral disc 66859589 M51.360 multiple lumbar spine surgeries in the pasthx of vertebropl astyxr lumbar spine with ddd, no acute fracture Paresthesia of hand 3090 20841 R20.2 left hand in carpal tunnel distributi onlikely due to chronic wrist deformity due to old fracturesw ill increase gabapentin to 1-0.5-1 History of recurrent deep vein thrombosis 0435303696 83846 Z86.718 last one 2013.3 episodeson eliquis 2.5 mg bid Long-term current use of opiate analgesic drug 8423334616 79420 Z79.891 on chronic opiates for the chronic osteoarthr itis medication PDMP reviewedon gabapentin 600 mg po bid Depressive disorder 2888 9007 F32.A dx recently.h er 12/23feelin g low since then.on lexapro 20 mg daily as well as venlafaxin efeeling better on the medication s. Fracture of femur 773594 00 S72.92XS History of left femur fracture and has a isabell placement. Preventive procedure 169 741862 Z29.9 covid: 3 shots, 2023flu: 2022, 4919pit24; 2018, recommend [id number] les: none: recommende dRSV: recommende dColonosco py: many years ago. age prohibitiv eMammogram many years ago. age prohibitiv parker density: 06/25: osteoporos isdiscusse d vaccinatio n with the patient and reviewed the vaccinatio n status [id number] Joshua Hermosillo MD [facility] [address] [place] [address] 09/15/2024 11:16:18 09/15/2024 11:58:42 Traumatic subdural hematoma 999032398 S06.5X0D fall 07/2024.2024 started having right sided weaknessct head with left falx subdural hematomael iquid stoppedshe takes this for recurrent dvtdiscuss ed risk and beneftis due to recurrent fallsshe stoppped stop eliquis nowfu with neurosurge ry discussed. repeat ct 09[facility] t[facility] which is discharged nowokay to drive. discused with the patient Osteoporosis 34416235 M8 1.0 took fosamax only for a month and hence stopped due to nauseacalc ium and vitamin d replacemen t reviewed with the patientbon e density 05/25: osteoporos is.trial of lower dose of alendronat e and tolerating welldiscus sed calcium and vitamin D. discussed with the patient Thoracic back pain 96681 8004 M54.6 on and off intermitte nt painsxr thoracic spine done but has been done but not received it talked to [facility] medical records.xr thoracic spine with multilevel ddd, but no fracture noted Fatigue 78469075 R53.83 ongoing since past 3 weeks.not sleeping at nightlikel y etiologyla bs were unremarkab le 03/25 Overactive urinary bladder 303261705 N32.81 recent urine is negative.r echeck was negative.l ikely overactive bladdersta rted on oxybutynin which is helping Anemia 736130668 D64.9 hb low at 10.3. vitamin b12, folate is normaliron level goodnormoc ytic normochron ic anemia.no ckd noted.no blood in stool Essential hypertension 06954034 I10 on amlodipine carvedilol , hctz, losartanbp optimalblo od work reviewed Osteoarthritis 508197573 M19.90 multiple joints. Involved Gastroesop hageal reflux disease 925550881 K21.9 on omeprazole History of total hip arthroplasty 0327612881 06 Z96.649 hx of bilateral hip arthroplas ty History of bilateral total knee replacement 7739187605 036436 Z96.653 hx of bilateral knee replacemen t Degenerati on of lumbar intervertebral disc 50203127 M51.360 multiple lumbar spine surgeries in the pasthx of vertebropl astyxr lumbar spine with ddd, no acute fracture Paresthesia of hand 3090 24634 R20.2 left hand in carpal tunnel distributi onlikely due to chronic wrist deformity due to old fracturesw ill increase gabapentin to 1-0.5-1 History of recurrent deep vein thrombosis 0441804791 31181 Z86.718 last one 2012.3 episodeson eliquis 2.5 mg bidnow stay off eliquis due to brain bleed Long-term current use of opiate analgesic drug 0590836379 10085 Z79.891 on chronic opiates for the chronic osteoarthr itis medication PDMP reviewedon gabapentin 600 mg po bid Depressive disorder 3548 9007 F32.A dx recently.h er 12/23feelin g low since then.on lexapro 20 mg daily as well as venlafaxin efeeling better on the medication s. Fracture of femur 142429 00 S72.92XS History of left femur fracture and has a isabell placement. Preventive procedure 169 978569 Z29.9 covid: 3 shots, 2023flu: 2022, [id number]; 2018, recommend [id number] les: none: recommende dRSV: recommende dColonosco py: many years ago. age prohibitiv eMammogram many years ago. age prohibitiv parker density: 06/25: osteoporos isdiscusse d vaccinatio n with the patient and reviewed the vaccinatio n status [id number] Joshua Hermosillo MD [facility] [address] [facility] [address] [place] [address] 09/29/2024 14:23:19 09/29/2024 15:59:32 Pain of right shoulder joint [id number] 7631773 M25.511 hx of rotator cuff surgerynow with fall and injury to right shoulderwi ll further evaluate with MRI shoulderus e sling for nowuse hydrocodon e prn for now for pain control may use q4hrs.if MRI does not go through, will order CT shoulder right Contusion of orbital tissue of right eye [id number] 0555475 S05.11XD multiple bruises due to the fall noted Fracture of orbit 877382 07 S02.121D ffracture of lateral orbital wall with fall noted on ct face/head Closed fra cture of right maxilla 3313400772 6582060 S02.40CD fracture of right maxillary sinusgoign to see ENT next week Fall W19.XXXD fall is mechanical fallrecent subdural hematoma as well.off anticoagul ation now Traumatic subdural hematoma 660192999 S06.5X0D fall 07/2024.2024 started having right sided weaknessct head with left falx subdural hematomael iquid stoppedshe takes this for recurrent dvtdiscuss ed risk and beneftis due to recurrent fallsshe stoppped stop eliquis nowfu with neurosurge ry discussed. repeat ct 09/26: [facility] which is discharged now Osteoporosis 86604502 M8 1.0 took fosamax only for a month and hence stopped due to nauseacalc ium and vitamin d replacemen t reviewed with the patientbon e density 05/25: osteoporos is.trial of lower dose of alendronat e and tolerating welldiscus sed calcium and vitamin D. discussed with the patient Thoracic back pain 42365 8004 M54.6 on and off intermitte nt painsxr thoracic spine done but has been done but not received it talked to [facility] medical records.xr thoracic spine with multilevel ddd, but no fracture noted Fatigue 49557926 R53.83 ongoing since past 3 weeks.not sleeping at nightlikel y etiologyla bs were unremarkab le 03/25 Overactive urinary bladder 344599584 N32.81 recent urine is negative.r echeck was negative.l ikely overactive bladdersta rted on oxybutynin which is helping Anemia 201603164 D64.9 hb low at 10.3. vitamin b12, folate is normaliron level goodnormoc ytic normochron ic anemia.no ckd noted.no blood in stool Essential hypertension 39921742 I10 on amlodipine carvedilol , hctz, losartanbp optimalblo od work reviewed Osteoarthritis 512227147 M19.90 multiple joints. Involved Gastroesop hageal reflux disease 706598049 K21.9 on omeprazole History of total hip arthroplasty 2982409977 06 Z96.649 hx of bilateral hip arthroplas ty History of bilateral total knee replacement 8984282916 867320 Z96.653 hx of bilateral knee replacemen t Degenerati on of lumbar intervertebral disc 91743844 M51.360 multiple lumbar spine surgeries in the pasthx of vertebropl astyxr lumbar spine with ddd, no acute fracture Paresthesia of hand 3090 57999 R20.2 left hand in carpal tunnel distributi onlikely due to chronic wrist deformity due to old fracturesw ill increase gabapentin to 1-0.5-1 History of recurrent deep vein thrombosis 7366318190 33666 Z86.718 last one 2013.3 episodeson eliquis 2.5 mg bidnow stay off eliquis due to brain bleed Long-term current use of opiate analgesic drug 9238920585 82932 Z79.891 on chronic opiates for the chronic osteoarthr itis medication PDMP reviewedon gabapentin 600 mg po bid Depressive disorder 3548 9007 F32.A dx recently.h er 12/23feelin g low since then.on lexapro 20 mg daily as well as venlafaxin efeeling better on the medication s. Fracture of femur 126341 00 S72.92XS History of left femur fracture and has a isabell placement. Preventive procedure 169 727859 Z29.9 covid: 3 shots, 2023flu: 2022, [id number]; 2018, recommend [id number] les: none: recommende dRSV: recommende dColonosco py: many years ago. age prohibitiv eMammogram many years ago. age prohibitiv parker density: 06/25: osteoporos isdiscusse d vaccinatio n with the patient and reviewed the vaccinatio n status Right rota tor cuff syndrome 0693821744 28425 M75.101 s/p rigth shoulder reverse rotator cuff surgery 2021 [id number] Joshua Hermosillo MD [facility] [address] [place] [address] 10/05/2024 15:18:08 10/05/2024 15:51:01 Pain of right shoulder joint 2450593569 2856605 M25.511 hx of rotator cuff surgerynow with fall and injury to right shoulderwi ll further evaluate with MRI shoulderus e sling for nowuse hydrocodon e prn for now for pain control may use q4hrs.MRI shoulder 10/24: Prominent metallic magnetic field artifact which obscures the region of the glenoid, proximal humerus and immediatel y surroundin g soft tissues likely related to a total shoulder arthroplas ty. This significan tly limits evaluation . Would recommend correlatio n with either plain radiograph s or CT to assess the alignment and integrity of the arthroplas ty and neighborin g bones.2. 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 she is going to see shoulder specialist this week and will do further evaluation Right rota tor cuff syndrome 8500503326 92537 M75.101 s/p rigth shoulder reverse rotator cuff surgery 2021 Contusion of orbital tissue of right eye 3571907833 7559837 S05.11XD multiple bruises due to the fall noted Fracture of orbit 660888 07 S02.121D ffracture of lateral orbital wall with fall noted on ct face/head Closed fra cture of right maxilla 2198344924 9753308 S02.40CD fracture of right maxillary sinusgoign to see ENT next week for further evaluation Fall W19.XXXD fall is mechanical fallrecent subdural hematoma as well.off anticoagul ation now Traumatic subdural hematoma 368506101 S06.5X0D fall 07/2024.2024 started having right sided weaknessct head with left falx subdural hematomael iquid stoppedshe takes this for recurrent dvtdiscuss ed risk and beneftis due to recurrent fallsshe stoppped stop eliquis nowfu with neurosurge ry discussed. repeat ct 09/26: negativeho [facility] for re[facility] tion which is discharged now Osteoporosis 70121099 M8 1.0 took fosamax only for a month and hence stopped due to nauseacalc ium and vitamin d replacemen t reviewed with the patientbon e density 05/25: osteoporos is.trial of lower dose of alendronat e and tolerating welldiscus sed calcium and vitamin D. discussed with the patient Thoracic back pain 47265 8004 M54.6 on and off intermitte nt painsxr thoracic spine done but has been done but not received it talked to [facility] medical records.xr thoracic spine with multilevel ddd, but no fracture noted Fatigue 52361489 R53.83 ongoing since past 3 weeks.not sleeping at nightlikel y etiologyla bs were unremarkab le 03/25 Overactive urinary bladder 931270850 N32.81 recent urine is negative.r echeck was negative.l ikely overactive bladdersta rted on oxybutynin which is helping Anemia 196872387 D64.9 hb low at 10.3. vitamin b12, folate is normaliron level goodnormoc ytic normochron ic anemia.no ckd noted.no blood in stool Essential hypertension 71117390 I10 on amlodipine carvedilol , hctz, losartanbp optimalblo od work reviewed Osteoarthritis 238402088 M19.90 multiple joints. Involved Gastroesop hageal reflux disease 121720261 K21.9 on omeprazole History of total hip arthroplasty 2107763720 06 Z96.649 hx of bilateral hip arthroplas ty History of bilateral total knee replacement 6292237396 113386 Z96.653 hx of bilateral knee replacemen t Degenerati on of lumbar intervertebral disc 15026162 M51.360 multiple lumbar spine surgeries in the pasthx of vertebropl astyxr lumbar spine with ddd, no acute fracture Paresthesia of hand 3090 64471 R20.2 left hand in carpal tunnel distributi onlikely due to chronic wrist deformity due to old fracturesw ill increase gabapentin to 1-0.5-1 History of recurrent deep vein thrombosis 0476633333 85201 Z86.718 last one 2012.3 episodeson eliquis 2.5 mg bidnow stay off eliquis due to brain bleed 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 Fracture of femur 509002 00 S72.92XS History of left femur fracture and has a isabell placement. Preventive procedure 169 917038 Z29.9 covid: 3 shots, 2023flu: 2022, [id number]; 2018, recommend [id number] les: none: recommende dRSV: recommende dColonosco py: many years ago. age prohibitiv eMammogram many years ago. age prohibitiv parker density: 06/25: osteoporos isdiscusse d vaccinatio n with the patient and reviewed the vaccinatio n status [id number] Joshua Hermosillo MD [facility] [address] [place] [address] 11/14/2024 14:32:56 11/14/2024 15:42:38 Right rotator cuff syndrome 3896181006 72722 M75.101 s/p rigth shoulder reverse rotator cuff surgery 2021 Contusion of orbital tissue of right eye 8093303151 2573005 S05.11XD multiple bruises due to the fall noted Fracture of orbit 793687 07 S02.121D ffracture of lateral orbital wall with fall noted on ct face/head Closed fra cture of right maxilla 1533960534 5529222 S02.40CD fracture of right maxillary sinusent consulted. no surgery recommedne d Fall W19.XXXD fall is mechanical fallrecent subdural hematoma as well.off anticoagul ation now Traumatic subdural hematoma 385097430 S06.5X0D fall 07/2024.2024 started having right sided weaknessct head with left falx subdural hematomael iquid stoppedshe takes this for recurrent dvtdiscuss ed risk and beneftis due to recurrent fallsshe stoppped stop eliquis nowfu with neurosurge ry discussed. repeat ct 09/26: negativeho [facility] for re[facility] tion which is discharged now Osteoporosis 70716883 M8 1.0 took fosamax only for a month and hence stopped due to nauseacalc ium and vitamin d replacemen t reviewed with the patientbon e density 05/25: osteoporos is.trial of lower dose of alendronat e and tolerating welldiscus sed calcium and vitamin D. discussed with the patient Thoracic back pain 35246 8004 M54.6 on and off intermitte nt painsxr thoracic spine done but has been done but not received it talked to [facility] medical records.xr thoracic spine with multilevel ddd, but no fracture noted Fatigue 12122188 R53.83 ongoing since past 3 weeks.not sleeping at nightlikel y etiologyla bs were unremarkab le 03/25 Overactive urinary bladder 388479485 N32.81 recent urine is negative.r echeck was negative.l ikely overactive bladdersta rted on oxybutynin which is helping Anemia 674680959 D64.9 hb low at 10.3. vitamin b12, folate is normaliron level goodnormoc ytic normochron ic anemia.no ckd noted.no blood in stool Essential hypertension 82292508 I10 on amlodipine carvedilol , hctz, losartanbp optimalblo od work reviewed Osteoarthritis 481867861 M19.90 multiple joints. Involved Gastroesop hageal reflux disease 503253356 K21.9 on omeprazole History of total hip arthroplasty 2958167498 06 Z96.649 hx of bilateral hip arthroplas ty History of bilateral total knee replacement 9084567388 096875 Z96.653 hx of bilateral knee replacemen t Degenerati on of lumbar intervertebral disc 72021485 M51.360 multiple lumbar spine surgeries in the pasthx of vertebropl astyxr lumbar spine with ddd, no acute fracture Paresthesia of hand 3090 68518 R20.2 left hand in carpal tunnel distributi onlikely due to chronic wrist deformity due to old fracturesw ill increase gabapentin to 1-0.5-1 History of recurrent deep vein thrombosis 5261830820 46337 Z86.718 last one 2012.3 episodeson eliquis 2.5 mg bidnow stay off eliquis due to brain bleed 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 Fracture of femur 300492 00 S72.92XS History of left femur fracture and has a isabell placement. Preventive procedure 169 986957 Z29.9 covid: 3 shots, 2023flu: 2022, [id number]; 2018, recommend [id number] les: none: recommende dRSV: recommende dColonosco py: many years ago. age prohibitiv eMammogram many years ago. age prohibitiv parker density: 06/25: osteoporos isdiscusse d vaccinatio n with the patient and reviewed the vaccinatio n status Rotator cu ff arthropathy of right shoulder 6975126317 1280758 M25.811 hx of rotator cuff surgerynow with fall and injury to right shoulderwi ll further evaluate with MRI shoulderus e sling for nowuse hydrocodon e prn for now for pain control may use q4hrs.MRI shoulder 10/24: Prominent metallic magnetic field artifact which obscures the region of the glenoid, proximal humerus and immediatel y surroundin g soft tissues likely related to a total shoulder arthroplas ty. This significan tly limits evaluation . Would recommend correlatio n with either plain radiograph s or CT to assess the alignment and integrity of the arthroplas ty and neighborin g bones.2. 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 orthopedic s seen: going through physical therapy [facility]. improving [id number] Joshua Hermosillo MD [facility] [address] [facility] [address] [place] [address] 12/14/2024 11:06:37 12/14/2024 11:41:52 Rotator cuff arthropathy of right shoulder 2658425739 1950444 M25.811 S42.124D hx of rotator cuff surgerynow with fall and injury to right shoulderwi ll further evaluate with MRI shoulderus e sling for nowuse hydrocodon e prn for now for pain control may use q4hrs.MRI shoulder 10/24: Prominent metallic magnetic field artifact which obscures the region of the glenoid, proximal humerus and immediatel y surroundin g soft tissues likely related to a total shoulder arthroplas ty. This significan tly limits evaluation . Would recommend correlatio n with either plain radiograph s or CT to assess the alignment and integrity of the arthroplas ty and neighborin g bones.2. 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 orthopedic s seen: going through physical therapy currently. repeat xray acromion stress fracture per orthopedic s note.holdi ng on to the physical therapy for few weeks Right rota tor cuff syndrome 6400812274 34942 M75.101 s/p right shoulder reverse rotator cuff surgery 2021 Traumatic subdural hematoma 201976235 S06.5X0D fall 07/2024.2024 started having right sided weaknessct head with left falx subdural hematomael iquid stoppedshe takes this for recurrent dvtdiscuss ed risk and beneftis due to recurrent fallsshe stoppped stop eliquis nowfu with neurosurge ry discussed. repeat ct 09/26: [facility]ho [facility] t[facility] which is discharged now Osteoporosis 63654431 M8 1.0 took fosamax only for a month and hence stopped due to nauseacalc ium and vitamin d replacemen t reviewed with the patientbon e density 05/25: osteoporos is.trial of lower dose of alendronat e and tolerating welldiscus sed calcium and vitamin D. discussed with the patient Thoracic back pain 22715 8004 M54.6 on and off intermitte nt painsxr thoracic spine done but has been done but not received it talked to [facility] medical records.xr thoracic spine with multilevel ddd, but no fracture noted Fatigue 28105611 R53.83 ongoing since past 3 weeks.not sleeping at nightlikel y etiologyla bs were unremarkab le 03/25 Overactive urinary bladder 101658691 N32.81 recent urine is negative.r echeck was negative.l ikely overactive bladdersta rted on oxybutynin which is helping Anemia 349884281 D64.9 hb low at 10.3. vitamin b12, folate is normaliron level goodnormoc ytic normochron ic anemia.no ckd noted.no blood in stool Essential hypertension 00553315 I10 on amlodipine carvedilol , hctz, losartanbp optimalblo od work reviewed Osteoarthritis 112617926 M19.90 multiple joints. Involved Gastroesop hageal reflux disease 524754108 K21.9 on omeprazole History of total hip arthroplasty 3753838110 06 Z96.649 hx of bilateral hip arthroplas ty History of bilateral total knee replacement 4204568794 858067 Z96.653 hx of bilateral knee replacemen t Degenerati on of lumbar intervertebral disc 48009930 M51.360 multiple lumbar spine surgeries in the pasthx of vertebropl astyxr lumbar spine with ddd, no acute fracture Paresthesia of hand 3090 50098 R20.2 left hand in carpal tunnel distributi onlikely due to chronic wrist deformity due to old fracturesw ill increase gabapentin to 1-0.5-1wil l increase gabapnetin to 800 mg bid, she is currently on 600 mg bid History of recurrent deep vein thrombosis 1960257250 01964 Z86.718 last one 2013.3 episodeson eliquis 2.5 mg bidnow stay off eliquis due to brain bleed 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 Fracture of femur 745775 00 S72.92XS History of left femur fracture and has a isabell placement. Preventive procedure 169 893235 Z29.9 covid: 3 shots, 2023flu: 2022, [id number]; 2018, recommend [id number] les: none: recommende dRSV: recommende dColonosco py: many years ago. age prohibitiv eMammogram many years ago. age prohibitiv parker density: 06/25: osteoporos isdiscusse d vaccinatio n with the patient and reviewed the vaccinatio n status [id number] Joshua Hermosillo MD [facility] [address] [place] [address] 01/10/2025 15:15:01 01/10/2025 16:35:14 Rotator cuff arthropathy of right shoulder 8925296891 8087693 M25.811 S42.124D hx of rotator cuff surgerynow with fall and injury to right shoulderwi ll further evaluate with MRI shoulderus e sling for nowuse hydrocodon e prn for now for pain control may use q4hrs.MRI shoulder 10/24: Prominent metallic magnetic field artifact which obscures the region of the glenoid, proximal humerus and immediatel y surroundin g soft tissues likely related to a total shoulder arthroplas ty. This significan tly limits evaluation . Would recommend correlatio n with either plain radiograph s or CT to assess the alignment and integrity of the arthroplas ty and neighborin g bones.2. 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 orthopedic s seen: going through physical therapy currently. repeat xray acromion stress fracture per orthopedic s note.eusebio recio on to the physical therapy [facility] snoted.no more slingincre ase activityim proving. Right rota tor cuff syndrome 9122871387 10813 M75.101 s/p right shoulder reverse rotator cuff surgery 2021 Traumatic subdural hematoma 087930155 S06.5X0D fall 07/2024.1/ 2025 started having right sided weaknessct head with left falx subdural hematomael iquid stoppedshe takes this for recurrent dvtdiscuss ed risk and beneftis due to recurrent fallsshe stoppped stop eliquis nowfu with neurosurge ry discussed. repeat ct 09/26: [facility]ho [facility] t[facility] which is discharged now Osteoporosis 29367069 M8 1.0 took fosamax only for a month and hence stopped due to nauseacalc ium and vitamin d replacemen t reviewed with the patientbon e density 05/25: osteoporos is.trial of lower dose of alendronat e and tolerating welldiscus sed calcium and vitamin D. discussed with the patient Thoracic back pain 70586 8004 M54.6 on and off intermitte nt painsxr thoracic spine done but has been done but not received it talked to [facility] medical records.xr thoracic spine with multilevel ddd, but no fracture noted Fatigue 01553790 R53.83 ongoing since past 3 weeks.not sleeping at nightlikel y etiologyla bs were unremarkab le 03/25 Overactive urinary bladder 331570089 N32.81 recent urine is negative.r echeck was negative.l ikely overactive bladdersta rted on oxybutynin which is helping Anemia 323305821 D64.9 hb low at 10.3. vitamin b12, folate is normaliron level goodnormoc ytic normochron ic anemia.no ckd noted.no blood in stool Essential hypertension 43923597 I10 on amlodipine carvedilol , hctz, losartanbp optimalblo od work reviewed Osteoarthritis 147476976 M19.90 multiple joints. Involved Gastroesop hageal reflux disease 017561182 K21.9 on omeprazole History of total hip arthroplasty 1177079884 06 Z96.649 hx of bilateral hip arthroplas ty History of bilateral total knee replacement 9382259353 728369 Z96.653 hx of bilateral knee replacemen t Degenerati on of lumbar intervertebral disc 81416173 M51.360 multiple lumbar spine surgeries in the pasthx of vertebropl astyxr lumbar spine with ddd, no acute fracture Paresthesia of hand 3090 79258 R20.2 left hand in carpal tunnel distributi onlikely due to chronic wrist deformity due to old fracturesw ill increase gabapentin to 1-0.5-1inc reased gabapnetin to 800 mg bidhowefve r this is not helping rishi send referralto dr. 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 Fracture of femur 820625 00 S72.92XS History of left femur fracture and has a isabell placement. Preventive procedure 169 939587 Z29.9 covid: 3 shots, 2023flu: 2022, [id number]; 2018, recommend [id number] les: none: recommende dRSV: recommende dColonosco py: [...] Recorded Advance Directives Directive None Recorded Payers Insurance Date Sequence Insurance Name Policy Number Policy Felipe Covered Member ID Felipe Member ID Guarantor Name 02/05/2025 2 [place] [employer]PARTMENT [place] [employer] Lauren D Boner [id number] Lauren D Boner 02/05/2025 1 [employer] (MEDICARE REPLACEMENT/A DVANTAGE - PPO) [id number] Lauren D Boner [id number] Lauren D Boner 10/10/2024 2 [place] Lauren D Boner [id number] Lauren D Boner Notes Date Note Type Note Provider Name and Address Organization Details Recorded Time 09/29/2024 text/html Pt here for ER f/u. Pt was seen in ER on 09/21/2024 for fall. DX: multiple orbital fractures and fracture of sinuses. Pt has appt with ENT at [facility] on Wednesday10/02/2024. Pt feel in house on 09/21/2024 and hit face on floor. she tripped on the floor. the bruise is stable. no further nose bleed. . C/O face and right shoulder pain 01/09. Lives alone. daughter nearby. patient is not able to move her right shoulder at all Joshua Hermosillo MD [address] [facility] [facility] [address], [place], [address], [facility] 09/29/2024 16:58:22 10/05/2024 text/html Pt here for 1 week follow up. C/O shoulder pain 01/09. Pt is wearing a sling for mobilization. Pt sees ENT on 10/06/2024 and ortho on 10/11/2024. MRI was done. Daughter brought copy of disk with her to office today. No chest pain, shortness of breath, nausea or vomting. Joshua Hermosillo MD [address] [facility] [address], [place], [address], [facility] 10/05/2024 15:46:34 11/14/2024 text/html Pt here for follow up. Pt using walker since last fall. C/O pain in joints 02/08. Pain improves with hydrocodone. No chest pain, shortness of breath, nausea or vomiting. Lives alone. seen orthopedics. doing therapy currently. Joshua Hermosillo MD [address] [facility] [address], [place], [address], [facility] 11/14/2024 15:37:55 12/14/2024 text/html Pt here for follow up. Pt states her shoulder pain increased with physical therapy. Mri showed fracture. PT on hold. Appt with ortho in two weeks. Cont. to wear sling. C/O burning and numbness in feet and left hand. She is using Asper Creme daily on feet with slight decrease of burning sensation. Denies chest pain, shortness of breath, nausea or vomiting. Pt here for follow up. Pt states her shoulder pain increased with physical therapy. xray showed fracture. PT on hold. Appt with ortho in two weeks. Cont. to wear sling. C/O burning and numbness in feet and left hand. Asper Creme decreases neuropathy in feet. Joshua Hermosillo MD [address] [facility] [address], [place], [address], [facility] 12/14/2024 11:38:38 01/10/2025 text/html Pt here for follow up. C/O burning and tingling in feet and legs, body aches/pain 02/08. States she is not sleeping well at night. Requesting refill on pain medications. Good appetite. Uses cane for ambulation. No chest pain, occasional shortness of breath, nausea or vomiting. Lives alone. Joshua Hermosillo MD [address] [facility] [address], [place], [address], [facility] 01/10/2025 16:29:20 OBGyn Episode No OBEpisode recorded.
--- OUTSIDE RECORDS SUMMARY | 2025-02-06 09:46 | XMS_ITS | Encounter Summary ---
Author Organization [facility] Health Address [address] [place] [address] Care Team Providers Care Jamb Cutter Name Role Phone Keith Ribeiro Primary Care Provider Sydnee Ashraf MD Primary Care Provider [phone] Encounter Details Date Type Department Care Team (Late st Contact [facility]) Description 04/04/2019 Telephone [facility] [address] [place], [place] [id number] Vahe Garcia MD [address] [facility] [address] [place], [place] [id number] Social History Tobacco Use Types Packs/Day Years [...] Binge Drinking Not on file 03/03 Comments Unknown Sex and Gender Information Value Date Recorded Sex Assigned at Not on file 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 Answer Date of Assessment Author No 03/25/2019 2:00 PM CDT Nova Funk RN * Is person blind or have serious difficulty seeing? Answer Date of Assessment Author Yes 03/25/2019 2:00 PM CDT Nova Funk RN * Does person have serious difficulty walking/climbing stairs? Answer Date of Assessment Author Yes 03/25/2019 2:00 PM CDT Nova Funk RN * Does person have difficulty dressing/bathing? Answer Date of Assessment Author No 03/25/2019 2:00 PM CDT Nova Funk RN * Does person have difficulty doing errands alone? Answer Date of Assessment Author Yes 03/25/2019 2:00 PM BELINDAT Nova Funk RN documented as of this encounter Mental Status * Does person have difficulty concentrating/remembering/making decisions? Answer Entry Date Author No 03/25/2019 2:00 PM CDT Nova Funk RN documented in this encounter Miscellaneous Notes * Telephone Encounter - Renée Manjarrez - 04/04/2019 3:56 PM CDT Continue ttreatment for documented in this encounter Plan of Treatment Not on file documented as of this encounter Visit Diagnoses Not on filedocumented in this encounter Care Teams Jamb Cutter Relationship Specialty Start Date End Date Keith Ribeiro Update Information PCP - General 03/26/19 04/17/19 Sydnee Sheldon MD [address] [place] [address] [place] [id number] PCP - General 04/18/19 documented as of this encounter
[2025-02-06 10:46] LABS: Hematocrit 33.6 % (37.0-47.0); Hemoglobin 10.8 g/dL (12.0-15.0); Immature Granulocyte Percent A 0.2 % (0-0.5); Lymphocytes Absolute Auto 0.78 K/mm3 (0.9-3.2); Mean Corpuscular HGB Conc 32.1 g/dl (32-36); Mean Corpuscular Hemoglobin 27.4 pg (26-34); Mean Corpuscular Volume 85.3 fl (80-100); Nucleated Red Blood Cells Absolute Auto 0.000 K/mm3 (0.0-0.012); Nucleated Red Blood Cells Perc 0.0 % (0.0-0.2); Platelet Count Result 229 k/mm3 (150-375); Red Blood Count 3.94 M/mm3 (4.2-5.4); White Blood Count 4.3 K/mm3 (4.5-10.0)
[2025-02-06 11:03] LABS: Iron 102 ug/dL (37-170)
[2025-02-06 11:05] LABS: Alanine Aminotransferase 19 U/L (6-35); Albumin Level 4.3 g/dL (3.5-5.1); Alkaline Phosphatase 66 U/L (38-126); Anion Gap 8 mmol/L (4-12); Aspartate Amino Transferase 34 U/L (14-36); Bilirubin,Total 0.9 mg/dL (0.2-1.3); Blood Urea Nitrogen 25 mg/dL (7-17); Calcium 9.2 mg/dL (8.4-10.2); Carbon Dioxide 28 mmol/L (22-30); Chloride 96 mmol/L (98-107); Estimated Glomerular Filt Rate > 60; Glucose 118 mg/dL (65-110); Potassium 3.9 mmol/L (3.4-5.0); Sodium 132 mmol/L (137-145); Total Protein 7.0 g/dL (6.3-8.2); Uric Acid 3.9 mg/dL (2.5-7.5)
[2025-02-06 11:35] LABS: Thyroid Stimulating Hormone Reflex 0.970 uIU/mL (0.465-4.68)
[2025-02-06 11:39] LABS: Ferritin 15.00 ng/mL (11.1-264)
[2025-02-06 11:41] LABS: CRP < 0.5 mg/dL (<1.0)
[2025-02-06 11:47] LABS: MALB Creatinine Ratio 126.1 mg/g (0-30)
[2025-02-06 12:46] LABS: Vitamin B12 > 1000.0 pg/mL (239-931)
== END 2025-02-06 09:35 | disposition home or self-care (01) ==
PROVIDERS: PCP Internal Medicine; Visit Provider Internal Medicine
DX: R20.2 Paresthesia of skin (principal); M81.0 Age-related osteoporosis without current pathological fracture; I10 Essential (primary) hypertension; D46.9 Myelodysplastic syndrome, unspecified; M19.90 Unspecified osteoarthritis, unspecified site; M51.360 Other intervertebral disc degeneration, lumbar region with discogenic back pain only
CPT/HCPCS: 36415; 80053; 82043; 82306; 82607; 82728; 82746; 83540; 84443; 84550; 85025; 85652; 86140

== ENCOUNTER 2025-06-08 11:36 | Outpatient (CLI) | payer MEDICARE, MEDICAID, SELFPAY ==
--- NOTE | ~2025-06-08 | XR_ITS ---
Examination: XR knee RT 3V Clinical History: ACUTE PAIN OF R KNEE X 2 WKS Comparison: None Technique: 4 views right knee Findings/impression: 1. Arthroplasty with longstem femoral and tibial components. Thick spacer. Components intact. 2. No acute fracture or effusion identified Reviewed, dictated and finalized at location R. LT WORKER
--- OUTSIDE RECORDS SUMMARY | 2025-06-08 12:12 | XMS_ITS | Encounter Summary ---
Author Organization [facility] Health Address [address] [place] [address] Care Team Providers Care Drop Machine Operator Name Role Phone Keith Ribeiro Primary Care Provider Sydnee Ashraf MD Primary Care Provider [phone] Encounter Details Date Type Department Care Team (Late st Contact [facility]) Description 04/04/2019 Telephone [facility] [address] [place], [place] [id number] Vahe Garcia MD [address] [facility] [address] [place], [place] [id number] Social History Tobacco Use Types Packs/Day Years [...] on file 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 [id number] PCP - General 04/18/19 documented as of this encounter
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
--- OUTSIDE RECORDS SUMMARY | 2025-06-08 12:12 | XMS_ITS | Encounter Summary ---
Author Organization [facility] Address [address] [place] [address] Care Team Providers Care Disabilities Caregiver Name Role Phone Veronica Hendrix MD Primary Care Provider [phone] None, Provider Primary Care Provider Nancy Gutierrez MD Primary Care Provider [phone] Joshua Hermosillo MD Primary Care Provider [phone] Encounter Details Date Type Department Care Team (Latest Contact Info) Description 06/07/2018 Abstract [facility] Aristides Lauren MD Social History Tobacco Use Types Packs/Day Years Used Date Smoking Tobacco: Never Assessed Comments Unknown Sex and Gender Information Value Date Recorded Sex Assigned at Female 09/21/2024 7:06 PM 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 AUDITOR Legal Sex Female 4:33 PM CDT Gender Identity Not on file Sexual Orientation Not on file documented as of this encounter Plan of Treatment Not on file documented as of this encounter Visit Diagnoses Not on filedocumented in this encounter Care Teams Disabilities Caregiver Relationship Specialty Start Date End Date Veronica Hendrix MD PCP - General 04/01/16 04/22/21 None, ProviderMD PCP - General 04/23/21 04/23/21 Nancy Dale MD [address] [phone] PCP - General 08/10/24 08/10/24 Joshua Hermosillo MD [address] [facility] [address] [place] [address] PCP - General INTERNAL MEDICINE 08/11/24 documented as of this encounter
--- OUTSIDE RECORDS SUMMARY | 2025-06-08 12:13 | XMS_ITS | Data Portability ---
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 Osteoporosis 49697786 M8 1.0 took fosamax only for a month and hence stopped due to nausea.caron cium and vitamin d replacemen t reviewed with the patientbon e density 05/25: osteoporos is.trial of lower dose of alendronat e.discusse d calcium and vitamin D. discussed with the patient Fatigue 77795003 R53.83 ongoing since past 3 weeks.not sleeping at nightlikel y etiologyla bs were unremarkab le 03/25 Overactive urinary bladder 429682634 N32.81 recent urine is negative.r echeck was negative.l adithya overactive bladdersta rted on oxybutynin which is helping Anemia 162371310 D64.9 hb low at 10.3. vitamin b12, foalte is normaliron level goodnormoc ytic normochron oic anemia.no ckd noted.no blood in stool Essential hypertension 07851346 I10 on amlodipine carvedilol , hctz, losartanbp optimalblo od work reviewed Osteoarthritis 335391308 M19.90 multiple joints. Involved Gastroesop hageal reflux disease 531290253 K21.9 on omeprazole History of total hip arthroplasty 6561180985 06 Z96.649 hx of bilateral hip arthroplas ty History of bilateral total knee replacement 5242255849 804038 Z96.653 hx of bilateral knee replacemen t Degenerati on of lumbar intervertebral disc 58452423 M51.360 multiple lumbar spine surgeries in the pasthx of vertebropl astyxr lumbar spine with ddd, no acute fracture Paresthesia of hand 3090 07082 R20.2 left hand in carpal tunnel distributi onlikely due to chronic wrist deformity due to old fracturesw ill increase gabapnetin to 1-0.5-1 History of recurrent deep vein thrombosis 5585777164 54883 Z86.718 last one 2013.3 episodeson elqiuis 2.5 mg bid 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 Fracture of femur 580152 00 S72.92XS History of left femur fracture and has a isabell placement. Thoracic back pain 92295 8004 M54.6 on and off intermitte nt painsxr thoracic spine done but not completed [id number] Joshua Hermosillo MD [place] [address] [place] [address] 07/20/2024 12:02:06 07/20/2024 13:08:42 Osteoporosis 11230550 M81.0 took fosamax only for a month and hence stopped due to nauseacalc ium and vitamin d replacemen t reviewed with the patientbon e density 05/25: osteoporos is.trial of lower dose of alendronat e and tolerating welldiscus sed calcium and vitamin D. discussed with the patient Thoracic back pain 53616 8004 M54.6 on and off intermitte nt painsxr thoracic spine done but has been done but not received it talked to [facility].xr thoracic spine with multilevel ddd, but no fracture noted Fatigue 00063466 R53.83 ongoing since past 3 weeks.not sleeping at nightlikel y etiologyla bs were unremarkab le 03/25 Overactive urinary bladder 272416291 N32.81 recent urine is negative.r echeck was negative.jim haji overactive bladdersta rted on oxybutynin which is helping Anemia 051403221 D64.9 hb low at 10.3. vitamin b12, folate is normaliron level goodnormoc ytic normochron ic anemia.no ckd noted.no blood in stool Essential hypertension 19934551 I10 on amlodipine carvedilol , hctz, losartanbp optimalblo od work reviewed Osteoarthritis 591405557 M19.90 multiple joints. Involved Gastroesop hageal reflux disease 650837558 K21.9 on omeprazole History of total hip arthroplasty 7789028446 06 Z96.649 hx of bilateral hip arthroplas ty History of bilateral total knee replacement 6944727417 266634 Z96.653 hx of bilateral knee replacemen t Degenerati on of lumbar intervertebral disc 51739850 M51.360 multiple lumbar spine surgeries in the pasthx of vertebropl astyxr lumbar spine with ddd, no acute fracture Paresthesia of hand 3090 72997 R20.2 left hand in carpal tunnel distributi onlikely due to chronic wrist deformity due to old fracturesw ill increase gabapentin to 1-0.5-1 History of recurrent deep vein thrombosis 9157007993 03825 Z86.718 last one 2013.3 episodeson eliquis 2.5 mg bid 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 Fracture of femur 303034 00 S72.92XS History of left femur fracture and has a isabell placement. Preventive procedure 169 650476 Z29.9 covid: 3 shots, 2023flu: 2022, [id number]; 2018, recommend [id number] les: none: recommende dRSV: recommende dColonosco py: many years ago. age prohibitiv eMammogram many years ago. age prohibitiv parker density: 06/25: osteoporos isdiscusse d vaccinatio n with the patient and reviewed the vaccinatio n status [id number] Joshua Hermosillo MD [facility] [address] [place] [address] 08/16/2024 11:40:22 08/16/2024 12:55:58 Post-discharge follow-up 355885604 Z09 Admission Date: 025Dischar ge Date: 08/11/2024D iagnosis: subdural hematomame dications reconcille d and reviewed with the patienteli maurisio stopped Traumatic intracranial subdural hematoma 954158278 S06.5X0D fall 07/2024.2024 started having right sided weaknessct head with left falx subdural hematomael iquid stoppedshe takes this for recurrent dvtdiscuss ed risk and beneftis due to recurrent fallswill stop eliquis nowfu with neurosurge ry discussed. repeat ct [facility] Osteoporosis 13187638 M8 1.0 took fosamax only for a month and hence stopped due to nauseacalc ium and vitamin d replacemen t reviewed with the patientbon e density 05/25: osteoporos is.trial of lower dose of alendronat e and tolerating welldiscus sed calcium and vitamin D. discussed with the patient Thoracic back pain 29948 8004 M54.6 on and off intermitte nt painsxr thoracic spine done but has been done but not received it talked to [facility] medical records.xr thoracic spine with multilevel ddd, but no fracture noted Fatigue 17598810 R53.83 ongoing since past 3 weeks.not sleeping at nightlikel y etiologyla bs were unremarkab le 03/25 Overactive urinary bladder 965702304 N32.81 recent urine is negative.r echeck was negative.l ikely overactive bladdersta rted on oxybutynin which is helping Anemia 901297896 D64.9 hb low at 10.3. vitamin b12, folate is normaliron level goodnormoc ytic normochron ic anemia.no ckd noted.no blood in stool Essential hypertension 64294889 I10 on amlodipine carvedilol , hctz, losartanbp optimalblo od work reviewed Osteoarthritis 726048590 M19.90 multiple joints. Involved Gastroesop hageal reflux disease 888929472 K21.9 on omeprazole History of total hip arthroplasty 4192286606 06 Z96.649 hx of bilateral hip arthroplas ty History of bilateral total knee replacement 5784572963 224003 Z96.653 hx of bilateral knee replacemen t Degenerati on of lumbar intervertebral disc 75689677 M51.360 multiple lumbar spine surgeries in the pasthx of vertebropl astyxr lumbar spine with ddd, no acute fracture Paresthesia of hand 3090 54865 R20.2 left hand in carpal tunnel distributi onlikely due to chronic wrist deformity due to old fracturesw ill increase gabapentin to 1-0.5-1 History of recurrent deep vein thrombosis 4947083523 52066 Z86.718 last one 2013.3 episodeson eliquis 2.5 mg bid 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 Fracture of femur 336771 00 S72.92XS History of left femur fracture and has a isabell placement. Preventive procedure 169 578239 Z29.9 covid: 3 shots, 2023flu: 2022, [id number]; 2018, recommend [id number] les: none: recommende dRSV: recommende dColonosco py: many years ago. age prohibitiv eMammogram many years ago. age prohibitiv parker density: 06/25: osteoporos isdiscusse d vaccinatio n with the patient and reviewed the vaccinatio n status [id number] Joshua Hermosillo MD [facility] [address] [place] [address] 09/15/2024 11:16:18 09/15/2024 11:58:42 Traumatic intracranial subdural hematoma 924249345 S06.5X0D fall 07/2024.2024 started having right sided weaknessct head with left falx subdural hematomael iquid stoppedshe takes this for recurrent dvtdiscuss ed risk and beneftis due to recurrent fallsshe stoppped stop eliquis nowfu with neurosurge ry discussed. repeat ct [facility] t[facility] which is discharged nowokay to drive. discused with the patient Osteoporosis 56458238 M8 1.0 took fosamax only for a month and hence stopped due to nauseacalc ium and vitamin d replacemen t reviewed with the patientbon e density 05/25: osteoporos is.trial of lower dose of alendronat e and tolerating welldiscus sed calcium and vitamin D. discussed with the patient Thoracic back pain 78228 8004 M54.6 on and off intermitte nt painsxr thoracic spine done but has been done but not received it talked to [facility] medical records.xr thoracic spine with multilevel ddd, but no fracture noted Fatigue 44546238 R53.83 ongoing since past 3 weeks.not sleeping at nightlikel y etiologyla bs were unremarkab le 03/25 Overactive urinary bladder 022746587 N32.81 recent urine is negative.r echeck was negative.l ikely overactive bladdersta rted on oxybutynin which is helping Anemia 340512930 D64.9 hb low at 10.3. vitamin b12, folate is normaliron level goodnormoc ytic normochron ic anemia.no ckd noted.no blood in stool Essential hypertension 39101595 I10 on amlodipine carvedilol , hctz, losartanbp optimalblo od work reviewed Osteoarthritis 853864723 M19.90 multiple joints. Involved Gastroesop hageal reflux disease 543784936 K21.9 on omeprazole History of total hip arthroplasty 9449462785 06 Z96.649 hx of bilateral hip arthroplas ty History of bilateral total knee replacement 8567483842 012507 Z96.653 hx of bilateral knee replacemen t Degenerati on of lumbar intervertebral disc 72510479 M51.360 multiple lumbar spine surgeries in the pasthx of vertebropl astyxr lumbar spine with ddd, no acute fracture Paresthesia of hand 3090 67620 R20.2 left hand in carpal tunnel distributi onlikely due to chronic wrist deformity due to old fracturesw ill increase gabapentin to 1-0.5-1 History of recurrent deep vein thrombosis 8356934010 20526 Z86.718 last one 2012.3 episodeson eliquis 2.5 mg bidnow stay off eliquis due to brain bleed 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 Fracture of femur 951722 00 S72.92XS History of left femur fracture and has a isabell placement. Preventive procedure 169 152176 Z29.9 covid: 3 shots, 2023flu: 2022, [id number]; 2018, recommend [id number] les: none: recommende dRSV: recommende dColonosco py: many years ago. age prohibitiv eMammogram many years ago. age prohibitiv parker density: 06/25: osteoporos isdiscusse d vaccinatio n with the patient and reviewed the vaccinatio n status [id number] Joshua Hermosillo MD [facility] [address] [place] [address] 09/29/2024 14:23:19 09/29/2024 15:59:32 Pain of right shoulder joint 7297799777 1315076 M25.511 hx of rotator cuff surgerynow with fall and injury to right shoulderwi ll further evaluate with MRI shoulderus e sling for nowuse hydrocodon e prn for now for pain control may use q4hrs.if MRI does not go through, will order CT shoulder right Contusion of orbital tissue of right eye 8187665437 0665385 S05.11XD multiple bruises due to the fall noted Fracture of orbit 376787 07 S02.121D ffracture of lateral orbital wall with fall noted on ct face/head Closed fra cture of right maxilla 4778484270 6238983 S02.40CD fracture of right maxillary sinusgoign to see ENT next week Fall W19.XXXD fall is mechanical fallrecent subdural hematoma as well.off anticoagul ation now Traumatic intracranial subdural hematoma 985532310 S06.5X0D fall 07/2024.2024 started having right sided weaknessct head with left falx subdural hematomael iquid stoppedshe takes this for recurrent dvtdiscuss ed risk and beneftis due to recurrent fallsshe stoppped stop eliquis nowfu with neurosurge ry discussed. repeat ct [facility] t[facility] which is discharged now Osteoporosis 16867908 M8 1.0 took fosamax only for a month and hence stopped due to nauseacalc ium and vitamin d replacemen t reviewed with the patientbon e density 05/25: osteoporos is.trial of lower dose of alendronat e and tolerating welldiscus sed calcium and vitamin D. discussed with the patient Thoracic back pain 66315 8004 M54.6 on and off intermitte nt painsxr thoracic spine done but has been done but not received it talked to [facility] medical records.xr thoracic spine with multilevel ddd, but no fracture noted Fatigue 05303716 R53.83 ongoing since past 3 weeks.not sleeping at nightlikel y etiologyla bs were unremarkab le 03/25 Overactive urinary bladder 170481303 N32.81 recent urine is negative.r echeck was negative.l ikely overactive bladdersta rted on oxybutynin which is helping Anemia 533675407 D64.9 hb low at 10.3. vitamin b12, folate is normaliron level goodnormoc ytic normochron ic anemia.no ckd noted.no blood in stool Essential hypertension 00933059 I10 on amlodipine carvedilol , hctz, losartanbp optimalblo od work reviewed Osteoarthritis 111015156 M19.90 multiple joints. Involved Gastroesop hageal reflux disease 593291759 K21.9 on omeprazole History of total hip arthroplasty 6165358403 06 Z96.649 hx of bilateral hip arthroplas ty History of bilateral total knee replacement 2063737738 369844 Z96.653 hx of bilateral knee replacemen t Degenerati on of lumbar intervertebral disc 28317386 M51.360 multiple lumbar spine surgeries in the pasthx of vertebropl astyxr lumbar spine with ddd, no acute fracture Paresthesia of hand 3090 54351 R20.2 left hand in carpal tunnel distributi onlikely due to chronic wrist deformity due to old fracturesw ill increase gabapentin to 1-0.5-1 History of recurrent deep vein thrombosis 9252643432 80487 Z86.718 last one 2012.3 episodeson eliquis 2.5 mg bidnow stay off eliquis due to brain bleed 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 Fracture of femur 999649 00 S72.92XS History of left femur fracture and has a isabell placement. Preventive procedure 169 187457 Z29.9 covid: 3 shots, 2023flu: 2022, [id number]; 2018, recommend [id number] les: none: recommende dRSV: recommende dColonosco py: many years ago. age prohibitiv eMammogram many years ago. age prohibitiv parker density: 06/25: osteoporos isdiscusse d vaccinatio n with the patient and reviewed the vaccinatio n status Right rota tor cuff syndrome 2812213238 55769 M75.101 s/p rigth shoulder reverse rotator cuff surgery 2021 [id number] Joshua Hermosillo MD [facility] [address] [place] [address] 10/05/2024 15:18:08 10/05/2024 15:51:01 Pain of right shoulder joint 6752900187 9856542 M25.511 hx of rotator cuff surgerynow with [...] further evaluation Right rota tor cuff syndrome 4701192771 51678 M75.101 s/p rigth shoulder reverse rotator cuff surgery 2021 Contusion of orbital tissue of right eye 7961705106 6795064 S05.11XD multiple bruises due to the fall noted Fracture of orbit 161162 07 S02.121D ffracture of lateral orbital wall with fall noted on ct face/head Closed fra cture of right maxilla 9612204647 7887628 S02.40CD fracture of right maxillary sinusgoign to see ENT next week for further evaluation Fall W19.XXXD fall is mechanical fallrecent subdural hematoma as well.off anticoagul ation now Traumatic intracranial subdural hematoma 813217734 S06.5X0D fall 07/2024.2024 started having right sided weaknessct head with left falx subdural hematomael iquid stoppedshe takes this for recurrent dvtdiscuss ed risk and beneftis due to recurrent fallsshe stoppped stop eliquis nowfu with neurosurge ry discussed. repeat ct [facility] t[facility] which is discharged now Osteoporosis 97492039 M8 1.0 took fosamax only for a month and hence stopped due to nauseacalc ium and vitamin d replacemen t reviewed with the patientbon e density 05/25: osteoporos is.trial of lower dose of alendronat e and tolerating welldiscus sed calcium and vitamin D. discussed with the patient Thoracic back pain 09301 8004 M54.6 on and off intermitte nt painsxr thoracic spine done but has been done but not received it talked to [facility] medical records.xr thoracic spine with multilevel ddd, but no fracture noted Fatigue 68697175 R53.83 ongoing since past 3 weeks.not sleeping at nightlikel y etiologyla bs were unremarkab le 03/25 Overactive urinary bladder 986820912 N32.81 recent urine is negative.r echeck was negative.l ikely overactive bladdersta rted on oxybutynin which is helping Anemia 524788634 D64.9 hb low at 10.3. vitamin b12, folate is normaliron level goodnormoc ytic normochron ic anemia.no ckd noted.no blood in stool Essential hypertension 26816917 I10 on amlodipine carvedilol , hctz, losartanbp optimalblo od work reviewed Osteoarthritis 182430238 M19.90 multiple joints. Involved Gastroesop hageal reflux disease 865443348 K21.9 on omeprazole History of total hip arthroplasty 4716662966 06 Z96.649 hx of bilateral hip arthroplas ty History of bilateral total knee replacement 6548924528 868406 Z96.653 hx of bilateral knee replacemen t Degenerati on of lumbar intervertebral disc 04594166 M51.360 multiple lumbar spine surgeries in the pasthx of vertebropl astyxr lumbar spine with ddd, no acute fracture Paresthesia of hand 3090 32404 R20.2 left hand in carpal tunnel distributi onlikely due to chronic wrist deformity due to old fracturesw ill increase gabapentin to 1-0.5-1 History of recurrent deep vein thrombosis 8293842710 80861 Z86.718 last one 2012.3 episodeson eliquis 2.5 mg bidnow stay off eliquis due to brain bleed 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 Fracture of femur 145296 00 S72.92XS History of left femur fracture and has a isabell placement. Preventive procedure 169 453593 Z29.9 covid: 3 shots, 2023flu: 2022, [id number]; 2018, recommend [id number] les: none: recommende dRSV: recommende dColonosco py: many years ago. age prohibitiv eMammogram many years ago. age prohibitiv parker density: 06/25: osteoporos isdiscusse d vaccinatio n with the patient and reviewed the vaccinatio n status [id number] Joshua Hermosillo MD [facility] [address] [place] [address] 11/14/2024 14:32:56 11/14/2024 15:42:38 Right rotator cuff syndrome 9910012097 38831 M75.101 s/p rigth shoulder reverse rotator cuff surgery 2021 Contusion of orbital tissue of right eye 7592706655 1366644 S05.11XD multiple bruises due to the fall noted Fracture of orbit 943258 07 S02.121D ffracture of lateral orbital wall with fall noted on ct face/head Closed fra cture of right maxilla [id number] S02.40CD fracture of right maxillary sinusent consulted. no surgery recommedne d Fall W19.XXXD fall is mechanical fallrecent subdural hematoma as well.off anticoagul ation now Traumatic intracranial subdural hematoma 350907574 S06.5X0D fall 07/2024.2024 started having right sided weaknessct head with left falx subdural hematomael iquid stoppedshe takes this for recurrent dvtdiscuss ed risk and beneftis due to recurrent fallsshe stoppped stop eliquis nowfu with neurosurge ry discussed. repeat ct 09/26: [facility] to continue for rehabilita tion which is discharged now Osteoporosis 17495619 M8 1.0 took fosamax only for a month and hence stopped due to nauseacalc ium and vitamin d replacemen t reviewed with the patientbon e density 05/25: osteoporos is.trial of lower dose of alendronat e and tolerating welldiscus sed calcium and vitamin D. discussed with the patient Thoracic back pain 22765 8004 M54.6 on and off intermitte nt painsxr thoracic spine done but has been done but not received it talked to [facility] medical records.xr thoracic spine with multilevel ddd, but no fracture noted Fatigue 95728960 R53.83 ongoing since past 3 weeks.not sleeping at nightlikel y etiologyla bs were unremarkab le 03/25 Overactive urinary bladder 198629145 N32.81 recent urine is negative.r echeck was negative.l adithya overactive bladdersta rted on oxybutynin which is helping Anemia 748762574 D64.9 hb low at 10.3. vitamin b12, folate is normaliron level goodnormoc ytic normochron ic anemia.no ckd noted.no blood in stool Essential hypertension 53346510 I10 on amlodipine carvedilol , hctz, losartanbp optimalblo od work reviewed Osteoarthritis 275389386 M19.90 multiple joints. Involved Gastroesop hageal reflux disease 218478885 K21.9 on omeprazole History of total hip arthroplasty 6353370408 06 Z96.649 hx of bilateral hip arthroplas ty History of bilateral total knee replacement 9177754912 463326 Z96.653 hx of bilateral knee replacemen t Degenerati on of lumbar intervertebral disc 44436189 M51.360 multiple lumbar spine surgeries in the pasthx of vertebropl astyxr lumbar spine with ddd, no acute fracture Paresthesia of hand 3090 26350 R20.2 left hand in carpal tunnel distributi onlikely due to chronic wrist deformity due to old fracturesw ill increase gabapentin to 1-0.5-1 History of recurrent deep vein thrombosis 6998366594 98981 Z86.718 last one 2012.3 episodeson eliquis 2.5 mg bidnow stay off eliquis due to brain bleed 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 Fracture of femur 320326 00 S72.92XS History of left femur fracture and has a isabell placement. Preventive procedure 169 134846 Z29.9 covid: 3 shots, 2023flu: 2022, [id number]; 2018, recommend [id number] les: none: recommende dRSV: recommende dColonosco py: many years ago. age prohibitiv eMammogram many years ago. age prohibitiv parker density: 06/25: osteoporos isdiscusse d vaccinatio n with the patient and reviewed the vaccinatio n status Rotator cu ff arthropathy of right shoulder 6524125874 4098977 M25.811 hx of rotator cuff surgerynow with [...] orthopedic s seen: going through physical therapy jc. improving [id number] Joshua Hermosillo MD [facility] [address] [place] [address] 12/14/2024 11:06:37 12/14/2024 11:41:52 Rotator cuff arthropathy of right shoulder 2017592433 0100318 M25.811 S42.124D hx of rotator cuff surgerynow [...] few weeks Right rota tor cuff syndrome 1733700879 51352 M75.101 s/p right shoulder reverse rotator cuff surgery 2021 Traumatic intracranial subdural hematoma 905425556 S06.5X0D fall 07/2024.2024 started having right sided weaknessct head with left falx subdural hematomael iquid stoppedshe takes this for recurrent dvtdiscuss ed risk and beneftis due to recurrent fallsshe stoppped stop eliquis nowfu with neurosurge ry discussed. repeat ct 09/26: [facility] to continue for rehabilita tion which is discharged now Osteoporosis 40982734 M8 1.0 took fosamax only for a month and hence stopped due to nauseacalc ium and vitamin d replacemen t reviewed with the patientbon e density 05/25: osteoporos is.trial of lower dose of alendronat e and tolerating welldiscus sed calcium and vitamin D. discussed with the patient Thoracic back pain 87995 8004 M54.6 on and off intermitte nt painsxr thoracic spine done but has been done but not received it talked to [facility] medical records.xr thoracic spine with multilevel ddd, but no fracture noted Fatigue 84831614 R53.83 ongoing since past 3 weeks.not sleeping at nightlikel y etiologyla bs were unremarkab le 03/25 Overactive urinary bladder 207095024 N32.81 recent urine is negative.r echeck was negative.l ikely overactive bladdersta rted on oxybutynin which is helping Anemia 219533264 D64.9 hb low at 10.3. vitamin b12, folate is normaliron level goodnormoc ytic normochron ic anemia.no ckd noted.no blood in stool Essential hypertension 42584122 I10 on amlodipine carvedilol , hctz, losartanbp optimalblo od work reviewed Osteoarthritis 782664438 M19.90 multiple joints. Involved Gastroesop hageal reflux disease 705621777 K21.9 on omeprazole History of total hip arthroplasty 1181310939 06 Z96.649 hx of bilateral hip arthroplas ty History of bilateral total knee replacement 2535273647 064792 Z96.653 hx of bilateral knee replacemen t Degenerati on of lumbar intervertebral disc 68028947 M51.360 multiple lumbar spine surgeries in the pasthx of vertebropl astyxr lumbar spine with ddd, no acute fracture Paresthesia of hand 3090 03269 R20.2 left hand in carpal tunnel distributi onlikely due to chronic wrist deformity due to old fracturesw ill increase gabapentin to 1-0.5-1wil l increase gabapnetin to 800 mg bid, she is currently on 600 mg bid History of recurrent deep vein thrombosis 7247653871 69437 Z86.718 last one 2012.3 episodeson eliquis 2.5 mg bidnow stay off eliquis due to brain bleed 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 Fracture of femur 037081 00 S72.92XS History of left femur fracture and has a isabell placement. Preventive procedure 169 454979 Z29.9 covid: 3 shots, 2023flu: 2022, [id number]; 2018, recommend [id number] les: none: recommende dRSV: recommende dColonosco py: many years ago. age prohibitiv eMammogram many years ago. age prohibitiv parker density: 06/25: osteoporos isdiscusse d vaccinatio n with the patient and reviewed the vaccinatio n status [id number] Joshua Hermosillo MD [facility] [address] [place] [address] 01/10/2025 15:15:01 01/10/2025 16:35:14 Rotator cuff arthropathy of right shoulder 6947218601 5223318 M25.811 S42.124D hx of rotator cuff surgerynow [...] activityim proving. Right rota tor cuff syndrome 7650985874 83189 M75.101 s/p right shoulder reverse rotator cuff surgery 2021 Traumatic intracranial subdural hematoma 169085388 S06.5X0D fall 07/2024.2024 started having right sided weaknessct head with left falx subdural hematomael iquid stoppedshe takes this for recurrent dvtdiscuss ed risk and beneftis due to recurrent fallsshe stoppped stop eliquis nowfu with neurosurge ry discussed. repeat ct 09/26: [facility]ho [facility] to continue for rehabilita tion which is discharged now Osteoporosis 51250590 M8 1.0 took fosamax only for a month and hence stopped due to nauseacalc ium and vitamin d replacemen t reviewed with the patientbon e density 05/25: osteoporos is.trial of lower dose of alendronat e and tolerating welldiscus sed calcium and vitamin D. discussed with the patient Thoracic back pain 70920 8009 M54.6 on and off intermitte nt painsxr thoracic spine done but has been done but not received it talked to [facility] medical records.xr thoracic spine with multilevel ddd, but no fracture noted Fatigue 40976488 R53.83 ongoing since past 3 weeks.not sleeping at nightlikel y etiologyla bs were unremarkab le 03/25 Overactive urinary bladder 662577634 N32.81 recent urine is negative.r echeck was negative.l ikely overactive bladdersta rted on oxybutynin which is helping Anemia 802184208 D64.9 hb low at 10.3. vitamin b12, folate is normaliron level goodnormoc ytic normochron ic anemia.no ckd noted.no blood in stool Essential hypertension 13319452 I10 on amlodipine carvedilol , hctz, losartanbp optimalblo od work reviewed Osteoarthritis 323186248 M19.90 multiple joints. Involved Gastroesop hageal reflux disease 298388825 K21.9 on omeprazole History of total hip arthroplasty 9195185066 06 Z96.649 hx of bilateral hip arthroplas ty History of bilateral total knee replacement 7511629463 639458 Z96.653 hx of bilateral knee replacemen t Degenerati on of lumbar intervertebral disc 06939244 M51.360 multiple lumbar spine surgeries in the pasthx of vertebropl astyxr lumbar spine with ddd, no acute fracture Paresthesia of hand 3090 20816 R20.2 left hand in carpal tunnel distributi onlikely due to chronic wrist deformity due to old fracturesw ill increase gabapentin to 1-0.5-1inc reased gabapnetin to 800 mg bidhowefve r this is not helping rishi send referralto dr. 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 Fracture of femur 171173 00 S72.92XS History of left femur fracture and has a isabell placement. Preventive procedure 169 976876 Z29.9 covid: 3 shots, 2023flu: 2022, [id number]; 2018, recommend [id number] les: none: recommende dRSV: recommende dColonosco py: many years ago. age prohibitiv eMammogram many years ago. age prohibitiv parker density: 06/25: osteoporos isdiscusse d vaccinatio n with the patient and reviewed the vaccinatio n status [id number] Joshua Hermosillo MD [facility] [address] [place] [address] 02/08/2025 11:39:29 02/08/2025 12:53:06 Paresthesia of hand 765135044 R20.2 left hand in carpal tunnel distributi [...] iron is lower side normal mild anemia stable. Rotator cu ff arthropathy of right shoulder 1730915007 7107987 M25.811 S42.124D hx of rotator cuff surgerynow [...] activityim proving. Right rota tor cuff syndrome 1612757759 61219 M75.101 s/p right shoulder reverse rotator cuff surgery 2021 Traumatic intracranial subdural hematoma 647157555 S06.5X0D fall 07/2024.2024 started having right sided weaknessct head with left falx subdural hematomael iquid stoppedshe takes this for recurrent dvtdiscuss ed risk and beneftis due to recurrent fallsshe stoppped stop eliquis nowfu with neurosurge ry discussed. repeat ct 09/26: negativeho ri [facility] to continue for rehabilita tion which is discharged now Osteoporosis 02520279 M8 1.0 took fosamax only for a month and hence stopped due to nauseacalc ium and vitamin d replacemen t reviewed with the patientbon e density 05/25: osteoporos is.trial of lower dose of alendronat e and tolerating welldiscus sed calcium and vitamin D. discussed with the patientbronson martinez normal Thoracic back pain 59311 8004 M54.6 on and off intermitte nt painsxr thoracic spine done but has been done but not received it talked to [facility] medical records.xr thoracic spine with multilevel ddd, but no fracture noted Fatigue 67880451 R53.83 ongoing since past 3 weeks.not sleeping at nightlikel y etiologyla bs were unremarkab le 03/25 Overactive urinary bladder 602442827 N32.81 recent urine is negative.r echeck was negative.l ikely overactive bladdersta rted on oxybutynin which is helping Anemia 900571146 D64.9 hb low at 10.3. vitamin b12, folate is normaliron level goodnormoc ytic normochron ic anemia.no ckd noted.no blood in stoolferri tin 15.iron supplment Essential hypertension 64303958 I10 on amlodipine carvedilol , hctz, losartanbp optimalblo od work reviewed Osteoarthritis 887946567 M19.90 multiple joints. 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 Fracture of femur 195967 00 S72.92XS History of left femur fracture and has a isabell placement. Preventive procedure 169 429010 Z29.9 covid: 3 shots, 2023flu: 2022, [id number]; 2018, recommend [id number] les: none: recommende dRSV: recommende dColonosco py: many years ago. age prohibitiv eMammogram many years ago. age prohibitiv parker density: 06/25: osteoporos isdiscusse d vaccinatio n with the patient and reviewed the vaccinatio n status [id number] Joshua Hermosillo MD [facility] [address] [place] [address] 03/08/2025 09:45:48 03/08/2025 10:26:08 Paresthesia of hand 517381176 R20.2 left hand in carpal tunnel distributi [...] side normal mild anemia stable.on cymbalta; tolerating well. Rotator cu ff arthropathy of right shoulder 8112988404 1906460 M25.811 S42.124D hx of rotator cuff surgerynow [...] activityim proving. Right rota tor cuff syndrome 8171056309 98440 M75.101 s/p right shoulder reverse rotator cuff surgery 2021 Traumatic intracranial subdural hematoma 171639251 S06.5X0D fall 07/2024.2024 started having right sided weaknessct head with left falx subdural hematomael iquid stoppedshe takes this for recurrent dvtdiscuss ed risk and beneftis due to recurrent fallsshe stoppped stop eliquis nowfu with neurosurge ry discussed. repeat ct 09/26: negativeho [facility] to continue for rehabilita tion which is discharged now Osteoporosis 28907802 M8 1.0 took fosamax only for a month and hence stopped due to nauseacalc ium and vitamin d replacemen t reviewed with the patientbon e density 05/25: osteoporos is.trial of lower dose of alendronat e and tolerating welldiscus sed calcium and vitamin D. discussed with the patientbronson martinez normal Thoracic back pain 86715 8004 M54.6 on and off intermitte nt painsxr thoracic spine done but has been done but not received it talked to [facility] medical records.xr thoracic spine with multilevel ddd, but no fracture noted Fatigue 81509000 R53.83 ongoing since past 3 weeks.not sleeping at nightlikel y etiologyla bs were unremarkab le 03/25 Overactive urinary bladder 502491081 N32.81 recent urine is negative.r echeck was negative.l ikely overactive bladdersta rted on oxybutynin which is helping Anemia 473224483 D64.9 hb low at 10.3. vitamin b12, folate is normaliron level goodnormoc ytic normochron ic anemia.no ckd noted.no blood in stoolferri tin 15.iron supplement hb stable at 10 Essential hypertension 61096138 I10 on amlodipine carvedilol , hctz, losartanbp optimalblo od work reviewedmi ld microalbum inuria: 126 from 141 improved Osteoarthritis 329743951 M19.90 multiple joints. 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 Fracture of femur 661964 00 S72.92XS History of left femur fracture and has a isabell placement. Preventive procedure 169 460483 Z29.9 covid: 3 shots, 2023flu: 2022, [id number]; 2018, recommend [id number] les: none: recommende dRSV: recommende dColonosco py: many years ago. age prohibitiv eMammogram many years ago. age prohibitiv parker density: 06/25: osteoporos isdiscusse d vaccinatio n with the patient and reviewed the vaccinatio n status Microalbuminuria 7059936 06 R80.9 420088 positive 141 2023 now down to 126continu e to monitorspe p upep pending at [facility] 01/2025 [id number] Joshua Hermosillo MD [facility] [address] [place] [address] 04/11/2025 11:33:49 04/11/2025 13:10:05 Degeneration of lumbar intervertebral disc 40416178 M51.360 multiple lumbar spine surgeries in the pasthx of vertebropl astyxr lumbar spine with ddd, no acute fracture Paresthesia of hand 3090 75290 R20.2 left hand in carpal tunnel distributi [...] increased to [address] Sunshine for cervical mri and ncs/emg Rotator cu ff arthropathy of right shoulder 3482506176 0239032 M25.811 S42.124D hx of rotator cuff surgerynow [...] activityim proving. Right rota tor cuff syndrome 6105363359 05634 M75.101 s/p right shoulder reverse rotator cuff surgery 2021 Traumatic intracranial subdural hematoma 322566950 S06.5X0D fall 07/2024.2024 started having right sided weaknessct head with left falx subdural hematomael iquid stoppedshe takes this for recurrent dvtdiscuss ed risk and beneftis due to recurrent fallsshe stoppped stop eliquis nowfu with neurosurge ry discussed. repeat ct 09/26: negativeho [facility] to continue for rehabilita tion which is discharged now Osteoporosis 85908447 M8 1.0 took fosamax only for a month and hence stopped due to nauseacalc ium and vitamin d replacemen t reviewed with the patientbon e density 05/25: osteoporos is.trial of lower dose of alendronat e and tolerating welldiscus sed calcium and vitamin D. discussed with the maggi martinez normal Thoracic back pain 84896 8004 M54.6 on and off intermitte nt painsxr thoracic spine done but has been done but not received it talked to [facility] medical records.xr thoracic spine with multilevel ddd, but no fracture noted Fatigue 34516381 R53.83 ongoing since past 3 weeks.not sleeping at nightlikel y etiologyla bs were unremarkab le 03/25 Overactive urinary bladder 263198612 N32.81 recent urine is negative.r echeck was negative.l ikely overactive bladdersta rted on oxybutynin which is helping Anemia 116332467 D64.9 hb low at 10.3. vitamin b12, folate is normaliron level goodnormoc ytic normochron ic anemia.no ckd noted.no blood in stoolferri tin 15.iron supplement hb stable at 10 Essential hypertension 16081042 I10 on amlodipine carvedilol , hctz, losartanbp optimalblo od work reviewedmi ld microalbum inuria: 126 from 141 improved Osteoarthritis 029086719 M19.90 multiple joints. 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 Fracture of femur 935048 00 S72.92XS History of left femur fracture and has a isabell placement. Preventive procedure 169 517751 Z29.9 covid: 3 shots, 2023flu: 2022, [id number]; 2018, recommend [id number] les: none: recommende dRSV: recommende dColonosco py: many years ago. age prohibitiv eMammogram many years ago. age prohibitiv parker density: 06/25: osteoporos isdiscusse d vaccinatio n with the patient and reviewed the vaccinatio n status Microalbuminuria 2847746 06 R80.9 549691 positive 141 2023 now down to 126continu e to monitorspe p upep pending at [facility] 01/2025 Blood blister 403125742 T14.8XXA [id number] lanced and opened the blister. antibiotic cream and band aid place [id number] Joshua Hermosillo MD [facility] [address] [place] [address] 05/11/2025 10:42:53 05/11/2025 12:24:31 Degeneration of lumbar intervertebral disc 36074289 M51.360 multiple lumbar spine surgeries in the pasthx of vertebropl astyxr lumbar spine with ddd, no acute fracture Paresthesia of hand 3090 17167 R20.2 left hand in carpal tunnel distributi onlikely due to chronic wrist deformity due to old fracturesw ill increase gabapentin to 1-0.5-1inc reased gabapnetin to 800 mg bidhowefve r this is not helping muchwicarmelita send referralto dr. Kumar: nausea and stoppeddis [...] Rotator cu ff arthropathy of right shoulder 6313250877 0589590 M25.811 S42.124D hx of rotator cuff surgerynow [...] martinez orthopedic snoted.no more slingincre ase activityim proved Right rota tor cuff syndrome 6899074172 07358 M75.101 s/p right shoulder reverse rotator cuff surgery 2021 Traumatic intracranial subdural hematoma 033330222 S06.5X0D fall 07/2024.2024 started having right sided weaknessct head with left falx subdural hematomael iquid stoppedshe takes this for recurrent dvtdiscuss ed risk and beneftis due to recurrent fallsshe stoppped stop eliquis nowfu with neurosurge ry discussed. repeat ct 09/26: [facility]ho [facility] to continue for rehabilita tion which is discharged now Osteoporosis 23950274 M8 1.0 took fosamax only for a month and hence stopped due to nauseacalc ium and vitamin d replacemen t reviewed with the patientbon e density 05/25: osteoporos is.trial of lower dose of alendronat e and tolerating welldiscus sed calcium and vitamin D. discussed with the maggi martinez normal Thoracic back pain 81732 8004 M54.6 on and off intermitte nt painsxr thoracic spine done but has been done but not received it talked to [facility] medical records.xr thoracic spine with multilevel ddd, but no fracture noted Fatigue 62907836 R53.83 ongoing since past 3 weeks.not sleeping at nightlikel y etiologyla bs were unremarkab le 03/25 Overactive urinary bladder 902751831 N32.81 recent urine is negative.r echeck was negative.l adithya overactive bladdersta rted on oxybutynin which is helpingwil l switch to myrbetriq 25 mg daily Anemia [id number] D64.9 hb low at 10.3. vitamin b12, folate is normaliron level goodnormoc ytic normochron ic anemia.no ckd noted.no blood in stoolferri tin 15.iron supplement hb stable at 10 Essential hypertension 62171988 I10 on amlodipine carvedilol , hctz, losartanbp optimalblo od work reviewedmi ld microalbum inuria: 126 from 141 improved Osteoarthritis 088613750 M19.90 multiple joints. 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 Fracture of femur 442825 00 S72.92XS History of left femur fracture and has a isabell placement. Preventive procedure 169 368342 Z29.9 covid: 3 shots, 2023flu: 2022, [id number]; 2018, PCV21: 11/24tdap: 11/24shingl es: 11/24,RSV: recommende dColonosco py: many years ago. age prohibitiv eMammogram many years ago. age prohibitiv parker density: 06/25: osteoporos isdiscusse d vaccinatio n with the patient and reviewed the vaccinatio n status Microalbuminuria 1118930 06 R80.9 789594 positive 141 2023 now down to 126continu e to monitorspe p upep pending at [facility] 01/2025 [id number] Joshua Hermosillo MD [facility] [address] [place] [address] 06/08/2025 11:01:58 06/08/2025 11:46:40 Pain of knee region 4657106224 M25.561 [id number] injured right knee after a fallwill get xrayrigh knee is status post arthroplas ty Degenerati on of lumbar intervertebral disc 65584025 M51.360 multiple lumbar spine surgeries in the pasthx of vertebropl astyxr lumbar spine with ddd, no acute fracture Paresthesia of hand 3090 99026 R20.2 left hand in carpal tunnel distributi [...] Rotator cu ff arthropathy of right shoulder 1903877825 1234792 M25.811 S42.124D hx of rotator cuff surgerynow [...] [facility] orth[facility] snoted.no more slingincre ase activityim proved Right rota tor cuff syndrome [id number] 62132 M75.101 s/p right shoulder reverse rotator cuff surgery 2021 Traumatic intracranial subdural hematoma 386641772 S06.5X0D fall 07/2024.2024 started having right sided weaknessct head with left falx subdural hematomael iquid stoppedshe takes this for recurrent dvtdiscuss ed risk and beneftis due to recurrent fallsshe stoppped stop eliquis nowfu with neurosurge ry discussed. repeat ct 09/26: negativeho ri health to continue for rehabilita tion which is discharged now Osteoporosis 68388304 M8 1.0 took fosamax only for a month and hence stopped due to nauseacalc ium and vitamin d replacemen t reviewed with the patientbon e density 05/25: osteoporos is.trial of lower dose of alendronat e and tolerating welldiscus sed calcium and vitamin D. discussed with the patientbronson martinez normal Thoracic back pain 44211 8004 M54.6 on and off intermitte nt painsxr thoracic spine done but has been done but not received it talked to [facility] medical records.xr thoracic spine with multilevel ddd, but no fracture noted Fatigue 87234658 R53.83 ongoing since past 3 weeks.not sleeping at nightlikel y etiologyla bs were unremarkab le 03/25 Overactive urinary bladder 118871090 N32.81 recent urine is negative.r echeck was negative.l adithya overactive bladdersta rted on oxybutynin which is helpingswi tched to myrbetriq 25 mg daily and helps Anemia 714068011 D64.9 hb low at 10.3. vitamin b12, folate is normaliron level goodnormoc ytic normochron ic anemia.no ckd noted.no blood in stoolferri tin 15.iron supplement hb stable at 10 Essential hypertension 20716482 I10 on amlodipine carvedilol , hctz, losartanbp optimalblo od work reviewedmi ld microalbum inuria: 126 from 141 improved Osteoarthritis 314346033 M19.90 multiple joints. 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 Fracture of femur 003627 00 S72.92XS History of left femur fracture and has a isabell placement. Preventive procedure 169 514948 Z29.9 covid: 3 shots, 2023flu: 2022, [id number]; 2018, PCV21: 11/24tdap: 11/24shingl es: 11/24,RSV: recommende dColonosco py: many years ago. age prohibitiv eMammogram many years ago. age prohibitiv parker density: 06/25: osteoporos isdiscusse d vaccinatio n with the patient and reviewed the vaccinatio n status Microalbuminuria 8272389 06 R80.9 069350 positive 141 2023 now down to 126continu e to monitorspe p upep pending at [facility] 01/2025 Health Concerns Section Related Observation LastModified by Organization Detai ls LastModified Time None Recorded Concern Status LastModified by Organization Details LastModified Time None Recorded Advance Directives Directive None Recorded Payers Insurance Date Sequence Insurance Name Policy Number Policy Felipe Covered Member ID Felipe Member ID Guarantor Name 06/05/2025 2 [place] [facility] Lauren D Boner [id number] Lauren D Boner 06/05/2025 1 [employer] (MEDICARE REPLACEMENT/A DVANTAGE - PPO) [id number] Lauren D Boner [id number] Lauren D Boner 02/08/2025 2 [place] Lauren D Boner [id number] Lauren D Boner Notes Date Note Type Note Provider Name and Address Organization Details Recorded Time 02/08/2025 text/html ROS as noted in the HPI Pt here for follow up. Pt states pain improved in right shoulder. Fracture healed. Pt cont. to see ortho. Pt uses cane for ambulation. No chest pain, nausea or vomiting. Pt is having occasional shortness of breath with ambulation. Good appetite. discussed cymbatla. reviewed lab results durign the visit MD Maria Del Carmen Dumont [address], [place], [address], [facility] 02/08/2025 12:50:34 03/08/2025 text/html ROS as noted in the HPI Patient here for follow up. Shoulder pain improved. Patient complains about burning sensation in lower legs. Pt stopped taking Cymbalta due to upset stomach but has recently restarted taking it. Uses cane for ambulation. No chest pain, shortness of breath, nausea or vomiting. labs reviewed with the patient. MD Maria Del Carmen Dumont [address], [place], [address], [facility] 03/08/2025 10:23:15 04/11/2025 text/html ROS as noted in the HPI Pt here for follow up. Patient stubbed 3rd right toe 3 days ago on a wooden table. She c/o of throbbing when wearing a shoe. She has a podiatrists appt next week for trimming of toe nails. She recently seen neurologists who scheduled MRI and EMG. Pt states burning sensation in feet and legs have increased. Patient using a cane for ambulation. No chest pain, shortness of breath, nausea or vomiting. Johsua Hermosillo MD [address], [place], [address], [facility] 04/11/2025 13:07:54 05/11/2025 text/html ROS as noted in the HPI Pt here for follow up. Pt c/o burning and tingling in feet and hands.She is wearing a glove on her left hand. Pt and daughter would like to discuss increasing pregabalin. Pt states shoulder pain improved. She is using a cane for ambulation. No recent falls, no chest pain, shortness of breath, nausea or vomiting. states oxybutynin not help much. [employer] states myrbetriq is low cost option as well. Joshua Hermosillo MD [address] [facility] [address], [place], [address], [facility] 05/11/2025 12:19:33 06/08/2025 text/html ROS as noted in the [...] or vomiting. Joshua Hermosillo MD [address] [facility] [address], [place], [address], [facility] 06/08/2025 11:42:36 OBGyn Episode No OBEpisode recorded.
--- OUTSIDE RECORDS SUMMARY | 2025-06-08 12:13 | XMS_ITS | Clinical Summary ---
Author Organization [facility] Address [address] [place] [address] Care Team Providers Care Clinician Oncology Name Role Phone Sydnee Sheldon MD Primary Care Provider [phone] Source Comments [facility],non-owned Affiliates and Associated Physician Practices is amultiple site organization consisting of ambulatory clinics and hospital sitesin [place], [place], [place] and [place]. This disclosure is being madepursuant to the Care Everywhere program and may not contain all information available regarding this patient. Last updated 18.[facility] [email or web address] Allergies No known active allergies Medications * [...] Immunizations Immunization Administration Dates Next Due [employer] primary monoval ent 12+ yr 0.3mL Purple [...] on file Legal Sex Female 7:23 PM INFORMATICS SPEC Gender Identity Not on file Sexual Orientation [...] 2 - PCV20 or PCV21) 01/26/2019 01/26/2018 DEPRESSION SCREENING 08/02/2024 COVID-19 VACCINE (3 - 2024- season) 2025 09/27/2020, 09/06/2020 INFLUENZA VACCINE (#1) 2025 , 06/01/2019, 06/08/2018, Additional history exists HEPATITIS B [...] this topic Medical Devices Implanted Type Area Primary Operator Device Identifier Shelf Expiration Date Model / Serial / Lot Graft Bone Magdi Frzdr Strut 11-24x2cm Implanted:Qty: 1 on 03/27/2019 by Vahe Garcia MD at [facility] Left: Hip [employer] 10/07/2022 [id number] / / [id number] Emily-Loc 4.5mm T25 Lock Screw 14mm S-T Implanted:Qty: 1 on 03/27/2019 by Vahe Garcia MD at [facility] Left: Hip [id number] / / Description:SCREW Screw 4.5mm 8mm 36mm T25 Cortx Slf-Tap Implanted:Qty: 1 on 03/27/2019 by Vahe Garcia MD at [facility] Left: Hip [employer] [id number] / / Description:EMILY-LOC 4.5MM T 25 CRTX SCREW 36MM S-T--03/30 LG Screw 4.5mm 8mm 34mm T25 Flut Lng Bone Implanted:Qty: 1 on 03/27/2019 by Vahe Garcia MD at [facility] Left: Hip [employer] [id number] / / Description:EMILY-LOC 4.5MM T 25 CRTX SCREW 34MM S-T--03/30 LG Cable Orth Ss 2mm Hip Clp Accord Implanted:Qty: 1 on 03/27/2019 by Vahe Garcia MD at [facility] Left: Hip [employer] 08/23/2028 [id number] / / [id number] Description:ACC 2.0MM SS CAB LE W/CLAMP - 03/30 LG Cable Orth Ss 2mm Hip Clp Accord Implanted:Qty: 1 on 03/27/2019 by Vahe Garcia MD at [facility] Left: Hip [employer] 10/26/2028 [id number] / / [id number] Description:ACC 2.0MM SS CAB LE W/CLAMP - 03/30 LG Cable Orth Ss 2mm Hip Clp Accord Implanted:Qty: 1 on 03/27/2019 by Vahe Garcia MD at [facility] Left: Hip [employer] 11/25/2028 [id number] / / [id number] Description:ACC 2.0MM SS CAB LE W/CLAMP - 03/30 LG Cable Orth Ss 2mm Hip Clp Accord Implanted:Qty: 1 on 03/27/2019 by Vahe Garcia MD at [facility] Left: Hip [employer] 11/25/2028 [id number] / / [id number] Description:ACC 2.0MM SS CAB LE W/CLAMP - 03/30 LG 4.5mm Prox Femur Lck Plate 12h L 288mm Implanted:Qty: 1 on 03/27/2019 by Vahe Garcia MD at [facility] Left: Hip [employer] [id number] / / Description:PLATE Screw 4.5mm 7.9mm 10mm T25 3 Ld Thrd 3 Implanted:Qty: 3 on 03/27/2019 by Vahe Garcia MD at [facility] Left: Hip [employer] [id number] / / Description:EMILY-LOC 4.5MM T 25 BLUNT TIP SCREW 10MM--03/30 LG Screw 4.5mm 7.9mm 38mm T25 Slf-Tap Lck Implanted:Qty: 1 on 03/27/2019 by Vahe Garcia MD at [facility] Left: Hip [employer] [id number] / / Cmnt Bone Rally 40gm Hvisc Sprmnt Grn Implanted:Qty: 3 on 12/09/2020 by Vahe Garcia MD at [facility] Left: Knee [employer] 03/01/2025 [id number] / / [id number] Compon Fem Legion Ps Oxin Narr L Sz 5 Implanted:Qty: 1 on 12/09/2020 by Vahe Garcia MD at [facility] Left: Knee [employer] 06/02/2030 [id number] / / [id number] Tibial Baseplate Implanted:Qty: 1 on 12/09/2020 by Vahe Garcia MD at [facility] Left: Knee [employer] 09/05/2029 [id number] / / [id number] Ins Lgn Ps Hi-Flex X-Link Sz 5-6 18mm Implanted:Qty: 1 on 12/09/2020 by Vahe Garcia MD at [facility] Left: Knee [employer] 03/19/2025 [id number] / / [id number] Explanted Type Area Primary Operator Device Identifier Shelf Expiration Date Model / Serial / Lot Cable Orth Ss 2mm Hip Clp Accord Explanted:Qty: 1 on 03/27/2019 by Vahe Garcia MD at [facility] Left: Hip [employer] 09/26/2028 [id number] / / [id number] Description:ACC 2.0MM SS CAB LE W/CLAMP - 03/30 LG Insurance [facility] MANAGED MEDICARE ADV [facility] [place] [address] Advance Directives * Full Code (Latest Code Status on File) Date Activated Date Inactivated Comments 12/09/2020 3:39 PM 12/10/2020 5:00 PM * Full Code Date Activated Date Inactivated Comments 03/25/2019 2:00 PM 03/30/2019 7:48 PM * Full Code Date Activated Date Inactivated Comments 03/25/2019 12:21 PM 03/25/2019 2:00 PM Care Teams Clinician Oncology Relationship Specialty Start Date End Date Sydnee Sheldon MD [address] [place] [address] PCP - General 04/18/19
== END 2025-06-08 11:37 | disposition home or self-care (01) ==
PROVIDERS: PCP Internal Medicine; Visit Provider Internal Medicine
DX: M25.561 Pain in right knee (principal); Z98.890 Other specified postprocedural states
CPT/HCPCS: 73562

== ENCOUNTER 2025-07-30 12:43 | Outpatient (CLI) | payer MEDICARE, MEDICAID, SELFPAY ==
--- NOTE | 2025-07-30 | ECHO_ITS ---
Patient Info Name: Lauren Ingram Age: 85 years : 1940 Gender: Female Ht: 62 in Wt: 153 lbs BSA: 1.76 m2 HR: 60 bpm BP: 177 / 92 mmHg Technical Quality: Good Exam Date: 07/30/2025 1:04 PM Patient Status: O Admit Date: 07/30/2025 Exam Type: CA echo doppler color flow Complete two-dimensional, color flow and Doppler transthoracic echocardiogram is performed. X Ray Developer: Erin Reid Attending Provider: Joshua Hermosillo Summary 1. Complete two-dimensional, color flow and Doppler transthoracic echocardiogram is performed. 2. Left ventricular systolic function is normal, estimated at 60-65. 3. Linear artifact in right ventricle suggestive of catheter(s), pacemaker lead(s), or ICD lead(s). 4. There is mild aortic valve calcification. 5. There is no aortic valve stenosis. 6. There is mild mitral valve regurgitation. 7. There is mild tricuspid valve regurgitation. 8. Mild pulmonary hypertension, estimated pulmonary arterial systolic pressure is 44 mmHg. 9. There is mild pulmonic regurgitation. Left Ventricle Left ventricular chamber dimension is normal. Left ventricular systolic function is normal, estimated at 60-65. There is no increased left ventricular wall thickness. Left ventricular septal wall motion is normal. The left ventricular diastolic function is abnormal. Right Ventricle Right ventricular chamber dimension is normal. Right ventricular systolic function is normal. Linear artifact in right ventricle suggestive of catheter(s), pacemaker lead(s), or ICD lead(s). Left Atria Left atrial chamber dimension is normal. Right Atria Right atrial chamber dimension is normal. Aortic Valve The aortic valve is trileaflet. There is no aortic valve stenosis. There is no aortic valve regurgitation. There is mild aortic valve calcification. Pulmonic Valve The pulmonic valve is normal. There is no pulmonic valve stenosis. There is mild pulmonic regurgitation. Mitral Valve The mitral valve has normal leaflets. There is no mitral valve stenosis. There is mild mitral valve regurgitation. Tricuspid Valve The tricuspid valve leaflets are normal. There is no significant tricuspid valve stenosis. There is mild tricuspid valve regurgitation. Mild pulmonary hypertension, estimated pulmonary arterial systolic pressure is 44 mmHg. Pericardium/Pleural The pericardium appears normal. There is no pericardial effusion. Inferior Vena Cava Normal inferior vena cava with >50% collapse upon inspiration consistent with normal right atrial pressure, 5 mmHg. Aorta The aortic root size at the sinus of Valsalva is normal. The prox ascending aorta size is normal. Left Ventricular Outflow Tract Name Value Normal LVOT 2D LVOT Diameter 2.0 cm LVOT Doppler LVOT Peak Velocity 172 cm/s LVOT Peak Gradient 5 mmHg LVOT Mean Gradient 3 mmHg LVOT VTI 40 cm LVOT VTI/AV VTI Ratio 0.7 LVOT Stroke Volume 124 ml LVOT CO 4.5 l/min LVOT CI 2.6 l/min/m2 Pulmonic Valve Name Value Normal RVOT Doppler RVOT Peak Velocity 76 cm/s RVOT Peak Gradient 2 mmHg PV Doppler PV Peak Velocity 92 cm/s PV Peak Gradient 3 mmHg Mitral Valve Name Value Normal MV Diastolic Function MV E Peak Velocity 82 cm/s MV A Peak Velocity 96 cm/s MV E/A 0.9 MV Decel Time (PW) 297 ms Tricuspid Valve Name Value Normal TV Regurgitation Doppler TR Peak Velocity 311 cm/s TR Peak Gradient 39 mmHg Estimated PAP/RSVP RA Pressure 5 mmHg <=5 PA Systolic Pressure 44 mmHg <36 RV Systolic Pressure 44 mmHg <36 TV Annular TDI TV Lateral Thalia s' Velocity 11.6 cm/s >=9.5 Aorta Name Value Normal Ascending Aorta Ao Root Diameter (MM) 3.2 cm Ao Root Diam Index (MM) 1.8 cm/m2 Aortic Valve Name Value Normal AV Doppler AV Peak Velocity 250 cm/s AV Peak Gradient 18 mmHg AV Mean Gradient 9 mmHg AV VTI 55 cm AV Area (Cont Eq VTI) 2.3 cm2 >=3.0 AV Area (Cont Eq Nigel) 2.1 cm2 AV DI (Nigel) 0.69 AV Regurgitation 2D LVOT Area 3.1 cm2 Ventricles Name Value Normal LV Dimensions 2D/MM IVS Diastolic Thickness (2D) 0.6 cm 0.6-1.0 IVS Diastole Thickness (MM) 0.6 cm 0.6-0.9 LVID Diastole (2D) 4.2 cm 3.8-5.2 LVID Diastole (MM) 5.3 cm 3.8-5.2 LVIW Diastolic Thickness (2D) 0.8 cm 0.6-0.9 LVIW Diastolic Thickness (MM) 0.7 cm 0.6-0.9 LVID Systole (2D) 2.2 cm 2.2-3.5 LVID Systole (MM) 2.0 cm 2.2-3.5 LVOT Diameter 2.0 cm LV Mass (2D Cubed) 90.38 g 67.00-162.00 LV Mass Index (2D Cubed) 51 g/m2 43-95 Relative Wall Thickness (2D) 0.40 <=0.42 LV Mass (MM Cubed) 116.12 g 67.00-162.00 LV Mass Index (MM Cubed) 66 g/m2 43-95 Relative Wall Thickness (MM) 0.26 LV Fractional Shortening/Ejection Fraction 2D/MM LV Fractional Shortening (2D) 48 % 27-45 LV Fractional Shortening (MM) 61 % 27-45 LV EF (MM Teichholz) 90 % LV EF (2D Teichholz) 80 % LV Diastolic Volume (4C MOD) 52 ml LV EF (4C MOD) 64 % LV Diastolic Volume (2C MOD) 50 ml LV EF (2C MOD) 59 % LV Diastolic Volume (BP MOD) 50 ml 46-106 LV Diastolic Volume Index (BP MOD) 29 ml/m2 29-61 LV Systolic Volume (BP MOD) 20 ml 14-42 LV Systolic Volume Index (BP MOD) 12 ml/m2 8-24 LV EF (BP MOD) 59 % 54-74 LV Diastolic Length (4C) 7.4 cm LV Systolic Length (4C) 5.8 cm LV Stroke Volume (4C MOD) 33 ml Atria Name Value Normal LA Dimensions LA Dimension (MM) 4.6 cm 2.7-3.8 Report Signatures
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
--- OUTSIDE RECORDS SUMMARY | 2025-07-30 12:52 | XMS_ITS | Data Portability ---
Author Organization [facility] ([employer]), Main Office Address [address] [place] [address] Assessment No assessment recorded. Plan of Treatment Reminders Order Date Submit Date Provider Last Modified By Organization Details Last Modified Time Details Appointments None recorded. Lab vitamin B12 + folate, serum or blood [address] (Lab), [address] [place], [address], 4 08:00:08 vitamin D, 1,25-dihydr oxy, serum [address] (Lab), [address] [place], [address], 4 08:00:08 TSH, serum or plasma [address] (Lab), [address] [place], [address], 4 08:00:08 unlisted lab - CBC study [address] (Lab), [address] [place], [address], 4 08:00:08 BMP, serum or plasma [facility] [address] [place], [address], 4 21:43:30 CBC w/ auto diff 2023 024 [email or web address] 477 [facility] (Lab), [address] [place], [address], 4 08:07:02 ferritin, serum or plasma 2023 024 [facility] (Lab), [address] [place], [address], 4 21:48:24 iron + total iron-bindin g capacity (TIBC), serum 2023 024 [facility] (Lab), [address] [place], [address], 4 21:42:14 CBC w/ auto diff 2023 024 [facility] (Lab), [address] [place], [address], 4 21:03:12 BMP, serum or plasma 2023 024 [email or web address] 4 [facility] (Lab), [address] [place], [address], 4 13:56:01 vitamin B12 + folate, serum or blood 2023 024 4 [facility] (Lab), [address] [place], [address], 4 10:12:04 vitamin D, 1,25-dihydr oxy, serum 2023 024 [email or web address] 4 [facility] (Lab), [address] [place], [address], 4 10:11:37 BMP, serum or plasma 2023 024 [email or web address] 4 [facility] (Lab), [address] [place], [address], 4 10:13:07 lipid panel, serum 2023 024 [email or web address] 4 [facility] (Lab), [address] [place], [address], 4 10:12:34 Referral None recorded. Procedures None recorded. Surgeries None recorded. Imaging None recorded. Medication Orders alendronate 70 mg tablet 2023 024 [id number], [address] [place], [place], [id number], 4 15:49:00 venlafaxine ER 150 mg capsule,ext ended release 24 hr 2023 024 [facility] #[id number], [address] [place], [place], [id number], 4 16:59:52 carvedilol 6.25 mg tablet 2023 024 [facility] [address], [facility] [place], [address], 4 15:44:44 venlafaxine ER 75 mg capsule,ext ended release 24 hr 2023 024 [facility] [address], [facility] [place], [address], 4 15:44:46 Patient TargetsNo targets recorded. Patient InstructionsNo instructions recorded. Reason for Referral None Reported. Results Created Date Observation Date Name Description Value Unit Range Abnormal Flag Note LastModifiedBy Organization Detail LastModifiedTime 11/30/19 24 11/30/2023 CBC/C OMPLE TE BLD COUNT W/DIF F white blood cells 4.5 x10'3 /uL 4.2-10 .8 Not Available [facility] (Lab) [address] [place], [address], 11/30/2023 21:03:12 11/30/19 24 11/30/2023 CBC/C OMPLE TE BLD COUNT W/DIF F red blood cells 3.84 x10'6 /uL 3.80-5 .20 Not Available [facility] (Lab) [address] [place], [address], 11/30/2023 21:03:12 11/30/19 24 11/30/2023 CBC/C OMPLE TE BLD COUNT W/DIF F hemoglobin 11.1 g/dL 12.0-1 5.6 low Not Available [facility] (Lab) [address] [place], [address], 11/30/2023 21:03:12 11/30/19 24 11/30/2023 CBC/C OMPLE TE BLD COUNT W/DIF F hematocrit 33.5 % 35.7-4 5.7 low Not Available [facility] (Lab) [address] [place], [address], 11/30/2023 21:03:12 11/30/19 24 11/30/2023 CBC/C OMPLE TE BLD COUNT W/DIF F mean red cell volume 87.2 fL 82.0-9 9.0 Not Available [facility] (Lab) [address] [place], [address], 11/30/2023 21:03:12 11/30/19 24 11/30/2023 CBC/C OMPLE TE BLD COUNT W/DIF F mean red cell hemoglobin 28.9 pg 27.0-3 3.0 Not Available [facility] (Lab) [address] [place], [address], 11/30/2023 21:03:12 11/30/19 24 11/30/2023 CBC/C OMPLE TE BLD COUNT W/DIF F mean RBC HGB concentratio n 33.1 g/dL 31.0-3 6.0 Not Available [facility] (Lab) [address] [place], [address], 11/30/2023 21:03:12 11/30/19 24 11/30/2023 CBC/C OMPLE TE BLD COUNT W/DIF F red cell distribution width 13.8 % 11.8-1 5.5 Not Available [facility] (Lab) [address] [place], [address], 11/30/2023 21:03:12 11/30/19 24 11/30/2023 CBC/C OMPLE TE BLD COUNT W/DIF F platelets 337 x10'3 /uL 150-40 0 Not Available [facility] (Lab) [address] [place], [address], 11/30/2023 21:03:12 11/30/19 24 11/30/2023 CBC/C OMPLE TE BLD COUNT W/DIF F mean platelet volume 9.8 fL 9.0-12 .4 Not Available [facility] (Lab) [address] [place], [address], 11/30/2023 21:03:12 11/30/19 24 11/30/2023 CBC/C OMPLE TE BLD COUNT W/DIF F neutrophils 52.8 % 39.0-7 2.0 Not Available [facility] (Lab) [address] [place], [address], 11/30/2023 21:03:12 11/30/19 24 11/30/2023 CBC/C OMPLE TE BLD COUNT W/DIF F lymphocytes 29.3 % 16.0-4 7.0 Not Available [facility] (Lab) [address] [place], [address], 11/30/2023 21:03:12 11/30/19 24 11/30/2023 CBC/C OMPLE TE BLD COUNT W/DIF F monocytes 14.1 % 5.0-12 .0 high Not Available [facility] (Lab) [address] [place], [address], 11/30/2023 21:03:12 11/30/19 24 11/30/2023 CBC/C OMPLE TE BLD COUNT W/DIF F eosinophils 2.2 % 1.0-7. 0 Not Available [facility] (Lab) [address] [place], [address], 11/30/2023 21:03:12 11/30/19 24 11/30/2023 CBC/C OMPLE TE BLD COUNT W/DIF F basophils 0.9 % 0.0-2. 0 Not Available [facility] (Lab) [address] [place], [address], 11/30/2023 21:03:12 11/30/19 24 11/30/2023 CBC/C OMPLE TE BLD COUNT W/DIF F immature granulocytes 0.7 % 0.00-0 .50 high Not Available [facility] (Lab) [address] [place], [address], 11/30/2023 21:03:12 11/30/19 24 11/30/2023 CBC/C OMPLE TE BLD COUNT W/DIF F neutrophils, absolute count 2.40 x10'3 /uL 1.5-8. 0 Not Available [facility] (Lab) [address] [place], [address], 11/30/2023 21:03:12 11/30/19 24 11/30/2023 CBC/C OMPLE TE BLD COUNT W/DIF F lymphocytes, absolute count 1.33 x10'3 /uL 1.07-3 .43 Not Available [facility] (Lab) [address] [place], [address], 11/30/2023 21:03:12 11/30/19 24 11/30/2023 CBC/C OMPLE TE BLD COUNT W/DIF F monocytes, absolute count 0.64 x10'3 /uL 0.29-0 .99 Not Available [facility] (Lab) [address] [place], [address], 11/30/2023 21:03:12 11/30/19 24 11/30/2023 CBC/C OMPLE TE BLD COUNT W/DIF F eosinophils, absolute count 0.10 x10'3 /uL 0.02-0 .53 Not Available [facility] (Lab) [address] [place], [address], 11/30/2023 21:03:12 11/30/19 24 11/30/2023 CBC/C OMPLE TE BLD COUNT W/DIF F basophils, absolute count 0.04 x10'3 /uL 0.01-0 .08 Not Available [facility] (Lab) [address] [place], [address], 11/30/2023 21:03:12 11/30/19 24 11/30/2023 CBC/C OMPLE TE BLD COUNT W/DIF F immature granulocytes ,absolute 0.03 x10'3 /uL 0.00-0 .05 Not Available [facility] (Lab) [address] [place], [address], 11/30/2023 21:03:12 11/30/19 24 11/30/2023 CBC/C OMPLE TE BLD COUNT W/DIF F nucleated red blood cells 0.0 % -0 Not Available [facility] (Lab) [address] [place], [address], 11/30/2023 21:03:12 11/30/19 24 11/30/2023 CBC/C OMPLE TE BLD COUNT W/DIF F NRBC# 0.00 x10'3 /uL Not Available [facility] (Lab) [address] [place], [address], 11/30/2023 21:03:12 11/30/19 24 11/30/2023 IRON/ TIBC PANEL total iron binding capacity 340 mcg/d L 265-47 5 Not Available [facility] (Lab) [address] [place], [address], 11/30/2023 21:46:33 11/30/19 24 11/30/2023 IRON/ TIBC PANEL % transferrin saturation 24 % 20-55 Not Available [facility] (Lab) [address] [place], [address], 11/30/2023 21:46:33 11/30/19 24 11/30/2023 IRON/ TIBC PANEL unsaturated iron bind capacity 257 mcg/d L 126-38 2 Not Available [facility] (Lab) [address] [place], [address], 11/30/2023 21:46:33 11/30/19 24 11/30/2023 IRON/ TIBC PANEL iron 83 mcg/d L 42-175 Not Available [facility] (Lab) [address] [place], [address], 11/30/2023 21:46:33 11/30/19 24 11/30/2023 BASIC METAB OLIC PANEL sodium 130 mmol/ L 137-14 5 low Not Available [facility] (Lab) [address] [place], [address], 11/30/2023 21:43:30 11/30/19 24 11/30/2023 BASIC METAB OLIC PANEL potassium 3.9 mmol/ L 3.5-5. 1 Not Available [facility] (Lab) [address] [place], [address], 11/30/2023 21:43:30 11/30/19 24 11/30/2023 BASIC METAB OLIC PANEL chloride 94 mmol/ L 98-107 low Not Available [facility] (Lab) [address] [place], [address], 11/30/2023 21:43:30 11/30/19 24 11/30/2023 BASIC METAB OLIC PANEL carbon dioxide 29 mmol/ L 22-30 Not Available [facility] (Lab) [address] [place], [address], 11/30/2023 21:43:30 11/30/19 24 11/30/2023 BASIC METAB OLIC PANEL anion gap 10.9 mmol/ L 14-22 low Not Available [facility] (Lab) [address] [place], [address], 11/30/2023 21:43:30 11/30/19 24 11/30/2023 BASIC METAB OLIC PANEL glucose 80 mg/dL 70-99 Not Available [facility] (Lab) [address] [place], [address], 11/30/2023 21:43:30 11/30/19 24 11/30/2023 BASIC METAB OLIC PANEL BUN 16 mg/dL 8-19 Not Available [facility] (Lab) [address] [place], [address], 11/30/2023 21:43:30 11/30/19 24 11/30/2023 BASIC METAB OLIC PANEL creatinine 0.75 mg/dL 0.66-1 .25 Not Available [facility] (Lab) [address] [place], [address], 11/30/2023 21:43:30 11/30/19 24 11/30/2023 BASIC METAB OLIC PANEL GFR >60 Refer ence Range : Lyle ge GFR Healt hy Adult : >60 [...] calcu lator is avail able on the [facility] websi te: https ://ww w.kid eliud.o rg/pr ofess ional s/kdo qi/gf r_cal culat or Not Available [facility] (Lab) [address] [place], [address], 11/30/2023 21:43:30 11/30/19 24 11/30/2023 BASIC METAB OLIC PANEL calcium 9.2 mg/dL 8.4-10 .2 Not Available [facility] (Lab) [address] [place], [address], 11/30/2023 21:43:30 11/30/19 24 11/30/2023 SHAHANA TIN ferritin 36 NG/mL 11.1-2 64 Not Available [facility] (Lab) [address] [place], [address], 11/30/2023 21:48:24 01/25/20 24 01/25/2024 URINE DRUG SCREE N amphetamines NEGATI VE Amphe tamin e cut off 500 ng/mL Not Available [facility] (Lab) [address] [place], [address], 01/25/2024 23:25:43 01/25/20 24 01/25/2024 URINE DRUG SCREE N barbiturates NEGATI VE Patricia turat e cut off 200 ng/mL Not Available [facility] (Lab) [address] [place], [address], 01/25/2024 23:25:43 01/25/20 24 01/25/2024 URINE DRUG SCREE N benzodiazepi alicia NEGATI VE Benzo diaze pine cut off 200 ng/mL Not Available [facility] (Lab) [address] [place], [address], 01/25/2024 23:25:43 01/25/20 24 01/25/2024 URINE DRUG SCREE N cocaine NEGATI VE Cocai ne metab olite cut off 150 ng/mL Not Available [facility] (Lab) [address] [place], [address], 01/25/2024 23:25:43 01/25/20 24 01/25/2024 URINE DRUG SCREE N fentanyl NEGATI VE Fenta nyl cut off 1.0 ng/mL Not Available [facility] (Lab) [address] [place], [address], 01/25/2024 23:25:43 01/25/20 24 01/25/2024 URINE DRUG SCREE N methadone NEGATI VE Metha done cutof f 300 ng/mL . Not Available [facility] (Lab) [address] [place], [address], 01/25/2024 23:25:43 01/25/20 24 01/25/2024 URINE DRUG SCREE N opiates POSITI VE abnormal Opiat e cut off 300 ng/mL Not Available [facility] (Lab) [address] [place], [address], 01/25/2024 23:25:43 01/25/20 24 01/25/2024 URINE DRUG SCREE N oxycodone NEGATI VE Oxyco done cut off 100 ng/mL Not Available [facility] (Lab) [address] [place], [address], 01/25/2024 23:25:43 01/25/20 24 01/25/2024 URINE DRUG SCREE N phencyclidin e NEGATI VE PCP cut off 25 ng/mL Not Available [facility] (Lab) [address] [place], [address], 01/25/2024 23:25:43 01/25/20 24 01/25/2024 URINE DRUG SCREE N marijuana NEGATI VE abnormal Marij uana cut off 50 ng/mL ANY POSIT VLADIMIR RESUL TS REPOR GILBERTO ARE UNCON FIRME D, AND SUCH, SHOUL D BE USED FOR MEDIC AL TREAT MENT PURPO SES ONLY. Not Available [facility] (Lab) [address] [place], [address], 01/25/2024 23:25:43 Result Notes None recorded. Problems Name Problem SNOMED Code Status Onset Date Resolution Date Notes Provider Name and Address Organization Details Recorded Time Hypertensi ve disorder 10619494 Active Not Available [facility] 3 00:46:22 Knee pain Active 2009 Not Available [facility] 3 00:46:22 Generalize d osteoarthr itis 944737818 Active 2012 Not Available [facility] 3 00:46:21 Essential hypertensi on 71051588 Active 2012 Not Available [facility] 3 00:46:23 Long-term current use of anticoagul ant 531278270 Active 2012 Not Available [facility] 3 00:46:24 Acute sinusitis 97811573 Active 2012 Not Available [facility] 3 00:46:20 Acute suppurativ e otitis media 194033674 Active 2012 Not Available [facility] 3 00:46:21 Headache 43681528 Active 2012 Not Available [facility] 3 00:46:21 Vitamin D deficiency 85506045 Active 2012 Not Available [facility] 3 00:46:22 Chronic tension-ty pe headache 707163189 Active 2012 Not Available [facility] 3 00:46:21 Strain of trapezius muscle 202384847 Active 2012 Not Available [facility] 3 00:46:23 Otitis media of left ear 6305930077528 100 Active 2012 Not Available [facility] 3 00:46:20 Fibromyalg ia 444047068 Active 2013 Not Available [facility] 3 00:46:21 Bilateral lower limb edema 512868841 Active 2013 Not Available [facility] 3 00:46:24 Gastroesop hageal reflux disease 519788558 Active 2013 Not Available [facility] 3 00:46:21 Nausea 949505042 Active 2013 Not Available [facility] 3 00:46:23 Pain of joint of hand 105444643 Active 2013 Not Available [facility] 3 00:46:21 Pain of joint of ankle and/or foot 372010915 Active 2013 Not Available [facility] 3 00:46:21 Pain of joint 96348173 Active 2013 Not Available [facility] 3 00:46:23 Osteopenia 176275805 Active 2017 DEXA 02/16 Not Available [facility] 3 00:46:22 Closed fracture of hip 351268875 Active 2018 Not Available [facility] 3 00:46:22 Fracture of femur 52051446 Active 2018 Not Available [facility] 3 00:46:24 Deep venous thrombosis 086450781 Active 2019 x 2 Not Available [facility] 3 00:46:20 Abscess 456793843 Active 2019 Not Available [facility] 3 00:46:20 Chronic back pain 017822691 Active 2019 Not Available [facility] 3 00:46:20 Arthritis 5474164 Active 2019 Not Available [facility] 3 00:46:22 Hyperlipid emia 24995466 Active 2019 Not Available [facility] 3 00:46:23 Neck pain 28154713 Active 2019 Not Available [facility] 3 00:46:24 Arthritis of left knee joint 0706961272284 104 Active 2020 Not Available [facility] 3 00:46:19 History of right total knee replacemen t 2923236624744 102 Active 2020 Not Available [facility] 3 00:46:20 Syncope 320129356 Active 2020 Not Available [facility] 3 00:46:21 Periprosth etic fracture 760767600 Active 2020 Not Available [facility] 3 00:46:23 History of total knee arthroplas ty 9618771144473 Active 2020 Not Available [facility] 3 00:46:20 Iron deficiency anemia 53846662 Active 2020 Not Available [facility] 3 00:46:24 Pain of right shoulder joint 9468559375936 9100 Active 2021 Not Available [facility] 3 00:46:20 Perioral dermatitis 926488151 Active 2022 UDAY Hayward [address], [address] , [employer] [facility] [employer] [facility] 3 10:15:36 Fatigue 70717314 Active 2022 Sydnee Sheldon MD [address], [address], [place], [address] , [employer] [facility] [employer] [facility] 3 07:39:25 Dysuria 03847136 Active 2022 Sydnee Sheldon MD [address], [address], [place], [address] , [employer] [facility] [employer] [facility] 3 15:32:24 Overactive urinary bladder 310940872 Active 2022 UDAY Hayward [address], [address], [place], [address] , [employer] [facility] [employer] [facility] 3 09:38:42 Compressio n fracture of lumbar spine 203874890 Active 2022 Sydnee Sheldon MD [address], [address], [place], [address] , [employer] 3 11:46:41 Osteoarthr itis of multiple joints 234315060 Active 2022 Dmitry Kent [employer] [address], [address], [place], [address] , [facility] 3 16:17:44 Mixed anxiety and depressive disorder 443373105 Active 2023 Dmitry Kent, [employer]UCATION [employer] [address], [address], [place], [address] , [facility] 4 15:33:38 Hyponatrem ia 92060797 Active 2023 Dmitry Kent, [employer]UCATION [employer] [address], [address], [place], [address] , [employer] 4 10:54:43 Dark stools 55733587 Active 2023 Dmitry Kent [employer]ICAL EDUCATION 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 Procedures Surgical History Date Name Laterality Status Provider Name and Address Organization Details Recorded Time 10/13/19 Medicare Wellness CPT Code, Initial completed Vera Bañuelos RN [employer] 10/09/2022 12:04:59 12/10/19 Total knee arthroplasty completed [...] n nausea Not available Not available 09/30/2022 46552 RxNorm Not Available [facility] [...] 1 ml IM x 1 11/02 completed ndc-0 [id number] -01 Not Available Not Available Not [...] administe red by the provider 10/24 completed [facility]: 0409- [id number]- 17 Not Available Not Available [...] Not Available No t Available Fluzone High-Dose 6992-7470 (PF) 180 mcg/0.5 mL intramuscul ar syringe 08/10 completed Not Available Not Available Not Available Neuriva Plus 2021 active Not Available Not Available Not Avai lable Vitals Date Recorded Body height Body mass index (BMI) Body weight Body temperature Heart rate Oxygen saturation Systolic And Diastolic Provider Name and Address Organization Details Last Updated DateTime 4 154.94 cm 29.1 kg/m2 01891.2 2 g 97.1 [degF] 60 /min 98 % 108/60 mm[Hg] Ariadne Talley RN [facility] [employer] [facility] 4 15:20:49 Date Recorded Body height Body mass index (BMI) Body weight Body temperature Heart rate Oxygen saturation Systolic And Diastolic Provider Name and Address Organization Details Last Updated DateTime 4 154.94 cm 29.3 kg/m2 75897.8 2 g 96.5 [degF] 78 /min 91 % 126/64 mm[Hg] Ariadne Talley RN [facility] [employer] [facility] 4 10:24:22 Date Recorded Body height Body mass index (BMI) Body weight Body temperature Heart rate Oxygen saturation Systolic And Diastolic Provider Name and Address Organization Details Last Updated DateTime 4 154.94 cm 28.5 kg/m2 94184.4 5 g 97.9 [degF] 79 /min 98 % 176/100 mm[Hg] Katerina De Leon RN [facility] [employer] [facility] 4 16:41:39 Date Recorded Body height Body mass index (BMI) Body weight Body temperature Heart rate Oxygen saturation Systolic And Diastolic Provider Name and Address Organization Details Last Updated DateTime 4 154.94 cm 28.7 kg/m2 30000.0 4 g 98.1 [degF] 68 /min 91 % 174/88 mm[Hg] Ariadne Talley RN [facility] [employer] [facility] 4 15:23:48 Social History Question Answer Notes LastModified by Organizat ion Details LastModified Time Tobacco Smoking Status Former Smoker Not Available [facility] 09/30/2022 00:40:47 Do You Have An Advance Directive? Yes Information not available 10/09/2022 Are You Blind Or Do You Have Difficulty Seeing? No [id number] Information not available 09/30/2022 What Is Your Level Of Caffeine Consumption? Moderate [id number] Information not available 09/30/2022 How Much Tobacco Do You Chew? None [id number].[id number] Information not available 09/30/2022 In The 14 Days Before Symptom Onset, Have You Had Close Contact With A Laboratory-confir med COVID-19 While That Case Was Ill? No [id number].[id number] Information not available 09/30/2022 In The 14 Days Before Symptom Onset, Have You Had Close Contact With A Person Who Is Under Investigation For COVID-19 While That Person Was Ill? No [id number].[id number] Information not available 09/30/2022 Are You Deaf Or Do You Have Serious Difficulty Hearing? No MIGRATION.87800 [id number] Information not available 09/30/2022 What Type Of Diet Are You Following? REGULAR MIGRATION.08853 [id number] Information not available 09/30/2022 Which Illicit Or Recreational Drugs Have You Used? None MIGRATION.[id number] [id number] Information not available 09/30/2022 Are There Any Guns Present In Your Home? No MIGRATION.78677 [id number] Information not available 09/30/2022 Do You Use [...] Much Tobacco Do You Smoke? 1 PPD MIGRATION.62201 53958 Information not available 09/30/2022 Do You Use Sunscreen Routinely? No MIGRATION.34268 26069 Information not available 09/30/2022 Has Tobacco Cessation Counseling Been Provided? No Information not available 10/09/2022 How Many Years Have You Smoked Tobacco? 40 MIGRATION.51819 18188 Information not available 09/30/2022 Have You Recently Traveled Abroad? No MIGRATION.24695 73304 Information not available 09/30/2022 Do You Have Difficulty Walking Or Climbing Stairs? Yes MIGRATION.59447 76021 Information not available 09/30/2022 Do You Have Any Dietary Restrictions? No MIGRATION.93075 19939 Information not available 09/30/2022 Sex: Unknown Functional Status Question Answer Note LastModified by Organizat ion Details LastModified Time Do you use any illicit or recreational drugs? No Information not available 10/09/2022 Do you or have you ever used any other forms of tobacco or nicotine? No Information not available 10/09/2022 What is your level of alcohol consumption? None MIGRATION.44548 81419 Information not available 09/30/2022 Do you or have you ever used smokeless tobacco? Never used smokeless tobacco MIGRATION.03620 06215 Information not available 09/30/2022 Do you have transportation difficulties? No Information not available 10/09/2022 Are you able to walk independently without assistance or assistive devices? YESASSIST Patient stated she uses a walker at times. Information not available 10/09/2022 Do you have difficulty doing errands alone? No MIGRATION.93218 [id number] Information not available 09/30/2022 Are you able to care for yourself independently? Yes Information not available 10/09/2022 What is your occupation? retired MIGRATION.79336 65561 Information not available 09/30/2022 Do you have difficulty dressing, bathing, grooming, or toileting? No MIGRATION.45201 90410 Information not available 09/30/2022 Do you or have you ever used e-cigarettes or vape? Never used electronic cigarettes MIGRATION.97660 [id number] Information not available 09/30/2022 What is your exercise level? Occasional Information not available 10/09/2022 Mental Status Question Answer Note LastModified by Organization D etails LastModified Time Do you have difficulty concentrating, remembering or making decisions? No Information no t available 10/09/2022 Family History Relationship Description Onset Age of this Age Resolved Age Notes LastModified by Organization Details LastModified Time Mother Heart disease [id number] Not available 09/30/2022 00:42:10 Mother Family history of stroke [id number] Not available 09/30/2022 00:42:10 Mother Hypertensive disorder [id number] Not available 09/30/2022 00:42:10 Notes:No breast, colon, ovar y Medical History Condition Response BLINDNESS N RHEUMATIC FEVER N KIDNEY STONES N BLADDER PROBLEMS N MRSA N OTHER # 1 N POLIO N LUNG DISEASE/DISORDER N COPD N RADIATION / CHEMOTHERAPY N Other # 2 N BLOOD DISEASES N SURGERY N EAR OR HEARING PROBLEMS N MUMPS N BOWEL PROBLEMS N FEMALE PROBLEMS / INFECTIONS N DEPRESSION (INCLUDING POST ) N STROKE/TIA N THYROID DISEASE N ULCERS Y BENIGN PROSTATIC HYPERPLASIA N MEASLES N CERVICALGIA N TB SKIN TEST N MYOCARDIAL INFARCTION N OBESITY N PARAP[place]IA N GERD/NAUSEA N ANEURYSM N URINARY/BLADDER/KIDNEY PROBLEMS [...] GLAUCOMA N FOOT PROBLEM N DIVERTICULITIS N CHICKENPOX N SLEEP APNEA N ALLERGIES/HAYFEVER N INFECTIOUS DISEASE N HEART ARRHYTHMIA N PROSTATE N INSOMNIA N HIGH CHOLESTEROL / HYPERLIPIDEMIA N HYPERTHYROIDISM N EYE PROBLEMS N EATING DISORDER N NEUROLOGICAL PROBLEMS N EDEMA N CHRONIC PAIN SYNDROME N HYPOTHYROIDISM N CAROTID BLOCKAGE N CONSTIPATION N BACK / NECK PROBLEMS N HAVE YOU BEEN HOSPITALIZED OR SEEN IN [facility] IN THE PAST YEAR ? N ATHEROSCLEROSIS [...] N PAIN N HERPES N DEMENTIA N HEADACHES/MIGRAINES N SEIZURES/EPILEPSY N VASCULAR DISEASE N PACEMAKER N DIZZINESS N HEART DISEASE/HEART PROBLEMS N KIDNEY DISEASE N DEVELOPMENTAL OR BEHAVIORAL DISORDERS N MULTIPLE SCLEROSIS N SCARLET FEVER N MENTAL DISORDER/ILLNESS N CARDIAC ARRHYTHMIA N CANCER: SPECIFY N PNEUMONIA N ATRIAL FIBRILLATION N Gall [...] quadrivalent, PF 3 completed FAITH Wyman [address] [facility], [facility] [address], [place], [address], [facility]) 06/03/2023 08:34:15 SARS-COV-2 (COVID-19) vaccine, UNSPECIFIED 1 [...] high-dose, trivalent, PF 7 completed Not Available [facility] 09/30/2022 00:51:06 Past Encounters Encounter ID Performer Location Encounter Start Date Encounter Closed Date Diagnosis/Indication Diagnosis SNOMED-CT Code Diagnosis ICD10 Code Diagnosis IMO Codes Diagnosis Note [id number] Sydnee Sheldon MD [facility] [place] [address] [place] [address] 10/24/2020 00:00:00 10/29/2020 10:02:29 [id number] LYDIA Garcia S[facility] [place] [address] [place] [address] 11/08/2020 00:00:00 11/08/2020 22:15:11 [id number] Sydnee Sheldon MD [facility] [place] [address] [place] [address] 11/21/2020 00:00:00 11/21/2020 09:38:25 [id number] Sydnee Sheldon MD [facility] [place] [address] [place] [address] 12/05/2020 00:00:00 12/05/2020 12:53:23 [id number] LYDIA Garcia [facility] [place] [address] [place] [address] 12/24/2020 00:00:00 12/24/2020 16:40:11 [id number] LYDIA Garcia [facility] [place] [address] [facility] [address] [place] [address] 01/09/2021 00:00:00 01/09/2021 13:32:52 [id number] Sydnee Sheldon MD [facility] Primary [facility] [place] [address] [place] [address] 01/16/2021 00:00:00 01/16/2021 12:31:41 [id number] Sydnee Sheldon MD [facility] Primary [facility] [place] [address] [facility] [address] [place] [address] 2021 00:00:00 2021 12:59:18 [id number] Sydnee Sheldon MD [facility] [place] [address] [place] [address] 03/17/2021 00:00:00 03/17/2021 12:34:16 [id number] Sydnee Sheldon MD [facility] [place] [address] [place] [address] 03/20/2021 00:00:00 03/20/2021 11:42:27 [id number] Sydnee Sheldon MD [facility] [place] [address] [place] [address] 04/21/2021 00:00:00 04/21/2021 12:58:45 [id number] UDAY Hayward [facility] [place] [address] [place] [address] 05/02/2021 00:00:00 05/02/2021 15:26:49 [id number] Sydnee Sheldon MD [facility] [place] [address] [place] [address] 05/26/2021 00:00:00 05/26/2021 21:12:04 [id number] Sydnee Sheldon MD [facility] [place] [address] [place] [address] 08/18/2021 00:00:00 08/18/2021 19:08:19 [id number] Sydnee Sheldon MD [facility] [place] [address] [place] [address] 08/20/2021 00:00:00 08/21/2021 20:05:43 [id number] Sydnee Sheldon MD [facility] [place] [address] [place] [address] 08/26/2021 00:00:00 08/26/2021 11:33:47 [id number] Sydnee Sheldon MD [facility] [place] [address] [place] [address] 08/29/2021 00:00:00 09/01/2021 11:52:15 [id number] UDAY Hayward [facility] [place] [address] [place] [address] 11/04/2021 00:00:00 11/04/2021 11:36:55 [id number] UDAY Hayward [facility] [place] [address] [place] [address] 11/25/2021 00:00:00 11/25/2021 15:34:44 [id number] UDAY Hayward [facility] [place] [address] [place] [address] 11/28/2021 00:00:00 11/28/2021 13:04:10 [id number] UDAY Hayward [facility] [place] [address] [place] [address] 01/19/2022 00:00:00 01/19/2022 08:36:13 [id number] UDAY Hayward [facility] [place] [address] [place] [address] 02/27/2022 00:00:00 02/27/2022 12:12:06 [id number] UDAY Hayward [facility] [place] [address] [place] [address] 03/16/2022 00:00:00 03/16/2022 12:51:07 [id number] Sydnee Sheldon MD [facility] [place] [address] [place] [address] 05/06/2022 00:00:00 05/06/2022 14:04:06 [id number] UDAY Hayward [facility] [place] [address] [place] [address] 05/29/2022 00:00:00 05/29/2022 12:26:59 [id number] Arjun Lund MD [facility] Ortho Roya Packer [address] [place] [address] 07/08/2022 00:00:00 07/12/2022 13:49:33 [id number] UDAY Hayward [facility] Primary Care [address] [place] [address] 10/12/2022 09:50:54 10/12/2022 10:31:21 Adult health examination [id number] Z00.00 Labs up to date.Recom mended routine eye exams, has dentures. Colonoscop y- not indicatedM ammogram- not indicatedD EXA- not indicated Screening for disorder [id number] Z13.9 Perioral dermatitis [id number] [id number] L71.0 Chronic back pain 121255 002 G89.29 Pt. would like to change hydrocodon e script to 7.5mg QID, advised of max. 30mg daily new controlled substance policy. [id number] LYDIA Garcia [facility] Primary Care [address] [place] [address] 01/01/2023 11:24:14 01/01/2023 11:57:57 [id number] Sydnee Sheldon MD [facility] Primary [address] [place] [address] 01/13/2023 09:13:33 01/13/2023 11:30:32 Overactive urinary bladder [id number] N32.81 Urine showed no infection, problem has been ongoing for months.Dimple l do trial of oxybutynin , discussed stopping fluids early before bedtime.If still no improvemen t will send referral to urogyn. Fatigue [id number] R53.83 All labs normal. B12 has slightly [...] sure to stay active, maintain healthy lifestyle. [id number] Sydnee Sheldon MD [facility] Care [address] [place] [address] 05/04/2023 15:44:12 06/10/2023 09:54:37 [id number] Sydnee Sheldon MD [facility] Primary Care [address] [place] [address] 06/02/2023 15:38:56 06/02/2023 16:34:55 Essential hypertension 58616433 I10 -pt currently takes carvedilol , hctz, and losartan, clonidine prn for systolic over 160-bp noted to be 160/88-No CHOU, CP, SOB, can note some dizziness when bp gets too high-encou raged to limit c-will increase carvedilol to 12.5mg-f/u in 1 month Osteoarthr itis of multiple joints [id number] M15.9 -notes pain/stiff ness to hands/fing ers is biggest issue-also had recent fall, fx noted to lumbar spine-surg jo pending-un able to take nsaids d/t being on eliquis-cu rrently seeing pain management and ortho for this issue-will order capsaicin topical cream for pain Administra tion of influenza vaccine 99997250 Z23 [id number] Sydnee Sheldon MD [facility] Primary Care [address] [place] [address] 07/07/2023 15:45:57 07/07/2023 16:19:18 Essential hypertension 58629440 I10 -bp today is 162/80, 63, no chou, cp, sob-tries to limit her salt intake-dri nks 8 glasses of water/day- continues to take the carvedilol , hctz, losartan daily, and prn clonidine- will increase carvedilol to 25mg/day-p t to f/u as needed [id number] LYDIA Wyman-C [facility] Primary Care [address] [place] [address] 08/05/2023 14:50:11 08/05/2023 15:21:44 Essential hypertension 55822065 I10 -bp 150/82, 56, does note some dizziness occasional ly-drinks 8 glasses of water/day- continues to take the carvedilol , hctz, losartan daily-cari ng amlodipine 5mg daily-will stop carvedilol 25 and and start-f/u in 1 month [id number] FAITH Wyman [facility] Primary Care [facility] [address] [facility] [address] [place] [address] 09/07/2023 15:14:32 09/07/2023 16:02:50 Essential hypertension 74426240 I10 -chronic, stable-bp 108/60, 60 no chou/cp/sob- continues to note good intake of water-she has been feeling more fatigue lately-dimple l stop carvedilol 12.5 and restart 6.25mg BID Mixed anxi ety and depressive disorder [id number] F41.8 -pt currently takes escitalopr am 20mg daily-she would like to try something different- trial venlafaxin e 75mg daily Screening for disorder 801408890 Z13.9 [id number] Sydnee Sheldon MD [facility] Primary Care [facility] [address] [facility] [address] [place] [address] 10/07/2023 10:17:00 10/07/2023 11:12:34 Hyponatremia 83840935 E87.1 -new issue, low sodium noted on 09-07-22 (126)-labs redrawn-ad ding sodium if continues to be low-f/u in 1 month [id number] Sydene Sheldon MD [facility] Primary Care [facility] [address] [facility] [address] [place] [address] 11/29/2023 16:34:34 11/29/2023 17:08:46 Mixed anxiety and depressive disorder [id number] F41.8 this month, mood not in good controlinc rease venlafaxin e ER 150 mg daily with foodf/u in 6 weeks Essential hypertension 01015821 I10 check home bps 2x per weekelevat ed today but this month and she has not been tracking her home readingsco ntinue carvedilol 6.25 mg po bid, amlodipine 5 mg daily, losartan 100 mg and hctz 25 mg dailyf/u in 6 weeks Hyponatremia 60210460 E8 7.1 Iron defic iency anemia 97228605 D50.9 D51.0 [id number] FAITH Wyman [facility] Primary Care [facility] [address] [facility] [address] [place] [address] 01/19/2024 15:15:43 01/19/2024 16:58:56 Fatigue 73342467 R53.83 noting fatigue Screening for disorder [id number] Z13.9 Vitamin D deficiency 347 82804 E55.9 Thyroid di sorder screening 871019190 Z13.29 Dark stools 47422865 R19 .5 -really dark stools for the last few days-feeli ng tired/fati gued-decli alicia colonoscop y-encourag ed increase water intake, natural fiber Bone density finding 385 401896 M85.80 -pt told in [place] that she has low bone densitity- trial alendronat e 70mg [id number] FAITH Wyman [facility] Primary Care [facility] [address] [facility] [address] [place] [address] 01/25/2024 11:09:35 01/25/2024 12:24:02 Health Concerns Section Related Observation LastModified by Organization Detai ls LastModified Time None Recorded Concern Status LastModified by Organization Details LastModified Time None Recorded Advance Directives Directive Y: Payers Insurance Date Sequence Insurance Name Policy Number Policy Felipe Covered Member ID Felipe Member ID Guarantor Name 03/25/2024 1 [employer] (MEDICARE REPLACEMENT/A DVANTAGE - PPO) [id number] Lauren Brown Boner [id number] Lauren Kevin Boner 03/25/2024 2 [place] Lauren Boner [id number] Lauren Kevin Boner Notes Date Note Type Note Provider Name and Address Organization Details Recorded Time 09/07/2023 text/html pt is here for med f/u FAITH Wyman [address] [facility], [facility] [address], [place], [address], [facility] 09/07/2023 17:58:51 10/07/2023 text/html pt is here to f/u on low sodium Dmitry LYDIA Kent-Derick [address], [place], [address], [employer] 10/07/2023 12:02:41 11/29/2023 text/html ROS as noted in the HPI here to f/u on htn on 11/11/23 and everything has been in an uproar but she is taking her medications as prescribed. Home readings are generally good, but no readings in the past week. Sydnee Sheldon MD [address], [address], [place], [address], [employer] 12/19/2023 15:26:21 01/19/2024 text/html pt is here for f/u LYDIA Wyman-C [address], [address], [place], [address], [employer] 01/19/2024 15:50:10 OBGyn Episode No OBEpisode recorded.
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
--- OUTSIDE RECORDS SUMMARY | 2025-07-30 12:52 | XMS_ITS | Encounter Summary ---
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 Name Role Phone Veronica Hendrix MD Primary Care Provider [phone] None, Provider Primary Care Provider Nancy Gutierrez MD Primary Care Provider [phone] Joshua Hermosillo MD Primary Care Provider [phone] Encounter Details Date Type Department Care Team (Latest Contact Info) Description 06/07/2018 Abstract [facility] Aristides Lauren MD Social History Tobacco Use Types Packs/Day Years Used Date Smoking Tobacco: Never Assessed Comments Unknown Sex and Gender Information Value Date Recorded Sex Assigned at Female 09/21/2024 7:[address] 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 Sex Female 4:33 PM CDT Gender Identity Not on file Sexual Orientation Not on file documented as of this encounter Plan of Treatment Not on file documented as of this encounter Visit Diagnoses Not on filedocumented in this encounter Care Teams Steam Conditioner Operator Relationship Specialty Start Date End Date Veronica Hendrix MD PCP - General 04/01/16 04/22/21 None, ProviderMD PCP - General 04/23/21 04/23/21 Nancy Dale MD [address] [phone] PCP - General 08/10/24 08/10/24 Joshua Hermosillo MD [address] [facility] [address] [place] [address] PCP - General INTERNAL MEDICINE 08/11/24 documented as of this encounter
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
--- OUTSIDE RECORDS SUMMARY | 2025-07-30 12:53 | XMS_ITS | Encounter Summary ---
Author Organization [facility] Address [address] [place] [address] Care Team Providers Care Frame Trimmer Name Role Phone Keith Ribeiro Primary Care Provider Sydnee Ashraf MD Primary Care Provider [phone] Encounter Details Date Type Department Care Team (Late st Contact [facility]) Description 04/04/2019 Telephone [facility] [address] [place], [place] [id number] Vahe Garcia MD [address] 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 [phone] PCP - General 04/18/19 documented as of this encounter
--- OUTSIDE RECORDS SUMMARY | 2025-07-30 12:53 | XMS_ITS | Data Portability ---
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 oxybutynin which Osteoporosis 46610579 M8 1.0 took fosamax only for a month and hence stopped.ca lcium and vitamin d replacemen t reviewed with the patient Thoracic back pain 95064 8004 M54.6 on and off intermitte nt pains [id number] Joshua Hermosillo MD [facility] [address] [facility] [address] [place] [address] 06/21/2024 15:22:39 06/21/2024 15:59:58 Preventive procedure 202097232 Z29.9 covid: 3 shots, 2023flu: 2022, [id number]; 2018, recommend [id number] les: none: recommende dRSV: recommende dColonosco py: many years ago. age prohibitiv eMammogram many years ago. age prohibitiv parker density: 06/25: osteoporos isdiscusse d vaccinatio n with the patient and reviewed the vaccinatio n status Osteoporosis 04822410 M8 1.0 took fosamax only for a month and hence stopped due to nausea.caron cium and vitamin d replacemen t reviewed with the patientbon e density 05/25: osteoporos is.trial of lower dose of alendronat e.discusse d calcium and vitamin D. discussed with the patient Fatigue 58451368 R53.83 ongoing since past 3 weeks.not sleeping at nightlikel y etiologyla bs were unremarkab le 03/25 Overactive urinary bladder 226810863 N32.81 recent urine is negative.r echeck was negative.l ikely overactive bladdersta rted on oxybutynin which is helping Anemia 432305572 D64.9 hb low at 10.3. vitamin b12, foalte is normaliron level goodnormoc ytic normochron oic anemia.no ckd noted.no blood in stool Essential hypertension 93896398 I10 on amlodipine carvedilol , hctz, losartanbp optimalblo od work reviewed Osteoarthritis 134700469 M19.90 multiple joints. Involved Gastroesop hageal reflux disease 682964896 K21.9 on omeprazole History of total hip arthroplasty 8864242445 06 Z96.649 hx of bilateral hip arthroplas ty History of bilateral total knee replacement 6091864623 509177 Z96.653 hx of bilateral knee replacemen t Degenerati on of lumbar intervertebral disc 92542825 M51.360 multiple lumbar spine surgeries in the pasthx of vertebropl astyxr lumbar spine with ddd, no acute fracture Paresthesia of hand 3090 07894 R20.2 left hand in carpal tunnel distributi onlikely due to chronic wrist deformity due to old fracturesw ill increase gabapnetin to 1-0.5-1 History of recurrent deep vein thrombosis 8783065129 09140 Z86.718 last one 2012.3 episodeson elqiuis 2.5 mg bid 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 Fracture of femur 442003 00 S72.92XS History of left femur fracture and has a isabell placement. Thoracic back pain 86539 8004 M54.6 on and off intermitte nt painsxr thoracic spine done but not completed [id number] Joshua Hermosillo MD [facility] [address] [place] [address] 07/20/2024 12:02:06 07/20/2024 13:08:42 Osteoporosis 53191985 M81.0 took fosamax only for a month and hence stopped due to nauseacalc ium and vitamin d replacemen t reviewed with the patientbon e density 05/25: osteoporos is.trial of lower dose of alendronat e and tolerating welldiscus sed calcium and vitamin D. discussed with the patient Thoracic back pain 08807 8004 M54.6 on and off intermitte nt painsxr thoracic spine done but has been done but not received it talked to [facility] medical records.xr thoracic spine with multilevel ddd, but no fracture noted Fatigue 91181057 R53.83 ongoing since past 3 weeks.not sleeping at nightlikel y etiologyla bs were unremarkab le 03/25 Overactive urinary bladder 925560536 N32.81 recent urine is negative.r echeck was negative.l ikely overactive bladdersta rted on oxybutynin which is helping Anemia 113635399 D64.9 hb low at 10.3. vitamin b12, folate is normaliron level goodnormoc ytic normochron ic anemia.no ckd noted.no blood in stool Essential hypertension 62500908 I10 on amlodipine carvedilol , hctz, losartanbp optimalblo od work reviewed Osteoarthritis 459304310 M19.90 multiple joints. Involved Gastroesop hageal reflux disease 105528502 K21.9 on omeprazole History of total hip arthroplasty 1860201030 06 Z96.649 hx of bilateral hip arthroplas ty History of bilateral total knee replacement 9605599098 655911 Z96.653 hx of bilateral knee replacemen t Degenerati on of lumbar intervertebral disc 49035825 M51.360 multiple lumbar spine surgeries in the pasthx of vertebropl astyxr lumbar spine with ddd, no acute fracture Paresthesia of hand 3090 09575 R20.2 left hand in carpal tunnel distributi onlikely due to chronic wrist deformity due to old fracturesw ill increase gabapentin to 1-0.5-1 History of recurrent deep vein thrombosis 2344466666 93040 Z86.718 last one 2013.3 episodeson eliquis 2.5 mg bid 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 Fracture of femur 707857 00 S72.92XS History of left femur fracture and has a isabell placement. Preventive procedure 169 195999 Z29.9 covid: 3 shots, 2023flu: 2022, [id number]; 2018, recommend [id number] les: none: recommende dRSV: recommende dColonosco py: many years ago. age prohibitiv eMammogram many years ago. age prohibitiv parker density: 06/25: osteoporos isdiscusse d vaccinatio n with the patient and reviewed the vaccinatio n status [id number] Joshua Hermosillo MD 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 [facility] ct [facility] Osteoporosis 06523616 M8 1.0 took fosamax only for a month and hence stopped due to nauseacalc ium and vitamin d replacemen t reviewed with the patientbon e density 05/25: osteoporos is.trial of lower dose of alendronat e and tolerating welldiscus sed calcium and vitamin D. discussed with the patient Thoracic back pain 34003 8004 M54.6 on and off intermitte nt painsxr thoracic spine done but has been done but not received it talked to [facility] medical records.xr thoracic spine with multilevel ddd, but no fracture noted Fatigue 52258119 R53.83 ongoing since past 3 weeks.not sleeping at nightlikel y etiologyla bs were unremarkab le 03/25 Overactive urinary bladder 318967604 N32.81 recent urine is negative.r echeck was negative.l ikely overactive bladdersta rted on oxybutynin which is helping Anemia 610133711 D64.9 hb low at 10.3. vitamin b12, folate is normaliron level goodnormoc ytic normochron ic anemia.no ckd noted.no blood in stool Essential hypertension 17187675 I10 on amlodipine carvedilol , hctz, losartanbp optimalblo od work reviewed Osteoarthritis 253866307 M19.90 multiple joints. Involved Gastroesop hageal reflux disease 257868403 K21.9 on omeprazole History of total hip arthroplasty 6281534732 06 Z96.649 hx of bilateral hip arthroplas ty History of bilateral total knee replacement 3138251220 120745 Z96.653 hx of bilateral knee replacemen t Degenerati on of lumbar intervertebral disc 70278236 M51.360 multiple lumbar spine surgeries in the pasthx of vertebropl astyxr lumbar spine with ddd, no acute fracture Paresthesia of hand 3090 68224 R20.2 left hand in carpal tunnel distributi onlikely due to chronic wrist deformity due to old fracturesw ill increase gabapentin to 1-0.5-1 History of recurrent deep vein thrombosis 5334247770 58591 Z86.718 last one 2012.3 episodeson eliquis 2.5 mg bid 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 Fracture of femur 839614 00 S72.92XS History of left femur fracture and has a isabell placement. Preventive procedure 169 621162 Z29.9 covid: 3 shots, 2023flu: 2022, [id number]; 2018, recommend [id number] les: none: recommende dRSV: recommende dColonosco py: many years ago. age prohibitiv eMammogram many years ago. age prohibitiv parker density: 06/25: osteoporos isdiscusse d vaccinatio n with the patient and reviewed the vaccinatio n status [id number] Joshua Hermosillo MD [facility] [address] [place] [address] 09/15/2024 11:16:18 09/15/2024 11:58:42 Traumatic intracranial subdural hematoma 695512332 S06.5X0D fall 07/2024.2024 started having right sided weaknessct head with left falx subdural hematomael iquid stoppedshe takes this for recurrent dvtdiscuss ed risk and beneftis due to recurrent fallsshe stoppped stop eliquis nowfu with neurosurge ry discussed. repeat ct [facility] t[facility] which is discharged nowokay to drive. discused with the patient Osteoporosis 29891079 M8 1.0 took fosamax only for a month and hence stopped due to nauseacalc ium and vitamin d replacemen t reviewed with the patientbon e density 05/25: osteoporos is.trial of lower dose of alendronat e and tolerating welldiscus sed calcium and vitamin D. discussed with the patient Thoracic back pain 61232 8004 M54.6 on and off intermitte nt painsxr thoracic spine done but has been done but not received it talked to [facility] medical records.xr thoracic spine with multilevel ddd, but no fracture noted Fatigue 92071417 R53.83 ongoing since past 3 weeks.not sleeping at nightlikel y etiologyla bs were unremarkab le 03/25 Overactive urinary bladder 132234187 N32.81 recent urine is negative.r echeck was negative.l ikely overactive bladdersta rted on oxybutynin which is helping Anemia 327961788 D64.9 hb low at 10.3. vitamin b12, folate is normaliron level goodnormoc ytic normochron ic anemia.no ckd noted.no blood in stool Essential hypertension 46571835 I10 on amlodipine carvedilol , hctz, losartanbp optimalblo od work reviewed Osteoarthritis 545341642 M19.90 multiple joints. Involved Gastroesop hageal reflux disease 458361742 K21.9 on omeprazole History of total hip arthroplasty 4155052345 06 Z96.649 hx of bilateral hip arthroplas ty History of bilateral total knee replacement 7203722643 370006 Z96.653 hx of bilateral knee replacemen t Degenerati on of lumbar intervertebral disc 56635569 M51.360 multiple lumbar spine surgeries in the pasthx of vertebropl astyxr lumbar spine with ddd, no acute fracture Paresthesia of hand 3090 66070 R20.2 left hand in carpal tunnel distributi onlikely due to chronic wrist deformity due to old fracturesw ill increase gabapentin to 1-0.5-1 History of recurrent deep vein thrombosis 9768111120 37475 Z86.718 last one 2013.3 episodeson eliquis 2.5 mg bidnow stay off eliquis due to brain bleed 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 Fracture of femur 612943 00 S72.92XS History of left femur fracture and has a isabell placement. Preventive procedure 169 426752 Z29.9 covid: 3 shots, 2023flu: 2022, [id number]; 2018, recommend [id number] les: none: recommende dRSV: recommende dColonosco py: many years ago. age prohibitiv eMammogram many years ago. age prohibitiv parker density: 06/25: osteoporos isdiscusse d vaccinatio n with the patient and reviewed the vaccinatio n status [id number] Joshua Hermosillo, MD [facility] [address] [place] [address] 09/29/2024 14:23:19 09/29/2024 15:59:32 Pain of right shoulder joint 2080812879 2433910 M25.511 hx of rotator cuff surgerynow with fall and injury to right shoulderwi ll further evaluate with MRI shoulderus e sling for nowuse hydrocodon e prn for now for pain control may use q4hrs.if MRI does not go through, will order CT shoulder right Contusion of orbital tissue of right eye 6538320745 1857763 S05.11XD multiple bruises due to the fall noted Fracture of orbit 026357 07 S02.121D ffracture of lateral orbital wall with fall noted on ct face/head Closed fra cture of right maxilla 3410091222 3905134 S02.40CD fracture of right maxillary sinusgoign to see ENT next week Fall W19.XXXD fall is mechanical fallrecent subdural hematoma as well.off anticoagul ation now Traumatic intracranial subdural hematoma 115290401 S06.5X0D fall 07/2024.2024 started having right sided weaknessct head with left falx subdural hematomael iquid stoppedshe takes this for recurrent dvtdiscuss ed risk and beneftis due to recurrent fallsshe stoppped stop eliquis nowfu with neurosurge ry discussed. repeat ct 09/[facility] which is discharged now Osteoporosis 16821727 M8 1.0 took fosamax only for a month and hence stopped due to nauseacalc ium and vitamin d replacemen t reviewed with the patientbon e density 05/25: osteoporos is.trial of lower dose of alendronat e and tolerating welldiscus sed calcium and vitamin D. discussed with the patient Thoracic back pain 91436 8004 M54.6 on and off intermitte nt painsxr thoracic spine done but has been done but not received it talked to [facility] medical records.xr thoracic spine with multilevel ddd, but no fracture noted Fatigue 32533451 R53.83 ongoing since past 3 weeks.not sleeping at nightlikel y etiologyla bs were unremarkab le 03/25 Overactive urinary bladder 168891937 N32.81 recent urine is negative.r echeck was negative.l adithya overactive bladdersta rted on oxybutynin which is helping Anemia 460457155 D64.9 hb low at 10.3. vitamin b12, folate is normaliron level goodnormoc ytic normochron ic anemia.no ckd noted.no blood in stool Essential hypertension 25928105 I10 on amlodipine carvedilol , hctz, losartanbp optimalblo od work reviewed Osteoarthritis 079274538 M19.90 multiple joints. Involved Gastroesop hageal reflux disease 618550383 K21.9 on omeprazole History of total hip arthroplasty 8269815503 06 Z96.649 hx of bilateral hip arthroplas ty History of bilateral total knee replacement 6322982205 905008 Z96.653 hx of bilateral knee replacemen t Degenerati on of lumbar intervertebral disc 00451757 M51.360 multiple lumbar spine surgeries in the pasthx of vertebropl astyxr lumbar spine with ddd, no acute fracture Paresthesia of hand 3090 78756 R20.2 left hand in carpal tunnel distributi onlikely due to chronic wrist deformity due to old fracturesw ill increase gabapentin to 1-0.5-1 History of recurrent deep vein thrombosis 7660763394 75376 Z86.718 last one 2013.3 episodeson eliquis 2.5 mg bidnow stay off eliquis due to brain bleed 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 Fracture of femur 930567 00 S72.92XS History of left femur fracture and has a isabell placement. Preventive procedure 169 174271 Z29.9 covid: 3 shots, 2023flu: 2022, 4467fck50; 2018, recommend [id number] les: none: recommende dRSV: recommende dColonosco py: many years ago. age prohibitiv eMammogram many years ago. age prohibitiv parker density: 06/25: osteoporos isdiscusse d vaccinatio n with the patient and reviewed the vaccinatio n status Right rota tor cuff syndrome 8813801126 04407 M75.101 s/p rigth shoulder reverse rotator cuff surgery 2021 [id number] Joshua Hermosillo MD [facility] [address] [facility] [address] [place] [address] 10/05/2024 15:18:08 10/05/2024 15:51:01 Pain of right shoulder joint 5032311856 2067507 M25.511 hx of rotator cuff surgerynow with [...] further evaluation Right rota tor cuff syndrome 4250288285 85660 M75.101 s/p rigth shoulder reverse rotator cuff surgery 2021 Contusion of orbital tissue of right eye 6130584237 5504776 S05.11XD multiple bruises due to the fall noted Fracture of orbit 602500 07 S02.121D ffracture of lateral orbital wall with fall noted on ct face/head Closed fra cture of right maxilla 0611671630 4222702 S02.40CD fracture of right maxillary sinusgoign to see ENT next week for further evaluation Fall W19.XXXD fall is mechanical fallrecent subdural hematoma as well.off anticoagul ation now Traumatic intracranial subdural hematoma 352646819 S06.5X0D fall 07/2024.2024 started having right sided weaknessct head with left falx subdural hematomael iquid stoppedshe takes this for recurrent dvtdiscuss ed risk and beneftis due to recurrent fallsshe stoppped stop eliquis nowfu with neurosurge ry discussed. repeat ct 09/26: [facility] t[facility] which is discharged now Osteoporosis 94752128 M8 1.0 took fosamax only for a month and hence stopped due to nauseacalc ium and vitamin d replacemen t reviewed with the patientbon e density 05/25: osteoporos is.trial of lower dose of alendronat e and tolerating welldiscus sed calcium and vitamin D. discussed with the patient Thoracic back pain 32327 8004 M54.6 on and off intermitte nt painsxr thoracic spine done but has been done but not received it talked to [facility] medical records.xr thoracic spine with multilevel ddd, but no fracture noted Fatigue 75768513 R53.83 ongoing since past 3 weeks.not sleeping at nightlikel y etiologyla bs were unremarkab le 03/25 Overactive urinary bladder 281560360 N32.81 recent urine is negative.r echeck was negative.l ikely overactive bladdersta rted on oxybutynin which is helping Anemia 455354691 D64.9 hb low at 10.3. vitamin b12, folate is normaliron level goodnormoc ytic normochron ic anemia.no ckd noted.no blood in stool Essential hypertension 22018820 I10 on amlodipine carvedilol , hctz, losartanbp optimalblo od work reviewed Osteoarthritis 552989437 M19.90 multiple joints. Involved Gastroesop hageal reflux disease 263355527 K21.9 on omeprazole History of total hip arthroplasty 2121970745 06 Z96.649 hx of bilateral hip arthroplas ty History of bilateral total knee replacement 0143208479 522718 Z96.653 hx of bilateral knee replacemen t Degenerati on of lumbar intervertebral disc 18512268 M51.360 multiple lumbar spine surgeries in the pasthx of vertebropl astyxr lumbar spine with ddd, no acute fracture Paresthesia of hand 3090 60268 R20.2 left hand in carpal tunnel distributi onlikely due to chronic wrist deformity due to old fracturesw ill increase gabapentin to 1-0.5-1 History of recurrent deep vein thrombosis 2552493614 51301 Z86.718 last one 2012.3 episodeson eliquis 2.5 mg bidnow stay off eliquis due to brain bleed 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 Fracture of femur 793120 00 S72.92XS History of left femur fracture and has a isabell placement. Preventive procedure 169 628456 Z29.9 covid: 3 shots, 2023flu: 2022, [id number]; 2018, recommend [id number] les: none: recommende dRSV: recommende dColonosco py: many years ago. age prohibitiv eMammogram many years ago. age prohibitiv parker density: 06/25: osteoporos isdiscusse d vaccinatio n with the patient and reviewed the vaccinatio n status [id number] Joshua Hermosillo MD [facility] [address] [facility] [address] [place] [address] 11/14/2024 14:32:56 11/14/2024 15:42:38 Right rotator cuff syndrome 9396916413 24851 M75.101 s/p rigth shoulder reverse rotator cuff surgery 2021 Contusion of orbital tissue of right eye 7131476678 7059190 S05.11XD multiple bruises due to the fall noted Fracture of orbit 565761 07 S02.121D ffracture of lateral orbital wall with fall noted on ct face/head Closed fra cture of right maxilla 8919132561 9455901 S02.40CD fracture of right maxillary sinusent consulted. no surgery recommedne d Fall W19.XXXD fall is mechanical fallrecent subdural hematoma as well.off anticoagul ation now Traumatic intracranial subdural hematoma 545368207 S06.5X0D fall 07/2024.2024 started having right sided weaknessct head with left falx subdural hematomael iquid stoppedshe takes this for recurrent dvtdiscuss ed risk and beneftis due to recurrent fallsshe stoppped stop eliquis nowfu with neurosurge ry discussed. repeat ct [facility] which is discharged now Osteoporosis 67058455 M8 1.0 took fosamax only for a month and hence stopped due to nauseacalc ium and vitamin d replacemen t reviewed with the patientbon e density 05/25: osteoporos is.trial of lower dose of alendronat e and tolerating welldiscus sed calcium and vitamin D. discussed with the patient Thoracic back pain 52444 8004 M54.6 on and off intermitte nt painsxr thoracic spine done but has been done but not received it talked to [facility] medical records.xr thoracic spine with multilevel ddd, but no fracture noted Fatigue 11454927 R53.83 ongoing since past 3 weeks.not sleeping at nightlikel y etiologyla bs were unremarkab le 03/25 Overactive urinary bladder 379872236 N32.81 recent urine is negative.r echeck was negative.l ikely overactive bladdersta rted on oxybutynin which is helping Anemia 969778599 D64.9 hb low at 10.3. vitamin b12, folate is normaliron level goodnormoc ytic normochron ic anemia.no ckd noted.no blood in stool Essential hypertension 69447450 I10 on amlodipine carvedilol , hctz, losartanbp optimalblo od work reviewed Osteoarthritis 585605123 M19.90 multiple joints. Involved Gastroesop hageal reflux disease 415884561 K21.9 on omeprazole History of total hip arthroplasty 9889782478 06 Z96.649 hx of bilateral hip arthroplas ty History of bilateral total knee replacement 2991308655 569421 Z96.653 hx of bilateral knee replacemen t Degenerati on of lumbar intervertebral disc 62048086 M51.360 multiple lumbar spine surgeries in the pasthx of vertebropl astyxr lumbar spine with ddd, no acute fracture Paresthesia of hand 3090 66287 R20.2 left hand in carpal tunnel distributi onlikely due to chronic wrist deformity due to old fracturesw ill increase gabapentin to 1-0.5-1 History of recurrent deep vein thrombosis 1195155254 51300 Z86.718 last one 2012.3 episodeson eliquis 2.5 mg bidnow stay off eliquis due to brain bleed 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 Fracture of femur 102352 00 S72.92XS History of left femur fracture and has a isabell placement. Preventive procedure 169 289278 Z29.9 covid: 3 shots, 2023flu: 2022, [id number]; 2018, recommend [id number] les: none: recommende dRSV: recommende dColonosco py: many years ago. age prohibitiv eMammogram many years ago. age prohibitiv parker density: 06/25: osteoporos isdiscusse d vaccinatio n with the patient and reviewed the vaccinatio n status Rotator cu ff arthropathy of right shoulder 4455568543 0718188 M25.811 hx of rotator cuff surgerynow with [...] orthopedic s seen: [facility] [id number] Joshua Hermosillo MD [facility] [address] [address] [place] [address] 12/14/2024 11:06:37 12/14/2024 11:41:52 Rotator cuff arthropathy of right shoulder 5575393692 7623028 M25.811 S42.124D hx of rotator cuff surgerynow [...] few weeks Right rota tor cuff syndrome 0812590196 66066 M75.101 s/p right shoulder reverse rotator cuff surgery 2021 Traumatic intracranial subdural hematoma 539077573 S06.5X0D fall 07/2024.2024 started having right sided weaknessct head with left falx subdural hematomael iquid stoppedshe takes this for recurrent dvtdiscuss ed risk and beneftis due to recurrent fallsshe stoppped stop eliquis nowfu with neurosurge ry discussed. repeat ct 09/26: [facility] which is discharged now Osteoporosis 67329445 M8 1.0 took fosamax only for a month and hence stopped due to nauseacalc ium and vitamin d replacemen t reviewed with the patientbon e density 05/25: osteoporos is.trial of lower dose of alendronat e and tolerating welldiscus sed calcium and vitamin D. discussed with the patient Thoracic back pain 74613 8004 M54.6 on and off intermitte nt painsxr thoracic spine done but has been done but not received it talked to [facility] medical records.xr thoracic spine with multilevel ddd, but no fracture noted Fatigue 33058164 R53.83 ongoing since past 3 weeks.not sleeping at nightlikel y etiologyla bs were unremarkab le 03/25 Overactive urinary bladder 755344054 N32.81 recent urine is negative.r echeck was negative.l ikely overactive bladdersta rted on oxybutynin which is helping Anemia 571722014 D64.9 hb low at 10.3. vitamin b12, folate is normaliron level goodnormoc ytic normochron ic anemia.no ckd noted.no blood in stool Essential hypertension 57303951 I10 on amlodipine carvedilol , hctz, losartanbp optimalblo od work reviewed Osteoarthritis 335073527 M19.90 multiple joints. Involved Gastroesop hageal reflux disease 452627438 K21.9 on omeprazole History of total hip arthroplasty 9568564188 06 Z96.649 hx of bilateral hip arthroplas ty History of bilateral total knee replacement 6612472264 013758 Z96.653 hx of bilateral knee replacemen t Degenerati on of lumbar intervertebral disc 71369129 M51.360 multiple lumbar spine surgeries in the pasthx of vertebropl astyxr lumbar spine with ddd, no acute fracture Paresthesia of hand 3090 74469 R20.2 left hand in carpal tunnel distributi onlikely due to chronic wrist deformity due to old fracturesw ill increase gabapentin to 1-0.5-1wil l increase gabapnetin to 800 mg bid, she is currently on 600 mg bid History of recurrent deep vein thrombosis 0103365435 25510 Z86.718 last one 2012.3 episodeson eliquis 2.5 mg bidnow stay off eliquis due to brain bleed 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 Fracture of femur 378393 00 S72.92XS History of left femur fracture and has a isabell placement. Preventive procedure 169 262187 Z29.9 covid: 3 shots, 2023flu: 2022, [id number]; 2018, recommend [id number] les: none: recommende dRSV: recommende dColonosco py: many years ago. age prohibitiv eMammogram many years ago. age prohibitiv parker density: 06/25: osteoporos isdiscusse d vaccinatio n with the patient and reviewed the vaccinatio n status [id number] Joshua Hermosillo MD [facility] [address] [facility] [address] [place] [address] 01/10/2025 15:15:01 01/10/2025 16:35:14 Rotator cuff arthropathy of right shoulder 3489499763 8318270 M25.811 S42.124D hx of rotator cuff surgerynow [...] activityim proving. Right rota tor cuff syndrome 1355569377 90642 M75.101 s/p right shoulder reverse rotator cuff surgery 2021 Traumatic intracranial subdural hematoma 745092893 S06.5X0D fall 07/2024.2024 started having right sided weaknessct head with left falx subdural hematomael iquid stoppedshe takes this for recurrent dvtdiscuss ed risk and beneftis due to recurrent fallsshe stoppped stop eliquis nowfu with neurosurge ry discussed. repeat ct 09/26: [facility] t[facility] which is discharged now Osteoporosis 78380666 M8 1.0 took fosamax only for a month and hence stopped due to nauseacalc ium and vitamin d replacemen t reviewed with the patientbon e density 05/25: osteoporos is.trial of lower dose of alendronat e and tolerating welldiscus sed calcium and vitamin D. discussed with the patient Thoracic back pain 71207 8004 M54.6 on and off intermitte nt painsxr thoracic spine done but has been done but not received it talked to [facility] medical records.xr thoracic spine with multilevel ddd, but no fracture noted Fatigue 29326525 R53.83 ongoing since past 3 weeks.not sleeping at nightlikel y etiologyla bs were unremarkab le 03/25 Overactive urinary bladder 306650195 N32.81 recent urine is negative.r echeck was negative.l ikely overactive bladdersta rted on oxybutynin which is helping Anemia 905086175 D64.9 hb low at 10.3. vitamin b12, folate is normaliron level goodnormoc ytic normochron ic anemia.no ckd noted.no blood in stool Essential hypertension 21324705 I10 on amlodipine carvedilol , hctz, losartanbp optimalblo od work reviewed Osteoarthritis 374693651 M19.90 multiple joints. Involved Gastroesop hageal reflux disease 156956894 K21.9 on omeprazole History of total hip arthroplasty 9569526681 06 Z96.649 hx of bilateral hip arthroplas ty History of bilateral total knee replacement 8139376503 798372 Z96.653 hx of bilateral knee replacemen t Degenerati on of lumbar intervertebral disc 23000295 M51.360 multiple lumbar spine surgeries in the pasthx of vertebropl astyxr lumbar spine with ddd, no acute fracture Paresthesia of hand 3090 13451 R20.2 left hand in carpal tunnel distributi onlikely due to chronic wrist deformity due to old fracturesw ill increase gabapentin to 1-0.5-1inc reased gabapnetin to 800 mg bidhowefve r this is not helping muchwill send referralto dr. 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 Fracture of femur 770570 00 S72.92XS History of left femur fracture and has a isabell placement. Preventive procedure 169 470073 Z29.9 covid: 3 shots, 2023flu: 2022, [id number]; 2018, recommend [id number] les: none: recommende dRSV: recommende dColonosco py: many years ago. age prohibitiv eMammogram many years ago. age prohibitiv parker density: 06/25: osteoporos isdiscusse d vaccinatio n with the patient and reviewed the vaccinatio n status [id number] Joshua Hermosillo MD [facility] [address] [facility] [address] [place] [address] 02/08/2025 11:39:29 02/08/2025 12:53:06 Paresthesia of hand 087452441 R20.2 left hand in carpal tunnel distributi [...] Rotator cu ff arthropathy of right shoulder 3475153859 1575829 M25.811 S42.124D hx of rotator cuff surgerynow [...] activityim proving. Right rota tor cuff syndrome 1772608918 94381 M75.101 s/p right shoulder reverse rotator cuff surgery 2021 Traumatic intracranial subdural hematoma 882294382 S06.5X0D fall 07/2024.2024 started having right sided weaknessct head with left falx subdural hematomael iquid stoppedshe takes this for recurrent dvtdiscuss ed risk and beneftis due to recurrent fallsshe stoppped stop eliquis nowfu with neurosurge ry discussed. repeat ct 09/26: [facility] which is discharged now Osteoporosis 69306592 M8 1.0 took fosamax only for a month and hence stopped due to nauseacalc ium and vitamin d replacemen t reviewed with the patientbon e density 05/25: osteoporos is.trial of lower dose of alendronat e and tolerating welldiscus sed calcium and vitamin D. discussed with the patientninot michelle normal Thoracic back pain 53667 8004 M54.6 on and off intermitte nt painsxr thoracic spine done but has been done but not received it talked to [facility] medical records.xr thoracic spine with multilevel ddd, but no fracture noted Fatigue 30327008 R53.83 ongoing since past 3 weeks.not sleeping at nightlikel y etiologyla bs were unremarkab le 03/25 Overactive urinary bladder 141971219 N32.81 recent urine is negative.r echeck was negative.l ikely overactive bladdersta rted on oxybutynin which is helping Anemia 261636309 D64.9 hb low at 10.3. vitamin b12, folate is normaliron level goodnormoc ytic normochron ic anemia.no ckd noted.no blood in stoolferri tin 15.iron supplment Essential hypertension 80504663 I10 on amlodipine carvedilol , hctz, losartanbp optimalblo od work reviewed Osteoarthritis 309953626 M19.90 multiple joints. 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 Fracture of femur 822082 00 S72.92XS History of left femur fracture and has a isabell placement. Preventive procedure 169 731740 Z29.9 covid: 3 shots, 2023flu: 2022, [id number]; 2018, recommend [id number] les: none: recommende dRSV: recommende dColonosco py: many years ago. age prohibitiv eMammogram many years ago. age prohibitiv parker density: 06/25: osteoporos isdiscusse d vaccinatio n with the patient and reviewed the vaccinatio n status [id number] Joshua Hermosillo MD [facility] [address] [facility] [facility] [address] [place] [address] 03/08/2025 09:45:48 03/08/2025 10:26:08 Paresthesia of hand 860108651 R20.2 left hand in carpal tunnel distributi [...] Rotator cu ff arthropathy of right shoulder 5943997384 2202765 M25.811 S42.124D hx of rotator cuff surgerynow [...] activityim proving. Right rota tor cuff syndrome 5239454896 67644 M75.101 s/p right shoulder reverse rotator cuff surgery 2021 Traumatic intracranial subdural hematoma 742451229 S06.5X0D fall 07/2024.2024 started having right sided weaknessct head with left falx subdural hematomael iquid stoppedshe takes this for recurrent dvtdiscuss ed risk and beneftis due to recurrent fallsshe stoppped stop eliquis nowfu with neurosurge ry discussed. repeat ct 09/26: [facility] t[facility] which is discharged now Osteoporosis 64731678 M8 1.0 took fosamax only for a month and hence stopped due to nauseacalc ium and vitamin d replacemen t reviewed with the patientbon e density 05/25: osteoporos is.trial of lower dose of alendronat e and tolerating welldiscus sed calcium and vitamin D. discussed with the patientbronson martinez normal Thoracic back pain 10504 8004 M54.6 on and off intermitte nt painsxr thoracic spine done but has been done but not received it talked to [facility] medical records.xr thoracic spine with multilevel ddd, but no fracture noted Fatigue 84138891 R53.83 ongoing since past 3 weeks.not sleeping at nightlikel y etiologyla bs were unremarkab le 03/25 Overactive urinary bladder 800962110 N32.81 recent urine is negative.r echeck was negative.l ikely overactive bladdersta rted on oxybutynin which is helping Anemia 879325290 D64.9 hb low at 10.3. vitamin b12, folate is normaliron level goodnormoc ytic normochron ic anemia.no ckd noted.no blood in stoolferri tin 15.iron supplement hb stable at 10 Essential hypertension 36198148 I10 on amlodipine carvedilol , hctz, losartanbp optimalblo od work reviewedmi ld microalbum inuria: 126 from 141 improved Osteoarthritis 195149019 M19.90 multiple joints. 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 Fracture of femur 313368 00 S72.92XS History of left femur fracture and has a isabell placement. Preventive procedure 169 833383 Z29.9 covid: 3 shots, 2023flu: 2022, [id number]; 2018, recommend [id number] les: none: recommende dRSV: recommende dColonosco py: many years ago. age prohibitiv eMammogram many years ago. age prohibitiv parker density: 06/25: osteoporos isdiscusse d vaccinatio n with the patient and reviewed the vaccinatio n status Microalbuminuria 9463217 06 R80.9 925091 positive 141 2023 now down to 126continu e to monitorspe p upep pending at [facility] 01/2025 [id number] Joshua Hermosillo MD [facility] [address] [facility] [address] [place] [address] 04/11/2025 11:33:49 04/11/2025 13:10:05 Degeneration of lumbar intervertebral disc 40558517 M51.360 multiple lumbar spine surgeries in the pasthx of vertebropl astyxr lumbar spine with ddd, no acute fracture Paresthesia of hand 3090 49298 R20.2 left hand in carpal tunnel distributi onlikely due to chronic wrist deformity due to old fracturesw ill increase gabapentin to 1-0.5-1inc reased gabapnetin to 800 mg bidhowefve r this is not helping rishi send referralto dr. Kumar: nausea and stoppeddis [...] Rotator cu ff arthropathy of right shoulder 9669287678 5270994 M25.811 S42.124D hx of rotator cuff surgerynow [...] activityim proving. Right rota tor cuff syndrome 7700823720 55804 M75.101 s/p right shoulder reverse rotator cuff surgery 2021 Traumatic intracranial subdural hematoma 559038187 S06.5X0D fall 07/2024.2024 started having right sided weaknessct head with left falx subdural hematomael iquid stoppedshe takes this for recurrent dvtdiscuss ed risk and beneftis due to recurrent fallsshe stoppped stop eliquis nowfu with neurosurge ry discussed. repeat ct 09/26: [facility] t[facility] which is discharged now Osteoporosis 80964386 M8 1.0 took fosamax only for a month and hence stopped due to nauseacalc ium and vitamin d replacemen t reviewed with the patientbon e density 05/25: osteoporos is.trial of lower dose of alendronat e and tolerating welldiscus sed calcium and vitamin D. discussed with the patientbronson martinez normal Thoracic back pain 78342 8004 M54.6 on and off intermitte nt painsxr thoracic spine done but has been done but not received it talked to [facility] medical records.xr thoracic spine with multilevel ddd, but no fracture noted Fatigue 06637197 R53.83 ongoing since past 3 weeks.not sleeping at nightlikel y etiologyla bs were unremarkab le 03/25 Overactive urinary bladder 834619275 N32.81 recent urine is negative.r echeck was negative.l ikely overactive bladdersta rted on oxybutynin which is helping Anemia 227042473 D64.9 hb low at 10.3. vitamin b12, folate is normaliron level goodnormoc ytic normochron ic anemia.no ckd noted.no blood in stoolferri tin 15.iron supplement hb stable at 10 Essential hypertension 73528003 I10 on amlodipine carvedilol , hctz, losartanbp optimalblo od work reviewedmi ld microalbum inuria: 126 from 141 improved Osteoarthritis 472982025 M19.90 multiple joints. 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 Fracture of femur 575247 00 S72.92XS History of left femur fracture and has a isabell placement. Preventive procedure 169 584510 Z29.9 covid: 3 shots, 2023flu: 2022, [id number]; 2018, recommend [id number] les: none: recommende dRSV: recommende dColonosco py: many years ago. age prohibitiv eMammogram many years ago. age prohibitiv parker density: 06/25: osteoporos isdiscusse d vaccinatio n with the patient and reviewed the vaccinatio n status Microalbuminuria 5228051 06 R80.9 262532 positive 141 2023 now down to 126continu e to monitorspe p upep pending at [facility] 01/2025 Blood blister 124634950 T14.8XXA 154484 lanced and opened the blister. antibiotic cream and band aid place [id number] Joshua Hermosillo MD [facility] [address] [facility] [address] [place] [address] 05/11/2025 10:42:53 05/11/2025 12:24:31 Degeneration of lumbar intervertebral disc 17148260 M51.360 multiple lumbar spine surgeries in the pasthx of vertebropl astyxr lumbar spine with ddd, no acute fracture Paresthesia of hand 3090 36584 R20.2 left hand in carpal tunnel distributi [...] Rotator cu ff arthropathy of right shoulder 4818434574 7657564 M25.811 S42.124D hx of rotator cuff surgerynow [...] activityim proved Right rota tor cuff syndrome 5770335544 09682 M75.101 s/p right shoulder reverse rotator cuff surgery 2021 Traumatic intracranial subdural hematoma 204337091 S06.5X0D fall 07/2024.2024 started having right sided weaknessct head with left falx subdural hematomael iquid stoppedshe takes this for recurrent dvtdiscuss ed risk and beneftis due to recurrent fallsshe stoppped stop eliquis nowfu with neurosurge ry discussed. repeat ct 09/26: [facility] t[facility] which is discharged now Osteoporosis 32417063 M8 1.0 took fosamax only for a month and hence stopped due to nauseacalc ium and vitamin d replacemen t reviewed with the patientbon e density 05/25: osteoporos is.trial of lower dose of alendronat e and tolerating welldiscus sed calcium and vitamin D. discussed with the patientbronson martinez normal Thoracic back pain 63931 8004 M54.6 on and off intermitte nt painsxr thoracic spine done but has been done but not received it talked to [facility] medical records.xr thoracic spine with multilevel ddd, but no fracture noted Fatigue 52659811 R53.83 ongoing since past 3 weeks.not sleeping at nightlikel y etiologyla bs were unremarkab le 03/25 Overactive urinary bladder 939469942 N32.81 recent urine is negative.r echeck was negative.l ikely overactive bladdersta rted on oxybutynin which is helpingwil l switch to myrbetriq 25 mg daily Anemia 197666173 D64.9 hb low at 10.3. vitamin b12, folate is normaliron level goodnormoc ytic normochron ic anemia.no ckd noted.no blood in stoolferri tin 15.iron supplement hb stable at 10 Essential hypertension 69126816 I10 on amlodipine carvedilol , hctz, losartanbp optimalblo od work reviewedmi ld microalbum inuria: 126 from 141 improved Osteoarthritis 486792405 M19.90 multiple joints. 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 Fracture of femur 166729 00 S72.92XS History of left femur fracture and has a isabell placement. Preventive procedure 169 849255 Z29.9 covid: 3 shots, 2023flu: 2022, [id number]; 2018, PCV21: 11/24tdap: 11/24shingl es: 11/24,RSV: recommende dColonosco py: many years ago. age prohibitiv eMammogram many years ago. age prohibitiv parker density: 06/25: osteoporos isdiscusse d vaccinatio n with the patient and reviewed the vaccinatio n status Microalbuminuria 5161574 06 R80.9 190280 positive 141 2023 now down to 126continu e to monitorspe p upep pending at [facility] 01/2025 [id number] Joshua Hermosillo MD [facility] [address] [facility] [address] [place] [address] 06/08/2025 11:01:58 06/08/2025 11:46:40 Pain of knee region 9670049563 M25.561 04552330 injured right knee after a fallwill get xrayrigh knee is status post arthroplas ty Degenerati on of lumbar intervertebral disc 15964709 M51.360 multiple lumbar spine surgeries in the pasthx of vertebropl astyxr lumbar spine with ddd, no acute fracture Paresthesia of hand 3090 27308 R20.2 left hand in carpal tunnel distributi [...] Rotator cu ff arthropathy of right shoulder 0716027136 8826413 M25.811 S42.124D hx of rotator cuff surgerynow [...] activityim proved Right rota tor cuff syndrome 5810228100 75898 M75.101 s/p right shoulder reverse rotator cuff surgery 2021 Traumatic intracranial subdural hematoma 225645869 S06.5X0D fall 07/2024.2024 started having right sided weaknessct head with left falx subdural hematomael iquid stoppedshe takes this for recurrent dvtdiscuss ed risk and beneftis due to recurrent fallsshe stoppped stop eliquis nowfu with neurosurge ry discussed. repeat ct [facility] which is discharged now Osteoporosis 36716281 M8 1.0 took fosamax only for a month and hence stopped due to nauseacalc ium and vitamin d replacemen t reviewed with the patientbon e density 05/25: osteoporos is.trial of lower dose of alendronat e and tolerating welldiscus sed calcium and vitamin D. discussed with the patientbronson martinez normal Thoracic back pain 32260 8004 M54.6 on and off intermitte nt painsxr thoracic spine done but has been done but not received it talked to [facility] medical records.xr thoracic spine with multilevel ddd, but no fracture noted Fatigue 43677332 R53.83 ongoing since past 3 weeks.not sleeping at nightlikel y etiologyla bs were unremarkab le 03/25 Overactive urinary bladder 063510398 N32.81 recent urine is negative.r echeck was negative.l ikely overactive bladdersta rted on oxybutynin which is helpingswi tched to myrbetriq 25 mg daily and helps Anemia 611804119 D64.9 hb low at 10.3. vitamin b12, folate is normaliron level goodnormoc ytic normochron ic anemia.no ckd noted.no blood in stoolferri tin 15.iron supplement hb stable at 10 Essential hypertension 98679274 I10 on amlodipine carvedilol , hctz, losartanbp optimalblo od work reviewedmi ld microalbum inuria: 126 from 141 improved Osteoarthritis 220093243 M19.90 multiple joints. 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 Fracture of femur 283376 00 S72.92XS History of left femur fracture and has a isabell placement. Preventive procedure 169 775434 Z29.9 covid: 3 shots, 2023flu: 2022, [id number]; 2018, PCV21: 11/24tdap: 11/24shingl es: 11/24,RSV: recommende dColonosco py: many years ago. age prohibitiv eMammogram many years ago. age prohibitiv parker density: 06/25: osteoporos isdiscusse d vaccinatio n with the patient and reviewed the vaccinatio n status Microalbuminuria 8625347 06 R80.9 474295 positive 141 2023 now down to 126continu e to monitorspe p upep pending at [facility] 01/2025 [id number] Joshua Hermosillo MD [facility] [address] [place] [address] 07/06/2025 10:54:33 07/06/2025 12:00:54 Degeneration of lumbar intervertebral disc 66525517 M51.360 multiple lumbar spine surgeries in the pasthx of vertebropl astyxr lumbar spine with ddd, no acute fracture Paresthesia of hand 3090 18268 R20.2 left hand in carpal tunnel distributi onlikely due to chronic wrist deformity due to old fracturesw ill increase gabapentin to 1-0.5-1inc reased gabapnetin to 800 mg bidhowefve r this is not helping rishi send referralto dr. 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 repeat ct 09/26: [facility] which is discharged now Osteoporosis 07705930 M8 1.0 took fosamax only for a month and hence stopped due to nauseacalc ium and vitamin d replacemen t reviewed with the patientbon e density 05/25: osteoporos is.trial of lower dose of alendronat e and tolerating welldiscus sed calcium and vitamin D. discussed with the patientbronson martinez normal Thoracic back pain 75530 8004 M54.6 on and off intermitte nt painsxr thoracic spine done but has been done but not received it talked to [facility] medical records.xr thoracic spine with multilevel ddd, but no fracture noted Fatigue 30294139 R53.83 ongoing since past 3 weeks.not sleeping at nightlikel y etiologyla bs were unremarkab le 03/25 Overactive urinary bladder 513751000 N32.81 recent urine is negative.r echeck was negative.l ikely overactive bladdersta rted on oxybutynin which is helpingswi tched to myrbetriq 25 mg daily and helps Anemia 931536569 D64.9 hb low at 10.3. vitamin b12, folate is normaliron level goodnormoc ytic normochron ic anemia.no ckd noted.no blood in stoolferri tin 15.iron supplement hb stable at 10 Essential hypertension 79678884 I10 on amlodipine carvedilol , hctz, losartanbp optimalblo od work reviewedmi ld microalbum inuria: 126 from 141 improved Osteoarthritis 002816033 M19.90 multiple joints. 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 Fracture of femur 422940 00 S72.92XS History of left femur fracture and has a isabell placement. Preventive procedure 169 137510 Z29.9 covid: 3 shots, 2023flu: 2022, [id number]; 2018, PCV21: 11/24tdap: 11/24shingl es: 11/24,RSV: recommende dColonosco py: many years ago. age prohibitiv eMammogram many years ago. age prohibitiv parker density: 06/25: osteoporos is discussed vaccinatio n with the patient and reviewed the vaccinatio n status Microalbuminuria 3667683 06 R80.9 765248 positive 141 2023 now down to 126continu e to monitorspe p upep pending at [facility] 01/2025 Strain of knee 148320734 1 03 S86.911D 38319266 injured right knee after a fallxr with no acute findings.r igh knee is status post arthroplas ty Systolic murmur 78604866 R01.1 405257 noted systolic murmurasym ptomaticwi ll get echo Health Concerns Section Related Observation LastModified by Organization Detai ls LastModified Time None Recorded Concern Status LastModified by Organization Details LastModified Time None Recorded Advance Directives Directive None Recorded Payers Insurance Date Sequence Insurance Name Policy Number Policy Felipe Covered Member ID Felipe Member ID Guarantor Name 07/03/2025 2 [place] [employer] [place] Lauren D Boner [id number] Lauren D Boner 07/12/2025 1 [employer] (MEDICARE REPLACEMENT/A DVANTAGE - PPO) [id number] Lauren D Boner [id number] Lauren D Boner 02/08/2025 2 [place] Lauren D Boner [id number] Lauren D Boner Notes Date Note Type Note Provider Name and Address Organization Details Recorded Time 03/08/2025 text/html ROS as noted in the HPI Patient here for follow up. Shoulder pain improved. Patient complains about burning sensation in lower legs. Pt stopped taking Cymbalta due to upset stomach but has recently restarted taking it. Uses cane for ambulation. No chest pain, shortness of breath, nausea or vomiting. labs reviewed with the patient. Joshua Hermosillo, MD [address] [facility] [address], [place], [address], [facility] 03/08/2025 10:23:15 04/11/2025 text/html ROS as noted [...] pain, shortness of breath, nausea or vomiting. MD Rojas [address] [facility] [address], [place], [address], [facility] 04/11/2025 13:07:54 05/11/2025 text/html ROS as noted [...] well. Joshua Hermosillo MD [address] [facility] [address], [place], [address], [facility] 05/11/2025 12:19:33 06/08/2025 text/html ROS as noted in the HPI Pt here for med refill. Pt c/o twisting right knee 2 weeks ago. Right knee pain 01/09. Pt states she felt dizzy and light headed yesterday-blood pressure was 88/54. Denies taking extra medication. After eating supper and relaxing BP raised to 120/60. No chest pain, shortness of breath, nausea or vomiting. MD Rojas [address] [facility] [address], [place], [address], [facility] 06/08/2025 11:42:36 07/06/2025 text/html ROS as noted in the HPI Pt here for follow up. Pt states knee pain improved. Neuropathy pain in feet and hands slightly improving since she has been using neuropathy hand massager and feet massager daily. No falls noted. No chest pain, shortness of breath, nausea or vomiting. Joshua Hermosillo MD [address] [facility] [address], [place], [address], [facility] 07/06/2025 11:56:12 OBGyn Episode No OBEpisode recorded.
--- OUTSIDE RECORDS SUMMARY | 2025-07-30 12:53 | XMS_ITS | Clinical Summary ---
Author Organization [facility] Address [address] [place] [address] Care Team Providers Care Truck Leasing Manager Name Role Phone Sydnee Sheldon MD Primary Care Provider [phone] Source Comments [facility],non-owned Affiliates and Associated Physician Practices is amultiple site organization consisting of ambulatory clinics and hospital sitesin [place], [place], [place] and [place]. This disclosure is being madepursuant to the Care Everywhere program and may not contain all information available regarding this patient. 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 Gender Identity Not on file Sexual Orientation [...] this topic Medical Devices Implanted Type Area Drafter Engineering Device Identifier Shelf Expiration Date Model / Serial / Lot Graft Bone Magdi Frzdr Strut 11-24x2cm Implanted:Qty: 1 on 03/27/2019 by Vahe Garcia MD at [facility] Left: Hip [employer] 10/07/2022 [id number] / / [id number] Emily-Loc 4.5mm T25 Lock Screw 14mm S-T Implanted:Qty: 1 on 03/27/2019 by Vahe Garcia MD at [facility] Left: Hip [id number] / / Description:SCREW Screw 4.5mm 8mm 36mm T25 Cortx Slf-Tap Implanted:Qty: 1 on 03/27/2019 by Vahe Garcia MD at [facility] Left: Hip [employer] [id number] / / Description:EMILY-LOC 4.5MM T 25 CRTX SCREW 36MM S-T--03/30 LG Screw 4.5mm 8mm 34mm T25 Flut Lng Bone Implanted:Qty: 1 on 03/27/2019 by Vahe Garcia MD at [facility] Left: Hip [employer] [id number] / / Description:EMILY-LOC 4.5MM T 25 CRTX SCREW 34MM S-T--03/30 LG Cable Orth Ss 2mm Hip Clp Accord Implanted:Qty: 1 on 03/27/2019 by Vahe Garcia MD at [facility] Left: Hip [employer] 08/23/2028 [id number] / / [id number] Description:ACC 2.0MM SS CAB LE W/CLAMP - 03/30 LG Cable Orth Ss 2mm Hip Clp Accord Implanted:Qty: 1 on 03/27/2019 by Vahe Garcia MD at [facility] Left: Hip [employer] 10/26/2028 [id number] / / [id number] Description:ACC 2.0MM SS CAB LE W/CLAMP - 03/30 LG Cable Orth Ss 2mm Hip Clp Accord Implanted:Qty: 1 on 03/27/2019 by Vahe Garcia MD at [facility] Left: Hip [employer] 11/25/2028 [id number] / / [id number] Description:ACC 2.0MM SS CAB LE W/CLAMP - 03/30 LG Cable Orth Ss 2mm Hip Clp Accord Implanted:Qty: 1 on 03/27/2019 by Vahe Garcia MD at [facility] Left: Hip [employer] 11/25/2028 [id number] / / [id number] Description:ACC 2.0MM SS CAB LE W/CLAMP - 03/30 LG 4.5mm Prox Femur Lck Plate 12h L 288mm Implanted:Qty: 1 on 03/27/2019 by Vahe Garcia MD at [facility] Left: Hip [employer] [id number] / / Description:PLATE Screw 4.5mm 7.9mm 10mm T25 3 Ld Thrd 3 Implanted:Qty: 3 on 03/27/2019 by Vahe Garcia MD at [facility] Left: Hip [employer] [id number] / / Description:EMILY-LOC 4.5MM T 25 BLUNT TIP SCREW 10MM--03/30 LG Screw 4.5mm 7.9mm 38mm T25 Slf-Tap Lck Implanted:Qty: 1 on 03/27/2019 by Vahe Garcia MD at [facility] Left: Hip [employer] [id number] / / Cmnt Bone Rally 40gm Hvisc Sprmnt Grn Implanted:Qty: 3 on 12/09/2020 by Vahe Garcia MD at [facility] Left: Knee [employer] 03/01/2025 [id number] / / [id number] Compon Fem Legion Ps Oxin Narr L Sz 5 Implanted:Qty: 1 on 12/09/2020 by Vahe Garcia MD at [facility] Left: Knee [employer] 06/02/2030 [id number] / / [id number] Tibial Baseplate Implanted:Qty: 1 on 12/09/2020 by Vahe Garcia MD at [facility] Left: Knee [employer] 09/05/2029 [id number] / / [id number] Ins Lgn Ps Hi-Flex X-Link Sz 5-6 18mm Implanted:Qty: 1 on 12/09/2020 by Vahe Garcia MD at [facility] Left: Knee [employer] 03/19/2025 [id number] / / [id number] Explanted Type Area Drafter Engineering Device Identifier Shelf Expiration Date Model / Serial / Lot Cable Orth Ss 2mm Hip Clp Accord Explanted:Qty: 1 on 03/27/2019 by Vahe Garcia MD at [facility] Left: Hip [employer] 09/26/2028 [id number] / / [id number] Description:ACC 2.0MM SS CAB LE W/CLAMP - 03/30 LG Insurance [facility] MANAGED MEDICARE ADV [facility] MEDICARE ADV Advance Directives * Full Code (Latest Code Status on File) Date Activated Date Inactivated Comments 12/09/2020 3:39 PM 12/10/2020 5:00 PM * Full Code Date Activated Date Inactivated Comments 03/25/2019 2:00 PM 03/30/2019 7:48 PM * Full Code Date Activated Date Inactivated Comments 03/25/2019 12:21 PM 03/25/2019 2:00 PM Care Teams Truck Leasing Manager Relationship Specialty Start Date End Date Sydnee Sheldon MD [address] [place] [address] PCP - General 04/18/19
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
== END 2025-07-30 12:44 | disposition home or self-care (01) ==
PROVIDERS: PCP Internal Medicine; Visit Provider Internal Medicine
DX: R93.1 Abnormal findings on diagnostic imaging of heart and coronary circulation (principal); R01.1 Cardiac murmur, unspecified
CPT/HCPCS: 93306